=== PATIENT | male | born 1975 ===

== ENCOUNTER 2016-11-21 22:18 | Inpatient (IN) | payer BC, OTHER ==
--- NOTE | 2016-11-21 22:34 | ED PDOC ---
HPI: Skin/Bite Injury Time Seen by Provider: 11/21/16 22:28 Chief Complaint (Nursing): Abnormal Skin Integrity Chief Complaint (Provider): rash Additional Complaint(s): 40yo M DM and HTN for eval of inner groin pain/swelling/foul ordor x 2 weeks. denies fever chills body aches drainage penile or testicular swelling. admits to hx of similar 4x. denies fever, chills, pain in LE, CP SOB Past Medical History Reviewed: Historical Data, Nursing Documentation, Vital Signs Vital Signs: Last Vital Signs Temp 97.7 F 11/23/16 07:31 Pulse 71 11/23/16 09:03 Resp 18 11/23/16 07:31 BP 131/78 11/23/16 09:04 Pulse Ox 98 11/23/16 07:31 - Medical History PMH: Anemia, Diabetes, HTN, Hypercholesterolemia, Hyperlipidemia, Hypothyroidism , Peripheral Edema Denies: Arthritis, HIV, Chronic Kidney Disease - Family History Family History: States: Diabetes - Immunization History Hx Tetanus Toxoid Vaccination: No Hx Influenza Vaccination: No Hx Pneumococcal Vaccination: No - Home Medications Home Medications: Ambulatory Orders Medication Instructions Recorded Atorvastatin [Lipitor] 40 mg PO DAILY 10/04/15 Levothyroxine Sodium [Synthroid] 75 mcg PO DAILY 10/04/15 Losartan [Cozaar] 100 mg PO DAILY #0 tab 01/10/16 Furosemide [Lasix] 40 mg PO QAM #10 tab 03/01/16 Insulin Human Regular [HumuLIN R] 8 unit SC ACTID 03/01/16 Insulin Glargine,Hum.rec.anlog 43 units SUBCON HS 11/22/16 [Basaglar Kwikpen U-100] cloNIDine [Catapres] 0.2 mg PO BID 11/22/16 Clindamycin [Cleocin] 300 mg PO TID #30 cap 11/23/16 - Allergies Allergies/Adverse Reactions: Allergies Allergy/AdvReac Type Severity Reaction Status Date / Time No Known Allergies Allergy Verified 03/01/16 03:02 Review of Systems ROS Statement: Except As Marked, All Systems Reviewed And Found Negative Constitutional: Negative for: Fever, Chills, Malaise Musculoskeletal: Positive for: Leg Pain Physical Exam - Reviewed Nursing Documentation Reviewed: Yes Vital Signs Reviewed: Yes - Physical Exam Appears: Positive for: Well, Non-toxic, No Acute Distress Cardiovascular/Chest: Positive for: Regular Rate, Rhythm Respiratory: Positive for: CNT, Normal Breath Sounds Male Genital Exam: Positive for: other (left pelvic area. abscess noted to apex of scrtom/pannus. foul smell, beefy red pasthces with satellite lesions in inner thigh) Neurologic/Psych: Positive for: Alert, Oriented - Laboratory Results Result Diagrams: 11/23/16 06:00 11/23/16 06:00 - ECG O2 Sat by Pulse Oximetry: 100 - Progress ED Course And Treament: impression: abscess and neha will get US and given IV abx (considering pt is FM) and will get cbc/cmp/bld cx. Disposition - Clinical Impression Clinical Impression: Abscess, Neha infection of genital region, Renal failure - Patient ED Disposition Is Patient to be Admitted: No Counseled Patient/Family Regarding: Studies Performed, Diagnosis, Need For Followup, Rx Given - Disposition Disposition: Routine/Home Disposition Time: 13:16 Condition: STABLE Patient Signed Over To: Mark Laureano
[2016-11-21] MEDS ORDERED: Clindamycin 600 MG in Sodium Chloride 0.9% 100 ML IVPB STA (22:42)
--- NOTE | 2016-11-21 23:47 | US ---
EXAM: US Scrotum CLINICAL HISTORY: 40 years old, male; Pain; Scrotum pain; Additional info: Left testicular swelling ? abscess TECHNIQUE: Real-time ultrasound of the scrotum with color Doppler and image documentation. COMPARISON: No relevant prior studies available. FINDINGS: Right testicle: No mass. No torsion. Left testicle: No mass. No torsion. Epididymides: Unremarkable as visualized. Scrotum: Unremarkable. IMPRESSION: No sonographic evidence of testicular torsion.
--- NOTE | 2016-11-22 00:02 | ED PDOC ---
- Laboratory Results Result Diagrams: 11/22/16 08:20 11/22/16 10:00 - ECG O2 Sat by Pulse Oximetry: 100 - Progress ED Course And Treament: 0000 Signed out to me pending labs. 1424 Mass was aspirated of 3cc of purulent material under sterile conditions. Pt. reports good relief of pain following aspiration. Case d/w Dr. Islas, FP resident, and arrangements made for 23 hr observation. Disposition Discussed With : Ray Islas - Clinical Impression Clinical Impression: Abscess, Neha infection of genital region, Renal failure - POA Present On Arrival: None - Disposition Disposition: Hospitalized as Observation Patient Disposition Time: 02:25 Condition: STABLE
[2016-11-22 00:03] LABS: BASO # 0.1 K/uL (0.0-0.2); BASO % 0.8 % (0.0-2.0); EOS # 0.2 K/uL (0.0-0.7); EOS % 2.3 % (0.0-4.0); HEMATOCRIT 31.3 % (35.0-51.0); LYMPH # 2.3 K/uL (1.0-4.3); LYMPH % 26.8 % (20.0-40.0); MEAN CELL VOLUME 87.9 fl (80.0-94.0); MEAN CORPUSCULAR HEMOGLOBIN 29.1 pg (27.0-31.0); MEAN CORPUSCULAR HGB CONC 33.1 g/dL (33.0-37.0); MEAN PLATELET VOLUME 10.5 fl (7.2-11.7); MONO # 0.7 K/uL (0.0-0.8); MONO % 7.8 % (0.0-10.0); NEUT # 5.3 K/uL (1.8-7.0); NEUT % 62.3 % (50.0-75.0); RED CELL DISTRIBUTION WIDTH 14.2 % (11.5-14.5); WHITE BLOOD COUNT 8.6 K/uL (4.8-10.8)
[2016-11-22 00:19] LABS: ALB/GLOB RATIO 0.9 (1.0-2.1); BILIRUBIN,TOTAL 0.2 mg/dl (0.2-1.3); CALCIUM 8.1 mg/dL (8.4-10.2); POTASSIUM 4.3 MMOL/L (3.6-5.0); TOTAL PROTEIN 6.2 G/DL (6.3-8.2)
--- NOTE | 2016-11-22 02:33 | CP.PCM.HP ---
Addendum entered and electronically signed by Dale Shaver MD 11/22/16 13:57: Patient seen and evaluated this morning. Patient states feels well with minimal pain of left groin abscess. Patient reports following up with Dr. Davis for 4 months, unsure of status of kidney disease. Taking medications as prescribed. Patient states abscess has worsened x 2 weeks. No meds/abx taken. No fever, chills. Exam shows same including drainage of left inguinal abscess. Consulted Nephrology for further evaluation/management of renal disease. Call made out to Dr. Davis's office regarding patient and request for further information due to patient's change in renal function since last labs. Consulted Surgery for possible I&D of abscess. Warm compresses ordered as well. Monitor vitals and c/w Clindamycin as scheduled. Original Note: History of Present Illness - History of Present Illness History of Present Illness: 40yo M w/ h/o morbid obesity, IDDM, HTN, CKD (stage 3 per last documentation) presented initially to ED for evaluation of a small left inguinal region abscess which was drained successfully in the ED. Labwork revealed Cr of 4.7 today with no recent labs to compare. Last BMP from 2015. Upon further chart review from [facility], patient was seen 09/20 by a applications sales consultant in [facility], Dr Davis, urged to get renal labs, renal US and follow up in 1 month' s time. Patient has not gone back for the follow up appt due to ''losing his insurance'' ( per patient). Denies fever chills body aches drainage penile or testicular swelling, no hematuria, back pain States being compliant with current medications. PMD: Dr Jerome [facility] Nephro: Dr Davis ( [facility]) PMH: hypothyroidism, morbid obesity, IDDM, HTN, CKD (stage 3 per last documentation) Meds: per [facility] Clonidine HCl 0.2 MG Tablet Losartan Potassium 100 MG Tablet Basaglar KwikPen 100 UNIT/ML Solution Pen-injector Humulin R 100 UNIT/ML Solution Levothyroxine Sodium 75 MCG Tablet Atorvastatin Calcium 40 MG Tablet Allergies: NKDA ED Course: clinda IV x 1, Nystatin, Drainage of left inguinal abscess: 3 ml of purulent fluid drained in ED, BCx, labs: BUN Cr 75/4.7 GFR 17 VS: initial elevated BP attributed to wrong cuff size, repeat normotensive Present on Admission - Present on Admission Any Indicators Present on Admission: No History of DVT/PE: No History of Uncontrolled Diabetes: No Review of Systems - Review of Systems Review of Systems: see hpi Past Patient History - Infectious Disease Hx of Infectious Diseases: None - Tetanus Immunizations Tetanus Immunization: Unknown - Past Medical History & Family History Past Medical History?: Yes - Past Social History Smoking Status: Never Smoked - CARDIAC Hx Hypercholesterolemia: Yes Hx Hypertension: Yes Hx Peripheral Edema: Yes - PULMONARY Hx Respiratory Disorders: No - NEUROLOGICAL Hx Neurological Disorder: No - HEENT Hx HEENT Problems: Yes Hx Cataracts: Yes (Both eyes) - RENAL Hx Chronic Kidney Disease: No - ENDOCRINE/METABOLIC Hx Hypothyroidism: Yes - HEMATOLOGICAL/ONCOLOGICAL Hx Anemia: Yes Hx Human Immunodeficiency Virus (HIV): No - INTEGUMENTARY Hx Dermatological Problems: Yes Hx Camacho: Yes (2nd degree lower extremity) Hx Cellulitis: Yes Other/Comment: Hx Diabetic foot ulcer -right foot in past - MUSCULOSKELETAL/RHEUMATOLOGICAL Hx Arthritis: No - GASTROINTESTINAL Hx Gastrointestinal Disorders: No - GENITOURINARY/GYNECOLOGICAL Hx Urinary Tract Infection: Yes - PSYCHIATRIC Hx Psychophysiologic Disorder: No Hx Substance Use: No - SURGICAL HISTORY Hx Eye Surgery: Yes - ANESTHESIA Hx Anesthesia: Yes Hx Anesthesia Reactions: No Meds Allergies/Adverse Reactions: Allergies Allergy/AdvReac Type Severity Reaction Status Date / Time No Known Allergies Allergy Verified 03/01/16 03:02 Physical Exam - Constitutional Appears: No Acute Distress Additional comments: morbidly obese - Head Exam Head Exam: ATRAUMATIC - Eye Exam Eye Exam: EOMI, PERRL - ENT Exam ENT Exam: Mucous Membranes Moist - Cardiovascular Exam Cardiovascular Exam: +S1, +S2 - Expanded Exam Expanded Male exam: Positive for: erythema (left inguinal region: foul smell, beefy red pasthces with satellite lesions in inner thigh, s/p drainage of abscess, no more fluctance appreciated) - Extremities Exam Extremities exam: Positive for: pedal edema, pedal pulses present. Negative for : calf tenderness Additional comments: 2+ edema bilaterally + callous feet bilaterally - Neurological Exam Neurological exam: Alert, Oriented x3 - Skin Skin Exam: Dry, Normal Color, Warm Results - Vital Signs Recent Vital Signs: Last Vital Signs Temp 98.0 F 11/21/16 22:24 Pulse 87 11/21/16 23:59 Resp 16 11/21/16 22:24 BP 132/80 11/21/16 23:59 Pulse Ox 100 11/22/16 00:02 - Labs Result Diagrams: 11/21/16 23:59 11/21/16 23:59 Labs: Laboratory Results - last 24 hr 11/21/16 11/21/16 23:59 23:59 WBC 8.6 RBC 3.56 L Hgb 10.4 L Hct 31.3 L MCV 87.9 D MCH 29.1 MCHC 33.1 RDW 14.2 Plt Count 166 MPV 10.5 Neut % (Auto) 62.3 Lymph % (Auto) 26.8 [place] % (Auto) 7.8 Eos % (Auto) 2.3 Baso % (Auto) 0.8 Neut # 5.3 Lymph # 2.3 [place] # 0.7 Eos # 0.2 Baso # 0.1 Sodium 137 Potassium 4.3 Chloride 108 H Carbon Dioxide 20 L Anion Gap 13 BUN 75 H Creatinine 4.7 H Est GFR ( Amer) 17 Est GFR (Non-Af Amer) 14 Random Glucose 112 H Calcium 8.1 L Total Bilirubin 0.2 AST 38 ALT 40 Alkaline Phosphatase 94 Total Protein 6.2 L Albumin 2.9 L Globulin 3.3 Albumin/Globulin Ratio 0.9 L Assessment & Plan - Assessment and Plan (Free Text) Plan: 40yo M w/ h/o morbid obesity, IDDM, HTN, CKD (stage 3 per last documentation) presented initially to ED for evaluation of a small left inguinal region abscess which was drained successfully in the ED. Labwork revealed Cr of 4.7 today with no recent labs to compare. Admitted due to worsening of CKD CKD stage 4 2/2 diabetic nephropathy ED Course: labs: BUN Cr 75/4.7 GFR 17, stage 4 CKD VS: initial elevated BP attributed to wrong cuff size, repeat normotensive recent Renal US 09/20 reviewed: no stones, hydronephrosis, unremarkable c/w home meds laspriyank cozaar consider nephro consult in AM for worsening disease IDDM c/w with home insulin regimen HDSS while in house for additional coverage hypoglycemia protocol accuchecks ACHS HTN c/w Clonidine DVT PPx SCDs ambulates consider lovenox (renally dosed) if pt staying >24 hrs Diet diabetic, Na restricted renal
[2016-11-22] MEDS ORDERED: Dextrose 50% SYRINGE Inj (50 ml) IV PRN (02:53)
[2016-11-22] MEDS ORDERED: Glucagon Recombinant 1 mg Inj IM PRN (02:53)
[2016-11-22] MEDS: Levothyroxine 75 MCG TAB PO SCH (06:51)
[2016-11-22] MEDS: Insulin Lispro (humaLOG) 100 Units/ml Inj SC SCH ×4 (06:58→22:25)
[2016-11-22] MEDS: Insulin Regular 100 units/ml SC SCH ×3 (08:41→17:26)
[2016-11-22 10:18] LABS: HEMATOCRIT 30.6 % (35.0-51.0); MEAN CELL VOLUME 88.5 fl (80.0-94.0); MEAN CORPUSCULAR HEMOGLOBIN 29.4 pg (27.0-31.0); MEAN CORPUSCULAR HGB CONC 33.2 g/dL (33.0-37.0); MEAN PLATELET VOLUME 10.6 fl (7.2-11.7); RED CELL DISTRIBUTION WIDTH 13.8 % (11.5-14.5); WHITE BLOOD COUNT 10.6 K/uL (4.8-10.8)
[2016-11-22 11:58] LABS: ALB/GLOB RATIO 0.9 (1.0-2.1); BILIRUBIN,TOTAL 0.2 mg/dl (0.2-1.3); CALCIUM 8.4 mg/dL (8.4-10.2); POTASSIUM 4.7 MMOL/L (3.6-5.0); TOTAL PROTEIN 6.2 G/DL (6.3-8.2)
--- NOTE | 2016-11-22 13:27 | CP.PCM.CON ---
History of Present Illness - History of Present Illness History of Present Illness: 40 y/o male with Hx/o IDDM,HTN.morbid obesity, HLD is admitted for an inguinal abscess & had I&D yesterday Denies Hx/o eye problems, or kidney stones Renal consult is requested because of abnormal kidney functionPt states that he had seen Dr Davis ( [employer] ) as out patient; Previous labs reviewed, In Pts creat was 2.0 & had heavy peoteinuria. Past Patient History - Infectious Disease Hx of Infectious Diseases: None - Tetanus Immunizations Tetanus Immunization: Unknown - Past Medical History & Family History Past Medical History?: Yes - Past Social History Smoking Status: Never Smoked - CARDIAC Hx Cardiac Disorders: Yes Hx Hypercholesterolemia: Yes Hx Hypertension: Yes Hx Peripheral Edema: Yes - PULMONARY Hx Respiratory Disorders: No - NEUROLOGICAL Hx Neurological Disorder: No - HEENT Hx HEENT Problems: Yes Hx Cataracts: Yes (Both eyes) - RENAL Hx Chronic Kidney Disease: Yes Hx Renal Failure: Yes - ENDOCRINE/METABOLIC Hx Endocrine Disorders: Yes Hx Diabetes Mellitus Type 2: Yes Hx Hypothyroidism: Yes - HEMATOLOGICAL/ONCOLOGICAL Hx Blood Disorders: Yes Hx Anemia: Yes Hx Human Immunodeficiency Virus (HIV): No - INTEGUMENTARY Hx Dermatological Problems: Yes Hx Camacho: Yes (2nd degree lower extremity) Hx Cellulitis: Yes Other/Comment: Hx Diabetic foot ulcer -right foot in past - MUSCULOSKELETAL/RHEUMATOLOGICAL Hx Musculoskeletal Disorders: No Hx Falls: No - GASTROINTESTINAL Hx Gastrointestinal Disorders: No - GENITOURINARY/GYNECOLOGICAL Hx Genitourinary Disorders: Yes Hx Urinary Tract Infection: Yes - PSYCHIATRIC Hx Psychophysiologic Disorder: No Hx Substance Use: No - SURGICAL HISTORY Hx Surgeries: Yes Hx Eye Surgery: Yes - ANESTHESIA Hx Anesthesia: Yes Hx Anesthesia Reactions: No Hx Malignant Hyperthermia: No Has any member of the family had a problem w/ anesthesia?: No Meds Allergies/Adverse Reactions: Allergies Allergy/AdvReac Type Severity Reaction Status Date / Time No Known Allergies Allergy Verified 03/01/16 03:02 - Medications Medications: Current Medications Atorvastatin Calcium (Lipitor) 40 mg PO DAILY [facility] Last Admin: 11/22/16 08:42 Dose: 40 mg Clonidine HCl (Catapres) 0.2 mg PO BID [facility] Last Admin: 11/22/16 08:43 Dose: 0.2 mg Dextrose (Dextrose 50% Inj) 0 ml IV STAT PRN; Protocol PRN Reason: Hyglycemia Protocol Dextrose (Glutose 15) 0 gm PO ONCE PRN; Protocol PRN Reason: Hypoglycemia Protocol Furosemide (Lasix) 40 mg PO QAM [facility] Last Admin: 11/22/16 08:40 Dose: 40 mg Glucagon (Glucagen Diagnostic Kit) 0 mg IM STAT PRN; Protocol PRN Reason: Hypoglycemia Protocol Clindamycin Phosphate 600 mg/ (Sodium Chloride) 104 mls @ 104 mls/hr IVPB Q8 [facility] Insulin Detemir (Levemir) 43 units SC HS [facility] Insulin Human Lispro (Humalog) 0 units SC ACCU-CHECK [facility] PRN Reason: Protocol Last Admin: 11/22/16 06:58 Dose: Not Given Insulin Human Regular (Humulin R) 8 units SC ACTID [facility] Last Admin: 11/22/16 08:41 Dose: Not Given Levothyroxine Sodium (Synthroid) 75 mcg PO DAILY@0630 [facility] Last Admin: 11/22/16 06:51 Dose: 75 mcg Losartan Potassium (Cozaar) 100 mg PO DAILY [facility] Last Admin: 11/22/16 08:41 Dose: 100 mg Physical Exam - Constitutional Appears: No Acute Distress Additional comments: 40 y/o obese male NAD - Head Exam Head Exam: ATRAUMATIC, NORMOCEPHALIC - Eye Exam Additional comments: Conjunctivae pink, sclera anicteric - ENT Exam ENT Exam: Mucous Membranes Moist - Neck Exam Additional comments: JVD flat - Respiratory Exam Additional comments: Lunghs clear - Cardiovascular Exam Cardiovascular Exam: REGULAR RHYTHM - GI/Abdominal Exam GI & Abdominal Exam: Soft Additional comments: Abd nontender - Psychiatric Exam Additional comments: 2+ B/L pedal edema Results - Vital Signs Recent Vital Signs: Last Vital Signs Temp 97.9 F 11/22/16 08:34 Pulse 79 11/22/16 08:43 Resp 20 11/22/16 08:34 BP 158/92 H 11/22/16 08:43 Pulse Ox 98 11/22/16 08:34 - Labs Result Diagrams: 11/22/16 08:20 11/22/16 10:00 Assessment & Plan - Assessment and Plan (Free Text) Assessment: Pt most likely has diabetic nephropathy which has progressed to stage 1V kidney dis as suggested by estimated GFR A renal US was done in 09/2016 which showed Rt kid 8.1 cm Lt kidney 7,1 cm, echogenicity was reorted as normal HTN IDDM Inguinal abscess Plan: UA, urine prot/cret phos, PTH Control BP & continue with Losartan Repeat labs in am
[2016-11-22] MEDS: Clindamycin 600 MG in Sodium Chloride 0.9% 100 ML IVPB SCH (14:52)
--- NOTE | 2016-11-22 18:47 | CP.PCM.CON ---
<Geni Goodman - Last Filed: 11/22/16 18:41> History of Present Illness - History of Present Illness History of Present Illness: Surgery 40 M w PMH of DM, abscess on the R groin, obesity, Chronic kidney disease and PSH of I &D of abscesses came with L groin abscess. Pt reports that he started to notice the lump 2 weeks ago and it has gotten larger, more red and area is more painful. Denies F/C/N/V/D/CP/SOB. Pt had abscesses in the past before and had I &D done on R groin. Pt used warm compress in the past. Testicular US shows no testicular torsion. Pt is compliant with DM meds. Reports that ED aspirated yesterday and put out about 10cc puss. Area was still red and painful. I &D of L groin is performed on the bedside. Pt tolerated it well. Review of Systems - Review of Systems Review of Systems: See HPI Past Patient History - Infectious Disease Hx of Infectious Diseases: None - Tetanus Immunizations Tetanus Immunization: Unknown - Past Medical History & Family History Past Medical History?: Yes - Past Social History Smoking Status: Never Smoked - CARDIAC Hx Cardiac Disorders: Yes Hx Hypercholesterolemia: Yes Hx Hypertension: Yes Hx Peripheral Edema: Yes - PULMONARY Hx Respiratory Disorders: No - NEUROLOGICAL Hx Neurological Disorder: No - HEENT Hx HEENT Problems: Yes Hx Cataracts: Yes (Both eyes) - RENAL Hx Chronic Kidney Disease: Yes Hx Renal Failure: Yes - ENDOCRINE/METABOLIC Hx Endocrine Disorders: Yes Hx Diabetes Mellitus Type 2: Yes Hx Hypothyroidism: Yes - HEMATOLOGICAL/ONCOLOGICAL Hx Blood Disorders: Yes Hx Anemia: Yes Hx Human Immunodeficiency Virus (HIV): No - INTEGUMENTARY Hx Dermatological Problems: Yes Hx Camacho: Yes (2nd degree lower extremity) Hx Cellulitis: Yes Other/Comment: Hx Diabetic foot ulcer -right foot in past - MUSCULOSKELETAL/RHEUMATOLOGICAL Hx Musculoskeletal Disorders: No Hx Falls: No - GASTROINTESTINAL Hx Gastrointestinal Disorders: No - GENITOURINARY/GYNECOLOGICAL Hx Genitourinary Disorders: Yes Hx Urinary Tract Infection: Yes - PSYCHIATRIC Hx Psychophysiologic Disorder: No Hx Substance Use: No - SURGICAL HISTORY Hx Surgeries: Yes Hx Eye Surgery: Yes - ANESTHESIA Hx Anesthesia: Yes Hx Anesthesia Reactions: No Hx Malignant Hyperthermia: No Has any member of the family had a problem w/ anesthesia?: No Meds Allergies/Adverse Reactions: Allergies Allergy/AdvReac Type Severity Reaction Status Date / Time No Known Allergies Allergy Verified 03/01/16 03:02 - Medications Medications: Current Medications Atorvastatin Calcium (Lipitor) 40 mg PO DAILY [facility] Last Admin: 11/22/16 08:42 Dose: 40 mg Clonidine HCl (Catapres) 0.2 mg PO BID [facility] Last Admin: 11/22/16 17:23 Dose: 0.2 mg Dextrose (Dextrose 50% Inj) 0 ml IV STAT PRN; Protocol PRN Reason: Hyglycemia Protocol Dextrose (Glutose 15) 0 gm PO ONCE PRN; Protocol PRN Reason: Hypoglycemia Protocol Furosemide (Lasix) 40 mg PO QAM [facility] Last Admin: 11/22/16 08:40 Dose: 40 mg Glucagon (Glucagen Diagnostic Kit) 0 mg IM STAT PRN; Protocol PRN Reason: Hypoglycemia Protocol Clindamycin Phosphate 600 mg/ (Sodium Chloride) 104 mls @ 104 mls/hr IVPB Q8 [facility] Last Admin: 11/22/16 14:52 Dose: 104 mls/hr Insulin Detemir (Levemir) 43 units SC [facility] Insulin Human Lispro (Humalog) 0 units SC ACCU-CHECK [facility] PRN Reason: Protocol Last Admin: 11/22/16 17:21 Dose: 2 units Insulin Human Regular (Humulin R) 8 units SC ACTID [facility] Last Admin: 11/22/16 17:26 Dose: 8 units Levothyroxine Sodium (Synthroid) 75 mcg PO DAILY@0630 [facility] Last Admin: 11/22/16 06:51 Dose: 75 mcg Losartan Potassium (Cozaar) 100 mg PO DAILY [facility] Last Admin: 11/22/16 08:41 Dose: 100 mg Physical Exam - Constitutional Appears: No Acute Distress - Head Exam Head Exam: ATRAUMATIC, NORMAL INSPECTION, NORMOCEPHALIC - Eye Exam Eye Exam: EOMI, Normal appearance, PERRL Pupil Exam: NORMAL ACCOMODATION, PERRL - ENT Exam ENT Exam: Mucous Membranes Moist, Normal Exam - Neck Exam Neck exam: Positive for: Normal Inspection - Respiratory Exam Respiratory Exam: Clear to Auscultation Bilateral, NORMAL BREATHING PATTERN - Cardiovascular Exam Cardiovascular Exam: REGULAR RHYTHM - GI/Abdominal Exam GI & Abdominal Exam: Normal Bowel Sounds, Soft. absent: Distended, Tenderness - Exam Exam: Scrotal Swelling, Testicular Tenderness. absent: NORMAL INSPECTION, Uretheral Discharge External exam: Erythema, Swelling Additional comments: L scrotal area has 2cm erythema. Fluctuant. - Extremities Exam Extremities exam: Positive for: normal inspection - Back Exam Back exam: NORMAL INSPECTION - Neurological Exam Neurological exam: Alert, CN II-XII Intact, Normal Gait, Oriented x3, Reflexes Normal - Psychiatric Exam Psychiatric exam: Normal Affect, Normal Mood - Skin Skin Exam: Dry, Intact, Normal Color, Warm Results - Vital Signs Recent Vital Signs: Last Vital Signs Temp 98.3 F 11/22/16 16:19 Pulse 83 11/22/16 16:19 Resp 20 11/22/16 16:19 BP 149/87 11/22/16 17:23 Pulse Ox 96 11/22/16 16:19 - Labs Result Diagrams: 11/22/16 08:20 11/22/16 10:00 Labs: Laboratory Results - last 24 hr 11/22/16 11/22/16 16:00 16:14 POC Glucose (mg/dL) 171 H Phosphorus 5.5 H Assessment & Plan - Assessment and Plan (Free Text) Assessment: L groin abscess POD 0 s/p I&D -Packing in place. Change packing tomorrow -DM control -Pain control -Medical management DW Dr. Redding <Antoine Redding - Last Filed: 11/22/16 21:11> Meds - Medications Medications: Current Medications Atorvastatin Calcium (Lipitor) 40 mg PO DAILY [facility] Last Admin: 11/22/16 08:42 Dose: 40 mg Clonidine HCl (Catapres) 0.2 mg PO BID [facility] Last Admin: 11/22/16 17:23 Dose: 0.2 mg Dextrose (Dextrose 50% Inj) 0 ml IV STAT PRN; Protocol PRN Reason: Hyglycemia Protocol Dextrose (Glutose 15) 0 gm PO ONCE PRN; Protocol PRN Reason: Hypoglycemia Protocol Furosemide (Lasix) 40 mg PO QAM [facility] Last Admin: 11/22/16 08:40 Dose: 40 mg Glucagon (Glucagen Diagnostic Kit) 0 mg IM STAT PRN; Protocol PRN Reason: Hypoglycemia Protocol Clindamycin Phosphate 600 mg/ (Sodium Chloride) 104 mls @ 104 mls/hr IVPB Q8 [facility] Last Admin: 11/22/16 14:52 Dose: 104 mls/hr Insulin Detemir (Levemir) 43 units SC HS [facility] Insulin Human Lispro (Humalog) 0 units SC ACCU-CHECK [facility] PRN Reason: Protocol Last Admin: 11/22/16 17:21 Dose: 2 units Insulin Human Regular (Humulin R) 8 units SC ACTID [facility] Last Admin: 11/22/16 17:26 Dose: 8 units Levothyroxine Sodium (Synthroid) 75 mcg PO DAILY@0630 [facility] Last Admin: 11/22/16 06:51 Dose: 75 mcg Losartan Potassium (Cozaar) 100 mg PO DAILY [facility] Last Admin: 11/22/16 08:41 Dose: 100 mg Results - Vital Signs Recent Vital Signs: Last Vital Signs Temp 98.3 F 11/22/16 16:19 Pulse 83 11/22/16 16:19 Resp 20 11/22/16 16:19 BP 149/87 11/22/16 17:23 Pulse Ox 100 11/22/16 20:13 - Labs Result Diagrams: 11/22/16 08:20 11/22/16 10:00 Labs: Laboratory Results - last 24 hr 11/22/16 11/22/16 16:00 16:14 POC Glucose (mg/dL) 171 H Phosphorus 5.5 H Attending/Attestation - Attestation I have personally seen and examined this patient.: Yes I have fully participated in the care of the patient.: Yes I have reviewed all pertinent clinical information: Yes Notes (Text): 11/22/16 21:10 Pt was seen and examined at bedside Agree with above note and assessment Pt with Morbid Obesity and DM with Left groin abscess Labs reviewed. I & D at bedside Consent IV antibiotics Plan d.w pt in detail Risk and benefit explained in detail.
--- NOTE | 2016-11-22 18:55 | PCM.PROC ---
- Incision & Drainage Of Abscess Prep Used: Betadine Procedure: Incised W/Scalpel Blade#: (15), Drained Pus, Probed To Break Up Loculations, Packed W/Gauze
[2016-11-22] MEDS ORDERED: Insulin Detemir 100 Units/ml Inj SC SCH (22:00)
[2016-11-23] MEDS: Clindamycin 600 MG in Sodium Chloride 0.9% 100 ML IVPB SCH ×2 (01:07→09:03)
[2016-11-23] MEDS: Levothyroxine 75 MCG TAB PO SCH (05:58)
[2016-11-23 06:46] LABS: RBC URINE 2 /hpf (0-3); URINE BILIRUBIN NEGATIVE (NEGATIVE); URINE BLOOD SMALL (NEGATIVE); URINE COLOR YELLOW (YELLOW); URINE GLUCOSE (UA) 150 mg/dL (Normal); URINE KETONE NEGATIVE (NEGATIVE); URINE LEUKOCYTE ESTERASE NEG Leu/uL (Negative); URINE PROTEIN >=500 mg/dL (NEGATIVE); URINE UROBILINOGEN 0.2-1.0 mg/dL (0.2-1.0); WBC URINE 3 /hpf (0-5)
[2016-11-23 06:46] LABS: CREATININE, RANDOM URINE 90.6 mg/dL
[2016-11-23 07:31] VITALS: BP 131/78; RESP 18; TEMP 97.7
[2016-11-23 08:13] LABS: HEMATOCRIT 30.6 % (35.0-51.0); MEAN CELL VOLUME 87.6 fl (80.0-94.0); MEAN CORPUSCULAR HEMOGLOBIN 29.6 pg (27.0-31.0); MEAN CORPUSCULAR HGB CONC 33.8 g/dL (33.0-37.0); RED CELL DISTRIBUTION WIDTH 13.9 % (11.5-14.5); WHITE BLOOD COUNT 8.1 K/uL (4.8-10.8)
[2016-11-23] MEDS: Insulin Lispro (humaLOG) 100 Units/ml Inj SC SCH ×2 (08:22→12:42)
[2016-11-23] MEDS: Insulin Regular 100 units/ml SC SCH ×2 (08:23→12:42)
[2016-11-23 08:36] VITALS: PULSE 71
[2016-11-23 08:44] LABS: CALCIUM 8.4 mg/dL (8.4-10.2); POTASSIUM 4.5 MMOL/L (3.6-5.0)
--- NOTE | 2016-11-23 09:45 | CP.PCM.PN ---
<Geni Goodman - Last Filed: 11/23/16 09:42> Subjective - Date & Time of Evaluation Date of Evaluation: 11/23/16 Time of Evaluation: 09:43 - Subjective Subjective: Surgery Pt s&e. Packing changed. Denies F/C/N/V/D/CP/SOB. Pain controlled. Objective - Vital Signs/Intake and Output Vital Signs (last 24 hours): Temp Pulse Resp BP Pulse Ox 97.7 F 71 18 131/78 98 11/23/16 07:31 11/23/16 09:03 11/23/16 07:31 11/23/16 09:04 11/23/16 07:31 - Medications Medications: Current Medications Atorvastatin Calcium (Lipitor) 40 mg PO DAILY [facility] Last Admin: 11/23/16 09:04 Dose: 40 mg Clonidine HCl (Catapres) 0.2 mg PO BID [facility] Last Admin: 11/23/16 09:03 Dose: 0.2 mg Dextrose (Dextrose 50% Inj) 0 ml IV STAT PRN; Protocol PRN Reason: Hyglycemia Protocol Dextrose (Glutose 15) 0 gm PO ONCE PRN; Protocol PRN Reason: Hypoglycemia Protocol Furosemide (Lasix) 40 mg PO QAM [facility] Last Admin: 11/23/16 09:04 Dose: 40 mg Glucagon (Glucagen Diagnostic Kit) 0 mg IM STAT PRN; Protocol PRN Reason: Hypoglycemia Protocol Clindamycin Phosphate 600 mg/ (Sodium Chloride) 104 mls @ 104 mls/hr IVPB Q8 [facility] Last Admin: 11/23/16 09:03 Dose: 104 mls/hr Insulin Detemir (Levemir) 43 units SC HS [facility] Last Admin: 11/22/16 22:06 Dose: 43 unit Insulin Human Lispro (Humalog) 0 units SC ACCU-CHECK [facility] PRN Reason: Protocol Last Admin: 11/23/16 08:22 Dose: Not Given Insulin Human Regular (Humulin R) 8 units SC ACTID [facility] Last Admin: 11/23/16 08:23 Dose: Not Given Levothyroxine Sodium (Synthroid) 75 mcg PO DAILY@0630 [facility] Last Admin: 11/23/16 05:58 Dose: 75 mcg Losartan Potassium (Cozaar) 100 mg PO DAILY [facility] Last Admin: 11/23/16 09:04 Dose: 100 mg - Labs Labs: 11/23/16 06:00 11/23/16 06:00 - Constitutional Appears: No Acute Distress - Head Exam Head Exam: ATRAUMATIC, NORMAL INSPECTION, NORMOCEPHALIC - Eye Exam Eye Exam: EOMI, Normal appearance, PERRL Pupil Exam: NORMAL ACCOMODATION, PERRL - ENT Exam ENT Exam: Mucous Membranes Moist, Normal Exam - Neck Exam Neck Exam: Full ROM, Normal Inspection. absent: Lymphadenopathy - Respiratory Exam Respiratory Exam: Clear to Ausculation Bilateral, NORMAL BREATHING PATTERN - Cardiovascular Exam Cardiovascular Exam: REGULAR RHYTHM, +S1, +S2. absent: Murmur - GI/Abdominal Exam GI & Abdominal Exam: Soft, Normal Bowel Sounds. absent: Distended, Firm, Guarding, Rigid, Tenderness - Rectal Exam Rectal Exam: NORMAL INSPECTION - Exam Exam: Scrotal Swelling (1cm incision SS drainage. Packing changed. ) - Back Exam Back Exam: NORMAL INSPECTION - Neurological Exam Neurological Exam: Alert, Awake, CN II-XII Intact, Normal Gait, Oriented x3 - Psychiatric Exam Psychiatric exam: Normal Affect, Normal Mood - Skin Skin Exam: Dry, Erythema, Warm Assessment and Plan - Assessment and Plan (Free Text) Assessment: L scrotal abscess s/p I &D POD 1 -Medical management -ABX -Blood sugar control Dr. Redding <Antoine Redding - Last Filed: 11/23/16 14:18> Objective - Vital Signs/Intake and Output Vital Signs (last 24 hours): Temp Pulse Resp BP Pulse Ox 97.7 F 71 18 131/78 98 11/23/16 07:31 11/23/16 09:03 11/23/16 07:31 11/23/16 09:04 11/23/16 07:31 - Medications Medications: Current Medications Atorvastatin Calcium (Lipitor) 40 mg PO DAILY [facility] Last Admin: 11/23/16 09:04 Dose: 40 mg Clonidine HCl (Catapres) 0.2 mg PO BID [facility] Last Admin: 11/23/16 09:03 Dose: 0.2 mg Dextrose (Dextrose 50% Inj) 0 ml IV STAT PRN; Protocol PRN Reason: Hyglycemia Protocol Dextrose (Glutose 15) 0 gm PO ONCE PRN; Protocol PRN Reason: Hypoglycemia Protocol Furosemide (Lasix) 40 mg PO QAM [facility] Last Admin: 11/23/16 09:04 Dose: 40 mg Glucagon (Glucagen Diagnostic Kit) 0 mg IM STAT PRN; Protocol PRN Reason: Hypoglycemia Protocol Clindamycin Phosphate 600 mg/ (Sodium Chloride) 104 mls @ 104 mls/hr IVPB Q8 [facility] Last Admin: 11/23/16 09:03 Dose: 104 mls/hr Insulin Detemir (Levemir) 43 units SC HS [facility] Last Admin: 11/22/16 22:06 Dose: 43 unit Insulin Human Lispro (Humalog) 0 units SC ACCU-CHECK [facility] PRN Reason: Protocol Last Admin: 11/23/16 12:42 Dose: Not Given Insulin Human Regular (Humulin R) 8 units SC ACTID [facility] Last Admin: 11/23/16 12:42 Dose: Not Given Levothyroxine Sodium (Synthroid) 75 mcg PO DAILY@0630 [facility] Last Admin: 11/23/16 05:58 Dose: 75 mcg Losartan Potassium (Cozaar) 100 mg PO DAILY [facility] Last Admin: 11/23/16 09:04 Dose: 100 mg - Labs Labs: 11/23/16 06:00 11/23/16 06:00 Attending/Attestation - Attestation I have personally seen and examined this patient.: Yes I have fully participated in the care of the patient.: Yes I have reviewed all pertinent clinical information, including history, physical exam and plan: Yes Notes (Text): 11/23/16 14:18 Pt was seen and examined at bedside Agree with above note and assessment
--- NOTE | 2016-11-23 12:21 | CP.PCM.DIS ---
Provider - Provider Date of Admission: 11/22/16 12:14 Attending physician: Janel William MD Time Spent in preparation of Discharge (in minutes): 30 Diagnosis - Discharge Diagnosis (1) Abscess Status: Acute (2) Renal failure Status: Chronic Hospital Course - Lab Results Lab Results: Most Recent Lab Values WBC 8.1 K/uL (4.8-10.8) 11/23/16 06:00 RBC 3.49 Mil/uL (4.40-5.90) L 11/23/16 06:00 Hgb 10.3 g/dL (12.0-18.0) L 11/23/16 06:00 Hct 30.6 % (35.0-51.0) L 11/23/16 06:00 MCV 87.6 fl (80.0-94.0) 11/23/16 06:00 MCH 29.6 pg (27.0-31.0) 11/23/16 06:00 MCHC 33.8 g/dL (33.0-37.0) 11/23/16 06:00 RDW 13.9 % (11.5-14.5) 11/23/16 06:00 Plt Count 163 K/uL (130-400) 11/23/16 06:00 MPV 10.6 fl (7.2-11.7) 11/22/16 08:20 Neut % (Auto) 62.3 % (50.0-75.0) 11/21/16 23:59 Lymph % (Auto) 26.8 % (20.0-40.0) 11/21/16 23:59 [place] % (Auto) 7.8 % (0.0-10.0) 11/21/16 23:59 Eos % (Auto) 2.3 % (0.0-4.0) 11/21/16 23:59 Baso % (Auto) 0.8 % (0.0-2.0) 11/21/16 23:59 Neut # 5.3 K/uL (1.8-7.0) 11/21/16 23:59 Lymph # 2.3 K/uL (1.0-4.3) 11/21/16 23:59 [place] # 0.7 K/uL (0.0-0.8) 11/21/16 23:59 Eos # 0.2 K/uL (0.0-0.7) 11/21/16 23:59 Baso # 0.1 K/uL (0.0-0.2) 11/21/16 23:59 Sodium 136 mmol/l (132-148) 11/23/16 06:00 Potassium 4.5 MMOL/L (3.6-5.0) 11/23/16 06:00 Chloride 110 mmol/L (98-107) H 11/23/16 06:00 Carbon Dioxide 19 mmol/L (22-30) L 11/23/16 06:00 Anion Gap 12 (10-20) 11/23/16 06:00 BUN 71 mg/dl (9-20) H 11/23/16 06:00 Creatinine 4.6 mg/dL (0.8-1.5) H 11/23/16 06:00 Est GFR ( Amer) 17 11/23/16 06:00 Est GFR (Non-Af Amer) 14 11/23/16 06:00 POC Glucose (mg/dL) 131 mg/dL (65-110) H 11/23/16 10:48 Random Glucose 105 mg/dL (75-110) 11/23/16 06:00 Calcium 8.4 mg/dL (8.4-10.2) 11/23/16 06:00 Phosphorus 5.5 mg/dl (2.5-4.5) H 11/22/16 16:00 Total Bilirubin 0.2 mg/dl (0.2-1.3) 11/22/16 10:00 AST 60 U/L (17-59) H D 11/22/16 10:00 ALT 40 U/L (21-72) 11/22/16 10:00 Alkaline Phosphatase 83 U/L (38-126) 11/22/16 10:00 Total Protein 6.2 G/DL (6.3-8.2) L 11/22/16 10:00 Albumin 2.9 g/dL (3.5-5.0) L 11/22/16 10:00 Globulin 3.3 gm/dL (2.2-3.9) 11/22/16 10:00 Albumin/Globulin Ratio 0.9 (1.0-2.1) L 11/22/16 10:00 Urine Color Yellow (YELLOW) 11/22/16 06:30 Urine Clarity Slighty-cloudy (Clear) 11/22/16 06:30 Urine pH 6.0 (5.0-8.0) 11/22/16 06:30 Ur Specific [place] 1.017 (1.003-1.030) 11/22/16 06:30 Urine Protein >=500 mg/dL (NEGATIVE) 11/22/16 06:30 Urine Glucose (UA) 150 mg/dL (Normal) 11/22/16 06:30 Urine Ketones Negative mg/dL (NEGATIVE) 11/22/16 06:30 Urine Blood Small (NEGATIVE) 11/22/16 06:30 Urine Nitrate Negative (NEGATIVE) 11/22/16 06:30 Urine Bilirubin Negative (NEGATIVE) 11/22/16 06:30 Urine Urobilinogen 0.2-1.0 mg/dL (0.2-1.0) 11/22/16 06:30 Ur Leukocyte Esterase Neg Cruz/uL (Negative) 11/22/16 06:30 Urine RBC (Auto) 2 /hpf (0-3) 11/22/16 06:30 Urine Microscopic WBC 3 /hpf (0-5) 11/22/16 06:30 Ur Squamous Epith Cells 1 /hpf (0-5) 11/22/16 06:30 Ur Random Creatinine 90.6 mg/dL 11/22/16 21:10 Ur Random Sodium 73 meq/L 11/22/16 21:10 Ur Random Potassium 39.8 mmol/L 11/22/16 21:10 - Hospital Course Hospital Course: 40 year old male with h/o morbid obesity, IDDM, HTN, CKD presented to ED with left groin pain, noted to be abscess. Admitted for abscess and renal disease that was worsening from previous findings. Patient was seen by nephrology and surgery. I&D of abscess on day 1 of admission without complication. No fevers, leukocytosis noted. Patient improved significantly with IV abx and procedure. Will discharge patient home with PO clindamycin. Patient to follow up with nephrology and PCP this week for further management of renal disease. Discharge Exam - Head Exam Head Exam: ATRAUMATIC, NORMAL INSPECTION, NORMOCEPHALIC - Eye Exam Eye Exam: Normal appearance - Respiratory Exam Respiratory Exam: Clear to PA & Lateral, NORMAL BREATHING PATTERN, UNREMARKABLE - Cardiovascular Exam Cardiovascular Exam: REGULAR RHYTHM, RRR, +S1, +S2 - GI/Abdominal Exam GI & Abdominal Exam: Normal Bowel Sounds, Soft. absent: Tenderness - Exam Additional comments: 1cm groin incision with minimal drainage. Packing in place. - Extremities Exam Extremities exam: pedal edema - Neurological Exam Neurological exam: Alert, Oriented x3 - Psychiatric Exam Psychiatric exam: Normal Affect, Normal Mood - Skin Skin Exam: Dry, Intact, Normal Color, Warm Discharge Plan - Discharge Medications Prescriptions: Clindamycin [Cleocin] 300 mg PO TID #30 cap - Follow Up Plan Condition: STABLE Disposition: HOME/ ROUTINE Patient education suggested?: Yes Instructions: Abscess (ED), Skin Yeast Infection (ED) Referrals: [facility] [place] [Outside]
--- NOTE | 2016-11-23 12:23 | OP ---
PROCEDURE DATE: 11/22/2016 PREOPERATIVE DIAGNOSES: 1. Uncontrolled diabetes. 2. Left groin abscess, self draining. POSTOPERATIVE DIAGNOSES: 1. Uncontrolled diabetes. 2. Left groin abscess, self draining. PROCEDURE DONE: 1. Incision and drainage of left groin abscess. 2. Debridement of the wound. SURGEON: Antoine Redding MD INSTALLATION SUPERINTENDENT: Geni Goodman, PGY 1. TYPE OF ANESTHESIA: Local anesthesia. ESTIMATED BLOOD LOSS: Around 5 mL. DRAIN: None. PATHOLOGY: The pus was sent to the culture and sensitivity. COMPLICATIONS: None. INTRAOPERATIVE FINDINGS: The patient had approximately 2 x 2 cm abscess of left groin with cellulitis. INTRAOPERATIVE STEPS: This is a 40-year-old male who was diagnosed with left groin abscess and the patient had a cellulitis with uncontrolled diabetes and after consenting, the left groin was prepped and draped and cruciate incision was made and the left groin abscess was drained and cavity was debrided and packed with iodoform packing and dry sterile dressing was applied. There was a proper hemostasis and the pus was sent for culture and sensitivity. The patient tolerated the procedure well. Counts of the instrument was correct. There were no apparent complication. Antoine Redding MD MTDRivas
[2016-11-24 16:34] LABS: FREE KAPPA SERUM 140.7 mg/L (3.3-19.4)
[2016-12-03 13:15] VITALS: O2SAT 100
== END 2016-11-23 14:32 | disposition home or self-care (01) | DRG 603 ==
LOC: H.ER 22:18 → H.ERHOLD 11-22 02:47 → H.MEDSURG1 11-22 03:30 → OBSVTOIN 11-22 12:14
PROVIDERS: ADMIT Family Medicine; ATTEND Family Medicine
PROC: 0Y963ZZ Drainage of Left Inguinal Region, Percutaneous Approach (ICD-10-PCS; principal; 2016-11-22)
PROC: 0Y963ZZ Drainage of Left Inguinal Region, Percutaneous Approach (ICD-10-PCS; 2016-11-22)
DX: L02.214 Cutaneous abscess of groin (principal); B37.89 Other sites of candidiasis; N18.4 Chronic kidney disease, stage 4 (severe); E11.21 Type 2 diabetes mellitus with diabetic nephropathy; Z68.42 Body mass index [BMI] 45.0-49.9, adult; E03.9 Hypothyroidism, unspecified; E11.22 Type 2 diabetes mellitus with diabetic chronic kidney disease; E11.65 Type 2 diabetes mellitus with hyperglycemia; E66.01 Morbid (severe) obesity due to excess calories; E78.00 Pure hypercholesterolemia, unspecified; E78.5 Hyperlipidemia, unspecified; I12.9 Hypertensive chronic kidney disease with stage 1 through stage 4 chronic kidney disease, or unspecified chronic kidney disease; Z79.4 Long term (current) use of insulin

== ENCOUNTER 2017-01-09 03:54 | Emergency (ER) | payer BC ==
[2017-01-09 04:17] VITALS: RESP 18; TEMP 98.2; O2SAT 100
--- NOTE | 2017-01-09 04:28 | ED PDOC ---
Lower Extremity Pain/Injury Time Seen by Provider: 01/09/17 04:01 Chief Complaint (Nursing): Lower Extremity Problem/Injury Chief Complaint (Provider): Lower Extremity Problem/Injury History Per: Patient History/Exam Limitations: no limitations Onset/Duration Of Symptoms: Days (x4) Current Symptoms Are (Timing): Still Present Additional Complaint(s): Cruz Martinez is a 40 year old male with a history of diabetes, hypertension , hypercholesterolemia, and hypothyroidism that presents to the ED with a chief complaint of numbness to his legs that he has been experiencing for the past four days. Patient reports that this occurs occasionally, but that his legs are more swollen than usual, prompting his ED visit. He states that he has had an EMG in the past, but that he does not know the results. Patient denies any weakness, chest pain, or shortness of breath. Past Medical History Reviewed: Historical Data, Nursing Documentation, Vital Signs Vital Signs: Last Vital Signs Temp 98.2 F 01/09/17 04:08 Pulse 95 H 01/09/17 04:08 Resp 18 01/09/17 04:08 BP 187/92 H 01/09/17 04:21 Pulse Ox 100 01/09/17 04:08 - Medical History PMH: Anemia, Diabetes, HTN, Hypercholesterolemia, Hyperlipidemia, Hypothyroidism , Peripheral Edema Denies: Arthritis, HIV, Chronic Kidney Disease - Family History Family History: States: Diabetes - Immunization History Hx Tetanus Toxoid Vaccination: No Hx Influenza Vaccination: No Hx Pneumococcal Vaccination: No - Home Medications Home Medications: Ambulatory Orders Medication Instructions Recorded Atorvastatin [Lipitor] 40 mg PO DAILY 10/04/15 Levothyroxine Sodium [Synthroid] 75 mcg PO DAILY 10/04/15 Losartan [Cozaar] 100 mg PO DAILY #0 tab 01/10/16 Furosemide [Lasix] 40 mg PO QAM #10 tab 03/01/16 Insulin Human Regular [HumuLIN R] 8 unit SC ACTID 03/01/16 Insulin Glargine,Hum.rec.anlog 43 units SUBCON HS 11/22/16 [Basaglar Kwikpen U-100] cloNIDine [Catapres] 0.2 mg PO BID 11/22/16 Clindamycin [Cleocin] 300 mg PO TID #30 cap 11/23/16 - Allergies Allergies/Adverse Reactions: Allergies Allergy/AdvReac Type Severity Reaction Status Date / Time No Known Allergies Allergy Verified 01/09/17 04:07 Review of Systems Constitutional: Negative for: Weakness Cardiovascular: Positive for: Edema (bilateral pedal edema). Negative for: Chest Pain Respiratory: Negative for: Shortness of Breath Physical Exam - Reviewed Nursing Documentation Reviewed: Yes Vital Signs Reviewed: Yes - Physical Exam Appears: Positive for: Non-toxic, No Acute Distress (Patient is obese) Head Exam: Positive for: ATRAUMATIC, NORMOCEPHALIC Skin: Positive for: Normal Color, Warm Eye Exam: Positive for: Normal appearance, EOMI, PERRL Cardiovascular/Chest: Positive for: Regular Rate, Rhythm. Negative for: Murmur Respiratory: Positive for: Normal Breath Sounds. Negative for: Wheezing Gastrointestinal/Abdominal: Positive for: Normal Exam, Soft. Negative for: Tenderness Extremity: Positive for: Normal ROM, Pedal Edema (Bilateral 1+ pitting edema), Other (Motor stength is 5/5) Neurologic/Psych: Positive for: Alert, Oriented, Other (Decreased sensation bilateral equally. ). Negative for: Motor/Sensory Deficits - Laboratory Results Result Diagrams: 01/09/17 04:30 01/09/17 04:30 - ECG O2 Sat by Pulse Oximetry: 100 (RA) Pulse Ox Interpretation: Normal Medical Decision Making Medical Decision Making: Impression: Neuropathy Plan: * BMP * BNP * CBC * Catapres 0.1 mg PO * Reevaluation 530AM Pt's BP resolving. Labs show acute on chronic renal failure and elevated BNP, however no clinical symptoms of CHF/pulmonary edema (no crackles, pt. not c/o of SOB). Spoke w/ FP resident Dr. Ybarra, states that patient can followup in clinic today as an overbook, will endorse to day team FP resident to have patient contacted for an appointment today. Patient understands the importance of followup and will go to the clinic. Explained return precuations to patient. Scribe Attestation: Documented by Shandra Wilson, acting as a scribe for Vinayak Herman MD. Provider Scribe Attestation: All medical record entries made by the Scribe were at my direction and personally dictated by me. I have reviewed the chart and agree that the record accurately reflects my personal performance of the history, physical exam, medical decision making, and the department course for this patient. I have also personally directed, reviewed, and agree with the discharge instructions and disposition. Disposition - Clinical Impression Clinical Impression: Neuropathy - Patient ED Disposition Is Patient to be Admitted: No - Disposition Disposition: Routine/Home Disposition Time: 05:46 Condition: STABLE Instructions: Diabetic Neuropathy (ED) Forms: [facility] [facility] (Danish)
[2017-01-09 04:34] LABS: HEMATOCRIT 28.5 % (35.0-51.0); MEAN CELL VOLUME 88.2 fl (80.0-94.0); MEAN CORPUSCULAR HEMOGLOBIN 30.2 pg (27.0-31.0); MEAN CORPUSCULAR HGB CONC 34.2 g/dL (33.0-37.0); RED CELL DISTRIBUTION WIDTH 14.4 % (11.5-14.5); WHITE BLOOD COUNT 8.3 K/uL (4.8-10.8)
[2017-01-09 04:42] VITALS: PULSE 85
[2017-01-09 04:43] LABS: CALCIUM 8.3 mg/dL (8.4-10.2); POTASSIUM 4.3 MMOL/L (3.6-5.0)
[2017-01-09 05:33] VITALS: BP 133/70
--- NOTE | 2017-01-09 22:58 | CARD ---
APPROVED REPORT EKG Measurement Heart [id number] <Conclusion> Normal sinus rhythm Normal ECG
== END 2017-01-09 06:02 | disposition home or self-care (01) ==
LOC: H.ER 03:54
DX: E11.40 Type 2 diabetes mellitus with diabetic neuropathy, unspecified (principal)

== ENCOUNTER 2017-02-15 01:54 | Inpatient (IN) | payer BC ==
[2017-02-15 02:10] VITALS: BMI 49.4
[2017-02-15] MEDS ORDERED: Nitroglycerin 2% Ointment Foilpak UD TOP STA (03:12)
--- NOTE | 2017-02-15 03:34 | ED PDOC ---
HPI: SOB/CHF/COPD Time Seen by Provider: 02/15/17 02:11 Chief Complaint (Nursing): Shortness Of Breath History Per: Patient Additional Complaint(s): 41 y/o male with PMHx of HTN, DM, HLD, Hypothyroidism, CKD presents with 2 week history of SOB and LE edema. States he recently started taking a new medication, Losartan, and 1 week after he started having swelling in his legs and SOB with reduced exercise tolerance that has been getting progressively worse. At baseline, he normally can walk 4-5 blocks and sleeps with 5 pillows. Currently, he gets SOB when walking <1 block and is sleeping with 7 pillows. Has had a mild non productice cough for 2-3 days now. Denies CP, fever, chills, or calf pain. Past Medical History Vital Signs: Last Vital Signs Temp 98.3 F 02/16/17 08:23 Pulse 90 02/16/17 08:23 Resp 18 02/16/17 08:23 BP 135/71 02/16/17 08:23 Pulse Ox 98 02/16/17 08:36 - Medical History PMH: Anemia, Diabetes, HTN, Hypercholesterolemia, Hyperlipidemia, Hypothyroidism , Peripheral Edema Denies: Arthritis, CHF, HIV, Chronic Kidney Disease - Family History Family History: States: Diabetes - Immunization History Hx Tetanus Toxoid Vaccination: No Hx Influenza Vaccination: No Hx Pneumococcal Vaccination: No - Home Medications Home Medications: Ambulatory Orders Medication Instructions Recorded Atorvastatin [Lipitor] 40 mg PO DAILY 10/04/15 Levothyroxine Sodium [Synthroid] 75 mcg PO DAILY 10/04/15 Losartan [Cozaar] 100 mg PO DAILY #0 tab 01/10/16 Furosemide [Lasix] 40 mg PO QAM #10 tab 03/01/16 Insulin Human Regular [HumuLIN R] 12 unit SC ACTID 03/01/16 Insulin Glargine,Hum.rec.anlog 43 units SUBCON HS 11/22/16 [Basaglar Kwikpen U-100] cloNIDine [clonidine HCl] 0.2 mg PO 02/15/17 - Allergies Allergies/Adverse Reactions: Allergies Allergy/AdvReac Type Severity Reaction Status Date / Time No Known Allergies Allergy Verified 02/15/17 02:10 Wells Criteria for PE - Wells Criteria for Pulmonary Embolism Clinical Signs and Symptoms of DVT: Yes P.E is #1 Diagnosis, or Equally Likely: No Heart Rate >100: Yes Immobilization at least 3 days;Surgery previous 4 weeks: No Previous, objectively diagnosed PE or DVT: No Hemoptysis: No Malignancy w/treatment within 6 months, or palliative: No Total Score: 4.5 Review of Systems ROS Statement: Except As Marked, All Systems Reviewed And Found Negative Constitutional: Negative for: Fever, Chills, Weakness Cardiovascular: Positive for: Orthopnea, Edema. Negative for: Chest Pain, Palpitations, Paroxysmal Noc. Dyspnea, Light Headedness Respiratory: Positive for: Cough, Shortness of Breath, SOB with Exertion. Negative for: Hemoptysis, Pleuritic Pain, Sputum, Wheezing Gastrointestinal: Negative for: Nausea, Vomiting, Abdominal Pain Genitourinary Male: Negative for: Dysuria Skin: Negative for: Rash, Lesions Neurological: Negative for: Weakness Psych: Negative for: Anxiety Physical Exam - Reviewed Nursing Documentation Reviewed: Yes Vital Signs Reviewed: Yes - Physical Exam Appears: Positive for: Well. Negative for: In Acute Distress Skin: Positive for: Normal Color. Negative for: Diaphoresis, Pallor Neck: Positive for: Supple Cardiovascular/Chest: Positive for: Regular Rate, Rhythm. Negative for: Chest Non Tender, Murmur Respiratory: Positive for: Decreased Breath Sounds, Other (Poor air entry bilaterally, positive bibasilar crackles appreciated. Patient is dyspnic but able to speak full sentences. Not in respiratory distress). Negative for: Wheezing Pulses-Dorsalis Pedis (L): 2+ Pulses-Dorsalis Pedis (R): 2+ Gastrointestinal/Abdominal: Positive for: Bowel Sounds, Soft, Other (Obese abdomen). Negative for: Tenderness Back: Negative for: L CVA Tenderness, R CVA Tenderness Extremity: Positive for: Tenderness, Pedal Edema (LE edema BL; Right >Left. +2 pitting edema up to mid calf. No skin breakdown, chronic skin changes. + Calf tenderness BL, Hoffmans negative), Calf Tenderness, Capillary Refill Neurologic/Psych: Positive for: Alert, Oriented - Laboratory Results Result Diagrams: 02/16/17 05:00 02/16/17 05:00 - ECG O2 Sat by Pulse Oximetry: 98 Medical Decision Making Medical Decision Makin41 y/o male with PMHx of HTN, HLD, DM, Hypothyroidism, CKD presenting to ED with exertional dyspnea, orthopnea, and LE edema BL x 2 weeks. ED Course: Lasix 60mg IV x1 Nitroglycerin 2% Topical EKG CBC, CMP, Troponin, pro BNP, PT, PTT Chest CXray 1st Impression: Likely Acute CHF exacerbation vs Fluid overload 2/2 Acute on CKD Plan: F/U Cxray, and labs. Monitor for progression of symptoms. Disposition - Disposition Condition: STABLE
[2017-02-15] MEDS ORDERED: Nitroglycerin 2% Ointment Foilpak UD TOP ONE (03:51)
[2017-02-15 04:32] LABS: BILIRUBIN,TOTAL 0.1 mg/dl (0.2-1.3); POTASSIUM 4.2 MMOL/L (3.6-5.0); TOTAL PROTEIN 6.5 G/DL (6.3-8.2)
[2017-02-15 04:40] LABS: PARTIAL THROMBOPLASTIN TIME 35.1 Seconds (25.6-37.1)
[2017-02-15 04:43] LABS: BASO % 0.4 % (0.0-2.0); EOS # 0.2 K/uL (0.0-0.7); EOS % 2.8 % (0.0-4.0); HEMATOCRIT 25.5 % (35.0-51.0); LYMPH # 2.5 K/uL (1.0-4.3); LYMPH % 29.5 % (20.0-40.0); MEAN CELL VOLUME 87.5 fl (80.0-94.0); MEAN CORPUSCULAR HEMOGLOBIN 29.4 pg (27.0-31.0); MEAN CORPUSCULAR HGB CONC 33.6 g/dL (33.0-37.0); MEAN PLATELET VOLUME 10.3 fl (7.2-11.7); MONO # 0.7 K/uL (0.0-0.8); MONO % 8.3 % (0.0-10.0); NEUT # 5.1 K/uL (1.8-7.0); NRBC % 0.1 % (0.0-0.0); RED CELL DISTRIBUTION WIDTH 13.9 % (11.5-14.5); TROPONIN I 0.05 ng/mL (0.00-0.120); WHITE BLOOD COUNT 8.6 K/uL (4.8-10.8)
--- NOTE | 2017-02-15 04:51 | CP.PCM.HP ---
History of Present Illness - History of Present Illness History of Present Illness: 41 yr old M presented to ED with complaint of worsening SOB since yesterday afternoon and worsening LE edema x 2 weeks. Patient also reports an intermittent non-productive cough and chills, SOB on exertion when walking more than 1 block. He is usually able to walk 5 blocks without SOB and walks alot at work without difficulty. He sleeps with 5 pillows, and now is using more pillows to sit up further. Denies chest pain, weakness, dizziness, visual changes. PMHx includes IDDM Type 2, HLD, HTN, CKD stage 4, Anemia, Hypothyroidism and Morbid Obesity. Patient reports he recently went to see Dr. Davis-Nephrology and had a kidney biopsy and was started on Lasix (he does not know the dose). Patient states he feels his lower extremity edema is due to his Losartan, which he has been taking since 06/2016. Patient reports he is compliant with all his medication. He does not know his renal biopsy results or his lasix dose, he said we can ask his in the morning. PMD: Dr. Jerome at [facility] Insurance Agents Supervisor: Dr. 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 Medications: Levothyroxine 75 mcg PO QD, Losartan 100mg PO QD, Clonidine 0.2 mg PO BID, Basaglar Kwikpen 43 units QHS, Humulin R 14 units TID with meals, Atorvastatin 40mg PO QD Allergies: NKDA ER course: Patient with visible mild SOB, Initial vitals: BP 202/108 mmHg, P 109 , RR 36, SpO2 98 % on room air -repeat BP 161/96 mmHg, P 98 -Labs: CBC: H/H 8.6/25.5, rest wnl; coags wnl; CMP: HCO3 19; BUN/Cr 87/5.4, Est GFR 12, proBNP 6930 -CXR: pending official report, visible pulmonary congestion, minimal change compared to prior -Influenza A/B negative -EKG: Sinus tachycardia Present on Admission - Present on Admission Any Indicators Present on Admission: No History of DVT/PE: No History of Uncontrolled Diabetes: Yes Urinary Catheter: No Decubitus Ulcer Present: No Review of Systems - Constitutional Constitutional: Chills. absent: Fever, Weight Loss - EENT Eyes: absent: Change in Vision Ears: absent: Dizziness Nose/Mouth/Throat: absent: Nasal Congestion, Sore Throat - Cardiovascular Cardiovascular: Leg Edema. absent: Chest Pain, Palpitations - Respiratory Respiratory: Cough, Dyspnea - Gastrointestinal Gastrointestinal: absent: Abdominal Pain, Change in Bowel Habits, Vomiting - Genitourinary Genitourinary: absent: Change in Urinary Stream, Dysuria - Musculoskeletal Musculoskeletal: Joint Swelling, Limited Range of Motion. absent: Abnormal Gait , Numbness - Neurological Neurological: absent: Dizziness, Weakness - Hematologic/Lymphatic Hematologic: absent: Easy Bleeding, Easy Bruising Past Patient History - Infectious Disease Hx of Infectious Diseases: None - Tetanus Immunizations Tetanus Immunization: Unknown - Past Medical History & Family History Past Medical History?: Yes - Past Social History Smoking Status: Never Smoked - CARDIAC Hx Congestive Heart Failure: No Hx Hypercholesterolemia: Yes Hx Hypertension: Yes Hx Peripheral Edema: Yes - PULMONARY Hx Respiratory Disorders: No - NEUROLOGICAL Hx Neurological Disorder: No - HEENT Hx HEENT Problems: Yes Hx Cataracts: Yes (Both eyes) - RENAL Hx Chronic Kidney Disease: No - ENDOCRINE/METABOLIC Hx Hypothyroidism: Yes - HEMATOLOGICAL/ONCOLOGICAL Hx Anemia: Yes Hx Human Immunodeficiency Virus (HIV): No - INTEGUMENTARY Hx Dermatological Problems: Yes Hx Camacho: Yes Hx Cellulitis: Yes Other/Comment: Hx Diabetic foot ulcer -right foot in past - MUSCULOSKELETAL/RHEUMATOLOGICAL Hx Arthritis: No - GASTROINTESTINAL Hx Gastrointestinal Disorders: No - GENITOURINARY/GYNECOLOGICAL Hx Genitourinary Disorders: Yes Hx Urinary Tract Infection: Yes - PSYCHIATRIC Hx Substance Use: No - SURGICAL HISTORY Hx Surgeries: Yes Hx Eye Surgery: Yes Other/Comment: Hx Kidney Biopsy - ANESTHESIA Hx Anesthesia: Yes Hx Anesthesia Reactions: No Hx Malignant Hyperthermia: No Meds Allergies/Adverse Reactions: Allergies Allergy/AdvReac Type Severity Reaction Status Date / Time No Known Allergies Allergy Verified 02/15/17 02:10 Physical Exam - Constitutional Appears: Other (mildly dyspneic, morbidly obese) - Head Exam Head Exam: ATRAUMATIC, NORMOCEPHALIC - Eye Exam Eye Exam: EOMI, PERRL - ENT Exam ENT Exam: Mucous Membranes Moist - Neck Exam Neck exam: Positive for: Full Rom, Lymphadenopathy (palpable left submandibular lymph node) - Respiratory Exam Respiratory Exam: Decreased Breath Sounds (in bilateral lower lobes), Clear to Auscultation Bilateral (in bilateral upper lobes). absent: Rales, Rhonchi - Cardiovascular Exam Cardiovascular Exam: REGULAR RHYTHM, +S1, +S2 - GI/Abdominal Exam GI & Abdominal Exam: Normal Bowel Sounds, Soft (very obese) - Extremities Exam Extremities exam: Positive for: joint swelling (ankle bilaterally), pedal edema (pitting bilateral LE). Negative for: pedal pulses present - Neurological Exam Neurological exam: Alert, CN II-XII Intact, Oriented x3 - Psychiatric Exam Psychiatric exam: Normal Affect, Normal Mood - Skin Skin Exam: Dry (very dry), Erythema (of bilateral distal LE), Warm Results - Vital Signs Recent Vital Signs: Last Vital Signs Temp 98.0 F 02/15/17 02:17 Pulse 98 H 02/15/17 03:52 Resp 36 H 02/15/17 02:17 BP 161/96 H 02/15/17 03:54 Pulse Ox 98 02/15/17 03:57 - Labs Result Diagrams: 02/15/17 03:00 02/15/17 03:00 Assessment & Plan - Assessment and Plan (Free Text) Assessment: 41 yr old M admitted for worsening SOB and LE edema. PMHx includes IDDM Type 2 , HLD, HTN, CKD stage 4, Anemia, Hypothyroidism and Morbid Obesity. Patient reports he recently went to see Dr. Davis-Nephrology and had a kidney biopsy and was started on Lasix (he does not know the dose). 1. SOB and LE edema -likely secondary to CHF exacerbation vs volume overload secondary to worsening acute on chronic kidney disease -proBNP 6930 (was 3560 on 01/09/17); CXR: pending official report, visible pulmonary congestion -Lasix 60mg IV given in ED, continue with Lasix 80 mg PO daily -Echo 08/14/16: wnl -Nephrology consult: Dr. Hightower -consider Cardiology consult 2. Acute on Chronic Kidney Disease Stage 4 -worsening Bun/Cr 87/5.4, Est GFR 12, calculated CrCl: 25 ml/min -Lasix 80mg PO QD -Nephrology consult: Dr. Hightower -Sodium restricted diet 3. Hypertension-uncontrolled -continue home meds: Losartan 100mg PO QD, Clonidine 0.2mg PO BID -consider adjusting medication pending Nephro consult 4. IDDM Type 2-controlled -labs 01/16/17: HbA1c 6.2, lipid panel: triglycerides 195, cholesterol 148, LDL 64, HDL 33 -continue home meds equivalent: Levemir 43 units QHS, Humulin R 14 units TID with meals, Atorvastatin 40mg PO QD -Low carbohydrate diet 5. Anemia of Chronic Disease -CBC: H/H 8.6/25.5, MCV 87.5 -Iron studies done 10/05/15: Iron low 21, TIBC low 245, % Sat low 9 6. Hypothyroidism-controlled -TSH 3.50 on 01/16/17 -continue home meds: Levothyroxine 75 mcg PO QD 7. DVT prophylaxis -renally dose Lovenox 30mg SC QD - Date & Time Date: 02/15/17 Time: 04:55
[2017-02-15] MEDS ORDERED: Dextrose 50% SYRINGE Inj (50 ml) IV PRN (05:02)
[2017-02-15] MEDS ORDERED: Glucagon Recombinant 1 mg Inj IM PRN (05:02)
[2017-02-15] MEDS: Levothyroxine 75 MCG TAB PO SCH (07:30)
[2017-02-15] MEDS: Insulin Regular 100 units/ml SC SCH ×3 (07:45→16:20)
[2017-02-15] MEDS ORDERED: Insulin Regular 100 units/ml ONE (08:34)
[2017-02-15 10:06] LABS: RBC URINE 8 /hpf (0-3); URINE BILIRUBIN NEGATIVE (NEGATIVE); URINE BLOOD SMALL (NEGATIVE); URINE COLOR STRAW (YELLOW); URINE GLUCOSE (UA) 50 mg/dL (Normal); URINE KETONE NEGATIVE (NEGATIVE); URINE LEUKOCYTE ESTERASE NEG Leu/uL (Negative); URINE PROTEIN >=500 mg/dL (NEGATIVE); URINE UROBILINOGEN 0.2-1.0 mg/dL (0.2-1.0); WBC URINE 2 /hpf (0-5)
--- NOTE | 2017-02-15 10:09 | RAD ---
HISTORY: chest pain COMPARISON: Comparison chest 08/08/2016 FINDINGS: LUNGS: Poor inspiration with low lung volumes, crowded bronchovascular markings and mild bibasilar atelectasis PLEURA: No significant pleural effusion identified, no pneumothorax apparent. CARDIOVASCULAR: Normal. OSSEOUS STRUCTURES: No significant abnormalities. VISUALIZED UPPER ABDOMEN: Normal. OTHER FINDINGS: None. IMPRESSION: Poor inspiration with low lung volumes, crowded bronchovascular markings and mild bibasilar atelectasis
[2017-02-15 10:15] LABS: URINE BACTERIA OCC (<OCC)
[2017-02-15] MEDS: Enoxaparin 30 mg Syringe SC SCH (11:05)
--- NOTE | 2017-02-15 14:21 | CP.PCM.PN ---
Subjective - Date & Time of Evaluation Date of Evaluation: 02/15/17 Time of Evaluation: 09:40 - Subjective Subjective: Patient seen and examined today a bedside with attending during morning round, patient seem to be with sob but replies feeling better, said that O2 use is unnecessary for now. Patient is afebrile and denies chest pain, palpitations, nausea, vomiting, dizziness. No urinary symptoms. Objective - Vital Signs/Intake and Output Vital Signs (last 24 hours): Temp Pulse Resp BP Pulse Ox 97.5 F L 101 H 18 198/80 H 100 02/15/17 12:54 02/15/17 12:54 02/15/17 12:54 02/15/17 12:54 02/15/17 12:54 - Medications Medications: Current Medications Atorvastatin Calcium (Lipitor) 40 mg PO HS [facility] Clonidine HCl (Catapres) 0.2 mg PO BID [facility] Last Admin: 02/15/17 10:30 Dose: 0.2 mg Dextrose (Dextrose 50% Inj) 0 ml IV STAT PRN; Protocol PRN Reason: Hypoglycemia Protocol Dextrose (Glutose 15) 0 gm PO ONCE PRN; Protocol PRN Reason: Hypoglycemia Protocol Enoxaparin Sodium (Lovenox) 30 mg SC DAILY [facility] PRN Reason: Protocol Last Admin: 02/15/17 11:05 Dose: 30 mg Furosemide (Lasix) 40 mg IV BID [facility] Glucagon (Glucagen Diagnostic Kit) 0 mg IM STAT PRN; Protocol PRN Reason: Hypoglycemia Protocol Insulin Detemir (Levemir) 43 units SC HS [facility] Insulin Human Regular (Humulin R) 14 units SC AC [facility] Last Admin: 02/15/17 07:45 Dose: 14 unit Levothyroxine Sodium (Synthroid) 75 mcg PO DAILY@0630 [facility] Last Admin: 02/15/17 07:30 Dose: 75 mcg Losartan Potassium (Cozaar) 100 mg PO DAILY [facility] Last Admin: 02/15/17 10:10 Dose: 100 mg - Labs Labs: 02/15/17 03:00 02/15/17 03:00 PT 12.1 Seconds (9.8-13.1) 02/15/17 03:00 INR 1.1 (0.9-1.2) 02/15/17 03:00 APTT 35.1 Seconds (25.6-37.1) 02/15/17 03:00 - Constitutional Appears: Other (Mildly dyspneic, Morbidly obese) - Head Exam Head Exam: NORMAL INSPECTION - Eye Exam Eye Exam: EOMI, PERRL - Respiratory Exam Additional comments: Decreased Breath Sounds (in bilateral lower lobes), Clear to Auscultation Bilateral. absent: Rales, Rhonchi - Cardiovascular Exam Cardiovascular Exam: REGULAR RHYTHM, +S1, +S2 - GI/Abdominal Exam GI & Abdominal Exam: Soft, Normal Bowel Sounds. absent: Tenderness - Extremities Exam Additional comments: Pitting edema bilateral from midleg down to ankles b/l - Neurological Exam Neurological Exam: Alert, Awake, Oriented x3 - Psychiatric Exam Psychiatric exam: Normal Mood - Skin Skin Exam: Dry, Warm Assessment and Plan - Assessment and Plan (Free Text) Assessment: 41 yo M admitted for worsening SOB and LE edema. PMHx includes IDDM Type 2, HLD , HTN, CKD stage 4, Anemia, Hypothyroidism and Morbid Obesity. Patient reports he recently went to see Dr. Davis-Nephrology and had a kidney biopsy and was started on Lasix (he does not know the dose). Plan: 1. SOB and LE edema -likely secondary to CHF exacerbation vs volume overload secondary to worsening acute on chronic kidney disease -proBNP 6930 (was 3560 on 01/09/17); -CXR: crowded bronchovascular markings and mild bibasilar atelectasis. -Lasix 60mg IV given in ED -continue with Lasix 40 mg IV BID -Echo 08/14/16: wnl -Echo ordered for tomorrow -Nephrology consult: Dr. Hightower -consider Cardiology consult -monitor daily weight 2. Acute on Chronic Kidney Disease Stage 4 -worsening Bun/Cr 87/5.4, Est GFR 12, calculated CrCl: 25 ml/min -Nephrology consult: Dr. Hightower -Sodium restricted diet -monitor I & O -monitor daily weight -f/u bmp 3. Hypertension-uncontrolled -continue home meds: Losartan 100mg PO QD, Clonidine 0.2mg PO BID -consider adjusting medication pending Nephro consult -renal us ordered 4. IDDM Type 2-controlled -labs 01/16/17: HbA1c 6.2, lipid panel: triglycerides 195, cholesterol 148, LDL 64, HDL 33 -continue home meds equivalent: Levemir 43 units QHS, Humulin R 14 units TID with meals, Atorvastatin 40mg PO QD -Low carbohydrate diet 5. Anemia of Chronic Disease -CBC: H/H 8.6/25.5, MCV 87.5 -Iron studies done 10/05/15: Iron low 21, TIBC low 245, % Sat low 9 6. Hypothyroidism-controlled -TSH 3.50 on 01/16/17 -continue home meds: Levothyroxine 75 mcg PO QD 7. DVT prophylaxis -renally dose Lovenox 30mg SC QD
--- NOTE | 2017-02-15 17:43 | US ---
PROCEDURE: Ultrasound of the Kidneys HISTORY: bridger ckd COMPARISON: Comparison made with prior study 09/11/2016 TECHNIQUE: Sonogram of the kidneys. FINDINGS: RIGHT KIDNEY: Right kidney measures approximately 14.3 x 6.9 x 7.4 cm. Normal in size, contour and echogenicity. No stone, solid mass lesion or hydronephrosis visualized. LEFT KIDNEY: Left kidney measures approximately 13.7 x 7.1 x 7.8 cm. Normal in size, contour and echogenicity. No stone, solid mass lesion or hydronephrosis visualized. OTHER FINDINGS: Small amount of free fluid -ascites is seen within the upper abdomen adjacent to the splenic capsule. IMPRESSION: No evidence of nephrolithiasis or hydronephrosis. Incidental note made of a small amount of free fluid -ascites in the upper abdomen adjacent to the spleen. Clinical correlation recommended.
--- NOTE | 2017-02-15 21:05 | CP.PCM.CON ---
History of Present Illness - History of Present Illness History of Present Illness: renal consult note HPI; 41 yr old with dm, morbid obesity, htn ckd stage 4, hypothyroidism is admitted with worsening edema and sob on exertion. He sees a senior it assistant in [place] and underwent renal biopsy fw weeks ago, he does not knwo results. he was recently started on lasix oral for edema but no improvement. 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 Allergies: NKDA PE: vitals reviewed heent normal obese op moist s1s2 present no resp distress abd soft, obese edema ++ ao times 3 skin grossly normal A&P: ckd stage 4/dm/htn/edema/morbid obesity/anemia no signs of uremia, unknown baseline will contact his opt senior it assistant to discuss his case lytes reviewed mild acidosis noted: should improve with diuresis anemia: i have ordered iron panel check phos and pth levels continue lasix Past Patient History - Infectious Disease Hx of Infectious Diseases: None - Tetanus Immunizations Tetanus Immunization: Unknown - Past Medical History & Family History Past Medical History?: Yes - Past Social History Smoking Status: Never Smoked - CARDIAC Hx Cardiac Disorders: Yes - PULMONARY Hx Respiratory Disorders: Yes - NEUROLOGICAL Hx Neurological Disorder: No - HEENT Hx HEENT Problems: Yes - RENAL Hx Chronic Kidney Disease: Yes - ENDOCRINE/METABOLIC Hx Endocrine Disorders: Yes - HEMATOLOGICAL/ONCOLOGICAL Hx Blood Disorders: Yes - INTEGUMENTARY Hx Dermatological Problems: Yes - MUSCULOSKELETAL/RHEUMATOLOGICAL Hx Arthritis: No Hx Falls: No - GASTROINTESTINAL Hx Gastrointestinal Disorders: No - GENITOURINARY/GYNECOLOGICAL Hx Genitourinary Disorders: Yes - PSYCHIATRIC Hx Substance Use: No - SURGICAL HISTORY Hx Surgeries: Yes Hx Eye Surgery: Yes Other/Comment: Hx Kidney Biopsy - ANESTHESIA Hx Anesthesia: Yes Hx Anesthesia Reactions: No Hx Malignant Hyperthermia: No Meds Allergies/Adverse Reactions: Allergies Allergy/AdvReac Type Severity Reaction Status Date / Time No Known Allergies Allergy Verified 02/15/17 02:10 - Medications Medications: Current Medications Atorvastatin Calcium (Lipitor) 40 mg PO HS [facility] Clonidine HCl (Catapres) 0.2 mg PO BID [facility] Last Admin: 02/15/17 16:19 Dose: 0.2 mg Dextrose (Dextrose 50% Inj) 0 ml IV STAT PRN; Protocol PRN Reason: Hypoglycemia Protocol Dextrose (Glutose 15) 0 gm PO ONCE PRN; Protocol PRN Reason: Hypoglycemia Protocol Enoxaparin Sodium (Lovenox) 30 mg SC DAILY [facility] PRN Reason: Protocol Last Admin: 02/15/17 11:05 Dose: 30 mg Furosemide (Lasix) 40 mg IV BID [facility] Last Admin: 02/15/17 16:20 Dose: 40 mg Glucagon (Glucagen Diagnostic Kit) 0 mg IM STAT PRN; Protocol PRN Reason: Hypoglycemia Protocol Hydralazine HCl (Apresoline) 50 mg PO Q8 [facility] Insulin Detemir (Levemir) 43 units SC [facility] Insulin Human Regular (Humulin R) 14 units SC AC [facility] Last Admin: 02/15/17 16:20 Dose: Not Given Levothyroxine Sodium (Synthroid) 75 mcg PO DAILY@0630 [facility] Last Admin: 02/15/17 07:30 Dose: 75 mcg Losartan Potassium (Cozaar) 100 mg PO DAILY [facility] Last Admin: 02/15/17 10:10 Dose: 100 mg Results - Vital Signs Recent Vital Signs: Last Vital Signs Temp 98.2 F 02/15/17 20:01 Pulse 87 02/15/17 20:01 Resp 17 02/15/17 20:01 BP 176/84 H 02/15/17 20:01 Pulse Ox 99 02/15/17 20:01 - Labs Result Diagrams: 02/15/17 03:00 02/15/17 03:00 Labs: Laboratory Results - last 24 hr 02/15/17 02/15/17 02/15/17 03:00 03:00 03:00 WBC 8.6 RBC 2.91 L Hgb 8.6 L Hct 25.5 L MCV 87.5 MCH 29.4 MCHC 33.6 RDW 13.9 Plt Count 169 MPV 10.3 Neut % (Auto) 59.0 Lymph % (Auto) 29.5 [place] % (Auto) 8.3 Eos % (Auto) 2.8 Baso % (Auto) 0.4 Neut # 5.1 Lymph # 2.5 [place] # 0.7 Eos # 0.2 Baso # 0.0 PT INR APTT Sodium 143 Potassium 4.2 Chloride 112 H Carbon Dioxide 19 L Anion Gap 16 BUN 87 H Creatinine 5.4 H Est GFR ( Amer) 14 Est GFR (Non-Af Amer) 12 POC Glucose (mg/dL) Random Glucose 85 Calcium 8.0 L Total Bilirubin 0.1 L AST 38 ALT 45 Alkaline Phosphatase 91 Troponin I 0.0500 NT-Pro-B Natriuret Pep 6930 H Total Protein 6.5 Albumin 3.3 L Globulin 3.2 Albumin/Globulin Ratio 1.0 Urine Color Urine Clarity Urine pH Ur Specific [place] Urine Protein Urine Glucose (UA) Urine Ketones Urine Blood Urine Nitrate Urine Bilirubin Urine Urobilinogen Ur Leukocyte Esterase Urine RBC (Auto) Urine Microscopic WBC Ur Squamous Epith Cells Urine Bacteria Influenza Typ A,B (EIA) Negative for flu a/b 02/15/17 02/15/17 02/15/17 03:00 04:01 06:58 WBC RBC Hgb Hct MCV MCH MCHC RDW Plt Count MPV Neut % (Auto) Lymph % (Auto) [place] % (Auto) Eos % (Auto) Baso % (Auto) Neut # Lymph # [place] # Eos # Baso # PT 12.1 INR 1.1 APTT 35.1 Sodium Potassium Chloride Carbon Dioxide Anion Gap BUN Creatinine Est GFR ( Amer) Est GFR (Non-Af Amer) POC Glucose (mg/dL) 92 86 Random Glucose Calcium Total Bilirubin AST ALT Alkaline Phosphatase Troponin I NT-Pro-B Natriuret Pep Total Protein Albumin Globulin Albumin/Globulin Ratio Urine Color Urine Clarity Urine pH Ur Specific [place] Urine Protein Urine Glucose (UA) Urine Ketones Urine Blood Urine Nitrate Urine Bilirubin Urine Urobilinogen Ur Leukocyte Esterase Urine RBC (Auto) Urine Microscopic WBC Ur Squamous Epith Cells Urine Bacteria Influenza Typ A,B (EIA) 02/15/17 02/15/17 02/15/17 08:46 11:23 16:19 WBC RBC Hgb Hct MCV MCH MCHC RDW Plt Count MPV Neut % (Auto) Lymph % (Auto) [place] % (Auto) Eos % (Auto) Baso % (Auto) Neut # Lymph # [place] # Eos # Baso # PT INR APTT Sodium Potassium Chloride Carbon Dioxide Anion Gap BUN Creatinine Est GFR ( Amer) Est GFR (Non-Af Amer) POC Glucose (mg/dL) 86 105 Random Glucose Calcium Total Bilirubin AST ALT Alkaline Phosphatase Troponin I NT-Pro-B Natriuret Pep Total Protein Albumin Globulin Albumin/Globulin Ratio Urine Color Straw Urine Clarity Clear Urine pH 6.0 Ur Specific [place] 1.013 Urine Protein >=500 Urine Glucose (UA) 50 Urine Ketones Negative Urine Blood Small Urine Nitrate Negative Urine Bilirubin Negative Urine Urobilinogen 0.2-1.0 Ur Leukocyte Esterase Neg Urine RBC (Auto) 8 H Urine Microscopic WBC 2 Ur Squamous Epith Cells 2 Urine Bacteria Occ H Influenza Typ A,B (EIA) 02/15/17 16:58 WBC RBC Hgb Hct MCV MCH MCHC RDW Plt Count MPV Neut % (Auto) Lymph % (Auto) [place] % (Auto) Eos % (Auto) Baso % (Auto) Neut # Lymph # [place] # Eos # Baso # PT INR APTT Sodium Potassium Chloride Carbon Dioxide Anion Gap BUN Creatinine Est GFR ( Amer) Est GFR (Non-Af Amer) POC Glucose (mg/dL) Random Glucose Calcium Total Bilirubin AST ALT Alkaline Phosphatase Troponin I 0.0480 NT-Pro-B Natriuret Pep Total Protein Albumin Globulin Albumin/Globulin Ratio Urine Color Urine Clarity Urine pH Ur Specific [place] Urine Protein Urine Glucose (UA) Urine Ketones Urine Blood Urine Nitrate Urine Bilirubin Urine Urobilinogen Ur Leukocyte Esterase Urine RBC (Auto) Urine Microscopic WBC Ur Squamous Epith Cells Urine Bacteria Influenza Typ A,B (EIA)
--- NOTE | 2017-02-15 21:11 | CARD ---
APPROVED REPORT EKG Measurement Heart [id number] <Conclusion> Sinus tachycardia Nonspecific ST and T wave abnormality Abnormal ECG
[2017-02-15] MEDS: Insulin Detemir 100 Units/ml Inj SC SCH (22:10)
[2017-02-16] MEDS: Levothyroxine 75 MCG TAB PO SCH (05:54)
[2017-02-16 05:57] LABS: HEMATOCRIT 25.9 % (35.0-51.0); MEAN CELL VOLUME 87.6 fl (80.0-94.0); MEAN CORPUSCULAR HGB CONC 33.1 g/dL (33.0-37.0); RED CELL DISTRIBUTION WIDTH 13.5 % (11.5-14.5); WHITE BLOOD COUNT 7.6 K/uL (4.8-10.8)
[2017-02-16 06:13] LABS: ALB/GLOB RATIO 0.9 (1.0-2.1); BILIRUBIN,TOTAL 0.2 mg/dl (0.2-1.3); CALCIUM 8.3 mg/dL (8.4-10.2); PHOSPHOROUS 6.3 mg/dl (2.5-4.5); POTASSIUM 3.9 MMOL/L (3.6-5.0); TOTAL PROTEIN 6.3 G/DL (6.3-8.2)
[2017-02-16 06:45] LABS: IRON 47 ug/dL (49-181)
[2017-02-16] MEDS: Insulin Regular 100 units/ml SC SCH ×3 (09:46→17:51)
[2017-02-16] MEDS: Enoxaparin 30 mg Syringe SC SCH (09:50)
--- NOTE | 2017-02-16 10:19 | CP.PCM.PN ---
Subjective - Date & Time of Evaluation Date of Evaluation: 02/16/17 Time of Evaluation: 07:10 - Subjective Subjective: Patient seen and examined this morning at bedside, patient reports feeling better that yesterday, denies sob, at this time does not look dyspneic like yesterday, denies fever, nausea, vomiting, chest pain, palpitations. No urinary symptoms. Objective - Vital Signs/Intake and Output Vital Signs (last 24 hours): Temp Pulse Resp BP Pulse Ox 98.3 F 105 H 18 135/62 98 02/16/17 08:23 02/16/17 09:54 02/16/17 08:23 02/16/17 09:54 02/16/17 08:36 Intake and Output: 02/16/17 02/16/17 06:59 18:59 Intake Total 1200 Output Total 2925 Balance -1725 - Medications Medications: Current Medications Atorvastatin Calcium (Lipitor) 40 mg PO [facility] Last Admin: 02/15/17 22:09 Dose: 40 mg Clonidine HCl (Catapres) 0.2 mg PO BID [facility] Last Admin: 02/16/17 09:54 Dose: 0.2 mg Dextrose (Dextrose 50% Inj) 0 ml IV STAT PRN; Protocol PRN Reason: Hypoglycemia Protocol Dextrose (Glutose 15) 0 gm PO ONCE PRN; Protocol PRN Reason: Hypoglycemia Protocol Enoxaparin Sodium (Lovenox) 30 mg SC DAILY [facility] PRN Reason: Protocol Last Admin: 02/16/17 09:50 Dose: 30 mg Furosemide (Lasix) 40 mg IV BID [facility] Last Admin: 02/16/17 09:49 Dose: 40 mg Glucagon (Glucagen Diagnostic Kit) 0 mg IM STAT PRN; Protocol PRN Reason: Hypoglycemia Protocol Insulin Detemir (Levemir) 43 units SC [facility] Last Admin: 02/15/17 22:10 Dose: 43 u Insulin Human Regular (Humulin R) 14 units SC [facility] Last Admin: 02/16/17 09:46 Dose: Not Given Levothyroxine Sodium (Synthroid) 75 mcg PO DAILY@0630 [facility] Last Admin: 02/16/17 05:54 Dose: 75 mcg - Labs Labs: 02/16/17 05:00 02/16/17 05:00 PT 12.1 Seconds (9.8-13.1) 02/15/17 03:00 INR 1.1 (0.9-1.2) 02/15/17 03:00 APTT 35.1 Seconds (25.6-37.1) 02/15/17 03:00 - Constitutional Appears: No Acute Distress - Head Exam Head Exam: NORMAL INSPECTION - Eye Exam Eye Exam: EOMI, PERRL - Respiratory Exam Respiratory Exam: Clear to Ausculation Bilateral. absent: Rales, Rhonchi, Wheezes Additional comments: Decreased breath sounds b/l lower lobes. - Cardiovascular Exam Cardiovascular Exam: REGULAR RHYTHM, +S1, +S2 - GI/Abdominal Exam GI & Abdominal Exam: Soft, Normal Bowel Sounds. absent: Tenderness - Extremities Exam Extremities Exam: absent: Calf Tenderness Additional comments: Pitting edema 2+ b/l, DP pulses present b/l - Neurological Exam Neurological Exam: Alert, Awake, Oriented x3 - Skin Skin Exam: Dry, Warm Assessment and Plan - Assessment and Plan (Free Text) Assessment: 41 yo M admitted for worsening SOB and LE edema. PMHx includes IDDM Type 2, HLD , HTN, CKD stage 4, Anemia, Hypothyroidism and Morbid Obesity. Patient reports he recently went to see Dr. Davis-Nephrology and had a kidney biopsy that showed diabetic nephropathy. Plan: 1. SOB and LE edema -likely secondary to CHF exacerbation vs volume overload secondary to worsening acute on chronic kidney disease -proBNP 6930 (was 3560 on 01/09/17); -continue with Lasix 40 mg IV BID -Echo 08/14/16: wnl -Echo pending -consider Cardiology consult -monitor daily weight ( today 383lbs 9.6oz) 2. Acute on Chronic Kidney Disease Stage 4 -worsening Bun/Cr 81/5.3, Est GFR 12, calculated CrCl: 45 ml/min -Nephrology consult by Dr Resendez appreciated: PTH ordered Calcium acetate ( phos 6.3) Venous mapping in anticipation of placing AV fistula -Dr Mcgowan contacted -Kidney biopsy: diabetic nephropathy -Sodium restricted diet -monitor I & O -monitor daily weight 3. Hypertension-uncontrolled -Dr Cheko Kahn contacted, recommends: -Start Hydralazine 50 mg PO Q8H -d/c Lozartan 100 mg QID -continue with Clonidine 0.2mg PO BID -renal us: normal 4. IDDM Type 2-controlled -labs 01/16/17: HbA1c 6.2, lipid panel: triglycerides 195, cholesterol 148, LDL 64, HDL 33 -continue with: Levemir 43 units QHS, Humulin R 14 units TID with meals, Atorvastatin 40mg PO QD -Low carbohydrate diet 5. Anemia of Chronic Disease -CBC: H/H 8.6/25.5, MCV 87.5 -Iron studies done 10/05/15: Iron low 21, TIBC low 245, % Sat low 9 -Venofer 100 mg x 5 days 6. Hypothyroidism-controlled -TSH 3.50 on 01/16/17 -continue with: Levothyroxine 75 mcg PO QD 7. DVT prophylaxis -stop levonox 30 mg daily -Start with Heparin 5000 units SC q12h
--- NOTE | 2017-02-16 10:30 | CP.PCM.PN ---
Subjective - Date & Time of Evaluation Date of Evaluation: 02/16/17 Time of Evaluation: 10:28 - Subjective Subjective: Patient sitting up in bed. Less short of breath today. Patient stated is passing good urine. No nausea or vomiting. No fever or chills. 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 Medications: Levothyroxine 75 mcg PO QD, Losartan 100mg PO QD, Clonidine 0.2 mg PO BID, Basaglar Kwikpen 43 units QHS, Humulin R 14 units TID with meals, Atorvastatin 40mg PO QD Objective - Vital Signs/Intake and Output Vital Signs (last 24 hours): Temp Pulse Resp BP Pulse Ox 98.3 F 105 H 18 135/62 98 02/16/17 08:23 02/16/17 09:54 02/16/17 08:23 02/16/17 09:54 02/16/17 08:36 Intake and Output: 02/16/17 02/16/17 06:59 18:59 Intake Total 1200 Output Total 2925 Balance -1725 - Medications Medications: Current Medications Atorvastatin Calcium (Lipitor) 40 mg PO HS [facility] Last Admin: 02/15/17 22:09 Dose: 40 mg Calcium Acetate (Phoslo) 1,334 mg PO WM [facility] Clonidine HCl (Catapres) 0.2 mg PO BID [facility] Last Admin: 02/16/17 09:54 Dose: 0.2 mg Dextrose (Dextrose 50% Inj) 0 ml IV STAT PRN; Protocol PRN Reason: Hypoglycemia Protocol Dextrose (Glutose 15) 0 gm PO ONCE PRN; Protocol PRN Reason: Hypoglycemia Protocol Enoxaparin Sodium (Lovenox) 30 mg SC DAILY [facility] PRN Reason: Protocol Last Admin: 02/16/17 09:50 Dose: 30 mg Furosemide (Lasix) 40 mg IV BID [facility] Last Admin: 02/16/17 09:49 Dose: 40 mg Glucagon (Glucagen Diagnostic Kit) 0 mg IM STAT PRN; Protocol PRN Reason: Hypoglycemia Protocol Insulin Detemir (Levemir) 43 units SC HS [facility] Last Admin: 02/15/17 22:10 Dose: 43 u Insulin Human Regular (Humulin R) 14 units SC AC [facility] Last Admin: 02/16/17 09:46 Dose: Not Given Levothyroxine Sodium (Synthroid) 75 mcg PO DAILY@0630 [facility] Last Admin: 02/16/17 05:54 Dose: 75 mcg - Labs Labs: 02/16/17 05:00 02/16/17 05:00 PT 12.1 Seconds (9.8-13.1) 02/15/17 03:00 INR 1.1 (0.9-1.2) 02/15/17 03:00 APTT 35.1 Seconds (25.6-37.1) 02/15/17 03:00 - Constitutional Appears: No Acute Distress - ENT Exam ENT Exam: Mucous Membranes Moist - Respiratory Exam Respiratory Exam: absent: Chest Wall Tenderness - Cardiovascular Exam Cardiovascular Exam: REGULAR RHYTHM. absent: JVD, Rubs - GI/Abdominal Exam GI & Abdominal Exam: Soft, Normal Bowel Sounds - Extremities Exam Extremities Exam: absent: Calf Tenderness - Back Exam Back Exam: absent: CVA tenderness (L), CVA tenderness (R) - Neurological Exam Neurological Exam: Alert Assessment and Plan - Assessment and Plan (Free Text) Assessment: Patient appeared to have CK D stage V perhaps previously he has CK D stage IV which has been worsening. Most likely related to diabetic nephropathy. Patient stated that kidney biopsy last month and he was told kidney related to diabetic nephropathy. Although we have to called in to get the pathology report. Patient also edematous which has been improving since he was started on Lasix 40 mg twice a day IV. Patient is anemic hemoglobin 8.6 also noted that serum iron is low patient will need Venofer 100 mg daily for 5 days. Hyperphosphatemia. I added calcium acetate. Urine for protein to creatinine ratio been ordered. PTH order. Need venous mapping in anticipation of placing AV fistula.
[2017-02-16] MEDS ORDERED: Calcium Acetate 667 MG Capsule PO SCH (12:00)
--- NOTE | 2017-02-16 15:10 | PQF GENQUE ---
Dr. Joe Alejandro, If CHF is ruled in:Please specify the type if known after the work up is completed: in your progress notes: TYPE: Combined systolic and diastolic Diastolic Systolic Other (please specify) Clinically unable to determine Unknown OR: CHF ruled out? H and P; SOB and LE edema -likely secondary to CHF exacerbation vs volume overload secondary to worsening acute on chronic kidney disease -proBNP 6930 ( was 3560 on 01/09/17); CXR: pending official report, visible pulmonary congestion -Lasix 60mg IV given in ED, continue with Lasix 80 mg PO daily -Echo 08/14/16: wnl -Nephrology consult: -consider Cardio consult echo report pending This form is a permanent part of the medical record Clarification of your documentation is requested to better reflect the severity of illness and intensity of treatment of your patient. Indicators present [] Specify: [] [] Specify: [] [] Specify: [] [] Specify: [] Location in the medical record that reflects the above clinical findings: [] Treatment Provided: [] PHYSICIAN'S RESPONSE Based on your medical judgment of the clinical indicators outlined above please clarify the following: [] Practitioner response [] If unable to determine, please check the box, sign and date. Present On Admission (POA) Indicator: [] Present at the time of admission [] Not present at the time of admission [] Clinically Undetermined In responding to this query, please exercise your independent professional judgment. The fact that a question is asked does not imply that any particular answer is desired or expected. Thank you for your clarification on this documentation. If you have any questions please call. * Thank you, Zenobia Ashby RN ext. #[phone] MTDD
[2017-02-16] MEDS ORDERED: Insulin Regular 100 units/ml SC SCH (16:30)
[2017-02-16 17:33] LABS: CREATININE, RANDOM URINE 31.9 mg/dL
[2017-02-16] MEDS ORDERED: INSULIN GLARGINE HUM REC ANLOG SUBCON SCH (22:00)
[2017-02-16] MEDS: Insulin Detemir 100 Units/ml Inj SC SCH (22:21)
[2017-02-17] MEDS: Levothyroxine 75 MCG TAB PO SCH (05:51)
[2017-02-17 06:09] LABS: CALCIUM 8.1 mg/dL (8.4-10.2); POTASSIUM 3.9 MMOL/L (3.6-5.0)
--- NOTE | 2017-02-17 08:17 | CP.PCM.PN ---
Subjective - Date & Time of Evaluation Date of Evaluation: 02/17/17 Time of Evaluation: 08:12 - Subjective Subjective: Patient seen and examined this morning at bedside, lying comfortable on bed, no acute overnight events, reports feeling good, denies sob, chest pain, dizziness , palpitations, no F/N/V. No urinary symptoms. Normal BM. Objective - Vital Signs/Intake and Output Vital Signs (last 24 hours): Temp Pulse Resp BP Pulse Ox 97.9 F 90 20 148/75 99 02/17/17 05:00 02/17/17 05:00 02/17/17 05:00 02/17/17 05:00 02/17/17 05:00 Intake and Output: 02/17/17 02/17/17 06:59 18:59 Intake Total 500 Output Total 2675 Balance -2175 - Medications Medications: Current Medications Acetaminophen (Tylenol 325mg Tab) 325 mg PO Q6 PRN PRN Reason: Pain, Mild (1-3) Atorvastatin Calcium (Lipitor) 40 mg PO HS [facility] Last Admin: 02/16/17 22:22 Dose: 40 mg Calcium Acetate (Phoslo) 1,334 mg PO WM [facility] Last Admin: 02/16/17 17:52 Dose: 1,334 mg Clonidine HCl (Catapres) 0.2 mg PO BID [facility] Last Admin: 02/16/17 17:51 Dose: 0.2 mg Dextrose (Dextrose 50% Inj) 0 ml IV STAT PRN; Protocol PRN Reason: Hypoglycemia Protocol Dextrose (Glutose 15) 0 gm PO ONCE PRN; Protocol PRN Reason: Hypoglycemia Protocol Furosemide (Lasix) 40 mg IV BID [facility] Last Admin: 02/16/17 17:52 Dose: 40 mg Glucagon (Glucagen Diagnostic Kit) 0 mg IM STAT PRN; Protocol PRN Reason: Hypoglycemia Protocol Heparin Sodium (Porcine) (Heparin) 5,000 units SC Q12 [facility] PRN Reason: Protocol Last Admin: 02/16/17 22:20 Dose: 5,000 units Iron Sucrose 100 mg/ Sodium (Chloride) 105 mls @ 105 mls/hr IVPB DAILY [facility] Last Admin: 02/16/17 13:07 Dose: 105 mls/hr Insulin Detemir (Levemir) 43 units SC HS [facility] Last Admin: 02/16/17 22:21 Dose: 43 u Insulin Human Regular (Humulin R) 14 units SC AC [facility] Last Admin: 02/16/17 17:51 Dose: 14 unit Levothyroxine Sodium (Synthroid) 75 mcg PO DAILY@0630 [facility] Last Admin: 02/17/17 05:51 Dose: 75 mcg Losartan Potassium (Cozaar) 100 mg PO DAILY [facility] - Labs Labs: 02/16/17 05:00 02/17/17 04:25 PT 12.1 Seconds (9.8-13.1) 02/15/17 03:00 INR 1.1 (0.9-1.2) 02/15/17 03:00 APTT 35.1 Seconds (25.6-37.1) 02/15/17 03:00 - Constitutional Appears: No Acute Distress - Head Exam Head Exam: NORMAL INSPECTION - Eye Exam Eye Exam: EOMI, PERRL - Respiratory Exam Respiratory Exam: Clear to Ausculation Bilateral, NORMAL BREATHING PATTERN. absent: Rales, Rhonchi, Wheezes - Cardiovascular Exam Cardiovascular Exam: REGULAR RHYTHM, +S1, +S2 - GI/Abdominal Exam GI & Abdominal Exam: Soft, Normal Bowel Sounds. absent: Tenderness - Extremities Exam Additional comments: B/L lower extremities pitting edema 2+ from mid leg to feet, DP pulses present b /l. - Neurological Exam Neurological Exam: Alert, Awake, CN II-XII Intact, Oriented x3 - Skin Skin Exam: Dry, Warm Assessment and Plan - Assessment and Plan (Free Text) Assessment: 41 yo M admitted for worsening SOB and LE edema. PMHx includes IDDM Type 2, HLD , HTN, CKD stage 4, Anemia, Hypothyroidism and Morbid Obesity. Patient reports he recently went to see Dr. Davis-Nephrology and had a kidney biopsy last month that showed diabetic nephropathy. Plan: SOB and LE edema -likely secondary to CHF exacerbation vs volume overload secondary to worsening acute on chronic kidney disease -proBNP 6930 (was 3560 on 01/09/17); -Echo 08/14/16: wnl -continue with Lasix 40 mg IV BID -monitor daily weight ( today 377 lbs) Acute on Chronic Kidney Disease Stage 5 -worsening Bun/Cr 78/5.7, Est GFR 11, calculated CrCl: 41 ml/min -Nephrology consult by Dr Resendez appreciated: -PTH pending, f/u - continue with Calcium acetate ( phos 6.3) -Venous mapping in anticipation of placing AV fistula, pending -Official patient's ergonomics engineer Dr Mcgowan was contacted -Informs that kidney biopsy done last month showed: diabetic nephropathy -Sodium restricted diet -monitor I & O -monitor daily weight Hypertension-uncontrolled -Stable -Official patient's ergonomics engineer Dr Cheko Kahn contacted, recommends: -continue with Clonidine 0.2mg PO BID -Start hydralazine 50 mg PO q8h if BP continues elevated, will monitor -Resumed Losartan 100 mg daily -renal us: normal IDDM Type 2-controlled -labs 01/16/17: HbA1c 6.2, -continue with Levemir 43 units QHS, Humulin R 14 units TID with meals -Low carbohydrate diet Anemia of Chronic Disease -CBC: H/H 8.6/25.5, MCV 87.5 -Iron studies done 10/05/15: Iron low 21, TIBC low 245, % Sat low 9 -Venofer 100 mg x 5 days Hypothyroidism-controlled -TSH 3.50 on 01/16/17 -continue with: Levothyroxine 75 mcg PO QD H/O hyperlipidemia -lipid panel: triglycerides 195, cholesterol 148, LDL 64, HDL 33 -Atorvastatin 40mg PO QD DVT prophylaxis -stop levonox 30 mg daily -Start with Heparin 5000 units SC q12h
[2017-02-17] MEDS: Insulin Regular 100 units/ml SC SCH ×3 (08:34→17:09)
[2017-02-17] MEDS ORDERED: Levothyroxine 75 MCG TAB PO SCH (09:00)
--- NOTE | 2017-02-17 17:08 | CP.PCM.CON ---
History of Present Illness - History of Present Illness History of Present Illness: Vascular Surgery: Dr Person Pt is a 41M who was brought to the ED for worsening SOB and LE edema for the past several weeks. He has a PMH of IDDM, HLD, HTN, CKD stage 4 2/2 diabetic nephropathy, anemia, hypothyroidism and morbid obesity. Pt states he recently had kidney biopsy demonstrating diabetic nephropathy. Vasc surgery consulted for dialysis access as pt will most require dialysis in the future. Discussed at length with pts the various options for dialysis, focusing on AVF being his best option. Pt is hesitant and does not demonstrate profound understanding of his medical conditions. I discussed with him the risks of not having dialysis access, and advised him to have the AVF placed prior to discharge. Pt states he would like to discuss with Dr Daivs, his nephologist. PMHx: IDDM Type 2, HLD, HTN, CKD stage 4, Anemia, Hypothyroidism, Morbid Obesity SurgHx: left groin abscess I&D FMHx: Father DM, Mother HTN SocHx: denies smoking, drug use Allergies: NKDA Review of Systems - Review of Systems All systems: reviewed and no additional remarkable complaints except - Constitutional Constitutional: absent: Anorexia, Chills, Snoring - Cardiovascular Cardiovascular: absent: Chest Pain - Respiratory Respiratory: Cough, Dyspnea on Exertion. absent: Hemoptysis, Excessive Mucous Production, Pain with Coughing - Gastrointestinal Gastrointestinal: absent: Abdominal Pain, Nausea, Vomiting Past Patient History - Infectious Disease Hx of Infectious Diseases: None - Tetanus Immunizations Tetanus Immunization: Unknown - Past Medical History & Family History Past Medical History?: Yes - Past Social History Smoking Status: Never Smoked - CARDIAC Hx Congestive Heart Failure: No Hx Hypercholesterolemia: Yes Hx Hypertension: Yes Hx Peripheral Edema: Yes - PULMONARY Hx Respiratory Disorders: Yes - NEUROLOGICAL Hx Neurological Disorder: No - HEENT Hx HEENT Problems: Yes - RENAL Hx Chronic Kidney Disease: No - ENDOCRINE/METABOLIC Hx Hypothyroidism: Yes - HEMATOLOGICAL/ONCOLOGICAL Hx Anemia: Yes Hx Human Immunodeficiency Virus (HIV): No - INTEGUMENTARY Hx Dermatological Problems: Yes - MUSCULOSKELETAL/RHEUMATOLOGICAL Hx Arthritis: No - GASTROINTESTINAL Hx Gastrointestinal Disorders: No - GENITOURINARY/GYNECOLOGICAL Hx Genitourinary Disorders: Yes - PSYCHIATRIC Hx Substance Use: No - SURGICAL HISTORY Hx Surgeries: Yes Hx Eye Surgery: Yes Other/Comment: Hx Kidney Biopsy - ANESTHESIA Hx Anesthesia: Yes Hx Anesthesia Reactions: No Hx Malignant Hyperthermia: No Meds Allergies/Adverse Reactions: Allergies Allergy/AdvReac Type Severity Reaction Status Date / Time No Known Allergies Allergy Verified 02/15/17 02:10 - Medications Medications: Current Medications Acetaminophen (Tylenol 325mg Tab) 325 mg PO Q6 PRN PRN Reason: Pain, Mild (1-3) Atorvastatin Calcium (Lipitor) 40 mg PO HS [facility] Last Admin: 02/16/17 22:22 Dose: 40 mg Calcium Acetate (Phoslo) 1,334 mg PO WM [facility] Last Admin: 02/17/17 12:26 Dose: 1,334 mg Clonidine HCl (Catapres) 0.2 mg PO BID [facility] Last Admin: 02/17/17 08:37 Dose: 0.2 mg Dextrose (Dextrose 50% Inj) 0 ml IV STAT PRN; Protocol PRN Reason: Hypoglycemia Protocol Dextrose (Glutose 15) 0 gm PO ONCE PRN; Protocol PRN Reason: Hypoglycemia Protocol Furosemide (Lasix) 40 mg IV BID [facility] Last Admin: 02/17/17 08:33 Dose: 40 mg Glucagon (Glucagen Diagnostic Kit) 0 mg IM STAT PRN; Protocol PRN Reason: Hypoglycemia Protocol Heparin Sodium (Porcine) (Heparin) 5,000 units SC Q12 [facility] PRN Reason: Protocol Last Admin: 02/17/17 08:34 Dose: 5,000 units Iron Sucrose 100 mg/ Sodium (Chloride) 105 mls @ 105 mls/hr IVPB DAILY [facility] Last Admin: 02/17/17 09:42 Dose: 105 mls/hr Insulin Detemir (Levemir) 43 units SC HS [facility] Last Admin: 02/16/17 22:21 Dose: 43 u Insulin Human Regular (Humulin R) 14 units SC AC [facility] Last Admin: 02/17/17 12:25 Dose: 14 unit Levothyroxine Sodium (Synthroid) 75 mcg PO DAILY@0630 [facility] Last Admin: 02/17/17 05:51 Dose: 75 mcg Losartan Potassium (Cozaar) 100 mg PO DAILY [facility] Last Admin: 02/17/17 08:38 Dose: 100 mg Physical Exam - Constitutional Appears: No Acute Distress - Eye Exam Eye Exam: Normal appearance - ENT Exam ENT Exam: Mucous Membranes Moist - Respiratory Exam Respiratory Exam: absent: Accessory Muscle Use, Respiratory Distress - Cardiovascular Exam Cardiovascular Exam: REGULAR RHYTHM - GI/Abdominal Exam GI & Abdominal Exam: Soft. absent: Distended, Firm, Guarding, Hernia, Tenderness Additional comments: morbidly obese - Neurological Exam Neurological exam: Alert, Oriented x3 Results - Vital Signs Recent Vital Signs: Last Vital Signs Temp 97.9 F 02/17/17 16:11 Pulse 88 02/17/17 16:11 Resp 19 02/17/17 16:11 BP 166/92 H 02/17/17 16:11 Pulse Ox 98 02/17/17 16:11 - Labs Result Diagrams: 02/16/17 05:00 02/17/17 04:25 Labs: Laboratory Results - last 24 hr 02/16/17 02/16/17 02/16/17 05:50 16:08 17:21 Sodium Potassium Chloride Carbon Dioxide Anion Gap BUN Creatinine Est GFR ( Amer) Est GFR (Non-Af Amer) POC Glucose (mg/dL) 97 Random Glucose Calcium PTH Intact Whole Molec 490 H Ur Random Creatinine 31.9 U Random Total Protein 417.0 H 02/16/17 02/17/17 02/17/17 21:24 04:25 05:16 Sodium 139 Potassium 3.9 Chloride 110 H Carbon Dioxide 21 L Anion Gap 12 BUN 78 H Creatinine 5.7 H Est GFR ( Amer) 13 Est GFR (Non-Af Amer) 11 POC Glucose (mg/dL) 107 75 Random Glucose 81 Calcium 8.1 L PTH Intact Whole Molec Ur Random Creatinine U Random Total Protein 02/17/17 02/17/17 11:19 16:02 Sodium Potassium Chloride Carbon Dioxide Anion Gap BUN Creatinine Est GFR ( Amer) Est GFR (Non-Af Amer) POC Glucose (mg/dL) 85 72 Random Glucose Calcium PTH Intact Whole Molec Ur Random Creatinine U Random Total Protein Assessment & Plan - Assessment and Plan (Free Text) Assessment: 41M with diabetic nephropathy requiring dialysis access Plan: vein mapping completed 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
[2017-02-17] MEDS: Insulin Detemir 100 Units/ml Inj SC SCH (21:27)
[2017-02-18 00:59] VITALS: RESP 20
[2017-02-18] MEDS: Levothyroxine 75 MCG TAB PO SCH (06:36)
[2017-02-18] MEDS: Insulin Regular 100 units/ml SC SCH ×2 (08:18→12:27)
[2017-02-18 08:37] LABS: CALCIUM 8.6 mg/dL (8.4-10.2); POTASSIUM 4.2 MMOL/L (3.6-5.0)
--- NOTE | 2017-02-18 11:51 | CP.PCM.DIS ---
Provider - Provider Date of Admission: 02/15/17 03:32 Attending physician: Paradise Lockett MD Time Spent in preparation of Discharge (in minutes): 30 Diagnosis - Discharge Diagnosis (1) Chronic kidney disease, stage 4 (severe) Status: Chronic (2) Hypertension Status: Chronic (3) Anemia, chronic disease Status: Acute (4) Morbid obesity Status: Chronic Hospital Course - Lab Results Lab Results: Most Recent Lab Values WBC 7.6 K/uL (4.8-10.8) 02/16/17 05:00 RBC 2.96 Mil/uL (4.40-5.90) L 02/16/17 05:00 Hgb 8.6 g/dL (12.0-18.0) L 02/16/17 05:00 Hct 25.9 % (35.0-51.0) L 02/16/17 05:00 MCV 87.6 fl (80.0-94.0) 02/16/17 05:00 MCH 29.0 pg (27.0-31.0) 02/16/17 05:00 MCHC 33.1 g/dL (33.0-37.0) 02/16/17 05:00 RDW 13.5 % (11.5-14.5) 02/16/17 05:00 Plt Count 161 K/uL (130-400) 02/16/17 05:00 MPV 10.3 fl (7.2-11.7) 02/15/17 03:00 Neut % (Auto) 59.0 % (50.0-75.0) 02/15/17 03:00 Lymph % (Auto) 29.5 % (20.0-40.0) 02/15/17 03:00 [place] % (Auto) 8.3 % (0.0-10.0) 02/15/17 03:00 Eos % (Auto) 2.8 % (0.0-4.0) 02/15/17 03:00 Baso % (Auto) 0.4 % (0.0-2.0) 02/15/17 03:00 Neut # 5.1 K/uL (1.8-7.0) 02/15/17 03:00 Lymph # 2.5 K/uL (1.0-4.3) 02/15/17 03:00 [place] # 0.7 K/uL (0.0-0.8) 02/15/17 03:00 Eos # 0.2 K/uL (0.0-0.7) 02/15/17 03:00 Baso # 0.0 K/uL (0.0-0.2) 02/15/17 03:00 PT 12.1 Seconds (9.8-13.1) 02/15/17 03:00 INR 1.1 (0.9-1.2) 02/15/17 03:00 APTT 35.1 Seconds (25.6-37.1) 02/15/17 03:00 Sodium 136 mmol/l (132-148) 02/18/17 07:25 Potassium 4.2 MMOL/L (3.6-5.0) 02/18/17 07:25 Chloride 108 mmol/L (98-107) H 02/18/17 07:25 Carbon Dioxide 20 mmol/L (22-30) L 02/18/17 07:25 Anion Gap 12 (10-20) 02/18/17 07:25 BUN 73 mg/dl (9-20) H 02/18/17 07:25 Creatinine 5.7 mg/dl (0.8-1.5) H 02/18/17 07:25 Est GFR ( Amer) 13 02/18/17 07:25 Est GFR (Non-Af Amer) 11 02/18/17 07:25 POC Glucose (mg/dL) 112 mg/dL (65-110) H 02/18/17 05:48 Random Glucose 83 mg/dL (75-110) 02/18/17 07:25 Calcium 8.6 mg/dL (8.4-10.2) 02/18/17 07:25 Phosphorus 6.3 mg/dl (2.5-4.5) H 02/16/17 05:00 Iron 47 ug/dL (49-181) L 02/15/17 05:00 TIBC 262 ug/dL (250-450) 02/15/17 05:00 % Saturation 18 % (20-55) L 02/15/17 05:00 Ferritin 160.0 ng/Ml (17.9-464) 02/16/17 05:00 Total Bilirubin 0.2 mg/dl (0.2-1.3) 02/16/17 05:00 AST 26 U/L (17-59) 02/16/17 05:00 ALT 41 U/L (21-72) 02/16/17 05:00 Alkaline Phosphatase 91 U/L (38-126) 02/16/17 05:00 Troponin I 0.0520 ng/mL (0.00-0.120) 02/15/17 23:30 NT-Pro-B Natriuret Pep 6930 pg/ml (0-450) H 02/15/17 03:00 Total Protein 6.3 G/DL (6.3-8.2) 02/16/17 05:00 Albumin 3.0 g/dL (3.5-5.0) L 02/16/17 05:00 Globulin 3.3 gm/dL (2.2-3.9) 02/16/17 05:00 Albumin/Globulin Ratio 0.9 (1.0-2.1) L 02/16/17 05:00 PTH Intact Whole [place] 490 pg/mL (14-64) H 02/16/17 05:50 Urine Color Straw (YELLOW) 02/15/17 08:46 Urine Clarity Clear (Clear) 02/15/17 08:46 Urine pH 6.0 (5.0-8.0) 02/15/17 08:46 Ur Specific [place] 1.013 (1.003-1.030) 02/15/17 08:46 Urine Protein >=500 mg/dL (NEGATIVE) 02/15/17 08:46 Urine Glucose (UA) 50 mg/dL (Normal) 02/15/17 08:46 Urine Ketones Negative mg/dL (NEGATIVE) 02/15/17 08:46 Urine Blood Small (NEGATIVE) 02/15/17 08:46 Urine Nitrate Negative (NEGATIVE) 02/15/17 08:46 Urine Bilirubin Negative (NEGATIVE) 02/15/17 08:46 Urine Urobilinogen 0.2-1.0 mg/dL (0.2-1.0) 11 08:46 Ur Leukocyte Esterase Neg [place]/uL (Negative) 02/15/17 08:46 Urine RBC (Auto) 8 /hpf (0-3) H 02/15/17 08:46 Urine Microscopic WBC 2 /hpf (0-5) 02/15/17 08:46 Ur Squamous Epith Cells 2 /hpf (0-5) 02/15/17 08:46 Urine Bacteria Occ (<OCC) H 02/15/17 08:46 Ur Random Creatinine 31.9 mg/dL 02/16/17 17:21 U Random Total Protein 417.0 mg/dL (0.0-12.0) H 02/16/17 17:21 Hep Bs Antigen Negative (NEGATIVE) 02/17/17 11:04 Influenza Typ A,B (EIA) Negative for flu a/b (NEGATIVE) 02/15/17 03:00 - Hospital Course Hospital Course: 41 yo M patient with PMH IDDM, HTN, HLD, CKD stage 4, Hypothyroidism, chronic anemia and Morbid Obesity was admitted with sob and b/l lower extremity edema. Complicated by acute kidney injury likely secondary to longstanding DM and uncontrolled HTN. Patient was followed by Nephrology in house who recommends starts on hemodialysis due to progress from CKD stage 4 to stage 5. Patient received venous mapping but he decline AV fistula and hemodialysis for now. Patient has official Apparel Rental Clerk Dr Davis on [place] and desire continue follow up with him. Patient is stable at discharge time. Follow up instructions/visits with PCP Dr Jerome at [facility]. He arrange an appointment with Dr Davis for tomorrow 02/19/2017. Home medications: Atorvastatin 40 mg PO daily Ca acetate 667 mg 2 tab PO WM Clonidine 0.2 mg PO bid Feosol 325 mg PO BID Furosemide 40 mg PO BID Insulin glargine 43 units SC bedtime Insulin regular 12 units Losartan 100 mg PO daily Levothyroxine 75 mg daily Discharge Exam - Head Exam Head Exam: NORMAL INSPECTION - Eye Exam Eye Exam: EOMI, PERRL - ENT Exam ENT Exam: Mucous Membranes Moist - Respiratory Exam Respiratory Exam: Clear to PA & Lateral, NORMAL BREATHING PATTERN - Cardiovascular Exam Cardiovascular Exam: REGULAR RHYTHM, +S1, +S2 - GI/Abdominal Exam GI & Abdominal Exam: Normal Bowel Sounds, Soft. absent: Tenderness - Extremities Exam Additional comments: Pitting edema 2+ b/l lower legs - Neurological Exam Neurological exam: Alert, Oriented x3 - Psychiatric Exam Psychiatric exam: Normal Affect - Skin Skin Exam: Dry, Warm Discharge Plan - Discharge Medications Prescriptions: Calcium Acetate [Phoslo] 1,334 mg PO WM #90 tab Ferrous Sulfate [Feosol] 325 mg PO BID #60 tab Furosemide [Lasix] 40 mg PO BID #10 tab - Follow Up Plan Condition: STABLE Disposition: HOME/ ROUTINE Patient education suggested?: Yes Instructions: Chronic Kidney Disease (DC), Renal Failure Diet (DC) Additional Instructions: F/U with PCP at [facility] in 2-3 days. F/U with your official Nephrology Dr Davis 02/19/2017 as per patient Return to work by 02/23/2017 Referrals: [facility] [place] [Outside]
[2017-02-18 12:31] VITALS: BP 150/76; PULSE 87; TEMP 98.1; O2SAT 97
--- NOTE | 2017-02-18 13:12 | US ---
PROCEDURE: Upper Extremity Venous Duplex Exam Duplex hemodialysis access HISTORY: vein mapping PRIORS: None. TECHNIQUE: Bilateral upper extremity, internal jugular, subclavian, axillary, brachial, ulnar, radial, basilic and upper cephalic veins were evaluated. Flow was assessed with color Doppler, compressibility, assessment of phasic flow and augmentation response. Report prepared by cardiovascular technician. Standard protocol for this study/examination. FINDINGS: RIGHT: 1. Brachial Vein: Compressibility - Fully compressible: Thrombus - None 2. Ulnar Vein:Compressibility - Fully compressible: Thrombus - None 3. Radial Vein:Compressibility - Fully compressible: Thrombus - None 4. Cephalic Vein: Compressibility - Fully compressible: thrombus - None 4.1. Proximal Diameter: 0.20cm. Mid Diameter: 0.31cm. Distal Diameter: 0.31cm. 5. Basilic Vein:Compressibility - Fully compressible: thrombus - None 5.1. Proximal Diameter: 0.94cm. Mid Diameter: 0.74cm. Distal Diameter: 0.35cm. LEFT: 1. Brachial Vein: Compressibility - Fully compressible: Thrombus - None 2. Ulnar Vein:Compressibility - Fully compressible: Thrombus - None 3. Radial Vein:Compressibility - Fully compressible: Thrombus - None 4. Cephalic Vein: Compressibility - Fully compressible: thrombus - None 4.1. Proximal Diameter: 0.30cm. Mid Diameter: 0.41cm. Distal Diameter: 0.32cm. 5. Basilic Vein:Compressibility - Fully compressible: thrombus - None 5.1. Proximal Diameter: 0.64cm. Mid Diameter: 0.40cm. Distal Diameter: 0.32cm. OTHER FINDINGS: Right: None. Left: None. IMPRESSION: Right: Diameter measurements of the right cephalic vein is measured between 0.20 cm and 0.31 cm and basilic vein is measured between 0.35 cm and 0.94 cm. Left: Diameter measurements of the left cephalic vein is measured between 0.30 cm and 0.41 cm and basilic vein is measured between 0.32cm and 0.64cm.
--- NOTE | 2017-02-18 15:16 | CP.PCM.PN ---
Subjective - Date & Time of Evaluation Date of Evaluation: 02/18/17 Time of Evaluation: 15:10 - Subjective Subjective: feeling better. lost 18 pounds at bed side no nausea. P/E chest clear Ht no rubs. Abd. soft Ext. edema better A/P disussed with and PT. refused AV fistula refused concept of dialysis. anemia and ckd5 will be f/up by PMD including EPO and binders. time spent again 45 minute explaining dialysis yesterday and today. Objective - Vital Signs/Intake and Output Vital Signs (last 24 hours): Temp Pulse Resp BP Pulse Ox 98.1 F 87 20 150/76 97 02/18/17 12:31 02/18/17 12:31 02/18/17 12:31 02/18/17 12:31 02/18/17 12:31 Intake and Output: 02/18/17 02/18/17 06:59 18:59 Intake Total 650 1100 Output Total 4050 1000 Balance -3400 100 - Labs Labs: 02/16/17 05:00 02/18/17 07:25 PT 12.1 Seconds (9.8-13.1) 02/15/17 03:00 INR 1.1 (0.9-1.2) 02/15/17 03:00 APTT 35.1 Seconds (25.6-37.1) 02/15/17 03:00
== END 2017-02-18 14:45 | disposition home or self-care (01) | DRG 683 ==
LOC: H.ER 01:54 → H.ERHOLD 03:32 → H.TEL 08:50
PROVIDERS: ADMIT Family Medicine Geriatric Medicine; ATTEND Family Medicine Geriatric Medicine
DX: N17.9 Acute kidney failure, unspecified (principal); E87.2 Acidosis; I12.0 Hypertensive chronic kidney disease with stage 5 chronic kidney disease or end stage renal disease; Z68.42 Body mass index [BMI] 45.0-49.9, adult; E87.70 Fluid overload, unspecified; E11.21 Type 2 diabetes mellitus with diabetic nephropathy; N18.5 Chronic kidney disease, stage 5; E66.01 Morbid (severe) obesity due to excess calories; E11.22 Type 2 diabetes mellitus with diabetic chronic kidney disease; Z79.4 Long term (current) use of insulin; E03.9 Hypothyroidism, unspecified; E78.5 Hyperlipidemia, unspecified; E78.00 Pure hypercholesterolemia, unspecified; D63.8 Anemia in other chronic diseases classified elsewhere; E83.39 Other disorders of phosphorus metabolism; R74.8 Abnormal levels of other serum enzymes

== ENCOUNTER 2017-05-03 22:46 | Observation (INO) | payer BC, MEDICAID ==
[2017-05-03 22:47] VITALS: BMI 49.4
--- NOTE | 2017-05-03 23:23 | ED PDOC ---
HPI: General Adult Time Seen by Provider: 05/03/17 23:14 Chief Complaint (Nursing): Flu-like Symptoms History Per: Patient Additional Complaint(s): Pt. states last night he developed coughing associated with chills and b/l lower leg swelling R > L. Also states he has SOB when lying down at night. Reports he normally does have leg swelling but last night symptoms became worse. Denies hemotysis, vomiting, diarrhea, abdominal pain, sick contacts, recent travel, fever, palpitations. Past Medical History Reviewed: Historical Data, Nursing Documentation, Vital Signs Vital Signs: Last Vital Signs Temp 99.2 F 05/03/17 23:08 Pulse 97 H 05/03/17 23:08 Resp 18 05/03/17 23:08 BP 177/88 H 05/03/17 23:08 Pulse Ox 100 05/03/17 23:24 - Medical History PMH: Anemia, CHF, Diabetes, HTN, Hypercholesterolemia, Hyperlipidemia, Hypothyroidism, Peripheral Edema, Chronic Kidney Disease Denies: Arthritis, HIV - Family History Family History: States: Diabetes - Immunization History Hx Tetanus Toxoid Vaccination: No Hx Influenza Vaccination: No Hx Pneumococcal Vaccination: No - Home Medications Home Medications: Ambulatory Orders Medication Instructions Recorded Atorvastatin [Lipitor] 40 mg PO DAILY 10/04/15 Levothyroxine Sodium [Synthroid] 75 mcg PO DAILY 10/04/15 Losartan [Cozaar] 100 mg PO DAILY #0 tab 01/10/16 Insulin Human Regular [HumuLIN R] 12 unit SC ACTID 03/01/16 Insulin Glargine,Hum.rec.anlog 43 units SUBCON HS 11/22/16 [Basaglar Kwikpen U-100] Atorvastatin [Lipitor] 40 mg PO HS tab 02/18/17 Calcium Acetate [Phoslo] 1,334 mg PO WM #90 tab 02/18/17 Ferrous Sulfate [Feosol] 325 mg PO BID #60 tab 02/18/17 Furosemide [Lasix] 40 mg PO BID #10 tab 02/18/17 cloNIDine [Catapres] 0.2 mg PO BID #0 02/18/17 - Allergies Allergies/Adverse Reactions: Allergies Allergy/AdvReac Type Severity Reaction Status Date / Time No Known Allergies Allergy Verified 02/15/17 02:10 Review of Systems ROS Statement: Except As Marked, All Systems Reviewed And Found Negative Cardiovascular: Positive for: Orthopnea, Paroxysmal Noc. Dyspnea Respiratory: Positive for: Cough Physical Exam - Reviewed Nursing Documentation Reviewed: Yes Vital Signs Reviewed: Yes - Physical Exam Appears: Positive for: Well, Non-toxic, No Acute Distress Head Exam: Positive for: ATRAUMATIC, NORMAL INSPECTION, NORMOCEPHALIC Skin: Positive for: Normal Color, Warm. Negative for: Rash Eye Exam: Positive for: EOMI, Normal appearance, PERRL ENT: Positive for: Normal ENT Inspection Neck: Positive for: Normal, Painless ROM Cardiovascular/Chest: Positive for: Regular Rate, Rhythm Respiratory: Positive for: CNT, Normal Breath Sounds Pulses-Dorsalis Pedis (L): 2+ Pulses-Dorsalis Pedis (R): 2+ Gastrointestinal/Abdominal: Positive for: Normal Exam, Bowel Sounds, Soft. Negative for: Tenderness Back: Positive for: Normal Inspection Extremity: Positive for: Normal ROM, Pedal Edema, Swelling (b/l lower legs with 2+ edema without erythema, warmth, or tenderness; negative Cody's Sign B/l) Neurologic/Psych: Positive for: Alert, Oriented. Negative for: Aphasia, Facial Droop - ECG ECG: Positive for: Interpreted By Me ECG Rhythm: Positive for: Sinus Rhythm. Negative for: ST/T Changes Rate: 87 O2 Sat by Pulse Oximetry: 100 - Radiology X-Ray: Interpreted by Me (CXR) X-Ray Interpretation: Other (CHF) - Progress ED Course And Treament: Labs ordered. EKG ordered. Disposition - Clinical Impression Clinical Impression: CHF (congestive heart failure) - Patient ED Disposition Is Patient to be Admitted: Transfer of Care (Signed out to Danis ZAMORA pending lab results and final disposition) - Disposition Referrals: Seng Jerome DO [Primary Care Provider] - Disposition Time: 00:00 Condition: STABLE Forms: Janalakshmi (Chinese)
--- NOTE | 2017-05-04 00:05 | ED PDOC ---
- Laboratory Results Result Diagrams: 05/04/17 00:23 05/04/17 00:23 - ECG O2 Sat by Pulse Oximetry: 100 Pulse Ox Interpretation: Normal - Other Rad CXR X-Ray: Interpreted by Me, Viewed By Me X-Ray Interpretation: no interval change, no acute finding Medical Decision Making Medical Decision Making: Case was signed out to television writer from [employer] [facility] pending diagnostic testing results and final disposition. [place] [address] K is elevated at 5.4 Cr is 7.4 PMD is [facility], case was d/w resident. Patient will be admitted. Tamiflu ordered along with kayexalate and lasix. Disposition - Clinical Impression Clinical Impression: CHF (congestive heart failure), Influenza, ARF (acute renal failure), Hyperkalemia - POA Present On Arrival: None - Disposition Disposition: Admitted as In-Patient Disposition Time: 01:09 Condition: GUARDED Forms: Ombu (Cymro) Results - Lab Results Lab Results: 05/04/17 05/04/17 05/04/17 00:23 00:23 00:23 WBC RBC Hgb Hct MCV MCH MCHC RDW Plt Count MPV Neut % (Auto) Lymph % (Auto) [place] % (Auto) Eos % (Auto) Baso % (Auto) Neut # Lymph # [place] # Eos # Baso # Sodium 140 Potassium 5.4 H Chloride 109 H Carbon Dioxide 19 L Anion Gap 17 BUN 101 H* D Creatinine 7.4 H* D Est GFR ( Amer) 10 Est GFR (Non-Af Amer) 8 Random Glucose 86 Calcium 7.8 L Total Bilirubin 0.3 AST 35 ALT 35 Alkaline Phosphatase 75 NT-Pro-B Natriuret Pep 73471 H Total Protein 6.3 Albumin 2.9 L Globulin 3.3 Albumin/Globulin Ratio 0.9 L Urine Color Straw Urine Clarity Slighty-cloudy Urine pH 6.0 Ur Specific [place] 1.014 Urine Protein >=500 Urine Glucose (UA) 50 Urine Ketones Negative Urine Blood Small Urine Nitrate Negative Urine Bilirubin Negative Urine Urobilinogen 0.2-1.0 Ur Leukocyte Esterase Neg Urine RBC (Auto) 17 H Urine Microscopic WBC 1 Ur Squamous Epith Cells < 1 Urine Bacteria Rare Influenza Typ A,B (EIA) Pos for influenza a H 05/04/17 00:23 WBC 6.1 RBC 2.64 L Hgb 7.9 L Hct 23.4 L MCV 88.7 MCH 29.8 MCHC 33.6 RDW 13.6 Plt Count 120 L D MPV 10.3 Neut % (Auto) 60.9 Lymph % (Auto) 21.3 [place] % (Auto) 14.3 H Eos % (Auto) 2.5 Baso % (Auto) 1.0 Neut # 3.7 Lymph # 1.3 [place] # 0.9 H Eos # 0.1 Baso # 0.1 Sodium Potassium Chloride Carbon Dioxide Anion Gap BUN Creatinine Est GFR ( Amer) Est GFR (Non-Af Amer) Random Glucose Calcium Total Bilirubin AST ALT Alkaline Phosphatase NT-Pro-B Natriuret Pep Total Protein Albumin Globulin Albumin/Globulin Ratio Urine Color Urine Clarity Urine pH Ur Specific [place] Urine Protein Urine Glucose (UA) Urine Ketones Urine Blood Urine Nitrate Urine Bilirubin Urine Urobilinogen Ur Leukocyte Esterase Urine RBC (Auto) Urine Microscopic WBC Ur Squamous Epith Cells Urine Bacteria Influenza Typ A,B (EIA)
[2017-05-04 00:30] LABS: BASO # 0.1 K/uL (0.0-0.2); EOS # 0.1 K/uL (0.0-0.7); EOS % 2.5 % (0.0-4.0); HEMOGLOBIN 7.9 g/dL (12.0-18.0); LYMPH # 1.3 K/uL (1.0-4.3); LYMPH % 21.3 % (20.0-40.0); MEAN CELL VOLUME 88.7 fl (80.0-94.0); MEAN CORPUSCULAR HEMOGLOBIN 29.8 pg (27.0-31.0); MEAN CORPUSCULAR HGB CONC 33.6 g/dL (33.0-37.0); MEAN PLATELET VOLUME 10.3 fl (7.2-11.7); MONO # 0.9 K/uL (0.0-0.8); MONO % 14.3 % (0.0-10.0); NEUT # 3.7 K/uL (1.8-7.0); NEUT % 60.9 % (50.0-75.0); NRBC % 0.1 % (0.0-0.0); RBC 2.64 Mil/uL (4.40-5.90); RED CELL DISTRIBUTION WIDTH 13.6 % (11.5-14.5); WHITE BLOOD COUNT 6.1 K/uL (4.8-10.8)
[2017-05-04 00:49] LABS: ALB/GLOB RATIO 0.9 (1.0-2.1); ALBUMIN 2.9 g/dL (3.5-5.0); CALCIUM 7.8 mg/dL (8.4-10.2)
[2017-05-04 00:53] LABS: SQUAMOUS EPITHIAL < 1 /hpf (0-5); URINE BACTERIA RARE (<OCC); URINE BILIRUBIN NEGATIVE (NEGATIVE); URINE BLOOD SMALL (NEGATIVE); URINE CLARITY SLIGHTY-CLOUDY (Clear); URINE COLOR STRAW (YELLOW); URINE GLUCOSE (UA) 50 mg/dL (Normal); URINE LEUKOCYTE ESTERASE NEG Leu/uL (Negative); URINE NITRATE NEGATIVE (NEGATIVE); URINE PROTEIN >=500 mg/dL (NEGATIVE); URINE UROBILINOGEN 0.2-1.0 mg/dL (0.2-1.0)
[2017-05-04] MEDS ORDERED: Sod Polystyrene Sulf 15 gm/60 ml Susp PO ONE (01:04)
[2017-05-04] MEDS ORDERED: Sod Polystyrene Sulf 15 gm/60 ml Susp ONE (01:33)
--- NOTE | 2017-05-04 02:27 | CP.PCM.HP ---
History of Present Illness - History of Present Illness History of Present Illness: 41 year old morbid obese male with PMHx of IDDM Type 2, HLD, HTN, CKD stage 4, Anemia, Hypothyroidism presents to ED on Thursday night c/o flu-like symptoms. Patient states that since thursday he has had stuffy nose, runny nose associated with clear nasal discharge, non productive dry cough, chills, headaches, sore throat, worsening SOB. Denies fevers, nausea, vomiting, abdominal pain, diarrheas. Patient reports that he was taking over the counter tylenol cold medications without getting relief of his symptoms. Then he decided to come to ED for further evaluation and treatment. Also patient reports worsening LE fluid retention since thursday. He was see by his Management Lecturer, Dr. Davis at the beginning of April, who referred him to a vascular doctor for possible placement of HD AV access in his left upper extremity. Patient had a dupplex HD mapping on 02/16/17 at [facility]. States a very good adherence to his medical regimen. Full CODE PMD: [facility] Management Lecturer: Dr. Davis PMHx: IDDM Type 2, HLD, HTN, CKD stage 4, Anemia, Hypothyroidism, elevated liver enzymes, Morbid Obesity SurgHx: left groin abscess I&D 11/22/16 FMHx: Father DM, Mother HTN SocHx: denies smoking, drinks Etoh socially, denies drug use, lives with . Medications: Levothyroxine 75 mcg PO QD, Losartan 100mg PO QD, Clonidine 0.2 mg PO TID, Basaglar Kwikpen 43 units QHS, Humulin R 13 units TID with meals, Atorvastatin 40 mg PO QD, Calcium acetate 667 mg TID, Iron sulfate 325 mg BID, Lasix 20 mg PO BID Allergies: NKDA ED course: VS:pulse:97, BP: 177/88, rr:18, afebrile influenza A positive labs: CBC, CMP, Pro-BNP UA CXR treatment: oseltamivir 75 mg once, Kayexalate 30 gm, lasix 40 mg IV once Present on Admission - Present on Admission Any Indicators Present on Admission: No History of DVT/PE: No History of Uncontrolled Diabetes: No Urinary Catheter: No Decubitus Ulcer Present: No Review of Systems - Review of Systems All systems: reviewed and no additional remarkable complaints except (as per HPI ) Past Patient History - Infectious Disease Hx of Infectious Diseases: None - Tetanus Immunizations Tetanus Immunization: Unknown - Past Medical History & Family History Past Medical History?: Yes - Past Social History Smoking Status: Never Smoked - CARDIAC Hx Congestive Heart Failure: Yes Hx Hypercholesterolemia: Yes Hx Hypertension: Yes Hx Peripheral Edema: Yes - PULMONARY Hx Respiratory Disorders: Yes - NEUROLOGICAL Hx Neurological Disorder: No - HEENT Hx HEENT Problems: Yes - RENAL Hx Chronic Kidney Disease: Yes - ENDOCRINE/METABOLIC Hx Hypothyroidism: Yes - HEMATOLOGICAL/ONCOLOGICAL Hx Anemia: Yes Hx Human Immunodeficiency Virus (HIV): No - INTEGUMENTARY Hx Dermatological Problems: Yes - MUSCULOSKELETAL/RHEUMATOLOGICAL Hx Arthritis: No - GASTROINTESTINAL Hx Gastrointestinal Disorders: No - GENITOURINARY/GYNECOLOGICAL Hx Genitourinary Disorders: Yes - PSYCHIATRIC Hx Psychophysiologic Disorder: No Hx Substance Use: No - SURGICAL HISTORY Hx Surgeries: Yes Hx Eye Surgery: Yes Other/Comment: Hx Kidney Biopsy - ANESTHESIA Hx Anesthesia: Yes Hx Anesthesia Reactions: No Hx Malignant Hyperthermia: No Meds Allergies/Adverse Reactions: Allergies Allergy/AdvReac Type Severity Reaction Status Date / Time No Known Allergies Allergy Verified 02/15/17 02:10 Physical Exam - Constitutional Appears: No Acute Distress, Other (looks Ill) - ENT Exam ENT Exam: Mucous Membranes Dry - Respiratory Exam Respiratory Exam: Clear to Auscultation Bilateral, NORMAL BREATHING PATTERN. absent: Rales, Rhonchi, Wheezes, Respiratory Distress - Cardiovascular Exam Cardiovascular Exam: REGULAR RHYTHM, +S1, +S2 - GI/Abdominal Exam GI & Abdominal Exam: Normal Bowel Sounds, Soft. absent: Guarding, Rebound, Rigid, Tenderness Additional comments: Obese - Extremities Exam Extremities exam: Negative for: calf tenderness Additional comments: Edema in lower extremities below both knees - Neurological Exam Neurological exam: Alert, Oriented x3 - Skin Skin Exam: Dry, Intact, Pallor Results - Vital Signs Recent Vital Signs: Last Vital Signs Temp 98.8 F 05/04/17 02:00 Pulse 94 H 05/04/17 02:00 Resp 18 05/04/17 02:00 BP 154/85 H 05/04/17 02:00 Pulse Ox 99 05/04/17 02:00 - Labs Result Diagrams: 05/04/17 00:23 05/04/17 00:23 Labs: Laboratory Results - last 24 hr 05/04/17 05/04/17 05/04/17 00:23 00:23 00:23 WBC 6.1 RBC 2.64 L Hgb 7.9 L Hct 23.4 L MCV 88.7 MCH 29.8 MCHC 33.6 RDW 13.6 Plt Count 120 L D MPV 10.3 Neut % (Auto) 60.9 Lymph % (Auto) 21.3 [place] % (Auto) 14.3 H Eos % (Auto) 2.5 Baso % (Auto) 1.0 Neut # 3.7 Lymph # 1.3 [place] # 0.9 H Eos # 0.1 Baso # 0.1 Sodium 140 Potassium 5.4 H Chloride 109 H Carbon Dioxide 19 L Anion Gap 17 BUN 101 H* D Creatinine 7.4 H* D Est GFR ( Amer) 10 Est GFR (Non-Af Amer) 8 POC Glucose (mg/dL) Random Glucose 86 Calcium 7.8 L Total Bilirubin 0.3 AST 35 ALT 35 Alkaline Phosphatase 75 NT-Pro-B Natriuret Pep 73714 H Total Protein 6.3 Albumin 2.9 L Globulin 3.3 Albumin/Globulin Ratio 0.9 L Urine Color Urine Clarity Urine pH Ur Specific [place] Urine Protein Urine Glucose (UA) Urine Ketones Urine Blood Urine Nitrate Urine Bilirubin Urine Urobilinogen Ur Leukocyte Esterase Urine RBC (Auto) Urine Microscopic WBC Ur Squamous Epith Cells Urine Bacteria Influenza Typ A,B (EIA) Pos for influenza a H 05/04/17 05/04/17 00:23 02:11 WBC RBC Hgb Hct MCV MCH MCHC RDW Plt Count MPV Neut % (Auto) Lymph % (Auto) [place] % (Auto) Eos % (Auto) Baso % (Auto) Neut # Lymph # [place] # Eos # Baso # Sodium Potassium Chloride Carbon Dioxide Anion Gap BUN Creatinine Est GFR ( Amer) Est GFR (Non-Af Amer) POC Glucose (mg/dL) 83 Random Glucose Calcium Total Bilirubin AST ALT Alkaline Phosphatase NT-Pro-B Natriuret Pep Total Protein Albumin Globulin Albumin/Globulin Ratio Urine Color Straw Urine Clarity Slighty-cloudy Urine pH 6.0 Ur Specific [place] 1.014 Urine Protein >=500 Urine Glucose (UA) 50 Urine Ketones Negative Urine Blood Small Urine Nitrate Negative Urine Bilirubin Negative Urine Urobilinogen 0.2-1.0 Ur Leukocyte Esterase Neg Urine RBC (Auto) 17 H Urine Microscopic WBC 1 Ur Squamous Epith Cells < 1 Urine Bacteria Rare Influenza Typ A,B (EIA) Assessment & Plan - Assessment and Plan (Free Text) Assessment: 41 year old morbid obese male with extensive PMHx admitted with acute in chronic renal failure, Hyperkalemia, and Influenza infection. Plan: Acute on Chronic Renal failure -Telemetry unit -h/o CKD stage 5 -Worsening BUN/Cr in this admission -BUN/Cr: 101/7.4 -hyperkalemia: 5.4 -elevated pro BNP likely 2/2 renal failure -f/u ABG, BMP -Nephrology consult recommended and appreciated Flu-like symptoms with positive Influenza test -s/p Oseltamivir 75 mg PO in ED -c/w Oseltamivir PO based on CrCl ( renal dose) -CrCl:30 -Oseltamivir 30 mg PO daily -Mucinex DM ( no dosage adjustment recommended in literature) -CXR: no gross evidence of acute infiltrate or pleural effusion compared with prior test. Pending official report Lower extremities edema -Most likely fluid overload 2/2 impaired renal function -c/w furosemide -ECHO on 08/14/16 showed normal LV function, normal EF:75 %, normal valves -Nephrology consult recommended and appreciated Hyperkalemia -most likely 2/2 acure in chronic renal failure -K+ 5.4 on admission -potassium level normal in prior admission -s/p Kayexalate 30 gm PO once in ED -f/u repeat BMP in AM IDDM type 2 -accucheck ACHS -resume home insulin -Insulin Detemir 43 units HS -Regular insulin 13 units with meals (patient reports he has been taking 13 units with meals TID at home) -Regular insulin by scale -Hypoglycemic protocol -HgbA1C on 01/16/17 was 6.2 Normocytic Anemia -likely Anemia of chronic disease -H/H: 7.9/23.4, normal MCV and RDW. Type and screen -but could be multifactorial -Noted on records low iron sat, low Iron, and low TIBC -Patient is on Iron BID -will continue Iron for now -pt could benefit from EPO as recommended for Nephro in prior admission HTN -resume home meds -clonidine 0.2 mg TID -losartan 100 mg -statin Hypothyroidism -resume Levothyroxine 75 mcg DVT prophylaxis -SCDs -H/H: 7.9/23.4 -platelet 120 f/u repeat CBC will consider Heparin 5000 units Q12 - Date & Time Date: 05/04/17 Time: 01:45
[2017-05-04] MEDS ORDERED: Glucagon Recombinant 1 mg Inj IM PRN (02:53)
[2017-05-04] MEDS ORDERED: Dextrose 50% SYRINGE Inj (50 ml) IV PRN (02:53)
[2017-05-04] MEDS: guaiFENesin-DM 600-30 mg ER Tab PO SCH ×2 (04:12→11:15)
[2017-05-04 07:04] LABS: BASO % 0.6 % (0.0-2.0); EOS # 0.2 K/uL (0.0-0.7); EOS % 2.3 % (0.0-4.0); HEMOGLOBIN 8.4 g/dL (12.0-18.0); LYMPH # 1.5 K/uL (1.0-4.3); LYMPH % 22.9 % (20.0-40.0); MEAN CELL VOLUME 89.2 fl (80.0-94.0); MEAN CORPUSCULAR HEMOGLOBIN 29.6 pg (27.0-31.0); MEAN CORPUSCULAR HGB CONC 33.2 g/dL (33.0-37.0); MEAN PLATELET VOLUME 10.4 fl (7.2-11.7); MONO # 0.9 K/uL (0.0-0.8); MONO % 13.3 % (0.0-10.0); PLATELET COUNT 135 K/uL (130-400); RBC 2.82 Mil/uL (4.40-5.90); RED CELL DISTRIBUTION WIDTH 13.7 % (11.5-14.5); WHITE BLOOD COUNT 6.6 K/uL (4.8-10.8)
[2017-05-04] MEDS ORDERED: Insulin Regular 100 units/ml SC SCH (07:30)
--- NOTE | 2017-05-04 07:50 | CARD ---
APPROVED REPORT EKG Measurement Heart [id number] <Conclusion> Normal sinus rhythm Possible Left atrial enlargement Nonspecific T wave abnormality Abnormal ECG
[2017-05-04 08:36] LABS: % IRON SATURATION 10.6 % (20-55)
[2017-05-04] MEDS ORDERED: Oseltamivir 6 MG/ML PO SCH (09:00)
[2017-05-04] MEDS ORDERED: Levothyroxine 75 MCG TAB PO SCH (09:00)
--- NOTE | 2017-05-04 09:38 | CP.PCM.CON ---
History of Present Illness - History of Present Illness History of Present Illness: Patient is a 41 years of age male known to me with chronic kidney disease stage IV a portion stage V he was seen in February and he was approached for AV fistula and he had a few was at the time I have is spending a lot of time with him and his explaining the concept of dialysis. The patient was given phosphorus binders at the time on medication for secondary hyperparathyroidism and it was given an injection for the anemia as well and has been follow-up by his degreasing solution mixer as outpatient. He was admitted now was golfing and influenza a symptom like which was positive. Patient stated that he has scheduled to arrive AV fistula sometime next week at [facility]. PMHx: IDDM Type 2, HLD, HTN, CKD stage 4, Anemia, Hypothyroidism, elevated liver enzymes, Morbid Obesity SurgHx: left groin abscess I&D 11/22/16 FMHx: Father DM, Mother HTN SocHx: denies smoking, drinks Etoh socially, denies drug use, lives with . Medications: Levothyroxine 75 mcg PO QD, Losartan 100mg PO QD, Clonidine 0.2 mg PO TID, Basaglar Kwikpen 43 units QHS, Humulin R 13 units TID with meals, Atorvastatin 40 mg PO QD, Calcium acetate 667 mg TID, Iron sulfate 325 mg BID, Lasix 20 mg PO BID Allergies: NKDA ED course: VS:pulse:97, BP: 177/88, rr:18, afebrile influenza A positive labs: CBC, CMP, Pro-BNP UA CXR treatment: oseltamivir 75 mg once, Kayexalate 30 gm, lasix 40 mg IV once Review of Systems - Constitutional Constitutional: As Per HPI, Headache, Weakness. absent: Chills - EENT Nose/Mouth/Throat: As Per HPI - Cardiovascular Cardiovascular: Dyspnea on Exertion, Edema, Leg Edema. absent: Chest Pain, Dyspnea - Respiratory Respiratory: Cough, Chest Congestion. absent: Hemoptysis - Gastrointestinal Gastrointestinal: absent: Abdominal Pain, Bloating, Coffee Ground Emesis, Nausea - Musculoskeletal Musculoskeletal: Muscle Weakness - Neurological Neurological: As Per HPI. absent: Abnormal Movements, Focal Weakness - Psychiatric Psychiatric: As Per HPI - Endocrine Endocrine: Fatigue - Hematologic/Lymphatic Hematologic: absent: Easy Bleeding Past Patient History - Infectious Disease Hx of Infectious Diseases: None - Tetanus Immunizations Tetanus Immunization: Unknown - Past Medical History & Family History Past Medical History?: Yes - Past Social History Smoking Status: Never Smoked - CARDIAC Hx Cardiac Disorders: Yes - PULMONARY Hx Respiratory Disorders: Yes - NEUROLOGICAL Hx Neurological Disorder: No - HEENT Hx HEENT Problems: Yes - RENAL Hx Chronic Kidney Disease: Yes - ENDOCRINE/METABOLIC Hx Endocrine Disorders: Yes - HEMATOLOGICAL/ONCOLOGICAL Hx Blood Disorders: Yes - INTEGUMENTARY Hx Dermatological Problems: Yes - MUSCULOSKELETAL/RHEUMATOLOGICAL Hx Musculoskeletal Disorders: Yes - GASTROINTESTINAL Hx Gastrointestinal Disorders: No - GENITOURINARY/GYNECOLOGICAL Hx Genitourinary Disorders: Yes - PSYCHIATRIC Hx Psychophysiologic Disorder: No - SURGICAL HISTORY Hx Surgeries: Yes Hx Eye Surgery: Yes Other/Comment: Hx Kidney Biopsy - ANESTHESIA Hx Anesthesia: Yes Hx Anesthesia Reactions: No Hx Malignant Hyperthermia: No Meds Allergies/Adverse Reactions: Allergies Allergy/AdvReac Type Severity Reaction Status Date / Time No Known Allergies Allergy Verified 02/15/17 02:10 - Medications Medications: Current Medications Acetaminophen (Tylenol 325mg Tab) 650 mg PO Q6 PRN PRN Reason: Pain, Mild (1-3) Atorvastatin Calcium (Lipitor) 40 mg PO HS AALIYAH Calcium Acetate (Phoslo) 1,334 mg PO WM [facility] Last Admin: 05/04/17 08:27 Dose: 1,334 mg Clonidine HCl (Catapres) 0.2 mg PO TID AALIYAH Dextrose (Dextrose 50% Inj) 0 ml IV STAT PRN; Protocol PRN Reason: Hypoglycemia Protocol Dextrose (Glutose 15) 0 gm PO ONCE PRN; Protocol PRN Reason: Hypoglycemia Protocol Ferrous Sulfate (Feosol) 325 mg PO BID AALIYAH Furosemide (Lasix) 20 mg PO BID AALIYAH Glucagon (Glucagen Diagnostic Kit) 0 mg IM STAT PRN; Protocol PRN Reason: Hypoglycemia Protocol Guaifenesin/Dextromethorphan (Mucinex-Dm 600-30 Mg) 1 tab PO BID [facility] Last Admin: 05/04/17 04:12 Dose: 1 tab Insulin Detemir (Levemir) 43 units SC HS AALIYAH Insulin Human Regular (Humulin R) 13 units SC ACTID [facility] Levothyroxine Sodium (Synthroid) 75 mcg PO DAILY [facility] Losartan Potassium (Cozaar) 100 mg PO DAILY AALIYAH Oseltamivir Phosphate (Tamiflu Susp) 30 mg PO DAILY AALIYAH PRN Reason: Protocol Physical Exam - Constitutional Appears: No Acute Distress - Eye Exam Eye Exam: Conjunctival injection - ENT Exam ENT Exam: Mucous Membranes Moist - Neck Exam Neck exam: Negative for: Lymphadenopathy - Respiratory Exam Respiratory Exam: NORMAL BREATHING PATTERN. absent: Chest Wall Tenderness, Rales - Cardiovascular Exam Cardiovascular Exam: REGULAR RHYTHM. absent: Rubs - GI/Abdominal Exam GI & Abdominal Exam: Normal Bowel Sounds. absent: Guarding - Extremities Exam Extremities exam: Negative for: calf tenderness - Back Exam Back exam: absent: CVA tenderness (L), CVA tenderness (R) - Neurological Exam Neurological exam: Alert - Psychiatric Exam Psychiatric exam: Normal Affect - Skin Skin Exam: Cyanosis Results - Vital Signs Recent Vital Signs: Last Vital Signs Temp 98.5 F 05/04/17 05:43 Pulse 91 H 05/04/17 07:57 Resp 20 05/04/17 07:57 BP 144/82 05/04/17 07:57 Pulse Ox 98 05/04/17 07:57 - Labs Result Diagrams: 05/04/17 05:45 05/04/17 05:45 Labs: Laboratory Results - last 24 hr 05/04/17 05/04/17 05/04/17 00:23 00:23 00:23 WBC 6.1 RBC 2.64 L Hgb 7.9 L Hct 23.4 L MCV 88.7 MCH 29.8 MCHC 33.6 RDW 13.6 Plt Count 120 L D MPV 10.3 Neut % (Auto) 60.9 Lymph % (Auto) 21.3 [place] % (Auto) 14.3 H Eos % (Auto) 2.5 Baso % (Auto) 1.0 Neut # 3.7 Lymph # 1.3 [place] # 0.9 H Eos # 0.1 Baso # 0.1 Sodium 140 Potassium 5.4 H Chloride 109 H Carbon Dioxide 19 L Anion Gap 17 BUN 101 H* D Creatinine 7.4 H* D Est GFR ( Amer) 10 Est GFR (Non-Af Amer) 8 POC Glucose (mg/dL) Random Glucose 86 Calcium 7.8 L Iron TIBC % Saturation Ferritin Total Bilirubin 0.3 AST 35 ALT 35 Alkaline Phosphatase 75 NT-Pro-B Natriuret Pep 15321 H Total Protein 6.3 Albumin 2.9 L Globulin 3.3 Albumin/Globulin Ratio 0.9 L Urine Color Urine Clarity Urine pH Ur Specific [place] Urine Protein Urine Glucose (UA) Urine Ketones Urine Blood Urine Nitrate Urine Bilirubin Urine Urobilinogen Ur Leukocyte Esterase Urine RBC (Auto) Urine Microscopic WBC Ur Squamous Epith Cells Urine Bacteria Influenza Typ A,B (EIA) Pos for influenza a H Blood Type Antibody Screen BBK History Checked 05/04/17 05/04/17 05/04/17 00:23 02:11 05:37 WBC RBC Hgb Hct MCV MCH MCHC RDW Plt Count MPV Neut % (Auto) Lymph % (Auto) [place] % (Auto) Eos % (Auto) Baso % (Auto) Neut # Lymph # [place] # Eos # Baso # Sodium Potassium Chloride Carbon Dioxide Anion Gap BUN Creatinine Est GFR ( Amer) Est GFR (Non-Af Amer) POC Glucose (mg/dL) 83 80 Random Glucose Calcium Iron TIBC % Saturation Ferritin Total Bilirubin AST ALT Alkaline Phosphatase NT-Pro-B Natriuret Pep Total Protein Albumin Globulin Albumin/Globulin Ratio Urine Color Straw Urine Clarity Slighty-cloudy Urine pH 6.0 Ur Specific [place] 1.014 Urine Protein >=500 Urine Glucose (UA) 50 Urine Ketones Negative Urine Blood Small Urine Nitrate Negative Urine Bilirubin Negative Urine Urobilinogen 0.2-1.0 Ur Leukocyte Esterase Neg Urine RBC (Auto) 17 H Urine Microscopic WBC 1 Ur Squamous Epith Cells < 1 Urine Bacteria Rare Influenza Typ A,B (EIA) Blood Type Antibody Screen BBK History Checked 05/04/17 05/04/17 05/04/17 05:45 05:45 05:45 WBC 6.6 RBC 2.82 L Hgb 8.4 L Hct 25.2 L MCV 89.2 MCH 29.6 MCHC 33.2 RDW 13.7 Plt Count 135 MPV 10.4 Neut % (Auto) Lymph % (Auto) 22.9 [place] % (Auto) 13.3 H Eos % (Auto) 2.3 Baso % (Auto) 0.6 Neut # Lymph # 1.5 [place] # 0.9 H Eos # 0.2 Baso # 0.0 Sodium 140 Potassium 5.1 H Chloride 109 H Carbon Dioxide 18 L Anion Gap 18 BUN 98 H Creatinine 7.6 H* Est GFR ( Amer) 10 Est GFR (Non-Af Amer) 8 POC Glucose (mg/dL) Random Glucose 87 Calcium 8.0 L Iron TIBC % Saturation Ferritin Total Bilirubin AST ALT Alkaline Phosphatase NT-Pro-B Natriuret Pep Total Protein Albumin Globulin Albumin/Globulin Ratio Urine Color Urine Clarity Urine pH Ur Specific [place] Urine Protein Urine Glucose (UA) Urine Ketones Urine Blood Urine Nitrate Urine Bilirubin Urine Urobilinogen Ur Leukocyte Esterase Urine RBC (Auto) Urine Microscopic WBC Ur Squamous Epith Cells Urine Bacteria Influenza Typ A,B (EIA) Blood Type O POSITIVE Antibody Screen Negative BBK History Checked Patient has bt 05/04/17 05/04/17 05/04/17 07:00 07:40 07:40 WBC RBC Hgb Hct MCV MCH MCHC RDW Plt Count MPV Neut % (Auto) Lymph % (Auto) [place] % (Auto) Eos % (Auto) Baso % (Auto) Neut # Lymph # [place] # Eos # Baso # Sodium Potassium Chloride Carbon Dioxide Anion Gap BUN Creatinine Est GFR ( Amer) Est GFR (Non-Af Amer) POC Glucose (mg/dL) Random Glucose Calcium Iron 29 L Cancelled TIBC 267 Cancelled % Saturation 10.6 L Cancelled Ferritin 222.0 Total Bilirubin AST ALT Alkaline Phosphatase NT-Pro-B Natriuret Pep Total Protein Albumin Globulin Albumin/Globulin Ratio Urine Color Urine Clarity Urine pH Ur Specific [place] Urine Protein Urine Glucose (UA) Urine Ketones Urine Blood Urine Nitrate Urine Bilirubin Urine Urobilinogen Ur Leukocyte Esterase Urine RBC (Auto) Urine Microscopic WBC Ur Squamous Epith Cells Urine Bacteria Influenza Typ A,B (EIA) Blood Type Antibody Screen BBK History Checked Assessment & Plan (1) Chronic kidney disease, stage 5 Assessment and Plan: Patient with chronic kidney disease is stage V at the present with GFR 8.0 Admit date is influenza a positive was a flu symptoms. Patient absolutely refused dialysis at the present. Patient stated that he has been seeing his degreasing solution mixer as outpatient. Anemia We will do serum iron and ferritin level Hyperphosphatemia continue calcium acetate Secondary hyperparathyroidism we will check PTH diabetic kidney disease Hypertension Continue monitoring Hyperkalemia patient was given 1 dose of Kayexalate , renal diet 2 g sodium 2 g potassium 50 down protein Obesity DM as per primary team. Status: Acute (2) Hyperkalemia Status: Acute (3) Influenza Status: Acute
--- NOTE | 2017-05-04 10:41 | CP.PCM.DIS ---
Provider - Provider Date of Admission: 05/04/17 00:56 Attending physician: Paradise Lockett MD Primary care physician: Seng Jerome DO Consults: Nephrology: Lavelle Resendez MD. Time Spent in preparation of Discharge (in minutes): 45 Hospital Course - Lab Results Lab Results: Most Recent Lab Values WBC 6.6 K/uL (4.8-10.8) 05/04/17 05:45 RBC 2.82 Mil/uL (4.40-5.90) L 05/04/17 05:45 Hgb 8.4 g/dL (12.0-18.0) L 05/04/17 05:45 Hct 25.2 % (35.0-51.0) L 05/04/17 05:45 MCV 89.2 fl (80.0-94.0) 05/04/17 05:45 MCH 29.6 pg (27.0-31.0) 05/04/17 05:45 MCHC 33.2 g/dL (33.0-37.0) 05/04/17 05:45 RDW 13.7 % (11.5-14.5) 05/04/17 05:45 Plt Count 135 K/uL (130-400) 05/04/17 05:45 MPV 10.4 fl (7.2-11.7) 05/04/17 05:45 Neut % (Auto) 60.9 % (50.0-75.0) 05/04/17 00:23 Lymph % (Auto) 22.9 % (20.0-40.0) 05/04/17 05:45 [place] % (Auto) 13.3 % (0.0-10.0) H 05/04/17 05:45 Eos % (Auto) 2.3 % (0.0-4.0) 05/04/17 05:45 Baso % (Auto) 0.6 % (0.0-2.0) 05/04/17 05:45 Neut # 3.7 K/uL (1.8-7.0) 05/04/17 00:23 Lymph # 1.5 K/uL (1.0-4.3) 05/04/17 05:45 [place] # 0.9 K/uL (0.0-0.8) H 05/04/17 05:45 Eos # 0.2 K/uL (0.0-0.7) 05/04/17 05:45 Baso # 0.0 K/uL (0.0-0.2) 05/04/17 05:45 Sodium 140 mmol/l (132-148) 05/04/17 05:45 Potassium 5.1 MMOL/L (3.6-5.0) H 05/04/17 05:45 Chloride 109 mmol/L (98-107) H 05/04/17 05:45 Carbon Dioxide 18 mmol/L (22-30) L 05/04/17 05:45 Anion Gap 18 (10-20) 05/04/17 05:45 BUN 98 mg/dl (9-20) H 05/04/17 05:45 Creatinine 7.6 mg/dl (0.8-1.5) H* 05/04/17 05:45 Est GFR ( Amer) 10 05/04/17 05:45 Est GFR (Non-Af Amer) 8 05/04/17 05:45 POC Glucose (mg/dL) 80 mg/dL (65-110) 05/04/17 05:37 Random Glucose 87 mg/dL (75-110) 05/04/17 05:45 Calcium 8.0 mg/dL (8.4-10.2) L 05/04/17 05:45 Iron 29 ug/dL (49-181) L 05/04/17 07:00 TIBC 267 ug/dL (250-450) 05/04/17 07:00 % Saturation 10.6 % (20-55) L 05/04/17 07:00 Ferritin 222.0 ng/Ml (17.9-464) 05/04/17 07:40 Total Bilirubin 0.3 mg/dl (0.2-1.3) 05/04/17 00:23 AST 35 U/L (17-59) 05/04/17 00:23 ALT 35 U/L (21-72) 05/04/17 00:23 Alkaline Phosphatase 75 U/L (38-126) 05/04/17 00:23 NT-Pro-B Natriuret Pep 31088 pg/ml (0-450) H 05/04/17 00:23 Total Protein 6.3 G/DL (6.3-8.2) 05/04/17 00:23 Albumin 2.9 g/dL (3.5-5.0) L 05/04/17 00:23 Globulin 3.3 gm/dL (2.2-3.9) 05/04/17 00:23 Albumin/Globulin Ratio 0.9 (1.0-2.1) L 05/04/17 00:23 Urine Color Straw (YELLOW) 05/04/17 00: Urine Clarity Slighty-cloudy (Clear) 05/04/17 00: Urine pH 6.0 (5.0-8.0) 05/04/17 00:23 Ur Specific [place] 1.014 (1.003-1.030) 05/04/17 00:23 Urine Protein >=500 mg/dL (NEGATIVE) 05/04/17 00:23 Urine Glucose (UA) 50 mg/dL (Normal) 05/04/17 00: Urine Ketones Negative mg/dL (NEGATIVE) 05/04/17 00: Urine Blood Small (NEGATIVE) 05/04/17 00: Urine Nitrate Negative (NEGATIVE) 05/04/17 00:23 Urine Bilirubin Negative (NEGATIVE) 05/04/17 00: Urine Urobilinogen 0.2-1.0 mg/dL (0.2-1.0) 05/04/17 00:23 Ur Leukocyte Esterase Neg [place]/uL (Negative) 05/04/17 00:23 Urine RBC (Auto) 17 /hpf (0-3) H 05/04/17 00:23 Urine Microscopic WBC 1 /hpf (0-5) 05/04/17 00:23 Ur Squamous Epith Cells < 1 /hpf (0-5) 05/04/17 00:23 Urine Bacteria Rare (<OCC) 05/04/17 00:23 Influenza Typ A,B (EIA) Pos for influenza a (NEGATIVE) H 05/04/17 00:23 Blood Type O POSITIVE 05/04/17 05:45 Antibody Screen Negative 05/04/17 05:45 BBK History Checked Patient has bt 05/04/17 05:45 - Hospital Course Hospital Course: 41 y/o M with a PMHx of hypothyroidism, morbid obesity, IDDM2, HLD, HTN and CKD satge 4 was admitted due to influenza A infection, severe kidney injury and hyperkalemia. Pt received Tamiflu-renal dose and Kayexalate during hospitalization. Pt had a BUN/Creatinine of 101/7.4; nephrologis Dr Resendez Pt declined hemodialysis during this admission. Pt is currently being evaluated by [facility] [facility] (Dr Davis). Pt under vascular specialist (Dr Ricks at [facility]) management. --Pt was extensively educated and counseled about renal failure's detrimental complications. Pt made aware that his lab metabolic derangements were caused by his CKD. Pt confidently declined hemodialysis as his vascular surgeon will place venous access for hemodialysis next week. Pt was reported by his manager decision support that HD will be initiated in 2 months. Pt strictly instructed to follow up with In[employer] within 1 week. Pt discharged, stable, afebrile and tolerating PO. Oseltamivir 30mg daily for 3 days and Kayexalate 7.5mg every other day was prescribed. Pt will continue with home medications. ER precautions discussed with pt. - Date & Time of H&P Date of H&P: 05/04/17 Time of H&P: 01:30 Discharge Exam - Head Exam Head Exam: ATRAUMATIC, NORMAL INSPECTION, NORMOCEPHALIC - Eye Exam Eye Exam: EOMI, Normal appearance - Neck Exam Neck exam: Full Rom - Respiratory Exam Respiratory Exam: Clear to PA & Lateral, NORMAL BREATHING PATTERN - Cardiovascular Exam Cardiovascular Exam: REGULAR RHYTHM, +S1, +S2 - GI/Abdominal Exam GI & Abdominal Exam: Normal Bowel Sounds, Soft. absent: Distended, Guarding, Tenderness - Neurological Exam Neurological exam: Alert, Oriented x3 - Psychiatric Exam Psychiatric exam: Normal Mood Discharge Plan - Discharge Medications Prescriptions: Oseltamivir [Tamiflu SUSP] 30 mg PO DAILY 3 Days #15 ml Sodium Polystyrene Sulfonate [kayeXALATE Susp] 7.5 gm NA QOTHERDAY 14 Days #3 bottle - Follow Up Plan Condition: GUARDED Disposition: HOME/ ROUTINE Instructions: Chronic Kidney Disease (DC), Renal Failure Diet (DC), Acute Kidney Injury (DC) Additional Instructions: -Please F/U with Dr Jerome at the [facility] on Thursday05/08/17 at 11am. -Please F/U with Inclusion Teacher and Vascular Surgeon within 1 week. -Follow a healthy low-protein diet, conservative management for influenza viral infection such as increase warm fluid intake and rest. -Take medications as instructed and get bloodwork weekly. Referrals: Seng Jerome DO [Primary Care Provider] -
--- NOTE | 2017-05-04 10:43 | RAD ---
HISTORY: cough COMPARISON: 02/15/2017 TECHNIQUE: Chest PA and lateral FINDINGS: LUNGS: No active pulmonary disease. PLEURA: No significant pleural effusion identified. No pneumothorax apparent. CARDIOVASCULAR: No radiographic findings to suggest acute or significant cardiovascular disease. OSSEOUS STRUCTURES: No significant abnormalities. VISUALIZED UPPER ABDOMEN: Normal. OTHER FINDINGS: None. IMPRESSION: No active disease. No significant interval change compared to the prior examination(s).
[2017-05-04 12:50] VITALS: TEMP 98.3
[2017-05-04 15:50] VITALS: BP 168/95; PULSE 89; RESP 20; O2SAT 100
[2017-05-04] MEDS ORDERED: Insulin Detemir 100 Units/ml Inj SC SCH (22:00)
[2017-05-05] MEDS ORDERED: Levothyroxine 75 MCG TAB PO SCH (07:30)
== END 2017-05-04 16:30 | disposition home or self-care (01) ==
LOC: H.ER 22:46 → INTOOBSV 05-04 00:56 → H.ERHOLD 05-04 00:56 → H.TEL 05-04 08:51
PROVIDERS: ADMIT Family Medicine Geriatric Medicine; ATTEND Family Medicine Geriatric Medicine
DX: E87.5 Hyperkalemia (principal); I12.9 Hypertensive chronic kidney disease with stage 1 through stage 4 chronic kidney disease, or unspecified chronic kidney disease; N18.5 Chronic kidney disease, stage 5; I50.9 Heart failure, unspecified; D63.1 Anemia in chronic kidney disease; E66.01 Morbid (severe) obesity due to excess calories; Z68.42 Body mass index [BMI] 45.0-49.9, adult; E11.22 Type 2 diabetes mellitus with diabetic chronic kidney disease; E03.9 Hypothyroidism, unspecified; E78.5 Hyperlipidemia, unspecified; J10.1 Influenza due to other identified influenza virus with other respiratory manifestations; N25.81 Secondary hyperparathyroidism of renal origin; Z79.4 Long term (current) use of insulin; Z91.15 Patient's noncompliance with renal dialysis
CPT/HCPCS: 71046; 80053; 81003; 82728; 82948; 83540; 83550; 83880; 85025; 86850; 86900; 87040; 87804; 93005; 99285; G0378; J1940

== ENCOUNTER 2017-06-07 13:46 | Inpatient (IN) | payer BC, MEDICAID ==
[2017-06-07 13:46] VITALS: BMI 49.4
[2017-06-07] MEDS ORDERED: Nitroglycerin 2% Ointment Foilpak UD TOP STA (14:37)
[2017-06-07] MEDS ORDERED: Nitroglycerin 2% Ointment Foilpak UD TOP ONE (14:49)
[2017-06-07 15:02] LABS: BASO % 0.6 % (0.0-2.0); EOS # 0.2 K/uL (0.0-0.7); EOS % 2.1 % (0.0-4.0); HEMOGLOBIN 7.8 g/dL (12.0-18.0); LYMPH # 1.3 K/uL (1.0-4.3); LYMPH % 16.3 % (20.0-40.0); MEAN CELL VOLUME 88.1 fl (80.0-94.0); MEAN CORPUSCULAR HEMOGLOBIN 30.2 pg (27.0-31.0); MEAN CORPUSCULAR HGB CONC 34.3 g/dL (33.0-37.0); MEAN PLATELET VOLUME 10.9 fl (7.2-11.7); MONO # 0.7 K/uL (0.0-0.8); MONO % 8.6 % (0.0-10.0); NEUT # 5.6 K/uL (1.8-7.0); NEUT % 72.4 % (50.0-75.0); NRBC % 0.1 % (0.0-0.0); RBC 2.58 Mil/uL (4.40-5.90); RED CELL DISTRIBUTION WIDTH 14.1 % (11.5-14.5); WHITE BLOOD COUNT 7.7 K/uL (4.8-10.8)
[2017-06-07 15:32] LABS: TROPONIN I 0.061 ng/mL (0.00-0.120)
--- NOTE | 2017-06-07 15:35 | ED PDOC ---
HPI: SOB/CHF/COPD Time Seen by Provider: 06/07/17 14:00 Chief Complaint (Nursing): Shortness Of Breath Chief Complaint (Provider): Shortness of Breath History Per: Patient History/Exam Limitations: no limitations Onset/Duration Of Symptoms: Hrs (8 hours ago) Current Symptoms Are (Timing): Constant Additional Complaint(s): 41 yo male with a history of CHF, presents to the ED complaining of shortness of breath, onset of 8 hours ago. Patient reports feeling shortness of breath when lying in bed this morning, and also reports of ongoing bilateral leg swelling over the past few months. He denies any chest pain, syncope, cough, or fevers. Of note, the patient also reports that he is going to start dialysis soon; he is just waiting for his AV shunt, implanted sometime in May, to get ready for dialysis. He also states that she has been compliant with medications prescribed for hypertension, diabetes, and Chronic Renal Disease. Past Medical History Reviewed: Historical Data, Nursing Documentation, Vital Signs Vital Signs: Last Vital Signs Temp 98.3 F 06/07/17 16:48 Pulse 98 H 06/07/17 16:48 Resp 22 06/07/17 16:48 BP 159/84 H 06/07/17 16:48 Pulse Ox 98 06/07/17 16:48 - Medical History PMH: Anemia, CHF, Diabetes, HTN, Hypercholesterolemia, Hyperlipidemia, Hypothyroidism, Peripheral Edema, Chronic Kidney Disease Denies: Arthritis, HIV, Kidney Stones - Surgical History Other surgeries: AV shunt in left arm - Family History Family History: States: Diabetes - Social History Current smoker - smoking cessation education provided: No Ex-Smoker (has not smoked in the last 12 months): No Alcohol: None Drugs: Denies - Immunization History Hx Tetanus Toxoid Vaccination: No Hx Influenza Vaccination: No Hx Pneumococcal Vaccination: No - Home Medications Home Medications: Ambulatory Orders Medication Instructions Recorded Atorvastatin [Lipitor] 40 mg PO DAILY 10/04/15 Levothyroxine Sodium [Synthroid] 75 mcg PO DAILY 10/04/15 Losartan [Cozaar] 100 mg PO DAILY #0 tab 01/10/16 Insulin Human Regular [HumuLIN R] 12 unit SC ACTID 03/01/16 Insulin Glargine,Hum.rec.anlog 43 units SUBCON HS 11/22/16 [Basaglar Kwikpen U-100] Calcium Acetate [Phoslo] 1,334 mg PO WM #90 tab 02/18/17 Ferrous Sulfate [Feosol] 325 mg PO BID #60 tab 02/18/17 cloNIDine [Catapres] 0.2 mg PO BID #0 02/18/17 Furosemide [Lasix] 20 mg PO BID 05/04/17 Oseltamivir [Tamiflu SUSP] 30 mg PO DAILY 3 Days #15 ml 05/04/17 Sodium Polystyrene Sulfonate 7.5 gm NA QOTHERDAY 14 Days #3 05/04/17 [kayeXALATE Susp] bottle - Allergies Allergies/Adverse Reactions: Allergies Allergy/AdvReac Type Severity Reaction Status Date / Time No Known Allergies Allergy Verified 02/15/17 02:10 Review of Systems ROS Statement: Except As Marked, All Systems Reviewed And Found Negative Constitutional: Negative for: Fever Cardiovascular: Negative for: Chest Pain Respiratory: Positive for: Shortness of Breath. Negative for: Cough Neurological: Negative for: Other (syncope) Physical Exam - Reviewed Nursing Documentation Reviewed: Yes Vital Signs Reviewed: Yes - Physical Exam Appears: Positive for: Well, Non-toxic, No Acute Distress Head Exam: Positive for: ATRAUMATIC, NORMAL INSPECTION, NORMOCEPHALIC Skin: Positive for: Normal Color, Warm, DRY Eye Exam: Positive for: EOMI, Normal appearance, PERRL ENT: Positive for: Normal ENT Inspection Neck: Positive for: Normal, Painless ROM Cardiovascular/Chest: Positive for: Regular Rate, Rhythm. Negative for: Murmur Respiratory: Positive for: Respiratory Distress (mild), Other (tachypneic). Negative for: Wheezing Gastrointestinal/Abdominal: Positive for: Normal Exam, Soft. Negative for: Tenderness Back: Positive for: Normal Inspection Extremity: Positive for: Normal ROM, Swelling (lower legs bilateral) Neurologic/Psych: Positive for: Alert, Oriented. Negative for: Motor/Sensory Deficits - Laboratory Results Result Diagrams: 06/07/17 14:47 06/07/17 14:47 - ECG ECG: Positive for: Interpreted By Me, Viewed By Me ECG Rhythm: Positive for: Normal QRS, Sinus Tachycardia, ST/T Changes ( nonspecific) Rate: 112 O2 Sat by Pulse Oximetry: 94 (RA) Pulse Ox Interpretation: Normal - Radiology X-Ray: Interpreted by Me, Viewed By Me, Read By Radiologist X-Ray Interpretation: Other (CHF) Medical Decision Making Medical Decision Making: Time: --14:36 Impression: --Dyspnea and associated bilateral leg swelling Plan: --ECG --Labs --B-type natriuretic --Troponin I --Chest X-ray One View --Lasix 40mg IVP --Nitroglycerin .4mg SL --Nitroglycerin 2% 1ea TOP Reassess -- Scribe Attestation: Documented by Homer Valenzuela acting as a scribe for Ovidio Kwok MD. Provider Attestation: All medical record entries made by the Scribe were at my direction and personally dictated by me. I have reviewed the chart and agree that the record accurately reflects my personal performance of the history, physical exam, medical decision making, and the department course for this patient. I have also personally directed, reviewed, and agree with the discharge instructions and disposition. Disposition - Clinical Impression Clinical Impression: Acute on chronic kidney failure, CHF exacerbation - Patient ED Disposition Is Patient to be Admitted: Yes Discussed With : Queenie Foley Doctor Will See Patient In The: ED Counseled Patient/Family Regarding: Studies Performed, Diagnosis - Disposition Disposition Time: 16:50 Condition: FAIR - Pt Status Changed To: Hospital Disposition Of: Inpatient - Admit Certification Admit to Inpatient:: After my assessment, the patient will require hospitalization for at least two midnights. This is because of the severity of symptoms shown, intensity of services needed, and/or the medical risk in this patient being treated as an outpatient. - POA Present On Arrival: Poor Glycemic Control
[2017-06-07 16:03] LABS: CALCIUM 8.1 mg/dL (8.4-10.2)
--- NOTE | 2017-06-07 17:23 | CP.PCM.HP ---
History of Present Illness - History of Present Illness History of Present Illness: 41 year old morbid obese male with PMHx of IDDM Type 2, HLD, HTN, CKD stage 4, Anemia, Hypothyroidism presents to ED complaining of sudden onset of SOB today morning. Patient states that the SOB woke him up from sleep, and had chest tightness sensation when he presented to ED. Denies chest pain, diaphoresis, nausea, vomiting, abdominal pain, fevers, chills, sputum production. Patient complains of worsening lower extremities edema for the last two days, an intermittent dry cough for approximately 1 month. Has been eating and drinking well as usual. Urinating without any complains. Patient was seen by a vascular surgeon recently, and on May AV fistula was done on left forearm by Dr. Ricks( vascular surgeon) at [place], and can not be used for HD after 2 month. As per patient's patient has f/u closely with vascular surgeon after fistula creation, and 1 week ago he had an upper extremity US which was negative for clots, he has an oncoming appointment with vascular surgeon on june 15 for fistula evaluation. Full CODE PMD: [facility] Lockstitch Machine Operator: Dr. Davis Vascular surgeon : Dr. Ricks PMHx: IDDM Type 2, HLD, HTN, CKD stage 4, Anemia, Hypothyroidism, elevated liver enzymes, Morbid Obesity SurgHx: left groin abscess I&D 11/22/16 FMHx: Father DM, Mother HTN SocHx: denies smoking, drinks Etoh socially, denies drug use, lives with ( Alejandrina [phone]) Medications: Levothyroxine 75 mcg PO QD, Losartan 100mg PO QD, Clonidine 0.2 mg PO TID, Basaglar Kwikpen 43 units QHS, Humulin R 13 units TID with meals, Atorvastatin 40 mg PO QD, Calcium acetate 667 mg TID, Iron sulfate 325 mg BID, Lasix 20 mg PO BID Allergies: NKDA ED course: VS: BP:147/85, Pulse rate: 113, RR: 20, Oxygen sat: 94 in room air labs: CBC, BMP, troponin I x 1, Pro-BNP CXR Treatment: Nitro SL 0.4 once, nitro patch once, lasix 40 mg IV once Present on Admission - Present on Admission Any Indicators Present on Admission: No History of DVT/PE: No History of Uncontrolled Diabetes: No Urinary Catheter: No Decubitus Ulcer Present: No Review of Systems - Review of Systems All systems: reviewed and no additional remarkable complaints except (as per HPI ) Past Patient History - Infectious Disease Hx of Infectious Diseases: None - Tetanus Immunizations Tetanus Immunization: Unknown - Past Medical History & Family History Past Medical History?: Yes - Past Social History Alcohol: None Drugs: Denies - CARDIAC Hx Congestive Heart Failure: Yes Hx Hypercholesterolemia: Yes Hx Hypertension: Yes Hx Peripheral Edema: Yes - PULMONARY Hx Respiratory Disorders: No - NEUROLOGICAL Hx Neurological Disorder: No - HEENT Hx HEENT Problems: Yes Other/Comment: h/o laser surgery of right eye-cannot remember the reason - RENAL Hx Chronic Kidney Disease: Yes Hx Kidney Stones: No - ENDOCRINE/METABOLIC Hx Hypothyroidism: Yes - HEMATOLOGICAL/ONCOLOGICAL Hx Anemia: Yes Hx Human Immunodeficiency Virus (HIV): No - INTEGUMENTARY Hx Dermatological Problems: No - MUSCULOSKELETAL/RHEUMATOLOGICAL Hx Arthritis: No - GASTROINTESTINAL Hx Gastrointestinal Disorders: No - GENITOURINARY/GYNECOLOGICAL Hx Genitourinary Disorders: No - PSYCHIATRIC Hx Psychophysiologic Disorder: No Hx Substance Use: No - SURGICAL HISTORY Hx Surgeries: Yes Hx Eye Surgery: Yes Other/Comment: Hx Kidney Biopsy - ANESTHESIA Hx Anesthesia: Yes Hx Anesthesia Reactions: No Hx Malignant Hyperthermia: No Meds Allergies/Adverse Reactions: Allergies Allergy/AdvReac Type Severity Reaction Status Date / Time No Known Allergies Allergy Verified 02/15/17 02:10 Physical Exam - Constitutional Appears: No Acute Distress - ENT Exam ENT Exam: Mucous Membranes Moist - Respiratory Exam Respiratory Exam: Clear to Auscultation Bilateral, NORMAL BREATHING PATTERN. absent: Accessory Muscle Use, Chest Wall Tenderness, Decreased Breath Sounds, Rales, Rhonchi, Wheezes, Respiratory Distress - Cardiovascular Exam Cardiovascular Exam: Tachycardia, REGULAR RHYTHM, +S1, +S2 - GI/Abdominal Exam GI & Abdominal Exam: Normal Bowel Sounds, Soft. absent: Distended, Guarding, Rigid, Tenderness Additional comments: Obese - Extremities Exam Extremities exam: Negative for: calf tenderness Additional comments: Lower extremities pitting 2+ edema bilateral Left forearm AV fistula, continuous flow at auscultation, thrill to palpation - Neurological Exam Neurological exam: Alert, Oriented x3 - Skin Skin Exam: Dry, Intact, Pallor Results - Vital Signs Recent Vital Signs: Last Vital Signs Temp 98.3 F 06/07/17 16:48 Pulse 98 H 06/07/17 16:48 Resp 22 06/07/17 16:48 BP 159/84 H 06/07/17 16:48 Pulse Ox 98 06/07/17 16:48 - Labs Result Diagrams: 06/07/17 14:47 06/07/17 14:47 Labs: Laboratory Results - last 24 hr 06/07/17 06/07/17 06/07/17 14:17 14:47 14:47 WBC 7.7 RBC 2.58 L Hgb 7.8 L Hct 22.7 L MCV 88.1 MCH 30.2 MCHC 34.3 RDW 14.1 Plt Count 132 MPV 10.9 Neut % (Auto) 72.4 Lymph % (Auto) 16.3 L [place] % (Auto) 8.6 Eos % (Auto) 2.1 Baso % (Auto) 0.6 Neut # (Auto) 5.6 Lymph # (Auto) 1.3 [place] # (Auto) 0.7 Eos # (Auto) 0.2 Baso # (Auto) 0.0 Sodium 143 Potassium 4.8 Chloride 111 H Carbon Dioxide 15 L Anion Gap 22 H BUN 119 H* D Creatinine 9.2 H* D Est GFR ( Amer) 8 Est GFR (Non-Af Amer) 6 POC Glucose (mg/dL) 96 Random Glucose 92 Calcium 8.1 L Troponin I 0.0610 NT-Pro-B Natriuret Pep 53801 H Assessment & Plan - Assessment and Plan (Free Text) Assessment: 41 year old morbid obese male with extensive PMHx including IDDM Type 2, HLD, HTN, CKD stage 4 presents with SOB, and worsening renal function. Plan: Short of Breath -Telemetry unit -likely Fluid Overload 2/2 worsening Renal function -Cardio-respiratory monitoring -Oxygen supplementation via NC @ 2 LPM -repeat echo in AM -weight measure daily -measure I & O -low sodium diet -Nephrology on consult, Dr. dawson -c/w furosemide -Pro-BNP , could be 2/2 impaired renal function( [place] [address]) -s/p Lasix 40 mg once in ER -No h/o CHF, Echo done on 08/14/16 reported and normal right/left ventricles normal in size, LVEF 75 %, normal valves -CXR on admission reported mild pulmonary vascular congestion. Heart remains enlarged. Acute on Chronic Kidney Failure -BUN/Cr worsening in this admission -BUN/Cr: 119/9.2 on admission -POtassium WNL on admission 4.8 -repeat BMP, and f/u K+, BUN/Cr -last test on 05/04/17 was 98/7.6 -patient has a left forearm AV fistula created on 05/26/17 -No in HD at this time as per his Lockstitch Machine Operator recommendations -case d/w Nephrology on consult, Dr. Dawson -pt may need permanent dialysis cath for HD -IR cosult for HD cath as per Nephro recs HTN -elevated on admission likely 2/2 impaired renal function. -resume home meds -clonidine 0.2 mg TID -losartan 100 mg -s/p Nitro patch once in ER -f/u BP AV fistula -left forearm, thrill present -created on 05/26/17 by vascular surgeon -as per patient no physiologically mature to be used -next fistula eval tash for June 15 as per patient and his -s/p left UE ultrasound 1 week ago, with negative results as per pt's report IDDM type 2 -accucheck ACHS -resume home insulin -Hypoglycemic protocol -c/w home statin -diabetic with heart healthy diet -HgbA1C on 01/16/17 was 6.2 Normocytic Anemia -H/H: 7.8 normal MCV and RDW. -likely Anemia of chronic disease, and CKD -Could be multifactorial -Noted on records low iron sat, low Iron, and low TIBC -Patient is on Iron BID -will continue Iron for now -pt could benefit from EPO Hypothyroidism -resume Levothyroxine 75 mcg DVT prophylaxis -SCDs -H/H: 7. -platelet 132 f/u repeat CBC will consider Heparin 5000 units Q12 because impaired renal function - Date & Time Date: 06/07/17 Time: 17:30
[2017-06-07] MEDS ORDERED: Glucagon Recombinant 1 mg Inj IM PRN (18:24)
[2017-06-07] MEDS ORDERED: Dextrose 50% SYRINGE Inj (50 ml) IV PRN (18:24)
--- NOTE | 2017-06-07 22:10 | RAD ---
PROCEDURE: CHEST RADIOGRAPH, 1 VIEW HISTORY: COMPARISON: Comparison chest 04/25/2017 FINDINGS: LUNGS: Mild pulmonary vascular congestive changes are felt to be present. There may also be some minor bibasilar atelectasis. PLEURA: No pneumothorax or pleural fluid seen. CARDIOVASCULAR: Heart remains enlarged. OSSEOUS STRUCTURES: No significant abnormalities. VISUALIZED UPPER ABDOMEN: Normal. OTHER FINDINGS: None. IMPRESSION: Mild pulmonary vascular congestive changes are felt to be present. There may also be some minor bibasilar atelectasis. .
[2017-06-07] MEDS: Insulin Detemir 100 Units/ml Inj SC SCH (22:26)
[2017-06-08] MEDS: Levothyroxine 75 MCG TAB PO SCH (05:30)
[2017-06-08 05:36] LABS: BASO % 0.7 % (0.0-2.0); EOS # 0.2 K/uL (0.0-0.7); EOS % 2.3 % (0.0-4.0); LYMPH # 1.5 K/uL (1.0-4.3); LYMPH % 21.9 % (20.0-40.0); MEAN CELL VOLUME 87.8 fl (80.0-94.0); MEAN CORPUSCULAR HEMOGLOBIN 30.1 pg (27.0-31.0); MEAN CORPUSCULAR HGB CONC 34.2 g/dL (33.0-37.0); MEAN PLATELET VOLUME 11.1 fl (7.2-11.7); MONO # 0.6 K/uL (0.0-0.8); MONO % 8.7 % (0.0-10.0); NEUT # 4.6 K/uL (1.8-7.0); NEUT % 66.4 % (50.0-75.0); NRBC % 0.2 % (0.0-0.0); RBC 2.38 Mil/uL (4.40-5.90); RED CELL DISTRIBUTION WIDTH 14.4 % (11.5-14.5)
[2017-06-08 05:48] LABS: CALCIUM 8.2 mg/dL (8.4-10.2)
[2017-06-08 05:49] LABS: HEMOGLOBIN 7.1 g/dL (12.0-18.0)
[2017-06-08 05:59] LABS: INR 1.2 (0.9-1.2); PARTIAL THROMBOPLASTIN TIME 32.6 Seconds (25.6-37.1); PROTHROMBIN TIME 13.5 Seconds (9.8-13.1)
[2017-06-08] MEDS ORDERED: Insulin Regular 100 units/ml SC SCH (07:30)
[2017-06-08] MEDS: Insulin Regular 100 units/ml SC SCH ×3 (09:20→16:49)
--- NOTE | 2017-06-08 09:29 | CP.PCM.CON ---
History of Present Illness - History of Present Illness History of Present Illness: Patient is a 41 years of age nontender male with stage IV chronic kidney disease reported to the hospital [facility] the past the last one in April and previous to when in February and he had been refusing to have AV fistula at that time however he has AV fistula in mid May this time and another hospital and he has been followed by his installation manager. He presented to the emergency room complaining of shortness of breath difficulty breathing and increasing leg swelling. Patient has been refusing dialysis all along. Patient has some nausea not good appetite but no chest pain PMHx: IDDM Type 2, HLD, HTN, CKD stage 4, Anemia, Hypothyroidism, elevated liver enzymes, Morbid Obesity SurgHx: left groin abscess I&D 11/22/16 FMHx: Father DM, Mother HTN SocHx: denies smoking, drinks Etoh socially, denies drug use, lives with ( Alejandrina [phone]) Medications: Levothyroxine 75 mcg PO QD, Losartan 100mg PO QD, Clonidine 0.2 mg PO TID, Basaglar Kwikpen 43 units QHS, Humulin R 13 units TID with meals, Atorvastatin 40 mg PO QD, Calcium acetate 667 mg TID, Iron sulfate 325 mg BID, Lasix 20 mg PO BID Allergies: NKDA his at the bedside Review of Systems - Review of Systems Systems not reviewed;Unavailable: Respiratory Distress - Constitutional Constitutional: Anorexia, Weakness. absent: Chills - EENT Nose/Mouth/Throat: absent: Epistaxis - Cardiovascular Cardiovascular: Dyspnea on Exertion, Edema, Leg Edema. absent: Chest Pain, Syncope - Respiratory Respiratory: absent: Hemoptysis - Gastrointestinal Gastrointestinal: Nausea. absent: Coffee Ground Emesis - Genitourinary Genitourinary: Nocturia - Musculoskeletal Musculoskeletal: Muscle Weakness - Neurological Neurological: Abnormal Gait - Hematologic/Lymphatic Hematologic: absent: Easy Bleeding Past Patient History - Infectious Disease Hx of Infectious Diseases: None - Tetanus Immunizations Tetanus Immunization: Unknown - Past Medical History & Family History Past Medical History?: Yes - Past Social History Alcohol: None Drugs: Denies - CARDIAC Hx Congestive Heart Failure: Yes Hx Hypercholesterolemia: Yes Hx Hypertension: Yes Hx Peripheral Edema: Yes - PULMONARY Hx Respiratory Disorders: No - NEUROLOGICAL Hx Neurological Disorder: No - HEENT Hx HEENT Problems: Yes Other/Comment: h/o laser surgery of right eye-cannot remember the reason - RENAL Hx Chronic Kidney Disease: Yes Hx Kidney Stones: No - ENDOCRINE/METABOLIC Hx Hypothyroidism: Yes - HEMATOLOGICAL/ONCOLOGICAL Hx Anemia: Yes Hx Human Immunodeficiency Virus (HIV): No - INTEGUMENTARY Hx Dermatological Problems: No - MUSCULOSKELETAL/RHEUMATOLOGICAL Hx Arthritis: No - GASTROINTESTINAL Hx Gastrointestinal Disorders: No - GENITOURINARY/GYNECOLOGICAL Hx Genitourinary Disorders: No - PSYCHIATRIC Hx Psychophysiologic Disorder: No Hx Substance Use: No - SURGICAL HISTORY Hx Surgeries: Yes Hx Eye Surgery: Yes Other/Comment: Hx Kidney Biopsy - ANESTHESIA Hx Anesthesia: Yes Hx Anesthesia Reactions: No Hx Malignant Hyperthermia: No Meds Allergies/Adverse Reactions: Allergies Allergy/AdvReac Type Severity Reaction Status Date / Time No Known Allergies Allergy Verified 02/15/17 02:10 - Medications Medications: Current Medications Acetaminophen (Tylenol 325mg Tab) 650 mg PO Q6 [facility] Last Admin: 06/08/17 09:25 Dose: 650 mg Atorvastatin Calcium (Lipitor) [address] [facility] Calcium Acetate (Phoslo) 1,334 mg PO WM [facility] Last Admin: 06/08/17 09:22 Dose: Not Given Clonidine HCl (Catapres) 0.2 mg PO TID [facility] Last Admin: 06/08/17 09:21 Dose: 0.2 mg Dextrose (Dextrose 50% Inj) 0 ml IV STAT PRN; Protocol PRN Reason: Hypoglycemia Protocol Dextrose (Glutose 15) 0 gm PO ONCE PRN; Protocol PRN Reason: Hypoglycemia Protocol Ferrous Sulfate (Feosol) 325 mg PO BID [facility] Last Admin: 06/08/17 09:22 Dose: 325 mg Glucagon (Glucagen Diagnostic Kit) 0 mg IM STAT PRN; Protocol PRN Reason: Hypoglycemia Protocol Insulin Detemir (Levemir) 43 units SC HS [facility] Last Admin: 06/07/17 22:26 Dose: Not Given Insulin Human Regular (Humulin R) 13 units SC ACTID [facility] Last Admin: 06/08/17 09:20 Dose: Not Given Levothyroxine Sodium (Synthroid) 75 mcg PO DAILY@0630 [facility] Last Admin: 06/08/17 05:30 Dose: 75 mcg Losartan Potassium (Cozaar) 100 mg PO DAILY [facility] Last Admin: 06/08/17 09:21 Dose: 100 mg Physical Exam - Constitutional Appears: No Acute Distress - Eye Exam Eye Exam: Conjunctival injection - ENT Exam ENT Exam: Mucous Membranes Moist - Neck Exam Neck exam: Negative for: Lymphadenopathy - Respiratory Exam Respiratory Exam: Rhonchi, NORMAL BREATHING PATTERN. absent: Chest Wall Tenderness - Cardiovascular Exam Cardiovascular Exam: REGULAR RHYTHM. absent: Gallop, JVD, Rubs - Extremities Exam Extremities exam: Positive for: pedal edema. Negative for: calf tenderness - Back Exam Back exam: absent: CVA tenderness (L), CVA tenderness (R) - Neurological Exam Neurological exam: Alert - Psychiatric Exam Psychiatric exam: Normal Affect Results - Vital Signs Recent Vital Signs: Last Vital Signs Temp 97.9 F 06/08/17 07:55 Pulse 90 06/08/17 09:21 Resp 18 06/08/17 07:55 BP 154/71 H 06/08/17 09:21 Pulse Ox 99 06/08/17 07:55 - Labs Result Diagrams: 06/08/17 04:25 06/08/17 04:25 Labs: Laboratory Results - last 24 hr 06/07/17 06/07/17 06/07/17 14:17 14:47 14:47 WBC 7.7 RBC 2.58 L Hgb 7.8 L Hct 22.7 L MCV 88.1 MCH 30.2 MCHC 34.3 RDW 14.1 Plt Count 132 MPV 10.9 Neut % (Auto) 72.4 Lymph % (Auto) 16.3 L [place] % (Auto) 8.6 Eos % (Auto) 2.1 Baso % (Auto) 0.6 Neut # (Auto) 5.6 Lymph # (Auto) 1.3 [place] # (Auto) 0.7 Eos # (Auto) 0.2 Baso # (Auto) 0.0 PT INR APTT Sodium 143 Potassium 4.8 Chloride 111 H Carbon Dioxide 15 L Anion Gap 22 H BUN 119 H* D Creatinine 9.2 H* D Est GFR ( Amer) 8 Est GFR (Non-Af Amer) 6 POC Glucose (mg/dL) 96 Random Glucose 92 Calcium 8.1 L Troponin I 0.0610 NT-Pro-B Natriuret Pep 10010 H 06/07/17 06/08/17 06/08/17 17:48 04:25 04:25 WBC 7.0 RBC 2.38 L Hgb 7.1 L Hct 20.9 L MCV 87.8 MCH 30.1 MCHC 34.2 RDW 14.4 Plt Count 116 L MPV 11.1 Neut % (Auto) 66.4 Lymph % (Auto) 21.9 [place] % (Auto) 8.7 Eos % (Auto) 2.3 Baso % (Auto) 0.7 Neut # (Auto) 4.6 Lymph # (Auto) 1.5 [place] # (Auto) 0.6 Eos # (Auto) 0.2 Baso # (Auto) 0.0 PT INR APTT Sodium 142 Potassium 4.7 Chloride 112 H Carbon Dioxide 15 L Anion Gap 20 BUN 114 H* Creatinine 9.3 H* Est GFR ( Amer) 8 Est GFR (Non-Af Amer) 6 POC Glucose (mg/dL) 68 Random Glucose 93 Calcium 8.2 L Troponin I NT-Pro-B Natriuret Pep 06/08/17 06/08/17 04:25 05:24 WBC RBC Hgb Hct MCV MCH MCHC RDW Plt Count MPV Neut % (Auto) Lymph % (Auto) [place] % (Auto) Eos % (Auto) Baso % (Auto) Neut # (Auto) Lymph # (Auto) [place] # (Auto) Eos # (Auto) Baso # (Auto) PT 13.5 H INR 1.2 APTT 32.6 Sodium Potassium Chloride Carbon Dioxide Anion Gap BUN Creatinine Est GFR ( Amer) Est GFR (Non-Af Amer) POC Glucose (mg/dL) 95 Random Glucose Calcium Troponin I NT-Pro-B Natriuret Pep Assessment & Plan (1) CKD (chronic kidney disease) stage V requiring chronic dialysis Assessment and Plan: The patient had chronic kidney disease stage V requiring dialysis as soon as we get access on him. The patient has been refusing dialysis previously and I called his installation manager as out patient and he spoke to the patient and the in my presence and the room, and he finally agreeable for dialysis. Call intervention radiologist for permacath .I spoke to the resident. Consent was taken Patient has the rest of the medical problem including diabetes mellitus with diabetic nephropathy hypertension and hypothyroidism and morbid obesity in addition patient having high blood pressure and worsening of congestive heart failure and leg edema. Plan for dialysis as soon as we get an access. To order serum phosphorus and PTH and urinalysis Status: Acute (2) CHF exacerbation Status: Acute (3) Diabetes mellitus, insulin dependent (IDDM), uncontrolled Status: Chronic Priority: Medium (4) Hypertension Status: Chronic Priority: Medium (5) Hypothyroidism Status: Chronic Priority: Low (6) Morbid obesity Status: Chronic
[2017-06-08 10:01] LABS: IRON 60 ug/dL (49-181)
[2017-06-08 10:09] LABS: % IRON SATURATION 24 % (20-55); TOTAL IRON BINDING CAPACITY 256 ug/dL (250-450)
--- NOTE | 2017-06-08 11:47 | US ---
PROCEDURE: Duplex ultrasound of the bilateral lower extremity arteries. HISTORY: LE Edema COMPARISON: None available. TECHNIQUE: Grayscale and duplex Doppler evaluation of the bilateral common femoral, superficial femoral, popliteal, posterior tibial and dorsalis pedis arteries was performed.. FINDINGS: RIGHT LOWER EXTREMITY: Diffuse and Heterogeneous calcified plaque formation. RIGHT COMMON FEMORAL ARTERY: Widely patent. Maximal flow velocity of 85.9 cm/s. RIGHT SUPERFICIAL FEMORAL ARTERY: Widely patent. Maximal flow velocity of 115.0 cm/s. RIGHT POPLITEAL ARTERY:Widely patent. Maximal flow velocity of 100.5 cm/s. RIGHT POSTERIOR TIBIAL ARTERY: Widely patent. Maximal flow velocity of 114.5 cm/s. RIGHT DORSALIS PEDIS ARTERY: Widely patent. Maximal flow velocity of 106.4 cm/s. LEFT LOWER EXTREMITY: Diffuse and Heterogeneous calcified plaque formation. LEFT COMMON FEMORAL ARTERY: Widely patent. Maximal flow velocity of 123.1 cm/s. LEFT SUPERFICIAL FEMORAL ARTERY: Widely patent. Maximal flow velocity of 124 cm/s. LEFT POPLITEAL ARTERY:Widely patent. Maximal flow velocity of 68.9 cm/s. LEFT POSTERIOR TIBIAL ARTERY: Widely patent. Maximal flow velocity of 98.2 cm/s. LEFT DORSALIS PEDIS ARTERY: Widely patent. Maximal flow velocity of 104.1 cm/s. OTHER FINDINGS: Bilateral lower extremity, primarily ankle edema IMPRESSION: Normal Duplex Doppler of the bilateral lower extremity arteries.
--- NOTE | 2017-06-08 11:50 | CP.PCM.PN ---
Subjective - Date & Time of Evaluation Date of Evaluation: 06/08/17 Time of Evaluation: 08:00 - Subjective Subjective: No acute overnight events. Pt seen and examined this morning. He reports improvement of his shortness of breath since last night. LE edema has become more prominent in his right leg. Denies cough, cp, wheezing, calf pain, fever, chills. Objective - Vital Signs/Intake and Output Vital Signs (last 24 hours): Temp Pulse Resp BP Pulse Ox 97.9 F 90 18 154/71 H 99 06/08/17 07:55 06/08/17 09:21 06/08/17 07:55 06/08/17 09:21 06/08/17 07:55 Intake and Output: 06/08/17 06/08/17 06:59 18:59 Intake Total 400 Output Total 1200 Balance -800 - Medications Medications: Current Medications Acetaminophen (Tylenol 325mg Tab) 650 mg PO Q6 [facility] Last Admin: 06/08/17 09:25 Dose: 650 mg Atorvastatin Calcium (Lipitor) 40 mg PO [facility] Calcium Acetate (Phoslo) 1,334 mg PO WM [facility] Last Admin: 06/08/17 09:22 Dose: Not Given Clonidine HCl (Catapres) 0.2 mg PO TID [facility] Last Admin: 06/08/17 09:21 Dose: 0.2 mg Dextrose (Dextrose 50% Inj) 0 ml IV STAT PRN; Protocol PRN Reason: Hypoglycemia Protocol Dextrose (Glutose 15) 0 gm PO ONCE PRN; Protocol PRN Reason: Hypoglycemia Protocol Ferrous Sulfate (Feosol) 325 mg PO BID [facility] Last Admin: 06/08/17 09:22 Dose: 325 mg Glucagon (Glucagen Diagnostic Kit) 0 mg IM STAT PRN; Protocol PRN Reason: Hypoglycemia Protocol Insulin Detemir (Levemir) 43 units SC HS [facility] Last Admin: 06/07/17 22:26 Dose: Not Given Insulin Human Regular (Humulin R) 13 units SC ACTID [facility] Last Admin: 06/08/17 09:20 Dose: Not Given Levothyroxine Sodium (Synthroid) 75 mcg PO DAILY@0630 [facility] Last Admin: 06/08/17 05:30 Dose: 75 mcg Losartan Potassium (Cozaar) 100 mg PO DAILY [facility] Last Admin: 06/08/17 09:21 Dose: 100 mg - Labs Labs: 06/08/17 04:25 06/08/17 04:25 PT 13.5 Seconds (9.8-13.1) H 06/08/17 04:25 INR 1.2 (0.9-1.2) 06/08/17 04:25 APTT 32.6 Seconds (25.6-37.1) 06/08/17 04:25 - Constitutional Appears: Well (Morbidly Obese), Non-toxic, No Acute Distress - Head Exam Head Exam: ATRAUMATIC - ENT Exam ENT Exam: Mucous Membranes Moist - Respiratory Exam Respiratory Exam: Clear to Ausculation Bilateral. absent: Rales, Rhonchi, Wheezes Additional comments: Reduced breath sounds bilaterally. No use of accessory muscles - Cardiovascular Exam Cardiovascular Exam: REGULAR RHYTHM, +S1, +S2. absent: Murmur - GI/Abdominal Exam GI & Abdominal Exam: Soft, Normal Bowel Sounds. absent: Tenderness - Extremities Exam Extremities Exam: Calf Tenderness, Pedal Edema (R>L. Pitting edema +2 up to mid [place], no eryethema, sores, discoloration. Left dorsal foot- chronic dry ulcer, no skin breakdown, non tender, no discharge or foul odor) - Neurological Exam Neurological Exam: Alert, Awake, Oriented x3 - Psychiatric Exam Psychiatric exam: Normal Affect - Skin Skin Exam: Normal Color Assessment and Plan - Assessment and Plan (Free Text) Assessment: 41 year old morbid obese male with extensive PMHx including IDDM Type 2, HLD, HTN, CKD stage 4 presents with SOB, and worsening renal function. For Hemodialysis in the am as tolerated. Plan: Short of Breath, improved -likely Fluid Overload 2/2 acute on Chronic Kidney Disease -Not likely CHF exacerbation. No h/o CHF, Echo done on 08/14/16 reported and normal right/left ventricles normal in size, LVEF 75 %, normal valves -CXR on admission reported mild pulmonary vascular congestion. Heart remains enlarged. -Pro-BNP 47037, could be 2/2 impaired renal function (but [place] [address]) -Recieved 40mg IV Lasix in the ED -For HD in the am Acute on Chronic Kidney Failure -BUN/Cr: 119/9.2 on admission -last test on 05/04/17 was 98/7.6 -patient has a left forearm AV fistula created on 05/26/17. As per patient no physiologically mature to be used. S/p left UE ultrasound 1 week ago for reported swelling, resulted normal -Case d/w Welding Machine Operator [employer] Dr. Resendez and pt's furnace repairer helper, Dr. Davis. Pt will go for perm cath dialysis access placement for HD in the am. -IR consult in place. Pt consented. NPO after midnight. -Social work consult placed to establish dialysis at [facility]. Hep B antigen sent. -Avoid nephrotoxic meds -Renal Diet -Repeat am BMP, and f/u K+, BUN/Cr #BL LE Edema -Likely related to fluid overload 2/2 to CKD -F/U LE doppler BL -No signs of cellulites or dvt #Elevated Troponin -EKG No Ischemic changes -Likely 2/2 to CKD -f/U 3rd serial troponin -Plan for CT Angio to r/u PE HTN -Normotensive today -resume home meds -clonidine 0.2 mg TID -losartan 100 mg -s/p Nitro patch once in ER -f/u BP IDDM type 2 -accucheck ACHS -resume home insulin -Hypoglycemic protocol -c/w home statin -diabetic with heart healthy diet -HgbA1C on 01/16/17 was 6.2 Normocytic Anemia -H/H: 7.8// normal MCV and RDW. -likely Anemia of chronic disease, and CKD -Could be multifactorial -Noted on records low iron sat, low Iron, and low TIBC -Patient is on Iron BID -will continue Iron for now -pt could benefit from EPO or transfusion Hypothyroidism -resume Levothyroxine 75 mcg DVT prophylaxis -SCDs -will consider Heparin 5000 units Q12 because impaired renal function
--- NOTE | 2017-06-08 12:11 | CARD ---
APPROVED REPORT EKG Measurement Heart [id number] MD [id number] <Conclusion> Sinus tachycardia Possible Left atrial enlargement Nonspecific ST and T wave abnormality Abnormal ECG
[2017-06-08] MEDS ORDERED: Iodixanol 320 MG/ML 100 ML BOTTLE IV ONE (16:54)
[2017-06-08] MEDS ORDERED: Sodium Chloride 0.9% 100 ML ONE (16:54)
[2017-06-08] MEDS ORDERED: Sodium Chloride 0.9% 1,000 ML IV SCH (17:45)
--- NOTE | 2017-06-08 18:35 | CT ---
EXAM: CT Angiography Chest With Intravenous Contrast EXAM DATE/TIME: 06/08/2017 11:43 AM CLINICAL HISTORY: 41 years old, male; Signs and symptoms; Shortness of breath; Additional info: Le edema, acute SOB. Sent phy. Doc. TECHNIQUE: Axial computed tomographic angiography images of the chest with intravenous contrast using pulmonary embolism protocol. All CT scans at this facility use one or more dose reduction techniques, viz.: automated exposure control; ma/kV adjustment per patient size (including targeted exams where dose is matched to indication; i.e. head); or iterative reconstruction technique. MIP reconstructed images were created and reviewed. Coronal and sagittal reformatted images were created and reviewed. CONTRAST: 95 mL of [id number] administered intravenously. COMPARISON: CR - CHEST ONE VIEW 2017-06-07 14:45 FINDINGS: Artifacts: Motion artifact degrades image quality. Streak artifact degrades image quality. Heart, aorta and Pulmonary arteries: The heart is enlarged. There are coronary artery calcifications.There is trace fluid in pericardial recesses. Aorta is normal in caliber. There are no central pulmonary emboli. Streak and motion limits evaluation of peripheral arteries. Lungs and pleural spaces: Trachea and main bronchi are patent. There is minimal scarring at the lung apices. There are asymmetric groundglass opacities. There is more focal airspace disease at the lung bases left greater than right. There are small effusions. Mediastinum: The esophagus is partially distended with air. Streak and motion limits evaluation of the esophagus. There is shotty mediastinal and hilar nodes. Thyroid: Thyroid is only partially imaged. Bones/joints: There are degenerative changes in the osseus structures. Soft tissues: unremarkable Lymph nodes: See above. Upper abdomen: There are no acute abnormalities in the visualized portion of the abdomen. IMPRESSION: Limited by patient motion and body habitus, cardiomegaly and atherosclerotic disease, no central pulmonary embolus or aortic aneurysm; extremely limited evaluation of peripheral vessels; patchy airspace disease/atelectasis at the lung bases with small effusions; asymmetric bilateral groundglass opacities may represent pulmonary edema Additional nonemergent findings as described above.
--- NOTE | 2017-06-08 20:03 | CP.PCM.PN ---
Subjective - Date & Time of Evaluation Date of Evaluation: 06/08/17 Time of Evaluation: 20:01 Objective - Vital Signs/Intake and Output Vital Signs (last 24 hours): Temp Pulse Resp BP Pulse Ox 98.3 F 78 20 158/92 H 98 06/08/17 19:30 06/08/17 19:30 06/08/17 19:30 06/08/17 19:30 06/08/17 19:30 - Medications Medications: Current Medications Acetaminophen (Tylenol 325mg Tab) 650 mg PO Q6 REPLACED BY [facility] Last Admin: 06/08/17 17:48 Dose: Not Given Acetylcysteine (Acetylcysteine 20%) 3 ml PO BID REPLACED BY [facility] Stop: 06/10/17 09:01 Atorvastatin Calcium (Lipitor) 40 mg PO HS REPLACED BY [facility] Calcium Acetate (Phoslo) 1,334 mg PO WM REPLACED BY [facility] Last Admin: 06/08/17 18:33 Dose: 1,334 mg Clonidine HCl (Catapres) 0.2 mg PO TID REPLACED BY [facility] Last Admin: 06/08/17 18:33 Dose: 0.2 mg Dextrose (Dextrose 50% Inj) 0 ml IV STAT PRN; Protocol PRN Reason: Hypoglycemia Protocol Dextrose (Glutose 15) 0 gm PO ONCE PRN; Protocol PRN Reason: Hypoglycemia Protocol Ferrous Sulfate (Feosol) 325 mg PO BID REPLACED BY [facility] Last Admin: 06/08/17 16:49 Dose: 325 mg Glucagon (Glucagen Diagnostic Kit) 0 mg IM STAT PRN; Protocol PRN Reason: Hypoglycemia Protocol Insulin Detemir (Levemir) 43 units SC HS REPLACED BY [facility] Last Admin: 06/07/17 22:26 Dose: Not Given Insulin Human Regular (Humulin R) 13 units SC ACTID REPLACED BY [facility] Last Admin: 06/08/17 16:49 Dose: 13 u Levothyroxine Sodium (Synthroid) 75 mcg PO DAILY@0630 REPLACED BY [facility] Last Admin: 06/08/17 05:30 Dose: 75 mcg Losartan Potassium (Cozaar) 100 mg PO DAILY REPLACED BY [facility] Last Admin: 06/08/17 09:21 Dose: 100 mg - Labs Labs: 06/08/17 04:25 06/08/17 04:25 PT 13.5 Seconds (9.8-13.1) H 06/08/17 04:25 INR 1.2 (0.9-1.2) 06/08/17 04:25 APTT 32.6 Seconds (25.6-37.1) 06/08/17 04:25 Assessment and Plan (1) Breath shortness Status: Acute (2) Acute on chronic kidney failure Status: Acute (3) Edema Status: Acute (4) Uncontrolled diabetes mellitus Status: Acute (5) Hypertension Status: Chronic - Assessment and Plan (Free Text) Plan: trop are stable and may be related to renal failure or other etiology. I agree with plan to eval for dvt and pe. would check echo.
--- NOTE | 2017-06-08 20:07 | CP.PCM.CON ---
History of Present Illness - History of Present Illness History of Present Illness: 41 y/o with sudden onset of sob, woke him from sleep last night. He states the sob resolved within 3 min after sitting up. he has had mild del real over the last several months. this is first episode. denies increase in KATRIN, denies cp, had diaphoresis and mild palp. No recurrence of episodes since initial. pt has acute on chronic RF with evidence of volume overload. Review of Systems - Constitutional Constitutional: As Per HPI. absent: Anorexia, Chills, Daytime Sleepiness, Excessive Sweating, Fatigue, Fever, Frequent Falls, Headache, Increased Appetite , Lethargy, Malaise, Night Sweats, Snoring, Sleep Apnea, Weight Gain, Weight Loss, Weakness, Other - EENT Eyes: As Per HPI. absent: Blind Spots, Blurred Vision, Change in Vision, Decreased Night Vision, Diplopia, Discharge, Dry Eye, Exophthalmos, Floaters, Irritation, Itchy Eyes, Loss of Peripheral Vision, Pain, Photophobia, Requires Corrective Lenses, Sees Flashes, Spots in Vision, Tunnel Vision, Other Visual Disturbances, Loss of Vision, Other Ears: As Per HPI. absent: Decreased Hearing, Ear Discharge, Ear Pain, Tinnitus , Abnormal Hearing, Disequilibrium, Dizziness, Other Nose/Mouth/Throat: As Per HPI. absent: Epistaxis, Nasal Congestion, Nasal Discharge, Nasal Obstruction, Nasal Trauma, Nose Pain, Post Nasal Drip, Sinus Pain, Sinus Pressure, Bleeding Gums, Change in Voice, Dental Pain, Dry Mouth, Dysphagia, Halitosis, Hoarsness, Lip Swelling, Mouth Lesions, Mouth Pain, Odynophagia, Sore Throat, Throat Swelling, Tongue Swelling, Facial Pain, Neck Pain, Neck Mass, Other - Cardiovascular Cardiovascular: As Per HPI, Dyspnea, Dyspnea on Exertion, Orthopnea, Paroxysmal Nocturnal Dyspnea, Pedal Edema. absent: Acrocyanosis, Chest Pain, Chest Pain at Rest, Chest Pain with Activity, Claudication, Diaphoresis, Edema, Irregular Heart Rhythm, Pain Radiating to Arm/Neck/Jaw, Leg Edema, Leg Ulcers, Lightheadedness, Palpitations, Radiating Pain, Rapid Heart Rate, Slow Heart Rate , Syncope, Other - Respiratory Respiratory: As Per HPI. absent: Cough, Dyspnea, Hemoptysis, Dyspnea on Exertion, Wheezing, Snoring, Stridor, Pain on Inspiration, Chest Congestion, Excessive Mucous Production, Change in Mucous Color, Pain with Coughing, Other - Gastrointestinal Gastrointestinal: As Per HPI. absent: Abdominal Pain, Belching, Bloating, Change in Bowel Habits, Change in Stool Character, Coffee Ground Emesis, Constipation, Cramping, Diarrhea, Dyspepsia, Dysphagia, Early Satiety, Excessive Flatus, Fecal Incontinence, Heartburn, Hematemesis, Hematochezia, Loose Stools, Melena, Nausea, Odynophagia, Temesmus, Vomiting, Other - Genitourinary Genitourinary: As Per HPI. absent: Change in Urinary Stream, Difficulty Urinating, Dysuria, Flank Pain, Hematuria, Pyuria, Nocturia, Urinary Incontinence, Urinary Frequency, Urinary Hesitance, Urinary Urgency, Voiding Freq/Small Amts, Freq UTI, Hx Renal/Bladder Calculi, Hx /Renal Surgery, Bladder Distension, Other - Musculoskeletal Musculoskeletal: As Per HPI. absent: Abnormal Gait, Arthralgias, Atrophy, Back Pain, Deformity, Joint Swelling, Limited Range of Motion, Loss of Height, Muscle Cramps, Muscle Weakness, Myalgias, Neck Pain, Numbness, Radiating Pain into Limb, Stiffness, Tingling, Other - Integumentary Integumentary: As Per HPI. absent: Acne, Alopecia, Bleeding Lesions, Change in Hair, Change in Nails, Change in Pigmentation, Changing Lesions, Dry Skin, Erythema, Furuncle, Hirsutism, Lesions, New Lesions, Non-Healing Lesions, Photosensitivity, Pruritus, Rash, Skin Pain, Skin Ulcer, Sores, Striae, Swelling , Unusual Bruising, Wounds, Jaundice, Other - Neurological Neurological: As Per HPI. absent: Abnormal Gait, Abnormal Hearing, Abnormal Movements, Abnormal Speech, Behavioral Changes, Burning Sensations, Confusion, Convulsions, Disequilibrium, Dizziness, Numbness, Focal Weakness, Frequent Falls , Headaches, Lack of Coordination, Loss of Vision, Memory Loss, Paresthesias, Radicular Pain, Restless Legs, Sensory Deficit, Syncope, Tingling, Tremor, Vertigo, Weakness, Other Visual Disturbances, Other - Psychiatric Psychiatric: As Per HPI. absent: Abnormal Sleep Pattern, Anhedonia, Anxiety, Auditory Hallucinations, Behavioral Changes, Change in Appetite, Change in Libido, Confusion, Depression, Difficulty Concentrating, Hallucinations, Homicidal Ideation, Hopelessness, Irritability, Memory Loss, Mood Swings, Panic Attacks, Paranoia, Suicidal Ideation, Visual Hallucinations, Tactile Hallucinations, Other - Endocrine Endocrine: As Per HPI. absent: Change in Body Appearance, Change in Libido, Cold Intolorance, Deepening of Voice, Excessive Sweating, Fatigue, Flushing, Heat Intolorance, Increase in Ring/Shoe/Hat Size, Palpitations, Polydipsia, Polyphagia, Polyuria, Other - Hematologic/Lymphatic Hematologic: As Per HPI. absent: Easy Bleeding, Easy Bruising, Lymphadenopathy , Other Past Patient History - Infectious Disease Hx of Infectious Diseases: None - Tetanus Immunizations Tetanus Immunization: Unknown - Past Medical History & Family History Past Medical History?: Yes - Past Social History Alcohol: None Drugs: Denies - CARDIAC Hx Congestive Heart Failure: Yes Hx Hypercholesterolemia: Yes Hx Hypertension: Yes Hx Peripheral Edema: Yes - PULMONARY Hx Respiratory Disorders: No - NEUROLOGICAL Hx Neurological Disorder: No - HEENT Hx HEENT Problems: Yes Other/Comment: h/o laser surgery of right eye-cannot remember the reason - RENAL Hx Chronic Kidney Disease: Yes Hx Kidney Stones: No - ENDOCRINE/METABOLIC Hx Hypothyroidism: Yes - HEMATOLOGICAL/ONCOLOGICAL Hx Anemia: Yes Hx Human Immunodeficiency Virus (HIV): No - INTEGUMENTARY Hx Dermatological Problems: No - MUSCULOSKELETAL/RHEUMATOLOGICAL Hx Arthritis: No - GASTROINTESTINAL Hx Gastrointestinal Disorders: No - GENITOURINARY/GYNECOLOGICAL Hx Genitourinary Disorders: No - PSYCHIATRIC Hx Psychophysiologic Disorder: No Hx Substance Use: No - SURGICAL HISTORY Hx Surgeries: Yes Hx Eye Surgery: Yes Other/Comment: Hx Kidney Biopsy - ANESTHESIA Hx Anesthesia: Yes Hx Anesthesia Reactions: No Hx Malignant Hyperthermia: No Meds Allergies/Adverse Reactions: Allergies Allergy/AdvReac Type Severity Reaction Status Date / Time No Known Allergies Allergy Verified 02/15/17 02:10 - Medications Medications: Current Medications Acetaminophen (Tylenol 325mg Tab) 650 mg PO Q6 [facility] Last Admin: 06/08/17 17:48 Dose: Not Given Acetylcysteine (Acetylcysteine 20%) 3 ml PO BID [facility] Stop: 06/10/17 09:01 Amlodipine Besylate (Norvasc) 5 mg PO DAILY [facility] Atorvastatin Calcium (Lipitor) 40 mg PO HS [facility] Calcium Acetate (Phoslo) 1,334 mg PO WM [facility] Last Admin: 06/08/17 18:33 Dose: 1,334 mg Clonidine HCl (Catapres) 0.2 mg PO TID [facility] Last Admin: 06/08/17 18:33 Dose: 0.2 mg Dextrose (Dextrose 50% Inj) 0 ml IV STAT PRN; Protocol PRN Reason: Hypoglycemia Protocol Dextrose (Glutose 15) 0 gm PO ONCE PRN; Protocol PRN Reason: Hypoglycemia Protocol Ferrous Sulfate (Feosol) 325 mg PO BID [facility] Last Admin: 06/08/17 16:49 Dose: 325 mg Glucagon (Glucagen Diagnostic Kit) 0 mg IM STAT PRN; Protocol PRN Reason: Hypoglycemia Protocol Insulin Detemir (Levemir) 43 units SC HS [facility] Last Admin: 06/07/17 22:26 Dose: Not Given Insulin Human Regular (Humulin R) 13 units SC ACTID [facility] Last Admin: 06/08/17 16:49 Dose: 13 u Levothyroxine Sodium (Synthroid) 75 mcg PO DAILY@0630 [facility] Last Admin: 06/08/17 05:30 Dose: 75 mcg Losartan Potassium (Cozaar) 100 mg PO DAILY [facility] Last Admin: 06/08/17 09:21 Dose: 100 mg Physical Exam - Constitutional Appears: Non-toxic - Head Exam Head Exam: ATRAUMATIC, NORMAL INSPECTION, NORMOCEPHALIC - Eye Exam Eye Exam: EOMI, Normal appearance, PERRL. absent: Conjunctival injection, Nystagmus, Periorbital swelling, Periorbital tenderness, Scleral icterus Pupil Exam: NORMAL ACCOMODATION, PERRL. absent: Fixed, Irregular, Miosis, Mydriatic, Unequal - ENT Exam ENT Exam: Mucous Membranes Moist, Normal Exam. absent: Mucous Membranes Dry, Normal External Ear Exam, Normal Oropharynx, TM's Normal Bilaterally - Neck Exam Neck exam: Positive for: Normal Inspection. Negative for: Full Rom, Lymphadenopathy, Meningismus, Tenderness, Thyromegaly - Respiratory Exam Respiratory Exam: Clear to Auscultation Bilateral, NORMAL BREATHING PATTERN. absent: Accessory Muscle Use, Chest Wall Tenderness, Decreased Breath Sounds, Prolonged Expiratory Phase, Rales, Rhonchi, Wheezes, Respiratory Distress, Stridor - Cardiovascular Exam Cardiovascular Exam: REGULAR RHYTHM, +S1, +S2, Systolic Murmur. absent: Bradycardia, Tachycardia, Clicks, Diastolic murmur, Gallop, Irregular Rhythm, JVD, RRR, Rubs, +S4 - GI/Abdominal Exam GI & Abdominal Exam: Normal Bowel Sounds, Soft. absent: Bruit, Diminished Bowel Sounds, Distended, Firm, Guarding, Hernia, Hyperactive Bowel Sounds, Hypoactive Bowel Sounds, Mass, Organomegaly, Pulsatile Mass, Rebound, Rigid, Tenderness - Rectal Exam Rectal Exam: Deferred. absent: Black Stool, Bloody Stool, Hemorrhoids, Fecal Impaction, NORMAL INSPECTION - Extremities Exam Extremities exam: Positive for: pedal edema, pedal pulses present. Negative for : calf tenderness, full ROM, joint swelling, normal capillary refill, normal inspection, tenderness - Back Exam Back exam: NORMAL INSPECTION. absent: CVA tenderness (L), CVA tenderness (R), FULL ROM, muscle spasm, paraspinal tenderness, rash noted, tenderness, vertebral tenderness - Neurological Exam Neurological exam: Alert, CN II-XII Intact, Normal Gait, Oriented x3, Reflexes Normal - Psychiatric Exam Psychiatric exam: Normal Affect, Normal Mood - Skin Skin Exam: Dry, Intact, Normal Color, Warm Results - Vital Signs Recent Vital Signs: Last Vital Signs Temp 98.3 F 06/08/17 19:30 Pulse 78 06/08/17 19:30 Resp 20 06/08/17 19:30 BP 158/92 H 06/08/17 19:30 Pulse Ox 98 06/08/17 19:30 - Labs Result Diagrams: 06/09/17 04:15 06/09/17 04:15 Labs: Laboratory Results - last 24 hr 06/07/17 06/08/17 06/08/17 22:22 04:25 04:25 WBC 7.0 RBC 2.38 L Hgb 7.1 L Hct 20.9 L MCV 87.8 MCH 30.1 MCHC 34.2 RDW 14.4 Plt Count 116 L MPV 11.1 Neut % (Auto) 66.4 Lymph % (Auto) 21.9 Towns % (Auto) 8.7 Eos % (Auto) 2.3 Baso % (Auto) 0.7 Neut # (Auto) 4.6 Lymph # (Auto) 1.5 Towns # (Auto) 0.6 Eos # (Auto) 0.2 Baso # (Auto) 0.0 PT INR APTT Sodium 142 Potassium 4.7 Chloride 112 H Carbon Dioxide 15 L Anion Gap 20 BUN 114 H* Creatinine 9.3 H* Est GFR ( Amer) 8 Est GFR (Non-Af Amer) 6 POC Glucose (mg/dL) 104 Random Glucose 93 Calcium 8.2 L Phosphorus Iron TIBC % Saturation Ferritin Troponin I 06/08/17 06/08/17 06/08/17 04:25 05:24 08:50 WBC RBC Hgb Hct MCV MCH MCHC RDW Plt Count MPV Neut % (Auto) Lymph % (Auto) Towns % (Auto) Eos % (Auto) Baso % (Auto) Neut # (Auto) Lymph # (Auto) Towns # (Auto) Eos # (Auto) Baso # (Auto) PT 13.5 H INR 1.2 APTT 32.6 Sodium Potassium Chloride Carbon Dioxide Anion Gap BUN Creatinine Est GFR ( Amer) Est GFR (Non-Af Amer) POC Glucose (mg/dL) 95 Random Glucose Calcium Phosphorus Iron TIBC % Saturation Ferritin Troponin I 0.4000 H* 06/08/17 06/08/17 06/08/17 09:51 09:51 11:33 WBC RBC Hgb Hct MCV MCH MCHC RDW Plt Count MPV Neut % (Auto) Lymph % (Auto) Towns % (Auto) Eos % (Auto) Baso % (Auto) Neut # (Auto) Lymph # (Auto) Towns # (Auto) Eos # (Auto) Baso # (Auto) PT INR APTT Sodium Potassium Chloride Carbon Dioxide Anion Gap BUN Creatinine Est GFR ( Amer) Est GFR (Non-Af Amer) POC Glucose (mg/dL) 90 Random Glucose Calcium Phosphorus 7.5 H Iron 60 TIBC 256 % Saturation 24 Ferritin 223.0 Troponin I 06/08/17 06/08/17 15:21 15:49 WBC RBC Hgb Hct MCV MCH MCHC RDW Plt Count MPV Neut % (Auto) Lymph % (Auto) Towns % (Auto) Eos % (Auto) Baso % (Auto) Neut # (Auto) Lymph # (Auto) Towns # (Auto) Eos # (Auto) Baso # (Auto) PT INR APTT Sodium Potassium Chloride Carbon Dioxide Anion Gap BUN Creatinine Est GFR ( Amer) Est GFR (Non-Af Amer) POC Glucose (mg/dL) 156 H Random Glucose Calcium Phosphorus Iron TIBC % Saturation Ferritin Troponin I 0.3660 H* - EKG Data EKG Interpreted by: Myself EKG shows normal: Sinus rhythm Assessment & Plan (1) Breath shortness Status: Acute (2) Acute on chronic kidney failure Status: Acute (3) Edema Status: Acute (4) Uncontrolled diabetes mellitus Status: Acute (5) Hypertension Status: Chronic Priority: Medium (6) Troponin level elevated Status: Acute (7) Morbid obesity Status: Chronic - Assessment and Plan (Free Text) Plan: trop are stable and may be related to renal failure or other etiology. I agree with plan to eval for dvt and pe. would check echo to eval PAP, RV and lvef. will add norvasc 5 mg as bp remains elevated. May keep mildly elevated bp so that he will tolerate volume removal on hd.
[2017-06-08] MEDS: Acetylcysteine 20% Inhal Soln (4ml) PO SCH (20:34)
[2017-06-08] MEDS: Insulin Detemir 100 Units/ml Inj SC SCH (21:45)
[2017-06-08 22:14] LABS: URINE AMORPHOUS SEDIMENT RARE /ul (<OCC); URINE BACTERIA RARE (<OCC); URINE BILIRUBIN NEGATIVE (NEGATIVE); URINE BLOOD SMALL (NEGATIVE); URINE CLARITY SLIGHTY-CLOUDY (Clear); URINE COLOR STRAW (YELLOW); URINE GLUCOSE (UA) 50 mg/dL (Normal); URINE LEUKOCYTE ESTERASE NEG Leu/uL (Negative); URINE NITRATE NEGATIVE (NEGATIVE); URINE PROTEIN >=500 mg/dL (NEGATIVE); URINE UROBILINOGEN 0.2-1.0 mg/dL (0.2-1.0)
[2017-06-09 05:25] LABS: HEMOGLOBIN 7.5 g/dL (12.0-18.0); MEAN CELL VOLUME 88.7 fl (80.0-94.0); MEAN CORPUSCULAR HEMOGLOBIN 29.9 pg (27.0-31.0); MEAN CORPUSCULAR HGB CONC 33.8 g/dL (33.0-37.0); RBC 2.49 Mil/uL (4.40-5.90); WHITE BLOOD COUNT 7.1 K/uL (4.8-10.8)
[2017-06-09] MEDS: Levothyroxine 75 MCG TAB PO SCH (05:37)
[2017-06-09 06:16] LABS: BLOOD UREA NITROGEN 113 mg/dl (9-20); CALCIUM 8.6 mg/dL (8.4-10.2); GFR AFRICAN-AMERICAN 7; GFR NON-AFRICAN AMERICAN 6
[2017-06-09] MEDS: Insulin Regular 100 units/ml SC SCH ×3 (07:21→18:06)
[2017-06-09] MEDS: Acetylcysteine 20% Inhal Soln (4ml) PO SCH ×2 (07:45→11:59)
--- NOTE | 2017-06-09 08:02 | CP.PCM.PN ---
Subjective - Date & Time of Evaluation Date of Evaluation: 06/09/17 Time of Evaluation: 08:00 - Subjective Subjective: No acute overnight events. Pt seen at bedside. No complaints. Questions about permacath placement asked and answered. Pt reports that he is urinating a lot. Ambulating. Denies sob, cp, abdominal pain, n/v, cough. Objective - Vital Signs/Intake and Output Vital Signs (last 24 hours): Temp Pulse Resp BP Pulse Ox 98.1 F 81 18 152/82 H 97 06/09/17 04:55 06/09/17 07:46 06/09/17 04:55 06/09/17 07:46 06/09/17 04:55 - Medications Medications: Current Medications Acetaminophen (Tylenol 325mg Tab) 650 mg PO Q6 [facility] Last Admin: 06/09/17 04:00 Dose: Not Given Acetylcysteine (Acetylcysteine 20%) 3 ml PO BID [facility] Stop: 06/09/17 09:01 Last Admin: 06/09/17 07:45 Dose: 3 ml Amlodipine Besylate (Norvasc) 5 mg PO DAILY [facility] Last Admin: 06/09/17 07:46 Dose: 5 mg Atorvastatin Calcium (Lipitor) 40 mg PO HS [facility] Last Admin: 06/08/17 22:00 Dose: 40 mg Calcium Acetate (Phoslo) 1,334 mg PO WM [facility] Last Admin: 06/09/17 07:26 Dose: Not Given Clonidine HCl (Catapres) 0.2 mg PO TID [facility] Last Admin: 06/09/17 07:45 Dose: 0.2 mg Dextrose (Dextrose 50% Inj) 0 ml IV STAT PRN; Protocol PRN Reason: Hypoglycemia Protocol Dextrose (Glutose 15) 0 gm PO ONCE PRN; Protocol PRN Reason: Hypoglycemia Protocol Glucagon (Glucagen Diagnostic Kit) 0 mg IM STAT PRN; Protocol PRN Reason: Hypoglycemia Protocol Insulin Detemir (Levemir) 43 units SC HS [facility] Last Admin: 06/08/17 21:45 Dose: 43 u Insulin Human Regular (Humulin R) 13 units SC ACTID [facility] Last Admin: 06/09/17 07:21 Dose: Not Given Levothyroxine Sodium (Synthroid) 75 mcg PO DAILY@0630 [facility] Last Admin: 06/09/17 05:37 Dose: 75 mcg Losartan Potassium (Cozaar) 100 mg PO DAILY [facility] Last Admin: 06/09/17 07:46 Dose: 100 mg - Labs Labs: 06/09/17 04:15 06/09/17 04:15 PT 13.5 Seconds (9.8-13.1) H 06/08/17 04:25 INR 1.2 (0.9-1.2) 06/08/17 04:25 APTT 32.6 Seconds (25.6-37.1) 06/08/17 04:25 - Constitutional Appears: Well, Non-toxic, Other (Morbidly obese) - ENT Exam ENT Exam: Mucous Membranes Moist - Respiratory Exam Respiratory Exam: Clear to Ausculation Bilateral. absent: Accessory Muscle Use , Rales, Rhonchi, Wheezes - Cardiovascular Exam Cardiovascular Exam: REGULAR RHYTHM, +S1, +S2. absent: Murmur - GI/Abdominal Exam GI & Abdominal Exam: Soft. absent: Tenderness Additional comments: Obese abdomen - Extremities Exam Extremities Exam: Pedal Edema (R>L. +1 pitting up to ankles) - Neurological Exam Neurological Exam: Alert, Awake, Normal Gait - Psychiatric Exam Psychiatric exam: Normal Affect - Skin Skin Exam: Normal Color Assessment and Plan - Assessment and Plan (Free Text) Assessment: Assessment: 41 year old morbid obese male with extensive PMHx including IDDM Type 2, HLD, HTN, CKD stage 4 presents with SOB, and worsening renal function. Plan for Permcath placement at 8am and Hemodialysis as tolerated after access establishes. Will be transfused 1 unit PRBC w/ HD, pt consented. Plan: SOB -likely Fluid Overload 2/2 acute on Chronic Kidney Disease. -Not likely CHF exacerbation. No h/o CHF, Echo done on 08/14/16 reported and normal right/left ventricles normal in size, LVEF 75 %, normal valves -CT Angio negative for PE -CXR on admission reported mild pulmonary vascular congestion. Heart remains enlarged. -Pro-BNP 59035, could be 2/2 impaired renal function ([place] test [place] [id number]) -Received 80mg IV Lasix last night. C/W with home dose of lasix 40mg PO daily Acute on Chronic Kidney Disease, worsening -BUN/Cr: 113/94, Metabolic Acidosis Anion Gap 23 -patient has a left forearm AV fistula created on 05/26/17. As per patient no physiologically mature to be used. -Case d/w [employer] Dr. Resendez and pt's pulmonary physical therapist, Dr. Davis. Pt will go for perm cath dialysis access placement today and HD after. -IR consult in place. Pt consented. NPO after midnight. -Social work consult placed to establish dialysis at [facility]. Hep B antigen sent. -Avoid nephrotoxic meds -Renal Diet -F/U am BMP #BL LE Edema, improving -Likely related to fluid overload 2/2 to CKD -LE Doppler negative -No signs of cellulites or dvt #Elevated Troponin -Trending down 0.06/0.4/0.36 -EKG No Ischemic changes -Likely 2/2 to CKD -Plan for CT Angio to r/u PE HTN -BP in high 150's. -Norvasc aded as per nephro -resume home meds -Clonidine 0.2 mg TID -Losartan 100 mg -s/p Nitro patch once in ER -f/u BP IDDM type 2 -POCG wnl -accucheck ACHS -resume home insulin -Hypoglycemic protocol -c/w home statin -diabetic with heart healthy diet -HgbA1C on 01/16/17 was 6.2 Normocytic Anemia -H/H: 7.5/22.1 normal MCV and RDW. -likely Anemia of chronic disease 2/2 CKD -Could be multifactorial -Noted on records low iron sat, low Iron, and low TIBC -pt could benefit from EPO or transfusion Hypothyroidism -resume Levothyroxine 75 mcg DVT prophylaxis -SCDs -will consider Heparin 5000 units Q12 because impaired renal function
[2017-06-09] MEDS ORDERED: Lidocaine 1% Inj (20ml) ONE (08:59)
--- NOTE | 2017-06-09 09:36 | CP.PCM.PN ---
Subjective - Date & Time of Evaluation Date of Evaluation: 06/09/17 Time of Evaluation: 09:34 - Subjective Subjective: Patient sitting down on the bed. Patient complained of less shortness of breath because he was given Lasix and he made approximately 1200 mL of urine last 24 hours. Patient was seen early in the morning and he was about to go for [facility] for dialysis which is about to start. No chest pain reported But continued to complain of poor appetite Objective - Vital Signs/Intake and Output Vital Signs (last 24 hours): Temp Pulse Resp BP Pulse Ox 97.9 F 80 18 152/82 H 98 06/09/17 08:00 06/09/17 08:00 06/09/17 08:00 06/09/17 08:00 06/09/17 08:00 - Medications Medications: Current Medications Acetaminophen (Tylenol 325mg Tab) 650 mg PO Q6 [facility] Last Admin: 06/09/17 04:00 Dose: Not Given Amlodipine Besylate (Norvasc) 5 mg PO DAILY [facility] Last Admin: 06/09/17 07:46 Dose: 5 mg Atorvastatin Calcium (Lipitor) 40 mg PO HS [facility] Last Admin: 06/08/17 22:00 Dose: 40 mg Calcium Acetate (Phoslo) 1,334 mg PO WM [facility] Last Admin: 06/09/17 07:26 Dose: Not Given Clonidine HCl (Catapres) 0.2 mg PO TID [facility] Last Admin: 06/09/17 07:45 Dose: 0.2 mg Dextrose (Dextrose 50% Inj) 0 ml IV STAT PRN; Protocol PRN Reason: Hypoglycemia Protocol Dextrose (Glutose 15) 0 gm PO ONCE PRN; Protocol PRN Reason: Hypoglycemia Protocol Epoetin Simeon (Procrit) 6,000 unit IV TTS [facility] Furosemide (Lasix) 40 mg PO DAILY [facility] Glucagon (Glucagen Diagnostic Kit) 0 mg IM STAT PRN; Protocol PRN Reason: Hypoglycemia Protocol Insulin Detemir (Levemir) 43 units SC HS [facility] Last Admin: 06/08/17 21:45 Dose: 43 u Insulin Human Regular (Humulin R) 13 units SC ACTID [facility] Last Admin: 06/09/17 07:21 Dose: Not Given Levothyroxine Sodium (Synthroid) 75 mcg PO DAILY@0630 [facility] Last Admin: 06/09/17 05:37 Dose: 75 mcg Losartan Potassium (Cozaar) 100 mg PO DAILY [facility] Last Admin: 06/09/17 07:46 Dose: 100 mg - Labs Labs: 06/09/17 04:15 06/09/17 04:15 PT 13.5 Seconds (9.8-13.1) H 06/08/17 04:25 INR 1.2 (0.9-1.2) 06/08/17 04:25 APTT 32.6 Seconds (25.6-37.1) 06/08/17 04:25 - Constitutional Appears: No Acute Distress - Eye Exam Eye Exam: Conjunctival injection - ENT Exam ENT Exam: Mucous Membranes Moist - Respiratory Exam Respiratory Exam: Rhonchi. absent: Chest Wall Tenderness - Cardiovascular Exam Cardiovascular Exam: REGULAR RHYTHM. absent: Gallop, JVD, Rubs - GI/Abdominal Exam GI & Abdominal Exam: Soft, Normal Bowel Sounds - Extremities Exam Extremities Exam: absent: Calf Tenderness - Back Exam Back Exam: absent: CVA tenderness (L), CVA tenderness (R) - Neurological Exam Neurological Exam: Alert - Psychiatric Exam Psychiatric exam: Normal Affect - Skin Skin Exam: absent: Cyanosis Assessment and Plan (1) CKD (chronic kidney disease) stage V requiring chronic dialysis Assessment & Plan: Serum creatinine and BUN/creatinine very high as noted GFR 6.0 Patient about to start dialysis shortly I discussed the order with the dialysis nurse. Sodium bath 138 Potassium bath 2 mEq Bicarbonate bath 34 Ultrafiltration about 8929-0500 as tolerated. Serum phosphorus and PTH pending Patient severely anemic as noted EPO order on dialysis. Serum ferritin and serum iron level Continue hemodialysis I spoke in detail again with him today and yesterday with him and his .lengthy time Social service to arrange for outpatient dialysis at [facility] Diabetes mellitus as per primary care and management Hypertension continue the same Status: Acute (2) CHF exacerbation Status: Acute (3) Diabetes mellitus, insulin dependent (IDDM), uncontrolled Status: Chronic (4) Hypertension Status: Chronic (5) Hypothyroidism Status: Chronic (6) Morbid obesity Status: Chronic
[2017-06-09] MEDS ORDERED: Sodium Chloride 0.9% 100 ML IV ONE (10:40)
--- NOTE | 2017-06-09 10:40 | PCM.SURG1 ---
Surgeon's Initial Post Op Note - Surgeon's Notes Surgeon: Hitesh Hightower MD Automatic I Threading Machine Feeder: None Type of Anesthesia: MAC Pre-Operative Diagnosis: CKD IV requiring HD Operative Findings: patent right IJ vein. cather length: 23 cm tip to cuff. catheter tip: upper RA Post-Operative Diagnosis: same Operation Performed: Tunneled HD Catheter Insertion Specimen/Specimens Removed: n/a Estimated Blood Loss: EBL {In ML}: 10 Date of Surgery/Procedure: 06/09/17 Time of Surgery/Procedure: 10:30
[2017-06-09] MEDS ORDERED: Epoetin Alfa 20000 UNIT/ML Inj IV SCH (11:00)
--- NOTE | 2017-06-09 11:44 | US ---
PROCEDURE: Bilateral lower extremity venous duplex Doppler. HISTORY: LE edema COMPARISON: Lower extremity ultrasound dated 08/08/2016. TECHNIQUE: Bilateral common femoral, superficial femoral, popliteal and posterior tibial veins were evaluated. Flow was assessed with color Doppler, compressibility, assessment of phasic flow and augmentation response. FINDINGS: COMMON FEMORAL VEIN: Right CFV: Unremarkable. Left CFV: Unremarkable. SUPERFICIAL FEMORAL VEIN: Right SFV: Unremarkable. Left SFV: Unremarkable. POPLITEAL VEIN: Right Popliteal: Unremarkable. Left Popliteal: Unremarkable. POSTERIOR TIBIAL VEIN: Right PTV: Unremarkable. Left PTV: Unremarkable. OTHER FINDINGS: None. IMPRESSION: No evidence of deep venous thrombosis.
[2017-06-09 11:59] LABS: HEPATITIS B SURFACE AG Negative (NEGATIVE)
[2017-06-09] MEDS ORDERED: Perflutren Lipid Microsphere 1.5 ML SUS IV ONE (12:53)
--- NOTE | 2017-06-09 13:22 | VASCULAR ---
PROCEDURE: TUNNELED HEMODIALYSIS CATHETER PLACEMENT CLINICAL HISTORY: 41-year-old male with CKD IV requiring hemodialysis is referred to Interventional Radiology for tunneled hemodialysis catheter placement. PROCEDURE: 1. Focused ultrasound of the right neck vasculature. 2. Ultrasound-guided access. 3. Insertion of tunneled hemodialysis catheter. 4. Fluoroscopic localization of catheter tip. PRE-PROCEDURE FINDINGS: 1. Patent right internal jugular vein. POST-PROCEDURE FINDINGS: 1. Placement of 15.5 [place] tunneled hemodialysis catheter. 2. Catheter tip in the upper right atrium. INTERVENTIONAL RADIOLOGIST: Hitesh Hightower M.D. (the attending was present for the entire procedure) ANESTHESIA: Provided by the attending anesthesiologist. Sedation was supervised by the anesthesiology attending with the presence of independent radiology nursing monitoring. Physiological data monitoring was performed throughout the entire procedure. The patient's blood pressure, EKG and pulse oximetry were recorded. The patient tolerated the procedure and sedation without untoward reactions. The intra-procedural sedation time was 20 minutes. MEDICATION: Lidocaine 1% for local subcutaneous analgesia. COMPLICATIONS: None. RADIATION DOSE: Fluoroscopy Time: 197.6 seconds Cumulative Dose: 113.08 mGy PROCEDURE DESCRIPTION AND FINDINGS: The risks, benefits, alternatives and possible complications of the procedure were fully discussed; all questions were answered and informed consent was obtained. The patient was brought into the interventional suite and a pre-procedure 'time-out' was performed. The patient was placed on the fluoroscopy table in the supine position. The right neck was prepped and draped in the usual sterile fashion. Maximum sterile barrier precautions were maintained throughout the entire procedure. Preliminary ultrasound images of the right neck vasculature demonstrate patency of the right internal jugular vein. Following subcutaneous infiltration of 1% lidocaine for local analgesia, under ultrasound guidance, a 21-gauge needle was advanced into the right internal jugular vein with real-time visualization of needle entry. The ultrasound images were permanently recorded and submitted to the PACS. A 0.035 guidewire was advanced centrally to the inferior vena cava. A site on the upper chest was anesthetized with lidocaine and a small dermatotomy was made. The catheter was connected to the tunneling device and a subcutaneous tunnel was created. This was used to bring the catheter through to the internal jugular puncture site. The inner dilator of the peel away sheath was removed with the guidewire and the catheter was inserted into the peel away sheath and the peel away removed. The catheter tip was confirmed to be in the upper portion of the right atrium with fluoroscopic guidance. The catheter flushed and aspirated easily. The catheter was secured to the skin with a 2-0 Prolene suture. The puncture site was closed with steri-strips. Sterile dressings were applied. The catheter was heparinized. The patient tolerated the procedure well without immediate post-procedure complications and was transferred back to the floor in stable condition. IMPRESSION: SUCCESSFUL INSERTION OF RIGHT INTERNAL JUGULAR ACCESS 15.5 CAMBODIAN 23 CM TIP TO CUFF TUNNELED HEMODIALYSIS CATHETER. CATHETER TIP IN UPPER RIGHT ATRIUM, READY FOR USE.
--- NOTE | 2017-06-09 13:41 | CARD ---
APPROVED REPORT EXAM: Two-dimensional and M-mode echocardiogram with Doppler, color Doppler with contrast. Other Information Quality : GoodRhythm : NSR INDICATION Dyspnea Raising Troponin Echo Enhancing Agent Indication: Endocardial border delineation Agent/Amount Used: Definity 2D DIMENSIONS IVSd1.41 (0.7-1.1cm)LVDd6.08 (3.9-5.9cm) LVOT Diameter2.26 (1.8-2.4cm)PWd1.58 (0.7-1.1cm) IVSs1.79 (0.8-1.2cm)LVDs4.35 (2.5-4.0cm) FS (%) 28.4 %PWs1.71 (0.8-1.2cm) M-Mode DIMENSIONS Left Atrium (MM)5.70 (2.5-4.0cm)IVSd1.43 (0.7-1.1cm) Aortic Root3.38 (2.2-3.7cm)LVDd6.99 (4.0-5.6cm) Aortic Cusp Exc.2.17 (1.5-2.0cm)PWd1.40 (0.7-1.1cm) IVSs1.84 cmFS (%) 27 % LVDs5.07 (2.0-3.8cm)PWs1.40 cm Mitral Valve MV E Rebjnbtf319.0cm/sMV DECEL [id number] A Tcxyaljo82.9cm/s MV KPH64ltG/A ratio1.8MVA (PHT)4.58cm2 TDI Lateral E' Peak V8.23cm/sMedial E' Peak V9.45cm/sE/Lateral E'15.6 E/Medial E'13.5 Pulmonary Valve PV Peak Snacfsjv26.8cm/s LEFT VENTRICLE The Left Ventricle is mildly dilated. There is normal left ventricular wall thickness. Left ventricle systolic function is low normal to borderline. The Ejection Fraction is 45-50%. Thel LV segmental wall motion was borderline. Transmitral Doppler flow pattern is Grade I-abnormal relaxation pattern. RIGHT VENTRICLE The right ventricle is normal size. There is normal right ventricular wall thickness. The right ventricular systolic function is normal. ATRIA The left atrium is mildly dilated. The right atrium size is normal. AORTIC VALVE The aortic valve is normal in structure. No aortic regurgitation is present. There is no aortic valvular stenosis. MITRAL VALVE The mitral valve is normal in structure. There is no evidence of mitral valve prolapse. There is no mitral valve stenosis. Mitral regurgitation is mild. TRICUSPID VALVE The tricuspid valve is normal in structure. There is no tricuspid valve regurgitation noted. PULMONIC VALVE The pulmonary valve is normal in structure. There is no pulmonic valvular regurgitation. GREAT VESSELS The aortic root is normal in size. Due to poor image quality, the IVC could not be assessed. PERICARDIAL EFFUSION The pericardium appears normal. <Conclusion> The Left Ventricle is mildly dilated. There is normal left ventricular wall thickness. Thel LV segmental wall motion was borderline. Left ventricle systolic function is low normal to borderline. The Ejection Fraction is 45-50%. Transmitral Doppler flow pattern is Grade I-abnormal relaxation pattern.
--- NOTE | 2017-06-09 16:35 | CP.PCM.PN ---
Subjective - Date & Time of Evaluation Date of Evaluation: 06/09/17 Time of Evaluation: 16:33 - Subjective Subjective: NO FURTHER SOB. ECHO IMAGES REVIEWED. PT HAS NORMAL SYSTOLIC AND DIASTOLIC FUNCTION. INCREASED EPSS IS INDICATIVE OF VOLUME OVERLOAD. NORMAL DIASTOLIC FUNCTION ESSENTIALLY RULES OUT CAD. Objective - Vital Signs/Intake and Output Vital Signs (last 24 hours): Temp Pulse Resp BP Pulse Ox 98.2 F 85 20 165/99 H 98 06/09/17 15:21 06/09/17 15:21 06/09/17 15:21 06/09/17 15:21 06/09/17 15:21 Intake and Output: 06/09/17 06/09/17 06:59 18:59 Intake Total 0 Balance 0 - Medications Medications: Current Medications Acetaminophen (Tylenol 325mg Tab) 650 mg PO Q6 [facility] Last Admin: 06/09/17 11:38 Dose: 650 mg Amlodipine Besylate (Norvasc) 5 mg PO DAILY [facility] Last Admin: 06/09/17 11:58 Dose: Not Given Aspirin (Aspirin Chewable) 81 mg PO DAILY [facility] Atorvastatin Calcium (Lipitor) 40 mg PO HS [facility] Last Admin: 06/08/17 22:00 Dose: 40 mg Calcium Acetate (Phoslo) 1,334 mg PO WM [facility] Last Admin: 06/09/17 13:00 Dose: Not Given Clonidine HCl (Catapres) 0.2 mg PO TID [facility] Last Admin: 06/09/17 15:49 Dose: Not Given Dextrose (Dextrose 50% Inj) 0 ml IV STAT PRN; Protocol PRN Reason: Hypoglycemia Protocol Dextrose (Glutose 15) 0 gm PO ONCE PRN; Protocol PRN Reason: Hypoglycemia Protocol Epoetin Simeon (Procrit) 6,000 unit IV TTS [facility] Last Admin: 06/09/17 16:27 Dose: 6,000 unit Furosemide (Lasix) 40 mg PO DAILY [facility] Last Admin: 06/09/17 09:00 Dose: Not Given Glucagon (Glucagen Diagnostic Kit) 0 mg IM STAT PRN; Protocol PRN Reason: Hypoglycemia Protocol Insulin Detemir (Levemir) 43 units SC HS [facility] Last Admin: 06/08/17 21:45 Dose: 43 u Insulin Human Regular (Humulin R) 13 units SC ACTID [facility] Last Admin: 06/09/17 12:02 Dose: Not Given Levothyroxine Sodium (Synthroid) 75 mcg PO DAILY@0630 [facility] Last Admin: 06/09/17 05:37 Dose: 75 mcg Losartan Potassium (Cozaar) 100 mg PO DAILY [facility] Last Admin: 06/09/17 11:58 Dose: Not Given - Labs Labs: 06/09/17 04:15 06/09/17 04:15 PT 13.5 Seconds (9.8-13.1) H 06/08/17 04:25 INR 1.2 (0.9-1.2) 06/08/17 04:25 APTT 32.6 Seconds (25.6-37.1) 06/08/17 04:25 - Constitutional Appears: Non-toxic - Head Exam Head Exam: ATRAUMATIC, NORMAL INSPECTION, NORMOCEPHALIC - Eye Exam Eye Exam: EOMI, Normal appearance, PERRL. absent: Conjunctival injection, Nystagmus, Periorbital swelling, Periorbital tenderness, Scleral icterus - ENT Exam ENT Exam: Mucous Membranes Moist, Normal Exam. absent: Mucous Membranes Dry, Normal External Ear Exam, Normal Oropharynx, TM's Normal Bilaterally - Neck Exam Neck Exam: Full ROM, Normal Inspection. absent: Lymphadenopathy, Meningismus, Tenderness, Thyromegaly - Respiratory Exam Respiratory Exam: Clear to Ausculation Bilateral, NORMAL BREATHING PATTERN. absent: Accessory Muscle Use, Chest Wall Tenderness, Decreased Breath Sounds, Prolonged Expiratory Phase, Rales, Rhonchi, Wheezes, Respiratory Distress, Stridor - Cardiovascular Exam Cardiovascular Exam: REGULAR RHYTHM, +S1, +S2, Murmur. absent: Bradycardia, Tachycardia, Clicks, Diastolic murmur, Gallop, Irregular Rhythm, JVD, RRR, Rubs , +S4 - GI/Abdominal Exam GI & Abdominal Exam: Soft, Normal Bowel Sounds. absent: Bruit, Distended, Firm , Guarding, Rigid, Tenderness, Diminished Bowel Sounds, Hernia, Hyperactive Bowel Sounds, Hypoactive Bowel Sounds, Organomegaly, Pulsatile Mass, Rebound, Mass - Rectal Exam Rectal Exam: Deferred - Extremities Exam Extremities Exam: Pedal Edema. absent: Calf Tenderness, Full ROM, Joint Swelling, Normal Capillary Refill, Normal Inspection, Tenderness - Back Exam Back Exam: NORMAL INSPECTION - Neurological Exam Neurological Exam: Alert, Awake, CN II-XII Intact, Normal Gait, Oriented x3. absent: Abnormal Gait, Altered, Motor Sensory Deficit, Reflexes Normal - Psychiatric Exam Psychiatric exam: Normal Affect, Normal Mood - Skin Skin Exam: Dry, Intact, Normal Color, Warm. absent: Abrasion, Cyanosis, Diaphoretic, Erythema, Mottled, Pallor, Pallor, Petechiae, Rash, Urticaria, Vesicles Assessment and Plan (1) Breath shortness Status: Acute (2) Acute on chronic kidney failure Status: Acute (3) Edema Status: Acute (4) Uncontrolled diabetes mellitus Status: Acute (5) Hypertension Status: Chronic (6) Troponin level elevated Status: Acute - Assessment and Plan (Free Text) Plan: PT HAS NORMAL SYSTOLIC AND DIASTOLIC FUNCTION. INCREASED EPSS IS INDICATIVE OF VOLUME OVERLOAD. NORMAL DIASTOLIC FUNCTION ESSENTIALLY RULES OUT CAD. ELEVATED TROP LIKELY DUE TO VOLUME OVERLOAD WITH RENAL FAILURE. PE STUDY NEGATIVE PT ANEMIC (NORMOCYTIC).
[2017-06-09 21:37] LABS: HEPATITIS B SURFACE AG Negative (NEGATIVE)
[2017-06-09 21:43] LABS: HEPATITIS B CORE AB NEGATIVE (NEGATIVE)
[2017-06-09 21:45] LABS: HEPATITIS A IGM NEGATIVE (NEGATIVE)
[2017-06-09 21:56] LABS: HEPATITIS C ANTIBODY NEGATIVE (NEGATIVE)
[2017-06-09] MEDS: Insulin Detemir 100 Units/ml Inj SC SCH (22:06)
[2017-06-09 23:40] VITALS: RESP 18
[2017-06-10 05:29] LABS: BASO % 0.7 % (0.0-2.0); EOS # 0.2 K/uL (0.0-0.7); HEMOGLOBIN 7.9 g/dL (12.0-18.0); LYMPH # 1.5 K/uL (1.0-4.3); LYMPH % 22.2 % (20.0-40.0); MEAN CELL VOLUME 86.9 fl (80.0-94.0); MEAN CORPUSCULAR HEMOGLOBIN 29.7 pg (27.0-31.0); MEAN CORPUSCULAR HGB CONC 34.1 g/dL (33.0-37.0); MEAN PLATELET VOLUME 10.8 fl (7.2-11.7); MONO # 0.6 K/uL (0.0-0.8); MONO % 9.4 % (0.0-10.0); NEUT # 4.4 K/uL (1.8-7.0); NEUT % 64.7 % (50.0-75.0); NRBC % 0.3 % (0.0-0.0); RBC 2.67 Mil/uL (4.40-5.90); RED CELL DISTRIBUTION WIDTH 14.4 % (11.5-14.5); WHITE BLOOD COUNT 6.8 K/uL (4.8-10.8)
[2017-06-10 05:52] LABS: CALCIUM 8.5 mg/dL (8.4-10.2)
[2017-06-10 05:55] LABS: TROPONIN I 0.265 ng/mL (0.00-0.120)
[2017-06-10] MEDS: Levothyroxine 75 MCG TAB PO SCH (06:23)
[2017-06-10] MEDS: Insulin Regular 100 units/ml SC SCH ×2 (07:30→12:00)
[2017-06-10 08:25] VITALS: TEMP 97.8; O2SAT 97
--- NOTE | 2017-06-10 10:16 | CP.PCM.PN ---
Subjective - Date & Time of Evaluation Date of Evaluation: 06/10/17 Time of Evaluation: 10:14 - Subjective Subjective: Dialysis note He was seen on hemodialysis now.via RT. permacath. Blood pressure 180/90 Increase ultrafiltration 2500 mL Patient is receiving blood transfusion now. No chest pain no shortness of breath Objective - Vital Signs/Intake and Output Vital Signs (last 24 hours): Temp Pulse Resp BP Pulse Ox 97.8 F 84 18 166/88 H 97 06/10/17 08:00 06/10/17 08:00 06/10/17 08:00 06/10/17 09:07 06/10/17 08:00 Intake and Output: 06/10/17 06/10/17 06:59 18:59 Intake Total 925 Output Total 1175 Balance -250 - Medications Medications: Current Medications Acetaminophen (Tylenol 325mg Tab) 650 mg PO Q6 [facility] Last Admin: 06/10/17 04:04 Dose: 650 mg Amlodipine Besylate (Norvasc) 5 mg PO DAILY [facility] Last Admin: 06/09/17 11:58 Dose: Not Given Aspirin (Aspirin Chewable) 81 mg PO DAILY [facility] Last Admin: 06/10/17 09:06 Dose: 81 mg Atorvastatin Calcium (Lipitor) 40 mg PO HS [facility] Last Admin: 06/09/17 22:05 Dose: 40 mg Calcium Acetate (Phoslo) 1,334 mg PO WM [facility] Last Admin: 06/10/17 09:00 Dose: 1,334 mg Clonidine HCl (Catapres) 0.2 mg PO TID [facility] Last Admin: 06/09/17 18:07 Dose: 0.2 mg Dextrose (Dextrose 50% Inj) 0 ml IV STAT PRN; Protocol PRN Reason: Hypoglycemia Protocol Dextrose (Glutose 15) 0 gm PO ONCE PRN; Protocol PRN Reason: Hypoglycemia Protocol Epoetin Simeon (Procrit) 6,000 unit IV TTS [facility] Last Admin: 06/09/17 16:27 Dose: 6,000 unit Furosemide (Lasix) 40 mg PO DAILY [facility] Last Admin: 06/10/17 09:07 Dose: 40 mg Glucagon (Glucagen Diagnostic Kit) 0 mg IM STAT PRN; Protocol PRN Reason: Hypoglycemia Protocol Heparin Sodium (Porcine) (Heparin) 7,500 units SC Q8 [facility] PRN Reason: Protocol Last Admin: 06/10/17 09:06 Dose: 7,500 units Insulin Detemir (Levemir) 43 units SC HS [facility] Last Admin: 06/09/17 22:06 Dose: 43 u Insulin Human Regular (Humulin R) 13 units SC ACTID [facility] Last Admin: 06/10/17 07:30 Dose: Not Given Levothyroxine Sodium (Synthroid) 75 mcg PO DAILY@0630 [facility] Last Admin: 06/10/17 06:23 Dose: 75 mcg Losartan Potassium (Cozaar) 100 mg PO DAILY [facility] Last Admin: 06/09/17 11:58 Dose: Not Given - Labs Labs: 06/10/17 04:15 06/10/17 04:15 PT 13.5 Seconds (9.8-13.1) H 06/08/17 04:25 INR 1.2 (0.9-1.2) 06/08/17 04:25 APTT 30.8 Seconds (25.6-37.1) 06/10/17 04:15 - Constitutional Appears: No Acute Distress - ENT Exam ENT Exam: Mucous Membranes Moist - Neck Exam Neck Exam: absent: Lymphadenopathy - Cardiovascular Exam Cardiovascular Exam: REGULAR RHYTHM. absent: Gallop, JVD, Rubs - GI/Abdominal Exam GI & Abdominal Exam: Soft, Normal Bowel Sounds - Extremities Exam Extremities Exam: Pedal Edema. absent: Calf Tenderness - Back Exam Back Exam: absent: CVA tenderness (L), CVA tenderness (R) - Neurological Exam Neurological Exam: Alert - Psychiatric Exam Psychiatric exam: Normal Affect - Skin Skin Exam: absent: Cyanosis Assessment and Plan (1) CKD (chronic kidney disease) stage V requiring chronic dialysis Assessment & Plan: End stage renal disease patient receiving dialysis yesterday and today Blood pressure 180/90 Increase ultrafiltration 2500 mL Patient is receiving blood transfusion now. Hyperphosphatemia. Increase calcium acetate 3 tablets 3 times a day Secondary hyperparathyroidism we will add calcitriol 0.25 g daily Severe anemia patient receiving EPO and also blood transfusion Serum iron is low therefore patient need ferrous sulfate Patient will continue to have outpatient dialysis Thursday Status: Acute (2) CHF exacerbation Status: Acute (3) Diabetes mellitus, insulin dependent (IDDM), uncontrolled Status: Chronic (4) Hypertension Status: Chronic (5) Hypothyroidism Status: Chronic (6) Morbid obesity Status: Chronic
--- NOTE | 2017-06-10 10:29 | CP.PCM.DIS ---
<Rekha Ybarra - Last Filed: 06/10/17 17:19> Provider - Provider Date of Admission: 06/07/17 16:58 Attending physician: Paradise Lockett MD Primary care physician: Pamella Jerome MD Hospital Course - Lab Results Lab Results: Most Recent Lab Values WBC 6.8 K/uL (4.8-10.8) 06/10/17 04:15 RBC 2.67 Mil/uL (4.40-5.90) L 06/10/17 04:15 Hgb 7.9 g/dL (12.0-18.0) L 06/10/17 04:15 Hct 23.2 % (35.0-51.0) L 06/10/17 04:15 MCV 86.9 fl (80.0-94.0) 06/10/17 04:15 MCH 29.7 pg (27.0-31.0) 06/10/17 04:15 MCHC 34.1 g/dL (33.0-37.0) 06/10/17 04:15 RDW 14.4 % (11.5-14.5) 06/10/17 04:15 Plt Count 115 K/uL (130-400) L 06/10/17 04:15 MPV 10.8 fl (7.2-11.7) 06/10/17 04:15 Neut % (Auto) 64.7 % (50.0-75.0) 06/10/17 04:15 Lymph % (Auto) 22.2 % (20.0-40.0) 06/10/17 04:15 [place] % (Auto) 9.4 % (0.0-10.0) 06/10/17 04:15 Eos % (Auto) 3.0 % (0.0-4.0) 06/10/17 04:15 Baso % (Auto) 0.7 % (0.0-2.0) 06/10/17 04:15 Neut # (Auto) 4.4 K/uL (1.8-7.0) 06/10/17 04:15 Lymph # (Auto) 1.5 K/uL (1.0-4.3) 06/10/17 04:15 [place] # (Auto) 0.6 K/uL (0.0-0.8) 06/10/17 04:15 Eos # (Auto) 0.2 K/uL (0.0-0.7) 06/10/17 04:15 Baso # (Auto) 0.0 K/uL (0.0-0.2) 06/10/17 04:15 PT 13.5 Seconds (9.8-13.1) H 06/08/17 04:25 INR 1.2 (0.9-1.2) 06/08/17 04:25 APTT 30.8 Seconds (25.6-37.1) 06/10/17 04:15 Sodium 141 mmol/l (132-148) 06/10/17 04:15 Potassium 4.3 MMOL/L (3.6-5.0) 06/10/17 04:15 Chloride 103 mmol/L (98-107) 06/10/17 04:15 Carbon Dioxide 23 mmol/L (22-30) 06/10/17 04:15 Anion Gap 19 (10-20) 06/10/17 04:15 BUN 84 mg/dl (9-20) H 06/10/17 04:15 Creatinine 7.2 mg/dl (0.8-1.5) H 06/10/17 04:15 Est GFR ( Amer) 10 06/10/17 04:15 Est GFR (Non-Af Amer) 8 06/10/17 04:15 POC Glucose (mg/dL) 90 mg/dL (65-110) 06/10/17 06:11 Random Glucose 78 mg/dL (75-110) 06/10/17 04:15 Calcium 8.5 mg/dL (8.4-10.2) 06/10/17 04:15 Phosphorus 7.2 mg/dl (2.5-4.5) H 06/09/17 14:50 Iron 48 ug/dL (49-181) L 06/09/17 14:50 TIBC 256 ug/dL (250-450) 06/08/17 09:51 % Saturation 24 % (20-55) 06/08/17 09:51 Ferritin 248.0 ng/Ml (17.9-464) 06/09/17 14:50 Troponin I 0.2650 ng/mL (0.00-0.120) H* 06/10/17 04:15 NT-Pro-B Natriuret Pep 80964 pg/ml (0-450) H 06/07/17 14:47 PTH Intact Whole Molec 587 pg/mL (14-64) H 06/08/17 09:51 Urine Color Straw (YELLOW) 06/08/17 08:41 Urine Clarity Slighty-cloudy (Clear) 06/08/17 08:41 Urine pH 5.0 (5.0-8.0) 06/08/17 08:41 Ur Specific [place] 1.013 (1.003-1.030) 06/08/17 08:41 Urine Protein >=500 mg/dL (NEGATIVE) 06/08/17 08:41 Urine Glucose (UA) 50 mg/dL (Normal) 06/08/17 08:41 Urine Ketones Negative mg/dL (NEGATIVE) 06/08/17 08:41 Urine Blood Small (NEGATIVE) 06/08/17 08:41 Urine Nitrate Negative (NEGATIVE) 06/08/17 08:41 Urine Bilirubin Negative (NEGATIVE) 06/08/17 08:41 Urine Urobilinogen 0.2-1.0 mg/dL (0.2-1.0) 06/08/17 08:41 Ur Leukocyte Esterase Neg Cruz/uL (Negative) 06/08/17 08:41 Urine RBC (Auto) 7 /hpf (0-3) H 06/08/17 08:41 Urine Microscopic WBC 1 /hpf (0-5) 06/08/17 08:41 Amorphous Sediment Rare /ul (<OCC) H 06/08/17 08:41 Urine Bacteria Rare (<OCC) 06/08/17 08:41 Hepatitis A IgM Ab Negative (NEGATIVE) 06/09/17 14:45 Hep Bs Antigen Negative (NEGATIVE) 06/09/17 14:45 Hep B Core IgM Ab Negative (NEGATIVE) 06/09/17 14:45 Hepatitis C Antibody Negative (NEGATIVE) 06/09/17 14:45 Blood Type O POSITIVE 06/09/17 04:15 Antibody Screen Negative 06/09/17 04:15 Crossmatch See Detail 06/09/17 04:15 BBK History Checked Patient has bt 06/09/17 04:15 Discharge Plan - Discharge Medications Prescriptions: Aspirin [Aspirin Chewable] 81 mg PO DAILY 30 Days #30 chew Calcitriol 0.25 mcg PO DAILY 3 Days #30 capsule - Follow Up Plan Condition: FAIR Disposition: HOME/ ROUTINE Instructions: Kidney Failure (DC) Additional Instructions: F/U with [facility], appt scheduled for 06/[address] Shaver. Pt likely needs sleep study to evaluate for MARGARITA. Referrals: [facility] [Outside] - 06/16/17 3:20 pm Lavelle Resendez MD [Staff Provider] - 06/12/17 <Kiley Collins - Last Filed: 06/10/17 17:54> Provider - Provider Date of Admission: 06/07/17 16:58 Attending physician: Paradise Lockett MD Primary care physician: Pamella Jerome MD Time Spent in preparation of Discharge (in minutes): 45 Diagnosis - Discharge Diagnosis (1) Breath shortness Status: Acute Comment: 2/2 to Acute on Chronic CKD, however given high STOP BANG Scorre, MARGARITA needs to be ruled out patient. CT Angio wnl (2) Acute on chronic kidney failure Status: Acute Comment: Pt acute episode sob of likely a manifiestation of fluid overload secondary to decompensation of CKD. Residential Direct Support Professional hospitalist, Dr. Resendez consulted. Pt had permacath placed and received dilaysis treatment. Volume status and kidney function improved after receiving HD treatments. BL LE Edema and Tropinemia 2/2 to CKD. (3) Anemia, chronic disease Status: Acute Comment: Chronic normocytic anemia in the setting of CKD likely secondary to Anemia of Chronic Disease. Pt was transfused 2 units with HD treatment and received procrit during his stay. Hospital Course - Lab Results Lab Results: Most Recent Lab Values WBC 6.8 K/uL (4.8-10.8) 06/10/17 04:15 RBC 2.67 Mil/uL (4.40-5.90) L 06/10/17 04:15 Hgb 7.9 g/dL (12.0-18.0) L 06/10/17 04:15 Hct 23.2 % (35.0-51.0) L 06/10/17 04:15 MCV 86.9 fl (80.0-94.0) 06/10/17 04:15 MCH 29.7 pg (27.0-31.0) 06/10/17 04:15 MCHC 34.1 g/dL (33.0-37.0) 06/10/17 04:15 RDW 14.4 % (11.5-14.5) 06/10/17 04:15 Plt Count 115 K/uL (130-400) L 06/10/17 04:15 MPV 10.8 fl (7.2-11.7) 06/10/17 04:15 Neut % (Auto) 64.7 % (50.0-75.0) 06/10/17 04:15 Lymph % (Auto) 22.2 % (20.0-40.0) 06/10/17 04:15 [place] % (Auto) 9.4 % (0.0-10.0) 06/10/17 04:15 Eos % (Auto) 3.0 % (0.0-4.0) 06/10/17 04:15 Baso % (Auto) 0.7 % (0.0-2.0) 06/10/17 04:15 Neut # (Auto) 4.4 K/uL (1.8-7.0) 06/10/17 04:15 Lymph # (Auto) 1.5 K/uL (1.0-4.3) 06/10/17 04:15 [place] # (Auto) 0.6 K/uL (0.0-0.8) 06/10/17 04:15 Eos # (Auto) 0.2 K/uL (0.0-0.7) 06/10/17 04:15 Baso # (Auto) 0.0 K/uL (0.0-0.2) 06/10/17 04:15 PT 13.5 Seconds (9.8-13.1) H 06/08/17 04:25 INR 1.2 (0.9-1.2) 06/08/17 04:25 APTT 30.8 Seconds (25.6-37.1) 06/10/17 04:15 Sodium 141 mmol/l (132-148) 06/10/17 04:15 Potassium 4.3 MMOL/L (3.6-5.0) 06/10/17 04:15 Chloride 103 mmol/L (98-107) 06/10/17 04:15 Carbon Dioxide 23 mmol/L (22-30) 06/10/17 04:15 Anion Gap 19 (10-20) 06/10/17 04:15 BUN 84 mg/dl (9-20) H 06/10/17 04:15 Creatinine 7.2 mg/dl (0.8-1.5) H 06/10/17 04:15 Est GFR ( Amer) 10 06/10/17 04:15 Est GFR (Non-Af Amer) 8 06/10/17 04:15 POC Glucose (mg/dL) 90 mg/dL (65-110) 06/10/17 06:11 Random Glucose 78 mg/dL (75-110) 06/10/17 04:15 Calcium 8.5 mg/dL (8.4-10.2) 06/10/17 04:15 Phosphorus 7.2 mg/dl (2.5-4.5) H 06/09/17 14:50 Iron 48 ug/dL (49-181) L 06/09/17 14:50 TIBC 256 ug/dL (250-450) 06/08/17 09:51 % Saturation 24 % (20-55) 06/08/17 09:51 Ferritin 248.0 ng/Ml (17.9-464) 06/09/17 14:50 Troponin I 0.2650 ng/mL (0.00-0.120) H* 06/10/17 04:15 NT-Pro-B Natriuret Pep 05954 pg/ml (0-450) H 06/07/17 14:47 PTH Intact Whole Molec 587 pg/mL (14-64) H 06/08/17 09:51 Urine Color Straw (YELLOW) 06/08/17 08:41 Urine Clarity Slighty-cloudy (Clear) 06/08/17 08:41 Urine pH 5.0 (5.0-8.0) 06/08/17 08:41 Ur Specific [place] 1.013 (1.003-1.030) 06/08/17 08:41 Urine Protein >=500 mg/dL (NEGATIVE) 06/08/17 08:41 Urine Glucose (UA) 50 mg/dL (Normal) 06/08/17 08:41 Urine Ketones Negative mg/dL (NEGATIVE) 06/08/17 08:41 Urine Blood Small (NEGATIVE) 03/05/18 08:41 Urine Nitrate Negative (NEGATIVE) 06/08/17 08:41 Urine Bilirubin Negative (NEGATIVE) 06/08/17 08:41 Urine Urobilinogen 0.2-1.0 mg/dL (0.2-1.0) 06/08/17 08:41 Ur Leukocyte Esterase Neg Cruz/uL (Negative) 06/08/17 08:41 Urine RBC (Auto) 7 /hpf (0-3) H 06/08/17 08:41 Urine Microscopic WBC 1 /hpf (0-5) 06/08/17 08:41 Amorphous Sediment Rare /ul (<OCC) H 06/08/17 08:41 Urine Bacteria Rare (<OCC) 06/08/17 08:41 Hepatitis A IgM Ab Negative (NEGATIVE) 06/09/17 14:45 Hep Bs Antigen Negative (NEGATIVE) 06/09/17 14:45 Hep B Core IgM Ab Negative (NEGATIVE) 06/09/17 14:45 Hepatitis C Antibody Negative (NEGATIVE) 06/09/17 14:45 Blood Type O POSITIVE 06/09/17 04:15 Antibody Screen Negative 06/09/17 04:15 Crossmatch See Detail 06/09/17 04:15 BBK History Checked Patient has bt 06/09/17 04:15 - Hospital Course Hospital Course: Consultations: Nephrology (Dr. Resendez- permacath, HD, Establish at Dialysis unit ), Cardiology (Dr. La-no acute events, echo wnl) Hospital Course: Patient seen and examined at bedside with attending on day of D/C. Denied SOB. 41 y/o male w/ hx of CKD (stage V) s/p AVF (immature) presents with acute episode of SOB and found to be in fluid overload secondary to Acute on Chronic Kidney Disease. Pt had permacath placed by IR and received hemodialysis treatments with 2 unit PRBC. Established at [facility] for HD MWF. Pt stable for discharge. Discharge Medications: Continue all home medications with no changes. Discharge Instructions: Continue with HD treatments MWF, F/U at [facility] 06/17, 1pm with Dr. Shaver. Pt aware. Discharge Exam - Head Exam Head Exam: ATRAUMATIC, NORMAL INSPECTION, NORMOCEPHALIC - ENT Exam ENT Exam: Mucous Membranes Moist - Respiratory Exam Respiratory Exam: absent: Accessory Muscle Use, Rales, Wheezes - Cardiovascular Exam Cardiovascular Exam: REGULAR RHYTHM, +S1, +S2. absent: Systolic Murmur - GI/Abdominal Exam GI & Abdominal Exam: Normal Bowel Sounds. absent: Organomegaly, Soft, Tenderness Additional comments: Obese abdomen - Extremities Exam Extremities exam: normal capillary refill, pedal edema, pedal pulses present Additional comments: + 2 pitting in ankles (baseline as per patient), BL. Symmetrical. - Neurological Exam Neurological exam: Alert, Oriented x3 - Psychiatric Exam Psychiatric exam: Normal Mood - Skin Skin Exam: Normal Color
[2017-06-10 11:44] VITALS: BP 173/96; PULSE 80
== END 2017-06-10 14:41 | disposition home or self-care (01) | DRG 683 ==
LOC: SUPCPDRO 13:46 → H.ER 13:46 → H.ERHOLD 16:58 → H.TEL 18:49
PROVIDERS: ADMIT Family Medicine Geriatric Medicine; ATTEND Family Medicine Geriatric Medicine
PROC: B513YZA Fluoroscopy of Right Jugular Veins using Other Contrast, Guidance (ICD-10-PCS; 2017-06-09)
PROC: 5A1D70Z Performance of Urinary Filtration, Intermittent, Less than 6 Hours Per Day (ICD-10-PCS; 2017-06-09)
PROC: 30233N1 Transfusion of Nonautologous Red Blood Cells into Peripheral Vein, Percutaneous Approach (ICD-10-PCS; 2017-06-09)
PROC: 05HM33Z Insertion of Infusion Device into Right Internal Jugular Vein, Percutaneous Approach (ICD-10-PCS; principal; 2017-06-09 09:30)
PROC: 5A1D70Z Performance of Urinary Filtration, Intermittent, Less than 6 Hours Per Day (ICD-10-PCS; 2017-06-10)
DX: N17.9 Acute kidney failure, unspecified (principal); I13.2 Hypertensive heart and chronic kidney disease with heart failure and with stage 5 chronic kidney disease, or end stage renal disease; Z68.42 Body mass index [BMI] 45.0-49.9, adult; E11.65 Type 2 diabetes mellitus with hyperglycemia; E11.21 Type 2 diabetes mellitus with diabetic nephropathy; E66.01 Morbid (severe) obesity due to excess calories; E11.22 Type 2 diabetes mellitus with diabetic chronic kidney disease; N18.5 Chronic kidney disease, stage 5; D63.1 Anemia in chronic kidney disease; I50.9 Heart failure, unspecified; E78.5 Hyperlipidemia, unspecified; E03.9 Hypothyroidism, unspecified; E78.00 Pure hypercholesterolemia, unspecified; Z99.2 Dependence on renal dialysis; Z91.15 Patient's noncompliance with renal dialysis; Z79.4 Long term (current) use of insulin; Z87.891 Personal history of nicotine dependence

== ENCOUNTER 2017-08-31 07:49 | Inpatient (IN) | payer MEDICAID ==
[2017-08-31 07:49] VITALS: BMI 49.4
[2017-08-31] MEDS ORDERED: Acetaminophen 325 MG/10.15 ML PO STA (08:25)
[2017-08-31 08:26] LABS: VENOUS BLOOD GAS BASE EXCESS -0.2 mmol/L (0.0-2.0); VENOUS BLOOD GAS PCO2 47 mmHg (40-60); VENOUS BLOOD GAS PO2 21 mm/Hg (30-55); VENOUS BLOOD PH 7.35 (7.32-7.43)
--- NOTE | 2017-08-31 08:26 | ED PDOC ---
HPI: Fever Fever Onset Was: 08/30/17 (at night ) Additional Comments: 22 year old male with a past medical history of CHF, HTN, diabetes, high cholesterol, and end stage renal disease on dialysis Thursday, Thursday, and Thursday, presents to the ED complaining of fever associated with chills, onset last night. Denies chest pain, shortness of breath, abdominal pain , and localizing symptoms. PMD: Dr. Seng Jerome Past Medical History Reviewed: Historical Data, Nursing Documentation, Vital Signs Vital Signs: Last Vital Signs Temp 98.9 F 08/31/17 12:29 Pulse 83 08/31/17 12:29 Resp 16 08/31/17 12:29 BP 102/55 L 08/31/17 12:29 Pulse Ox 98 08/31/17 12:29 - Medical History PMH: Anemia, CHF, Diabetes, HTN, Hypercholesterolemia, Hyperlipidemia, Hypothyroidism, Peripheral Edema, Chronic Kidney Disease Denies: Arthritis, HIV, Kidney Stones - Surgical History Surgical History: No Surg Hx - Family History Family History: States: Diabetes - Immunization History Hx Tetanus Toxoid Vaccination: No Hx Influenza Vaccination: No Hx Pneumococcal Vaccination: No - Home Medications Home Medications: Ambulatory Orders Medication Instructions Recorded Atorvastatin [Lipitor] 40 mg PO HS 10/04/15 Levothyroxine Sodium [Synthroid] 75 mcg PO DAILY 10/04/15 Losartan [Cozaar] 100 mg PO DAILY #0 tab 01/10/16 Insulin Human Regular [HumuLIN R] 12 unit SC ACTID 03/01/16 Insulin Glargine,Hum.rec.anlog 43 units SUBCON HS 11/22/16 [Basaglar Kwikpen U-100] Furosemide [Lasix] 40 mg PO BID 05/04/17 Aspirin [Aspirin Chewable] 81 mg PO DAILY 30 Days #30 chew 06/10/17 Calcitriol 0.25 mcg PO DAILY 3 Days #30 06/10/17 capsule Calcium Acetate [Phoslo] 2,001 mg PO TID 08/31/17 Cinacalcet [Sensipar] 30 mg PO DAILY 08/31/17 cloNIDine [Catapres] 0.2 mg PO TID 08/31/17 - Allergies Allergies/Adverse Reactions: Allergies Allergy/AdvReac Type Severity Reaction Status Date / Time No Known Allergies Allergy Verified 02/15/17 02:10 Review of Systems ROS Statement: Except As Marked, All Systems Reviewed And Found Negative Constitutional: Positive for: Fever, Chills Cardiovascular: Negative for: Chest Pain Respiratory: Negative for: Shortness of Breath Gastrointestinal: Negative for: Abdominal Pain Physical Exam - Reviewed Nursing Documentation Reviewed: Yes Vital Signs Reviewed: Yes - Physical Exam Appears: Positive for: Non-toxic, No Acute Distress (however, is seen shivering upon exam. ) Head Exam: Positive for: ATRAUMATIC, NORMOCEPHALIC Skin: Positive for: Normal Color, Warm, Dry Eye Exam: Positive for: Normal appearance, EOMI, PERRL ENT: Positive for: Normal ENT Inspection Neck: Positive for: Normal, Painless ROM, Supple Cardiovascular/Chest: Positive for: Regular Rate, Rhythm, Other (shiley catheter on right chest wall ). Negative for: Murmur Respiratory: Positive for: Normal Breath Sounds. Negative for: Respiratory Distress Gastrointestinal/Abdominal: Positive for: Normal Exam, Soft. Negative for: Tenderness Back: Positive for: Normal Inspection Extremity: Positive for: Normal ROM. Negative for: Pedal Edema, Deformity Neurologic/Psych: Positive for: Alert, Oriented - Laboratory Results Result Diagrams: 08/31/17 08:23 08/31/17 08:23 - ECG ECG Rhythm: Positive for: Sinus Tachycardia Rate: 125 Medical Decision Making Medical Decision Making: Time: 815 Plan: Fever rule out uti, pneumonia, influenza -- Venous Blood Gas -- EKG -- CMP -- CBC with differentials -- PTT -- Prothombin Time -- Chest Portable XR -- Motrin 600 mg PO -- Tylenol 500 mg PO -- Blood Culture -- Urine Culture -- Reeling Machine Operator -- Urinalysis Time: 831 Plan: -- Influenza A B Time: 845 CXR RESULTS LUNGS: The right-sided dialysis catheter terminates at the cavoatrial junction. The lungs are well inflated and clear. There is mild pulmonary venous congestion. No focal consolidation. PLEURA: No significant pleural effusion identified, no pneumothorax apparent. CARDIOVASCULAR: Normal. OSSEOUS STRUCTURES: No significant abnormalities. VISUALIZED UPPER ABDOMEN: Normal. OTHER FINDINGS: None. IMPRESSION: No acute findings. Time: 904 -- VBG results show PH is normal, lactic acid is 1.3 , potassium levels are slightly elevated at 5.5. He is scheduled for dialysis today. -- Dr. Cano is being paged Time: 55 -- Discussed case with Dr. Hightower, covering Dr Resendez, pts livestock agent. They will order dialysis for today. Time: 1047 -- Family Practice called to discuss patient's case. -- Spoke to family resident who accepted service. Requested a procalcitonin level. 1230 ordered vancomycin for patient in the event that its related to the shiley that pt has in R chest wall for dialysis. informed RN on the floor to give the patient the antibiotics since pt already on the way up. informed the family practice resident as well. Scribe Attestation: Documented by Jocelyne Potts, acting as a scribe for Dr. Stephanie Garg MD Provider Scribe Attestation: All medical record entries made by the Scribe were at my direction and personally dictated by me. I have reviewed the chart and agree that the record accurately reflects my personal performance of the history, physical exam, medical decision making, and the department course for this patient. I have also personally directed, reviewed, and agree with the discharge instructions and disposition. Disposition - Clinical Impression Clinical Impression: Fever in adult - Patient ED Disposition Is Patient to be Admitted: Yes Counseled Patient/Family Regarding: Studies Performed, Diagnosis - Disposition Disposition Time: 11:00 Condition: STABLE
[2017-08-31] MEDS ORDERED: Sodium Chloride 0.9% 1,000 ML IV STA (08:31)
[2017-08-31 08:42] LABS: BASO % 0.3 % (0.0-2.0); HEMOGLOBIN 9.8 g/dL (12.0-18.0); LYMPH # 0.8 K/uL (1.0-4.3); LYMPH % 7.6 % (20.0-40.0); MEAN CELL VOLUME 93.8 fl (80.0-94.0); MEAN CORPUSCULAR HEMOGLOBIN 31.9 pg (27.0-31.0); MONO # 0.6 K/uL (0.0-0.8); MONO % 5.2 % (0.0-10.0); NEUT # 9.3 K/uL (1.8-7.0); NEUT % 86.9 % (50.0-75.0); PLATELET COUNT 134 K/uL (130-400); RBC 3.07 Mil/uL (4.40-5.90); WHITE BLOOD COUNT 10.7 K/uL (4.8-10.8)
--- NOTE | 2017-08-31 08:48 | RAD ---
HISTORY: Sepsis Patient COMPARISON: 06/07/2017. FINDINGS: LUNGS: The right-sided dialysis catheter terminates at the cavoatrial junction. The lungs are well inflated and clear. There is mild pulmonary venous congestion. No focal consolidation. PLEURA: No significant pleural effusion identified, no pneumothorax apparent. CARDIOVASCULAR: Normal. OSSEOUS STRUCTURES: No significant abnormalities. VISUALIZED UPPER ABDOMEN: Normal. OTHER FINDINGS: None. IMPRESSION: No acute findings.
[2017-08-31 09:09] LABS: INR 1.2 (0.9-1.2); PARTIAL THROMBOPLASTIN TIME 27.4 Seconds (25.6-37.1); PROTHROMBIN TIME 12.8 Seconds (9.8-13.1)
[2017-08-31 09:26] LABS: ALB/GLOB RATIO 1.1 (1.0-2.1); ALBUMIN 4.2 g/dL (3.5-5.0); CALCIUM 8.9 mg/dL (8.4-10.2)
[2017-08-31 09:49] LABS: ANISOCYTOSIS SLIGHT; BANDS 1 % (0-2); LYMPHOCYTE 9 % (20-50); MONOCYTE 4 % (0-10); NEUTROPHIL 86 % (42-75); PLATELET ESTIMATE NORMAL (NORMAL); TOTAL CELLS COUNTED 100
[2017-08-31 09:50] LABS: HYPOCHROMIC SLIGHT; TOXIC GRANULATION PRESENT
[2017-08-31 10:37] LABS: SQUAMOUS EPITHIAL 1 /hpf (0-5); URINE BACTERIA RARE (<OCC); URINE BILIRUBIN NEGATIVE (NEGATIVE); URINE BLOOD SMALL (NEGATIVE); URINE CLARITY CLEAR (Clear); URINE COLOR YELLOW (YELLOW); URINE GLUCOSE (UA) 50 mg/dL (Normal); URINE LEUKOCYTE ESTERASE NEG Leu/uL (Negative); URINE PROTEIN >=500 mg/dL (NEGATIVE); URINE UROBILINOGEN 0.2-1.0 mg/dL (0.2-1.0)
[2017-08-31 11:47] LABS: VENOUS BLOOD GAS BASE EXCESS -1.5 mmol/L (0.0-2.0); VENOUS BLOOD GAS PCO2 41 mmHg (40-60); VENOUS BLOOD GAS PO2 44 mm/Hg (30-55); VENOUS BLOOD PH 7.37 (7.32-7.43)
--- NOTE | 2017-08-31 13:43 | CP.PCM.CON ---
History of Present Illness - History of Present Illness History of Present Illness: 22 year old male with a past medical history of CHF, HTN, diabetes, high cholesterol, and end stage renal disease on dialysis Thursday, Thursday, and Thursday, is admitted with fever associated with chills, onset last night. Denies chest pain, shortness of breath, abdominal pain, and localizing symptoms. complete ros is negative except for those noted above social hx: non smoker no alcohol family hx: negative for kidney disease pe: vitals reviewed awake, cooperative, tired febrile heent normal op moist no jvd [id number] n oresp distress abd soft obese no edema skin normal plan: esrd/htn/dm/fever/hyperkalemia.acidosis hd mwf, will do today lytes reviewed should improve with hd bp ok anemia stable epo as needed with hd fever work up per er d/w er attending Past Patient History - Infectious Disease Hx of Infectious Diseases: None - Tetanus Immunizations Tetanus Immunization: Unknown - Past Medical History & Family History Past Medical History?: Yes - Past Social History Smoking Status: Never Smoked - CARDIAC Hx Congestive Heart Failure: Yes Hx Hypercholesterolemia: Yes Hx Hypertension: Yes Hx Peripheral Edema: Yes - PULMONARY Hx Respiratory Disorders: No - NEUROLOGICAL Hx Neurological Disorder: No - HEENT Hx HEENT Problems: Yes Other/Comment: h/o laser surgery of right eye-cannot remember the reason - RENAL Hx Chronic Kidney Disease: Yes Hx Kidney Stones: No - ENDOCRINE/METABOLIC Hx Hypothyroidism: Yes - HEMATOLOGICAL/ONCOLOGICAL Hx Anemia: Yes Hx Human Immunodeficiency Virus (HIV): No - INTEGUMENTARY Hx Dermatological Problems: No - MUSCULOSKELETAL/RHEUMATOLOGICAL Hx Arthritis: No - GASTROINTESTINAL Hx Gastrointestinal Disorders: No - GENITOURINARY/GYNECOLOGICAL Hx Genitourinary Disorders: No - PSYCHIATRIC Hx Psychophysiologic Disorder: No Hx Substance Use: No - SURGICAL HISTORY Hx Surgeries: Yes Hx Eye Surgery: Yes Other/Comment: Hx Kidney Biopsy - ANESTHESIA Hx Anesthesia: Yes Hx Anesthesia Reactions: No Hx Malignant Hyperthermia: No Meds Allergies/Adverse Reactions: Allergies Allergy/AdvReac Type Severity Reaction Status Date / Time No Known Allergies Allergy Verified 02/15/17 02:10 - Medications Medications: Current Medications Epoetin Simeon (Procrit) 4,000 unit IV MWF [facility] Sodium Chloride (Sodium Chloride 0.9%) 1,000 mls @ 100 mls/hr IV .Q10H STA Stop: 08/31/17 18:30 Last Admin: 08/31/17 09:03 Dose: 100 mls/hr Vancomycin HCl 1 gm/ Sodium (Chloride) 250 mls @ 166.667 mls/hr IVPB STAT STA PRN Reason: Protocol Stop: 08/31/17 14:09 Results - Vital Signs Recent Vital Signs: Last Vital Signs Temp 98.9 F 08/31/17 12:29 Pulse 125 H 08/31/17 12:50 Resp 16 08/31/17 12:29 BP 102/55 L 08/31/17 12:29 Pulse Ox 98 08/31/17 12:29 - Labs Result Diagrams: 08/31/17 08:23 08/31/17 08:23 Labs: Laboratory Results - last 24 hr 08/31/17 08/31/17 08/31/17 08:23 08:23 08:23 WBC 10.7 D RBC 3.07 L Hgb 9.8 L Hct 28.8 L MCV 93.8 D MCH 31.9 H MCHC 34.0 RDW 15.0 H Plt Count 134 MPV 11.0 Neut % (Auto) 86.9 H Lymph % (Auto) 7.6 L [place] % (Auto) 5.2 Eos % (Auto) 0.0 Baso % (Auto) 0.3 Neut # (Auto) 9.3 H Lymph # (Auto) 0.8 L [place] # (Auto) 0.6 Eos # (Auto) 0.0 Baso # (Auto) 0.0 Neutrophils % (Manual) 86 H Band Neutrophils % 1 Lymphocytes % (Manual) 9 L Monocytes % (Manual) 4 Toxic Granulation Present Platelet Estimate Normal Hypochromasia (manual) Slight Anisocytosis (manual) Slight PT 12.8 INR 1.2 APTT 27.4 pO2 VBG pH VBG pCO2 VBG HCO3 VBG Total CO2 VBG O2 Sat (Calc) VBG Base Excess VBG Potassium Glucose Lactate FiO2 Sodium 133 Potassium 5.5 H Chloride 92 L Carbon Dioxide 20 L Anion Gap 27 H BUN 97 H Creatinine 11.6 H* D Est GFR ( Amer) 6 Est GFR (Non-Af Amer) 5 Random Glucose 123 H Calcium 8.9 Total Bilirubin 0.7 AST 44 ALT 41 Alkaline Phosphatase 80 Total Protein 8.0 Albumin 4.2 Globulin 3.8 Albumin/Globulin Ratio 1.1 Venous Blood Potassium Urine Color Urine Clarity Urine pH Ur Specific [place] Urine Protein Urine Glucose (UA) Urine Ketones Urine Blood Urine Nitrate Urine Bilirubin Urine Urobilinogen Ur Leukocyte Esterase Urine RBC (Auto) Urine Microscopic WBC Ur Squamous Epith Cells Urine Bacteria Influenza Typ A,B (EIA) 08/31/17 08/31/17 08/31/17 08:24 08:44 09:40 WBC RBC Hgb Hct MCV MCH MCHC RDW Plt Count MPV Neut % (Auto) Lymph % (Auto) [place] % (Auto) Eos % (Auto) Baso % (Auto) Neut # (Auto) Lymph # (Auto) Moody # (Auto) Eos # (Auto) Baso # (Auto) Neutrophils % (Manual) Band Neutrophils % Lymphocytes % (Manual) Monocytes % (Manual) Toxic Granulation Platelet Estimate Hypochromasia (manual) Anisocytosis (manual) PT INR APTT pO2 21 L VBG pH 7.35 VBG pCO2 47 VBG HCO3 23.0 VBG Total CO2 27.3 VBG O2 Sat (Calc) 40.0 VBG Base Excess -0.2 L VBG Potassium 5.5 H Glucose 129 H Lactate 1.3 FiO2 21.0 Sodium 131.0 L Potassium Chloride 93.0 L Carbon Dioxide Anion Gap BUN Creatinine Est GFR ( Amer) Est GFR (Non-Af Amer) Random Glucose Calcium Total Bilirubin AST ALT Alkaline Phosphatase Total Protein Albumin Globulin Albumin/Globulin Ratio Venous Blood Potassium 5.5 H Urine Color Yellow Urine Clarity Clear Urine pH 7.0 Ur Specific [place] 1.012 Urine Protein >=500 Urine Glucose (UA) 50 Urine Ketones Negative Urine Blood Small Urine Nitrate Negative Urine Bilirubin Negative Urine Urobilinogen 0.2-1.0 Ur Leukocyte Esterase Neg Urine RBC (Auto) 10 H Urine Microscopic WBC 3 Ur Squamous Epith Cells 1 Urine Bacteria Rare Influenza Typ A,B (EIA) Negative for flu a/b 08/31/17 11:43 WBC RBC Hgb Hct MCV MCH MCHC RDW Plt Count MPV Neut % (Auto) Lymph % (Auto) [place] % (Auto) Eos % (Auto) Baso % (Auto) Neut # (Auto) Lymph # (Auto) Moody # (Auto) Eos # (Auto) Baso # (Auto) Neutrophils % (Manual) Band Neutrophils % Lymphocytes % (Manual) Monocytes % (Manual) Toxic Granulation Platelet Estimate Hypochromasia (manual) Anisocytosis (manual) PT INR APTT pO2 44 VBG pH 7.37 VBG pCO2 41 VBG HCO3 23.2 VBG Total CO2 25.0 VBG O2 Sat (Calc) 84.3 H VBG Base Excess -1.5 L VBG Potassium 5.5 H Glucose 113 H Lactate 1.2 FiO2 21.0 Sodium 129.0 L Potassium Chloride 94.0 L Carbon Dioxide Anion Gap BUN Creatinine Est GFR ( Amer) Est GFR (Non-Af Amer) Random Glucose Calcium Total Bilirubin AST ALT Alkaline Phosphatase Total Protein Albumin Globulin Albumin/Globulin Ratio Venous Blood Potassium 5.5 H Urine Color Urine Clarity Urine pH Ur Specific [place] Urine Protein Urine Glucose (UA) Urine Ketones Urine Blood Urine Nitrate Urine Bilirubin Urine Urobilinogen Ur Leukocyte Esterase Urine RBC (Auto) Urine Microscopic WBC Ur Squamous Epith Cells Urine Bacteria Influenza Typ A,B (EIA)
[2017-08-31] MEDS: Insulin Regular 100 units/ml SC SCH (16:20)
--- NOTE | 2017-08-31 16:51 | CP.PCM.HP ---
History of Present Illness - History of Present Illness History of Present Illness: 41 y/o M with a PMHx of IDDM type, HKD, HTN, CKD on HD MWF, anemia, morbid obesity and hypothyroidism presented to ED due to fever and chills since last night. Pt reports go camping 3 days ago and does NOT recall any insect bite, rash or animal contact. -Pt has a permacath R chest central vein access on June 10, 2017. Pt denies headache, dizziness, chest pain, palpitations, SOB, wheezing, nausea, vomiting, diarrhea, constipation, ill contacts. PMD: Dr English at [facility] Cushion Mat Maker: Dr. Davis Vascular surgeon : Dr. Millicent HILL Medications: >Levothyroxine 75mcg PO daily >Atorvastatin 40mg PO daily >Clonidine HCl 0.2mg PO TID >Losartan Potassium 100mg PO daily >Furosemide 40mg PO BID >Basaglar KwikPen inject 43 units SC HS >Humulin R 14 units TID with meals >Aspirin 81mg PO daily PMHx: IDDM Type 2, HLD, HTN, CKD stage 4, Anemia, Hypothyroidism, elevated liver enzymes, Morbid Obesity PSHx: left groin abscess I&D 11/22/16 FHx: Father DM, Mother HTN SHx: No smoking, drinks Etoh socially, denies drug use, lives with (Alejandrina [phone]) ED course: --VS: temp 100.8 degF, HR 103, RR 16, Sat O2 98%. --Labs: CBC (no leukocytosis), CMP (BUN/creat 97/11.6), coags-wnl, U/A ( microhematuria), Flu negative, vBG (no acidosis, lactic acid is 1.3-wnl). --CXR w/ no acute findings. Present on Admission - Present on Admission Any Indicators Present on Admission: No Review of Systems - Constitutional Constitutional: Chills, Fever - EENT Eyes: absent: Blurred Vision, Decreased Night Vision Nose/Mouth/Throat: absent: Nasal Congestion, Nasal Discharge, Nasal Trauma - Cardiovascular Cardiovascular: absent: Chest Pain, Irregular Heart Rhythm - Respiratory Respiratory: absent: Cough, Wheezing, Chest Congestion - Gastrointestinal Gastrointestinal: absent: Abdominal Pain, Bloating, Cramping, Loose Stools, Nausea, Vomiting - Neurological Neurological: absent: Abnormal Gait, Burning Sensations, Dizziness, Numbness Past Patient History - Infectious Disease Hx of Infectious Diseases: None - Tetanus Immunizations Tetanus Immunization: Unknown - Past Medical History & Family History Past Medical History?: Yes - Past Social History Smoking Status: Never Smoked - CARDIAC Hx Cardiac Disorders: Yes Hx Congestive Heart Failure: Yes Hx Hypercholesterolemia: Yes Hx Hypertension: Yes Hx Peripheral Edema: Yes - PULMONARY Hx Respiratory Disorders: No - NEUROLOGICAL Hx Neurological Disorder: No - HEENT Hx HEENT Problems: Yes Other/Comment: h/o laser surgery of right eye-cannot remember the reason - RENAL Hx Chronic Kidney Disease: Yes Hx Dialysis: Yes Type of Dialysis Access: R chest permacath Date of Last Dialysis Treatment: 08/28/17 Hx Kidney Stones: No Hx Renal Failure: Yes - ENDOCRINE/METABOLIC Hx Endocrine Disorders: Yes Hx Hypothyroidism: Yes - HEMATOLOGICAL/ONCOLOGICAL Hx Blood Disorders: Yes Hx AIDS: No Hx Anemia: Yes Hx Human Immunodeficiency Virus (HIV): No - INTEGUMENTARY Hx Dermatological Problems: No - MUSCULOSKELETAL/RHEUMATOLOGICAL Hx Musculoskeletal Disorders: No Hx Falls: No - GASTROINTESTINAL Hx Gastrointestinal Disorders: No - GENITOURINARY/GYNECOLOGICAL Hx Genitourinary Disorders: No - PSYCHIATRIC Hx Psychophysiologic Disorder: No Hx Substance Use: No - SURGICAL HISTORY Hx Surgeries: Yes Hx Eye Surgery: Yes Other/Comment: Hx Kidney Biopsy - ANESTHESIA Hx Anesthesia: Yes Hx Anesthesia Reactions: No Hx Malignant Hyperthermia: No Has any member of the family had a problem w/ anesthesia?: No Meds Allergies/Adverse Reactions: Allergies Allergy/AdvReac Type Severity Reaction Status Date / Time No Known Allergies Allergy Verified 02/15/17 02:10 Physical Exam - Constitutional Appears: Well, Non-toxic, No Acute Distress - Eye Exam Eye Exam: EOMI, Normal appearance - ENT Exam ENT Exam: Mucous Membranes Moist, Normal External Ear Exam, Normal Oropharynx - Neck Exam Neck exam: Positive for: Full Rom, Normal Inspection. Negative for: Meningismus - Respiratory Exam Respiratory Exam: NORMAL BREATHING PATTERN. absent: Rales, Rhonchi, Wheezes - Cardiovascular Exam Cardiovascular Exam: REGULAR RHYTHM, +S1, +S2 - GI/Abdominal Exam GI & Abdominal Exam: Normal Bowel Sounds, Soft. absent: Distended, Guarding, Rebound, Tenderness - Extremities Exam Extremities exam: Positive for: full ROM, normal inspection. Negative for: calf tenderness, joint swelling, pedal edema, tenderness - Back Exam Back exam: FULL ROM, NORMAL INSPECTION. absent: CVA tenderness (L), CVA tenderness (R), rash noted - Neurological Exam Neurological exam: Alert, Oriented x3 - Psychiatric Exam Psychiatric exam: Normal Affect, Normal Mood - Skin Skin Exam: Normal Color Additional comments: Permacath on R side chest: No erythema, swelling or supuration. Results - Vital Signs Recent Vital Signs: Last Vital Signs Temp 98.3 F 08/31/17 12:50 Pulse 86 08/31/17 14:34 Resp 20 08/31/17 14:34 BP 102/63 08/31/17 12:50 Pulse Ox 96 08/31/17 14:34 - Labs Result Diagrams: 08/31/17 08:23 08/31/17 08:23 Labs: Laboratory Results - last 24 hr 08/31/17 08/31/17 08/31/17 08:23 08:23 08:23 WBC 10.7 D RBC 3.07 L Hgb 9.8 L Hct 28.8 L MCV 93.8 D MCH 31.9 H MCHC 34.0 RDW 15.0 H Plt Count 134 MPV 11.0 Neut % (Auto) 86.9 H Lymph % (Auto) 7.6 L [place] % (Auto) 5.2 Eos % (Auto) 0.0 Baso % (Auto) 0.3 Neut # (Auto) 9.3 H Lymph # (Auto) 0.8 L [place] # (Auto) 0.6 Eos # (Auto) 0.0 Baso # (Auto) 0.0 Neutrophils % (Manual) 86 H Band Neutrophils % 1 Lymphocytes % (Manual) 9 L Monocytes % (Manual) 4 Toxic Granulation Present Platelet Estimate Normal Hypochromasia (manual) Slight Anisocytosis (manual) Slight PT 12.8 INR 1.2 APTT 27.4 pO2 VBG pH VBG pCO2 VBG HCO3 VBG Total CO2 VBG O2 Sat (Calc) VBG Base Excess VBG Potassium Glucose Lactate FiO2 Sodium 133 Potassium 5.5 H Chloride 92 L Carbon Dioxide 20 L Anion Gap 27 H BUN 97 H Creatinine 11.6 H* D Est GFR ( Amer) 6 Est GFR (Non-Af Amer) 5 POC Glucose (mg/dL) Random Glucose 123 H Calcium 8.9 Total Bilirubin 0.7 AST 44 ALT 41 Alkaline Phosphatase 80 Total Protein 8.0 Albumin 4.2 Globulin 3.8 Albumin/Globulin Ratio 1.1 Venous Blood Potassium Urine Color Urine Clarity Urine pH Ur Specific Boles Urine Protein Urine Glucose (UA) Urine Ketones Urine Blood Urine Nitrate Urine Bilirubin Urine Urobilinogen Ur Leukocyte Esterase Urine RBC (Auto) Urine Microscopic WBC Ur Squamous Epith Cells Urine Bacteria Influenza Typ A,B (EIA) 08/31/17 08/31/17 08/31/17 08:24 08:44 09:40 WBC RBC Hgb Hct MCV MCH MCHC RDW Plt Count MPV Neut % (Auto) Lymph % (Auto) [place] % (Auto) Eos % (Auto) Baso % (Auto) Neut # (Auto) Lymph # (Auto) [place] # (Auto) Eos # (Auto) Baso # (Auto) Neutrophils % (Manual) Band Neutrophils % Lymphocytes % (Manual) Monocytes % (Manual) Toxic Granulation Platelet Estimate Hypochromasia (manual) Anisocytosis (manual) PT INR APTT pO2 21 L VBG pH 7.35 VBG pCO2 47 VBG HCO3 23.0 VBG Total CO2 27.3 VBG O2 Sat (Calc) 40.0 VBG Base Excess -0.2 L VBG Potassium 5.5 H Glucose 129 H Lactate 1.3 FiO2 21.0 Sodium 131.0 L Potassium Chloride 93.0 L Carbon Dioxide Anion Gap BUN Creatinine Est GFR ( Amer) Est GFR (Non-Af Amer) POC Glucose (mg/dL) Random Glucose Calcium Total Bilirubin AST ALT Alkaline Phosphatase Total Protein Albumin Globulin Albumin/Globulin Ratio Venous Blood Potassium 5.5 H Urine Color Yellow Urine Clarity Clear Urine pH 7.0 Ur Specific Boles 1.012 Urine Protein >=500 Urine Glucose (UA) 50 Urine Ketones Negative Urine Blood Small Urine Nitrate Negative Urine Bilirubin Negative Urine Urobilinogen 0.2-1.0 Ur Leukocyte Esterase Neg Urine RBC (Auto) 10 H Urine Microscopic WBC 3 Ur Squamous Epith Cells 1 Urine Bacteria Rare Influenza Typ A,B (EIA) Negative for flu a/b 08/31/17 08/31/17 11:43 15:34 WBC RBC Hgb Hct MCV MCH MCHC RDW Plt Count MPV Neut % (Auto) Lymph % (Auto) [place] % (Auto) Eos % (Auto) Baso % (Auto) Neut # (Auto) Lymph # (Auto) [place] # (Auto) Eos # (Auto) Baso # (Auto) Neutrophils % (Manual) Band Neutrophils % Lymphocytes % (Manual) Monocytes % (Manual) Toxic Granulation Platelet Estimate Hypochromasia (manual) Anisocytosis (manual) PT INR APTT pO2 44 VBG pH 7.37 VBG pCO2 41 VBG HCO3 23.2 VBG Total CO2 25.0 VBG O2 Sat (Calc) 84.3 H VBG Base Excess -1.5 L VBG Potassium 5.5 H Glucose 113 H Lactate 1.2 FiO2 21.0 Sodium 129.0 L Potassium Chloride 94.0 L Carbon Dioxide Anion Gap BUN Creatinine Est GFR ( Amer) Est GFR (Non-Af Amer) POC Glucose (mg/dL) 118 H Random Glucose Calcium Total Bilirubin AST ALT Alkaline Phosphatase Total Protein Albumin Globulin Albumin/Globulin Ratio Venous Blood Potassium 5.5 H Urine Color Urine Clarity Urine pH Ur Specific Boles Urine Protein Urine Glucose (UA) Urine Ketones Urine Blood Urine Nitrate Urine Bilirubin Urine Urobilinogen Ur Leukocyte Esterase Urine RBC (Auto) Urine Microscopic WBC Ur Squamous Epith Cells Urine Bacteria Influenza Typ A,B (EIA) Assessment & Plan - Assessment and Plan (Free Text) Assessment: 41 y/o M with a PMHx of IDDM Type 2, HLD, HTN and CKD on HD admitted for evaluation of fever. Plan: Fever -Etiology unknown. -NO leukocytosis, no symptoms, permacath area c/d/i. -IV Vancomycin with HD -CXR with NO acute findings. -Pro-calcitonin 1.42-high -F/U Blood Cx and UCx, CBC, BMP, HIV, TSH, viral Hep profile. -ID consult, Dr Perez. -IV Gentamycin, as per ID Chronic Kidney Disease -HD M-W-F -c/w home meds -BUN/creat 97/11.6; GFR 5-low. -Nephrology consult, Alina Daly -Will receive HD later today. HTN -Stable -c/w home meds -f/u BP IDDM type 2 -Last HbA1c 6.2 on 01/16/17 -C/w home meds Normocytic Anemia -H/H: 9.8/28.8 normal MCV. -On procrit Hypothyroidism -Last TSH on 05/14/17 2.53-wnl. -c/w home meds. DVT prophylaxis -Heparin 5,000 SC Q12H -SCDs - Date & Time Date: 08/31/17 Time: 16:00
[2017-08-31] MEDS: Epoetin Alfa 4000 UNIT/ML Inj IV SCH (17:35)
[2017-08-31] MEDS ORDERED: GENTAMICIN IVPB ONE (18:33)
[2017-08-31] MEDS ORDERED: PED IVPB ONE (18:33)
[2017-08-31] MEDS ORDERED: Gentamicin 300 MG in Sodium Chloride 0.9% 250 ML IVPB SCH (18:57)
[2017-08-31] MEDS: Sodium Chloride 0.9% 1,000 ML IV SCH ×2 (21:30→23:00)
[2017-08-31] MEDS: Insulin Detemir 100 Units/ml Inj SC SCH (21:52)
[2017-08-31] MEDS ORDERED: INSULIN GLARGINE HUM REC ANLOG SUBCON SCH (22:00)
[2017-08-31] MEDS ORDERED: Sodium Chloride 0.9% 1,000 ML IV SCH (23:15)
[2017-09-01] MEDS ORDERED: Sodium Chloride 0.9% 1,000 ML IV SCH ×2 (01:00→15:35)
[2017-09-01 05:45] LABS: HEMOGLOBIN 9.2 g/dL (12.0-18.0); MEAN CELL VOLUME 94.1 fl (80.0-94.0); MEAN CORPUSCULAR HEMOGLOBIN 31.6 pg (27.0-31.0); MEAN CORPUSCULAR HGB CONC 33.6 g/dL (33.0-37.0); RBC 2.9 Mil/uL (4.40-5.90); RED CELL DISTRIBUTION WIDTH 15.2 % (11.5-14.5); WHITE BLOOD COUNT 6.1 K/uL (4.8-10.8)
[2017-09-01 06:06] LABS: VANCOMYCIN RANDOM < 5.0 ug/mL
[2017-09-01 06:23] LABS: BLOOD UREA NITROGEN 63 mg/dl (9-20); CALCIUM 8.1 mg/dL (8.4-10.2); GFR AFRICAN-AMERICAN 8; GFR NON-AFRICAN AMERICAN 7
[2017-09-01] MEDS ORDERED: Levothyroxine 75 MCG TAB PO SCH (06:30)
[2017-09-01] MEDS: Insulin Regular 100 units/ml SC SCH ×3 (08:21→16:43)
--- NOTE | 2017-09-01 08:39 | CP.PCM.PN ---
Subjective - Date & Time of Evaluation Date of Evaluation: 09/01/17 Time of Evaluation: 07:45 - Subjective Subjective: 41 y/o M seen and examined by bedside. Pt reports feeling OK, had night sweats and chills last night. Pt also had an episode of fever, hypotension and tachycardia last night. Blood culture samples were obtained. No chest pain, no SOB, no palpitations, no sore throat, no nausea, no diarrhea, no urinary issues , rash or dizziness. Objective - Vital Signs/Intake and Output Vital Signs (last 24 hours): Temp Pulse Resp BP Pulse Ox 102.1 F H 122 H 18 163/77 H 100 09/01/17 07:53 09/01/17 08:23 09/01/17 07:53 09/01/17 08:23 09/01/17 07:53 - Medications Medications: Current Medications Aspirin (Aspirin Chewable) 81 mg PO DAILY [facility] Last Admin: 09/01/17 08:24 Dose: 81 mg Atorvastatin Calcium (Lipitor) 40 mg PO HS [facility] Last Admin: 08/31/17 21:52 Dose: 40 mg Cinacalcet (Sensipar) 30 mg PO DAILY [facility] Last Admin: 09/01/17 08:22 Dose: 30 mg Clonidine HCl (Catapres) 0.2 mg PO TID [facility] Last Admin: 08/31/17 16:28 Dose: 0.2 mg Epoetin Simeon (Procrit) 4,000 unit IV MWF [facility] Last Admin: 08/31/17 17:35 Dose: 4,000 unit Furosemide (Lasix) 40 mg PO BID [facility] Heparin Sodium (Porcine) (Heparin) 5,000 units SC Q12 [facility] PRN Reason: Protocol Last Admin: 09/01/17 08:24 Dose: 5,000 units Gentamicin Sulfate 300 mg/ (Sodium Chloride) 257.5 mls @ 34.333 mls/hr IVPB ONCE [facility] PRN Reason: Protocol Last Admin: 08/31/17 20:41 Dose: 34.333 mls/hr Sodium Chloride (Sodium Chloride 0.9%) 1,000 mls @ 999 mls/hr IV .Q1H1M [facility] Stop: 09/01/17 21:28 Last Admin: 08/31/17 23:00 Dose: 999 mls/hr Sodium Chloride (Sodium Chloride 0.9%) 1,000 mls @ 999 mls/hr IV .Q1H1M [facility] Stop: 09/01/17 23:04 Sodium Chloride (Sodium Chloride 0.9%) 1,000 mls @ 150 mls/hr IV .Q6H40M [facility] Stop: 09/02/17 00:47 Last Admin: 09/01/17 00:55 Dose: 150 mls/hr Insulin Detemir (Levemir) 43 units SC HS [facility] Last Admin: 08/31/17 21:52 Dose: 43 units Insulin Human Regular (Humulin R) 14 units SC ACTID [facility] Last Admin: 09/01/17 08:21 Dose: Not Given Levothyroxine Sodium (Synthroid) 75 mcg PO DAILY@0630 [facility] Last Admin: 09/01/17 05:40 Dose: 75 mcg Losartan Potassium (Cozaar) 100 mg PO DAILY [facility] Last Admin: 09/01/17 08:23 Dose: 100 mg - Labs Labs: 09/01/17 05:15 09/01/17 05:15 PT 12.8 Seconds (9.8-13.1) 08/31/17 08:23 INR 1.2 (0.9-1.2) 08/31/17 08:23 APTT 27.4 Seconds (25.6-37.1) 08/31/17 08:23 - Constitutional Appears: No Acute Distress - Head Exam Head Exam: ATRAUMATIC, NORMAL INSPECTION - Eye Exam Eye Exam: EOMI, Normal appearance - ENT Exam ENT Exam: Mucous Membranes Moist, Normal Exam - Neck Exam Neck Exam: Full ROM. absent: Lymphadenopathy, Meningismus - Respiratory Exam Respiratory Exam: Clear to Ausculation Bilateral, NORMAL BREATHING PATTERN. absent: Rhonchi, Wheezes - Cardiovascular Exam Cardiovascular Exam: REGULAR RHYTHM, +S1, +S2. absent: Murmur - GI/Abdominal Exam GI & Abdominal Exam: Soft, Normal Bowel Sounds. absent: Distended, Guarding, Tenderness - Extremities Exam Extremities Exam: Full ROM, Normal Inspection - Neurological Exam Neurological Exam: Alert, Awake, Oriented x3 - Psychiatric Exam Psychiatric exam: Normal Affect, Normal Mood - Skin Skin Exam: Dry, Intact, Normal Color, Warm. absent: Erythema, Rash Assessment and Plan - Assessment and Plan (Free Text) Assessment: 41 y/o M with a PMHx of IDDM Type 2, HLD, HTN and CKD on HD admitted for evaluation of fever. Plan: Fever -Etiology unknown. -NO leukocytosis, no symptoms, permacath area c/d/i. -Pro-calcitonin 1.42-high; lactic acid 1.2-WNL. -ID consult, Dr Perez. -IV Vancomycin with HD, after HD : IV Gentamycin and IV Doxyxcycline. -F/U Blood Cx and UCx, HIV, viral Hep profile, rickettsia Ab, TANNER, ESR, CRP, Lyme screen, repeated pro-calcitonin. Chronic Kidney Disease -HD M-W-F, receiving HD trhough a permacatheter, immature HD fistulat in L arm. -c/w home meds -Nephrology consult, Valente Dalyika HTN -Stable -c/w home meds -f/u BP IDDM type 2 -Last HbA1c 6.2 on 01/16/17 -C/w home meds Normocytic Anemia -H/H: 9.8/28.8 normal MCV. -On procrit Hypothyroidism -Last TSH on 05/14/17 2.53-wnl. -c/w home meds. DVT prophylaxis -Heparin 5,000 SC Q12H -SCDs
--- NOTE | 2017-09-01 08:45 | CARD ---
APPROVED REPORT EKG Measurement Heart [id number] <Conclusion> Sinus tachycardia Nonspecific ST abnormality Abnormal ECG
[2017-09-01] MEDS ORDERED: Linezolid 600 mg in D5W 300 ml 600 MG/300 ML BAG IVPB ONE (09:14)
[2017-09-01 12:22] LABS: HEPATITIS B SURFACE AG Negative (NEGATIVE)
[2017-09-01 12:27] LABS: HEPATITIS B CORE AB NEGATIVE (NEGATIVE)
[2017-09-01 12:34] LABS: HEPATITIS C ANTIBODY NEGATIVE (NEGATIVE)
--- NOTE | 2017-09-01 13:17 | CP.PCM.PN ---
Subjective - Date & Time of Evaluation Date of Evaluation: 09/01/17 Time of Evaluation: 13:11 - Subjective Subjective: Patient sitting up . No shortness of breath no difficulty breathing No chills or fever reported No nausea or vomiting Objective - Vital Signs/Intake and Output Vital Signs (last 24 hours): Temp Pulse Resp BP Pulse Ox 98.5 F 87 18 109/74 96 09/01/17 12:00 09/01/17 12:00 09/01/17 12:00 09/01/17 12:00 09/01/17 12:00 - Medications Medications: Current Medications Aspirin (Aspirin Chewable) 81 mg PO DAILY [facility] Last Admin: 09/01/17 08:24 Dose: 81 mg Atorvastatin Calcium (Lipitor) 40 mg PO HS [facility] Last Admin: 08/31/17 21:52 Dose: 40 mg Cinacalcet (Sensipar) 30 mg PO DAILY [facility] Last Admin: 09/01/17 08:22 Dose: 30 mg Clonidine HCl (Catapres) 0.2 mg PO TID [facility] Last Admin: 08/31/17 16:28 Dose: 0.2 mg Epoetin Simeon (Procrit) 4,000 unit IV MWF [facility] Last Admin: 08/31/17 17:35 Dose: 4,000 unit Furosemide (Lasix) 40 mg PO BID [facility] Heparin Sodium (Porcine) (Heparin) 5,000 units SC Q12 [facility] PRN Reason: Protocol Last Admin: 09/01/17 08:24 Dose: 5,000 units Gentamicin Sulfate 300 mg/ (Sodium Chloride) 257.5 mls @ 34.333 mls/hr IVPB ONCE [facility] PRN Reason: Protocol Last Admin: 08/31/17 20:41 Dose: 34.333 mls/hr Sodium Chloride (Sodium Chloride 0.9%) 1,000 mls @ 999 mls/hr IV .Q1H1M [facility] Stop: 09/01/17 21:28 Last Admin: 08/31/17 23:00 Dose: 999 mls/hr Sodium Chloride (Sodium Chloride 0.9%) 1,000 mls @ 999 mls/hr IV .Q1H1M [facility] Stop: 09/01/17 23:04 Sodium Chloride (Sodium Chloride 0.9%) 1,000 mls @ 150 mls/hr IV .Q6H40M [facility] Stop: 09/02/17 00:47 Last Admin: 09/01/17 00:55 Dose: 150 mls/hr Insulin Detemir (Levemir) 43 units SC HS [facility] Last Admin: 08/31/17 21:52 Dose: 43 units Insulin Human Regular (Humulin R) 14 units SC ACTID [facility] Last Admin: 09/01/17 08:21 Dose: Not Given Levothyroxine Sodium (Synthroid) 75 mcg PO DAILY@0630 [facility] Last Admin: 09/01/17 05:40 Dose: 75 mcg Losartan Potassium (Cozaar) 100 mg PO DAILY [facility] Last Admin: 09/01/17 08:23 Dose: 100 mg - Labs Labs: 09/01/17 05:15 09/01/17 05:15 PT 12.8 Seconds (9.8-13.1) 08/31/17 08:23 INR 1.2 (0.9-1.2) 08/31/17 08:23 APTT 27.4 Seconds (25.6-37.1) 08/31/17 08:23 - Constitutional Appears: No Acute Distress - ENT Exam ENT Exam: Mucous Membranes Moist - Neck Exam Neck Exam: absent: Lymphadenopathy - Respiratory Exam Respiratory Exam: NORMAL BREATHING PATTERN - GI/Abdominal Exam GI & Abdominal Exam: Soft, Normal Bowel Sounds. absent: Guarding - Extremities Exam Extremities Exam: absent: Calf Tenderness - Back Exam Back Exam: absent: CVA tenderness (L), CVA tenderness (R) - Neurological Exam Neurological Exam: Alert - Psychiatric Exam Psychiatric exam: Normal Affect - Skin Skin Exam: absent: Cyanosis Assessment and Plan (1) CKD (chronic kidney disease) requiring chronic dialysis Assessment & Plan: Patient with end stage renal disease on maintenance hemodialysis Thursday. There is scheduled for dialysis for tomorrow. Patient admitted with fever which has been coming down and he was given vancomycin. Gram stain showed .gram-positive cocci consistent with sepsis I suggest to remove the right subclavian catheter. Patient has left forearm fistula which has been used partially.discussed with the primary care physician. Continue vancomycin 750 mg to 1000 mg each hemodialysis hypertension continue on antihypertensive medication. Diabetes mellitus continue diabetic control . Hyperphosphatemia continue phosphorus binder Secondary hyperparathyroidism continue Sensipar Status: Acute
--- NOTE | 2017-09-01 15:09 | CP.PCM.PCO ---
Addendum Addendum: 09/01/17 15:08 Spoke to ID, IR, Nephro, Nursing staff, and Dialysis nursing. Plan for patient to remove dialysis cath after HD tomorrow AM. As there are questions if fistula is ready for dialysis. HD will be attempted through fistula, if not, may use catheter. Once HD is completed, IR will remove catheter. Will re-evaluate after catheter is removed for access for HD. ID/Nephro agrees.
--- NOTE | 2017-09-01 19:08 | CARD ---
APPROVED REPORT EXAM: Two-dimensional and M-mode echocardiogram with Doppler and color Doppler. Other Information Quality : GoodRhythm : NSR INDICATION Infection: FEVER 2D DIMENSIONS IVSd1.21 (0.7-1.1cm)LVDd5.85 (3.9-5.9cm) LVOT Diameter2.52 (1.8-2.4cm)PWd1.03 (0.7-1.1cm) IVSs1.80 (0.8-1.2cm)LVDs4.37 (2.5-4.0cm) FS (%) 25.3 %PWs1.39 (0.8-1.2cm) M-Mode DIMENSIONS Left Atrium (MM)5.10 (2.5-4.0cm)IVSd1.75 (0.7-1.1cm) Aortic Root3.28 (2.2-3.7cm)LVDd5.31 (4.0-5.6cm) Aortic Cusp Exc.2.48 (1.5-2.0cm)PWd1.71 (0.7-1.1cm) IVSs2.17 cmFS (%) 37 % LVDs3.35 (2.0-3.8cm)PWs2.51 cm Mitral Valve MV E Qxmypacy672.6cm/sMV DECEL [id number] A Qixjrupe76.1cm/s MV LZX73vxS/A ratio1.4MVA (PHT)4.31cm2 TDI Lateral E' Peak V9.94cm/sMedial E' Peak V12.63cm/sE/Lateral E'11.3 E/Medial E'8.9 Pulmonary Valve PV Peak Wy[place]448.7cm/s LEFT VENTRICLE The left ventricle is normal size on the 2D study. There is mild concentric left ventricular hypertrophy on the 2D study. Left ventricle systolic function is low normal. The Ejection Fraction is 50-55%. low normal Transmitral Doppler flow pattern is abnormal. No left ventricle thrombus noted on this study. There is no ventricular septal defect visualized. There is no left ventricular aneurysm. There is no mass noted in the left ventricle. RIGHT VENTRICLE The right ventricle is normal size. There is normal right ventricular wall thickness. The right ventricular systolic function is normal. ATRIA The left atrium is mildly dilated. There is no thrombus suspected in the left atrium. The right atrium size is normal. The interatrial septum is intact with no evidence for an atrial septal defect. AORTIC VALVE The aortic valve is normal in structure. No aortic regurgitation is present. There is no aortic valvular stenosis. There is no aortic valvular vegetation. MITRAL VALVE The mitral valve is normal in structure. There is no evidence of mitral valve prolapse. There is no mitral valve stenosis. There is no mitral valve regurgitation noted. TRICUSPID VALVE The tricuspid valve is normal in structure. There is trace tricuspid regurgitation. There is no tricuspid valve prolapse or vegetation. There is no tricuspid valve stenosis. PULMONIC VALVE The pulmonary valve is normal in structure. There is no pulmonic valvular regurgitation. GREAT VESSELS The aortic root is normal in size. The IVC collapses <50% with inspiration. PERICARDIAL EFFUSION The pericardium appears normal. There is no pleural effusion. <Conclusion> The study is of suboptimal quality. The left ventricle is normal size on the 2D study. There is mild concentric left ventricular hypertrophy on the 2D study. Left ventricle systolic function is low normal. The Ejection Fraction is 50-55%. The left atrium is mildly dilated. The mitral, aortic and tricuspid valves are normal.
[2017-09-01] MEDS: Insulin Detemir 100 Units/ml Inj SC SCH (22:20)
--- NOTE | 2017-09-02 00:20 | CON ---
INFECTIOUS DISEASE CONSULT DATE: LOCATION: The patient is in room 417, bed 2. HISTORY OF PRESENT ILLNESS: The patient is a 41-year-old male with past medical history significant for hypertension, diabetes, hyperlipidemia, CHF, and end-stage renal disease and he is on dialysis 3 days weekly, which is Thursday, Thursday and Thursday. He went to the Emergency Department yesterday complaining of fever associated with chills, which started on 08/30/2017. Denies chest pain, shortness of breath, or abdominal pain. The patient was admitted via the emergency room c fever of 102. His fever persisted until the morning and despite given IV antibiotics. The patient is a greater than 350 pound male. MEDICATIONS: Include levothyroxine, atorvastatin, clonidine, losartan, furosemide, Humulin, and he is on aspirin. PAST MEDICAL HISTORY: Once again, he has got past medical history of IDDM type 2, HTN, end-stage renal disease, anemia, hypothyroidism, elevated liver disease, and of course morbid obesity. PHYSICAL EXAMINATION: GENERAL: The patient is alert, cooperative, and oriented to time and place. HEENT: Normocephalic and atraumatic. NECK: Supple. LUNGS: Has some rales at the bases. No rhonchi. HEART: Regular sinus rhythm. ABDOMEN: Morbidly obese, positive bowel sounds. EXTREMITIES: No calf tenderness. LABORATORY DATA: The patient has sepsis, possibly catheter sepsis. The cultures which were taken grew for apparently for positive blood cultures for Gram-positive cocci and clusters, awaiting the identification. His creatinine is 8.6. GFR is 7. BUN is 63. Negative influenza titers. WBC 10.7 on 08/31/2017 and 6.1 on 09/01/2017 and platelet count 134 on 08/31/2017 and 116 on 09/01/2017. Sed rate 79 and polys are 86. Again, the identification of the cultures are pending. Chest x-ray was normal. The patient was given vancomycin in the ER and a large dose of gentamicin around 300 mg last night. Last night again was given a dose of doxycycline as he stated he had been out camping in the wards and just to cover the possibility of tick-borne disease. Also titer was ordered. Based on the positive blood cultures, an echocardiogram was ordered for which the patient is going down to the Cardiology right now. IMPRESSION AND PLAN: My impression is possibly catheter sepsis, Staphylococcus sepsis. Arrangements to be made to have the catheter remove post-tomorrow's dialysis. He is to be given 1 g of vancomycin post-hemodialysis and 140 mg IV piggyback post-hemodialysis of tobramycin. Redd Perez MD MTDD
--- NOTE | 2017-09-02 06:37 | PQF GENQUE ---
This form is a permanent part of the medical record 08/31/17 Dr. Joe Alejandro, Would you please clarify if there is an associated diagnosis or not to go along with the positive blood cultures. Patient with a history of ESRD and a chest permcath which was inserted in June of 2017 is admitted with fever of unknown origin and chills. Patient had been camping. Has an immature HD fistula L arm. WBC 10.7 with a L shift, lactic acid 1.3, Procalcitonin 1.42, Blood CS X 1 preliminary gram + cocci Treated with IVAB BP: 94/48, 102/55, 123/65, 166/92, 97/61, 102/64 HR: 112, 103, 104, 83, 125, 86, 125,111, 120 R: 16-33 T: 100.8, 99.7, 98.9, 102.6 X 2, 102.9 x2, 99.9, 102.6 Clarification of your documentation is requested to better reflect the severity of illness and intensity of treatment of your patient. Indicators present PHYSICIAN'S RESPONSE pt has gram positive bacteremia Based on your medical judgment of the clinical indicators outlined above please clarify the following: [] Practitioner response [] If unable to determine, please check the box, sign and date. Present On Admission (POA) Indicator: [] Present at the time of admission [] Not present at the time of admission [] Clinically Undetermined In responding to this query, please exercise your independent professional judgment. The fact that a question is asked does not imply that any particular answer is desired or expected. Thank you for your clarification on this documentation. If you have any questions please call:ext [phone] * Thank you, Yanni Avelar RN CDGAEBL[facility] CHILDREN'[facility] CENTER[facility]
[2017-09-02 06:47] LABS: BASO % 0.5 % (0.0-2.0); EOS % 0.4 % (0.0-4.0); HEMOGLOBIN 7.6 g/dL (12.0-18.0); LYMPH # 1.5 K/uL (1.0-4.3); LYMPH % 27.5 % (20.0-40.0); MEAN CELL VOLUME 93.9 fl (80.0-94.0); MEAN CORPUSCULAR HEMOGLOBIN 32.3 pg (27.0-31.0); MEAN CORPUSCULAR HGB CONC 34.5 g/dL (33.0-37.0); MONO # 0.7 K/uL (0.0-0.8); MONO % 12.9 % (0.0-10.0); NEUT # 3.3 K/uL (1.8-7.0); NEUT % 58.7 % (50.0-75.0); RBC 2.36 Mil/uL (4.40-5.90); RED CELL DISTRIBUTION WIDTH 15.2 % (11.5-14.5); WHITE BLOOD COUNT 5.6 K/uL (4.8-10.8)
--- NOTE | 2017-09-02 07:01 | PQF GENQUE ---
This form is a permanent part of the medical record 09/02/17 Dr. Joe Alejandro, Please specify the type and acuity of heart failure in your progress notes. Documentation in the H&P under the [facility] template: CHF: YES. Patient was on Lasix and Cozaar which is being held at this time. ECHO: EF 50-55%. Clarification of your documentation is requested to better reflect the severity of illness and intensity of treatment of your patient. Indicators present PHYSICIAN'S RESPONSE pt does not have CHF Based on your medical judgment of the clinical indicators outlined above please clarify the following: [] Practitioner response [] If unable to determine, please check the box, sign and date. Present On Admission (POA) Indicator: [] Present at the time of admission [] Not present at the time of admission [] Clinically Undetermined In responding to this query, please exercise your independent professional judgment. The fact that a question is asked does not imply that any particular answer is desired or expected. Thank you for your clarification on this documentation. If you have any questions please call:ext [phone] * Thank you, Yanni Avelar RN CDMP MTDD
[2017-09-02 08:07] LABS: BLOOD UREA NITROGEN 75 mg/dl (9-20); CALCIUM 8.4 mg/dL (8.4-10.2); GFR AFRICAN-AMERICAN 7; GFR NON-AFRICAN AMERICAN 6
--- NOTE | 2017-09-02 08:52 | CP.PCM.PN ---
Subjective - Date & Time of Evaluation Date of Evaluation: 09/02/17 Time of Evaluation: 07:43 - Subjective Subjective: 41 y/o M seen and examined by bedside. Pt reports feeling OK, had a fever episode last night 100.5 degF. Pt tolerating PO. Pt denies chest pain, SOB, cough, nausea, vomiting, diarrhea, urinary complaints or rash. Pt aware HD will be performed today. Objective - Vital Signs/Intake and Output Vital Signs (last 24 hours): Temp Pulse Resp BP Pulse Ox 98.4 F 96 H 20 156/72 H 96 09/02/17 08:03 09/02/17 08:03 09/02/17 08:03 09/02/17 08:03 09/02/17 08:03 - Medications Medications: Current Medications Aspirin (Aspirin Chewable) 81 mg PO DAILY [facility] Last Admin: 09/01/17 08:24 Dose: 81 mg Atorvastatin Calcium (Lipitor) 40 mg PO [facility] Last Admin: 09/01/17 22:21 Dose: 40 mg Cinacalcet (Sensipar) 30 mg PO DAILY [facility] Last Admin: 09/01/17 08:22 Dose: 30 mg Clonidine HCl (Catapres) 0.2 mg PO TID [facility] Last Admin: 08/31/17 16:28 Dose: 0.2 mg Epoetin Simeon (Procrit) [facility] Last Admin: 08/31/17 17:35 Dose: 4,000 unit Furosemide (Lasix) 40 mg PO BID [facility] Heparin Sodium (Porcine) (Heparin) 5,000 units SC Q12 [facility] PRN Reason: Protocol Last Admin: 09/01/17 22:27 Dose: 5,000 units Gentamicin Sulfate 300 mg/ (Sodium Chloride) 257.5 mls @ 34.333 mls/hr IVPB ONCE [facility] PRN Reason: Protocol Last Admin: 08/31/17 20:41 Dose: 34.333 mls/hr Vancomycin HCl 1 gm/ Sodium (Chloride) 250 mls @ 166.667 mls/hr IVPB MWF [facility] PRN Reason: Protocol Tobramycin Sulfate 120 mg/ (Sodium Chloride) 103 mls @ 100 mls/hr IV MWF [facility] PRN Reason: Protocol Insulin Detemir (Levemir) 43 units SC [facility] Last Admin: 09/01/17 22:20 Dose: 43 units Insulin Human Regular (Humulin R) 14 units SC ACTID [facility] Last Admin: 09/01/17 16:43 Dose: Not Given Levothyroxine Sodium (Synthroid) 75 mcg PO DAILY@0630 [facility] Last Admin: 09/01/17 05:40 Dose: 75 mcg Losartan Potassium (Cozaar) 100 mg PO DAILY [facility] Last Admin: 09/01/17 08:23 Dose: 100 mg - Labs Labs: 09/02/17 05:55 09/02/17 05:55 PT 12.8 Seconds (9.8-13.1) 08/31/17 08:23 INR 1.2 (0.9-1.2) 08/31/17 08:23 APTT 27.4 Seconds (25.6-37.1) 08/31/17 08:23 - Constitutional Appears: Well, No Acute Distress - Head Exam Head Exam: NORMAL INSPECTION - Eye Exam Eye Exam: EOMI, Normal appearance - ENT Exam ENT Exam: Mucous Membranes Moist - Neck Exam Neck Exam: Full ROM - Respiratory Exam Respiratory Exam: NORMAL BREATHING PATTERN. absent: Rhonchi, Wheezes, Respiratory Distress - Cardiovascular Exam Cardiovascular Exam: REGULAR RHYTHM, +S1, +S2 - GI/Abdominal Exam GI & Abdominal Exam: Soft, Normal Bowel Sounds. absent: Distended, Guarding, Tenderness - Extremities Exam Extremities Exam: Full ROM, Normal Inspection - Neurological Exam Neurological Exam: Alert, Awake, Oriented x3 Assessment and Plan - Assessment and Plan (Free Text) Assessment: 41 y/o M with a PMHx of IDDM Type 2, HLD, HTN and CKD on HD admitted for evaluation of fever. Plan: Gram Positive Bacteremia. -Blood Culture (1x through cental v. access and 1x peripheral vein) have showed gram positive cocci growth. -Bacteremia most probably caused by permacatheter. -No leukocytosis. -Repeated pro-calcitonin 3.50-high; ESR 79-high, HIV negative, viral hepatitis unremarkable. -ID consult, Dr Perez. -A per ID, Dr Perez, Vancomycin 1gr post-hemodialysis and IV Tobramycin 140mg post-hemodialysis. -Permacatheter needs to be removed, as per ID recommendation. -Echocardiogram was unremarkable except for LV systolic funtion low normal, LA mildly dilated, mitral, aortic and tricuspid valve are normal. -F/U Blood Cx and UCx, rickettsia Ab, TANNER, CRP, Lyme screen. Chronic Kidney Disease -HD M-W-F, receiving HD through a permacatheter, immature HD fistulat in L arm. -c/w home meds -Nephrology consult, Alina Daly -Will attempt to perform HD on L arm's fistula. If not possible, HD will be done through R chest permacatheter. HTN -Stable -Hold losartan, clonidine and furosemide. -f/u BP. IDDM type 2 -Last HbA1c 6.2 on 01/16/17 Normocytic Anemia -H/H: 7.6/22.1 -On procrit Hypothyroidism -TSH < 0.02. -Hold Levothyroxine. DVT prophylaxis -Heparin 5,000 SC Q12H -SCDs
[2017-09-02] MEDS: Insulin Regular 100 units/ml SC SCH ×3 (09:00→17:57)
[2017-09-02] MEDS: Epoetin Alfa 4000 UNIT/ML Inj IV SCH (12:05)
--- NOTE | 2017-09-02 12:33 | CP.PCM.PN ---
Subjective - Date & Time of Evaluation Date of Evaluation: 09/02/17 Time of Evaluation: 11:00 - Subjective Subjective: Dialysis note He was seen on hemodialysis. Patient awake and conscious not in any acute distress no fever. No nausea no vomiting. Objective - Vital Signs/Intake and Output Vital Signs (last 24 hours): Temp Pulse Resp BP Pulse Ox 98.2 F 96 H 20 156/72 H 96 09/02/17 12:23 09/02/17 12:23 09/02/17 12:23 09/02/17 12:23 09/02/17 12:23 - Medications Medications: Current Medications Aspirin (Aspirin Chewable) 81 mg PO DAILY [facility] Last Admin: 09/02/17 08:59 Dose: 81 mg Atorvastatin Calcium (Lipitor) 40 mg PO HS [facility] Last Admin: 09/01/17 22:21 Dose: 40 mg Cinacalcet (Sensipar) 30 mg PO DAILY [facility] Last Admin: 09/02/17 09:01 Dose: 30 mg Clonidine HCl (Catapres) 0.2 mg PO TID [facility] Last Admin: 08/31/17 16:28 Dose: 0.2 mg Epoetin Simeon (Procrit) 4,000 unit IV MWF [facility] Last Admin: 09/02/17 12:05 Dose: 4,000 unit Furosemide (Lasix) 40 mg PO BID [facility] Heparin Sodium (Porcine) (Heparin) 5,000 units SC Q12 [facility] PRN Reason: Protocol Last Admin: 09/02/17 08:58 Dose: 5,000 units Gentamicin Sulfate 300 mg/ (Sodium Chloride) 257.5 mls @ 34.333 mls/hr IVPB ONCE [facility] PRN Reason: Protocol Last Admin: 08/31/17 20:41 Dose: 34.333 mls/hr Vancomycin HCl 1 gm/ Sodium (Chloride) 250 mls @ 166.667 mls/hr IVPB MWF [facility] PRN Reason: Protocol Last Admin: 09/02/17 12:04 Dose: 166.667 mls/hr Tobramycin Sulfate 120 mg/ (Sodium Chloride) 103 mls @ 100 mls/hr IV F [facility] PRN Reason: Protocol Insulin Detemir (Levemir) 43 units SC HS [facility] Last Admin: 09/01/17 22:20 Dose: 43 units Insulin Human Regular (Humulin R) 14 units SC ACTID [facility] Last Admin: 09/02/17 09:00 Dose: Not Given Levothyroxine Sodium (Synthroid) 75 mcg PO DAILY@0630 [facility] Last Admin: 09/01/17 05:40 Dose: 75 mcg Losartan Potassium (Cozaar) 100 mg PO DAILY [facility] Last Admin: 09/01/17 08:23 Dose: 100 mg - Labs Labs: 09/02/17 05:55 09/02/17 05:55 PT 12.8 Seconds (9.8-13.1) 08/31/17 08:23 INR 1.2 (0.9-1.2) 08/31/17 08:23 APTT 27.4 Seconds (25.6-37.1) 08/31/17 08:23 - Constitutional Appears: No Acute Distress - ENT Exam ENT Exam: Mucous Membranes Moist - Neck Exam Neck Exam: absent: Lymphadenopathy - Respiratory Exam Respiratory Exam: NORMAL BREATHING PATTERN. absent: Chest Wall Tenderness - Cardiovascular Exam Cardiovascular Exam: REGULAR RHYTHM. absent: Gallop, Rubs - GI/Abdominal Exam GI & Abdominal Exam: Soft, Normal Bowel Sounds - Extremities Exam Extremities Exam: absent: Calf Tenderness - Back Exam Back Exam: absent: CVA tenderness (L), CVA tenderness (R) - Neurological Exam Neurological Exam: Alert - Psychiatric Exam Psychiatric exam: Normal Affect - Skin Skin Exam: absent: Cyanosis Assessment and Plan (1) CKD (chronic kidney disease) requiring chronic dialysis Assessment & Plan: Patient with end stage renal disease on maintenance hemodialysis Thursday. he was seen on hemodialysis with ultrafiltration target 2500 ml Sodium bath 138 potassium bath 2 mEq Carbonate bath 34 I discussed with the dialysis nurse at the bedside Patient admitted with fever which has been coming down and he was given vancomycin. Gram stain showed .gram-positive cocci consistent with sepsis I suggest to remove the right subclavian catheter. Patient has left forearm fistula which has been used partially.discussed with the primary care physician. Continue vancomycin 750 mg to 1000 mg each hemodialysis hypertension continue on antihypertensive medication. Diabetes mellitus continue diabetic control . Hyperphosphatemia continue phosphorus binder Secondary hyperparathyroidism continue Sensipar Status: Acute Status: Acute
[2017-09-02] MEDS ORDERED: LIDOCAINE 2% 10ML 20 MG/ML VIAL IJ ONE (15:15)
--- NOTE | 2017-09-02 15:23 | PCM.SURG1 ---
Surgeon's Initial Post Op Note - Surgeon's Notes Surgeon: Hitesh Hightower MD Probate Paralegal: None Type of Anesthesia: Local Pre-Operative Diagnosis: bacteremia Operative Findings: indwelling right IJ access tunneled HD catheter Post-Operative Diagnosis: same Operation Performed: Tunneled HD catheter removal Specimen/Specimens Removed: catheter tip sent for culture Estimated Blood Loss: EBL {In ML}: 3 Date of Surgery/Procedure: 09/02/17 Time of Surgery/Procedure: 15:23
[2017-09-02] MEDS: Insulin Detemir 100 Units/ml Inj SC SCH (21:39)
[2017-09-03 06:38] LABS: HEMOGLOBIN 7.9 g/dL (12.0-18.0); MEAN CORPUSCULAR HGB CONC 34.8 g/dL (33.0-37.0); RBC 2.45 Mil/uL (4.40-5.90); RED CELL DISTRIBUTION WIDTH 15.2 % (11.5-14.5); WHITE BLOOD COUNT 5.7 K/uL (4.8-10.8)
[2017-09-03 06:50] LABS: ALBUMIN 3.3 g/dL (3.5-5.0); CALCIUM 8.3 mg/dL (8.4-10.2)
[2017-09-03] MEDS: Insulin Regular 100 units/ml SC SCH ×3 (09:04→17:09)
--- NOTE | 2017-09-03 09:24 | CP.PCM.PN ---
Subjective - Date & Time of Evaluation Date of Evaluation: 09/03/17 Time of Evaluation: 07:37 - Subjective Subjective: 41 y/o M seen and examined by bedside. Pt report sfeeling well, tolerating PO, afebrile overnight. No acute events overnight. Pt denies chills, chest pain, SOB , nausea, diarrhea, rash or urinary complaints. Objective - Vital Signs/Intake and Output Vital Signs (last 24 hours): Temp Pulse Resp BP Pulse Ox 98.6 F 91 H 20 139/79 95 09/03/17 08:03 09/03/17 08:03 09/03/17 08:03 09/03/17 08:03 09/03/17 08:03 - Medications Medications: Current Medications Aspirin (Aspirin Chewable) 81 mg PO DAILY [facility] Last Admin: 09/03/17 09:03 Dose: 81 mg Atorvastatin Calcium (Lipitor) 40 mg PO HS [facility] Last Admin: 09/02/17 21:40 Dose: 40 mg Cinacalcet (Sensipar) 30 mg PO DAILY [facility] Last Admin: 09/03/17 09:03 Dose: 30 mg Clonidine HCl (Catapres) 0.2 mg PO TID [facility] Last Admin: 08/31/17 16:28 Dose: 0.2 mg Epoetin Simeon (Procrit) 4,000 unit IV MWF [facility] Last Admin: 09/02/17 12:05 Dose: 4,000 unit Furosemide (Lasix) 40 mg PO BID [facility] Heparin Sodium (Porcine) (Heparin) 5,000 units SC Q12 [facility] PRN Reason: Protocol Last Admin: 09/03/17 09:03 Dose: 5,000 units Gentamicin Sulfate 300 mg/ (Sodium Chloride) 257.5 mls @ 34.333 mls/hr IVPB ONCE [facility] PRN Reason: Protocol Last Admin: 08/31/17 20:41 Dose: 34.333 mls/hr Vancomycin HCl 1 gm/ Sodium (Chloride) 250 mls @ 166.667 mls/hr IVPB MWF [facility] PRN Reason: Protocol Last Admin: 09/02/17 12:04 Dose: 166.667 mls/hr Tobramycin Sulfate 120 mg/ (Sodium Chloride) 103 mls @ 100 mls/hr IV MWF [facility] PRN Reason: Protocol Last Admin: 09/02/17 14:22 Dose: 100 mls/hr Insulin Detemir (Levemir) 43 units SC HS [facility] Last Admin: 09/02/17 21:39 Dose: 43 units Insulin Human Regular (Humulin R) 14 units SC ACTID [facility] Last Admin: 09/03/17 09:04 Dose: Not Given Levothyroxine Sodium (Synthroid) 75 mcg PO DAILY@0630 [facility] Last Admin: 09/01/17 05:40 Dose: 75 mcg Losartan Potassium (Cozaar) 100 mg PO DAILY [facility] Last Admin: 09/01/17 08:23 Dose: 100 mg - Labs Labs: 09/03/17 05:55 09/03/17 05:55 PT 12.8 Seconds (9.8-13.1) 08/31/17 08:23 INR 1.2 (0.9-1.2) 08/31/17 08:23 APTT 27.4 Seconds (25.6-37.1) 08/31/17 08:23 - Constitutional Appears: No Acute Distress - Head Exam Head Exam: ATRAUMATIC - Eye Exam Eye Exam: EOMI, Normal appearance - ENT Exam ENT Exam: Mucous Membranes Moist - Neck Exam Neck Exam: Full ROM - Respiratory Exam Respiratory Exam: Clear to Ausculation Bilateral, NORMAL BREATHING PATTERN - Cardiovascular Exam Cardiovascular Exam: REGULAR RHYTHM, +S1, +S2 - GI/Abdominal Exam GI & Abdominal Exam: Soft, Normal Bowel Sounds. absent: Distended, Guarding, Tenderness - Extremities Exam Extremities Exam: Full ROM, Normal Inspection. absent: Calf Tenderness, Pedal Edema - Neurological Exam Neurological Exam: Alert, Awake, Oriented x3 Assessment and Plan - Assessment and Plan (Free Text) Assessment: 41 y/o M with a PMHx of IDDM Type 2, HLD, HTN and CKD on HD admitted for evaluation of fever. -Blood Culture (2x through cental v. access and 1x peripheral vein) have showed gram positive cocci growth. Sepsis due to gram positive cocci bacteremia. -No leukocytosis. VSS -ID consult, Dr Perez. -A per ID, Dr Perez, Vancomycin 1gr post-hemodialysis and IV Tobramycin 140mg post-hemodialysis. -Permacatheter removed yesterday by IR, Dr Hightower. -Urine Cx with NO growth; Lyme IgM negative; HIV neg; Hepatitis B and C negative ; CRP 156-high; ESR 79-high. -F/U Rickettsia Ab and blood Cx. Chronic Kidney Disease -HD M-W-F, receiving HD through a permacatheter, immature HD fistulat in L arm. -c/w home meds -Nephrology consult, Alina Daly -Unable to use L arm fistula for HD yesterday. HTN -Stable -Hold losartan, clonidine and furosemide. -f/u BP. IDDM type 2 -Last HbA1c 6.2 on 01/16/17 -Continue with medications: insulin, aspirin and Lipitor. Normocytic Anemia -H/H: 7.6/22.1 -On procrit Hypothyroidism -TSH < 0.02. -Hold Levothyroxine. DVT prophylaxis -Heparin 5,000 SC Q12H -SCDs
--- NOTE | 2017-09-03 10:31 | CP.PCM.PN ---
Subjective - Date & Time of Evaluation Date of Evaluation: 09/03/17 Time of Evaluation: 10:31 - Subjective Subjective: Patient sitting gotten. He feels good no shortness of breath no difficulty breathing. Dialysis completed with ultrafiltration 3500 mL removed yesterday. Objective - Vital Signs/Intake and Output Vital Signs (last 24 hours): Temp Pulse Resp BP Pulse Ox 98.6 F 91 H 20 139/79 95 09/03/17 08:03 09/03/17 09:00 09/03/17 08:03 09/03/17 08:03 09/03/17 08:03 - Medications Medications: Current Medications Aspirin (Aspirin Chewable) 81 mg PO DAILY [facility] Last Admin: 09/03/17 09:03 Dose: 81 mg Atorvastatin Calcium (Lipitor) 40 mg PO HS [facility] Last Admin: 09/02/17 21:40 Dose: 40 mg Cinacalcet (Sensipar) 30 mg PO DAILY [facility] Last Admin: 09/03/17 09:03 Dose: 30 mg Clonidine HCl (Catapres) 0.2 mg PO TID [facility] Last Admin: 08/31/17 16:28 Dose: 0.2 mg Epoetin Simeon (Procrit) 4,000 unit IV MWF [facility] Last Admin: 09/02/17 12:05 Dose: 4,000 unit Furosemide (Lasix) 40 mg PO BID [facility] Heparin Sodium (Porcine) (Heparin) 5,000 units SC Q12 [facility] PRN Reason: Protocol Last Admin: 09/03/17 09:03 Dose: 5,000 units Gentamicin Sulfate 300 mg/ (Sodium Chloride) 257.5 mls @ 34.333 mls/hr IVPB ONCE [facility] PRN Reason: Protocol Last Admin: 08/31/17 20:41 Dose: 34.333 mls/hr Vancomycin HCl 1 gm/ Sodium (Chloride) 250 mls @ 166.667 mls/hr IVPB MWF [facility] PRN Reason: Protocol Last Admin: 09/02/17 12:04 Dose: 166.667 mls/hr Tobramycin Sulfate 120 mg/ (Sodium Chloride) 103 mls @ 100 mls/hr IV MWF [facility] PRN Reason: Protocol Last Admin: 09/02/17 14:22 Dose: 100 mls/hr Insulin Detemir (Levemir) 43 units SC [facility] Last Admin: 09/02/17 21:39 Dose: 43 units Insulin Human Regular (Humulin R) 14 units SC ACTID [facility] Last Admin: 09/03/17 09:04 Dose: Not Given Levothyroxine Sodium (Synthroid) 75 mcg PO DAILY@0630 [facility] Last Admin: 09/01/17 05:40 Dose: 75 mcg Losartan Potassium (Cozaar) 100 mg PO DAILY [facility] Last Admin: 09/01/17 08:23 Dose: 100 mg - Labs Labs: 09/03/17 05:55 09/03/17 05:55 PT 12.8 Seconds (9.8-13.1) 08/31/17 08:23 INR 1.2 (0.9-1.2) 08/31/17 08:23 APTT 27.4 Seconds (25.6-37.1) 08/31/17 08:23 - Constitutional Appears: No Acute Distress - ENT Exam ENT Exam: Mucous Membranes Moist - Neck Exam Neck Exam: absent: Lymphadenopathy - Respiratory Exam Respiratory Exam: NORMAL BREATHING PATTERN. absent: Rales - Cardiovascular Exam Cardiovascular Exam: REGULAR RHYTHM. absent: Gallop - GI/Abdominal Exam GI & Abdominal Exam: Soft, Normal Bowel Sounds - Extremities Exam Extremities Exam: absent: Calf Tenderness - Back Exam Back Exam: absent: CVA tenderness (L), CVA tenderness (R) - Neurological Exam Neurological Exam: Alert - Psychiatric Exam Psychiatric exam: Normal Affect - Skin Skin Exam: absent: Cyanosis Assessment and Plan (1) CKD (chronic kidney disease) requiring chronic dialysis Assessment & Plan: bacteremia persisted as of yesterday. Continue on antibiotics,dialysis catheter removed yesterday. Repeated blood cultures. Patient to go for permacath if possible for tomorrow. Regarding the left forearm AV fistula patient scheduled as outpatient to go for [facility]. I discussed with the resident. Patient admitted with fever which has been coming down and he was given vancomycin. Gram stain showed .gram-positive cocci consistent with bacteremia I suggest to remove the right subclavian catheter. Patient has left forearm fistula which has been used partially.discussed with the primary care physician. Continue vancomycin 750 mg to 1000 mg each hemodialysis hypertension continue on antihypertensive medication. Diabetes mellitus continue diabetic control . Hyperphosphatemia continue phosphorus binder Secondary hyperparathyroidism continue Sensipar Status: Acute
[2017-09-03] MEDS: Clindamycin in NS 300 MG/50 ML BAG IVPB SCH ×2 (13:49→23:45)
--- NOTE | 2017-09-03 20:03 | CP.PCM.PN ---
Subjective - Date & Time of Evaluation Date of Evaluation: 09/03/17 Time of Evaluation: 20:00 - Subjective Subjective: I D NOTE CATHETER REMOVED AWAITING FOLLOWUP CULTURES DISCUSSED C RESIDENT CLINDAMYCIN GIVEN TODAY AWAIT F/U CULTURES NEW CATHETER TO BE INSERTED TOMORROW RANDOM VANCOMYCIN LEVEL:6.1 Objective - Vital Signs/Intake and Output Vital Signs (last 24 hours): Temp Pulse Resp BP Pulse Ox 98.6 F 90 18 147/81 96 09/03/17 19:56 09/03/17 19:56 09/03/17 19:56 09/03/17 19:56 09/03/17 19:56 - Medications Medications: Current Medications Aspirin (Aspirin Chewable) 81 mg PO DAILY [facility] Last Admin: 09/03/17 09:03 Dose: 81 mg Atorvastatin Calcium (Lipitor) [address] [facility] Last Admin: 09/02/17 21:40 Dose: 40 mg Cinacalcet (Sensipar) 30 mg PO DAILY [facility] Last Admin: 09/03/17 09:03 Dose: 30 mg Clonidine HCl (Catapres) 0.2 mg PO TID [facility] Last Admin: 08/31/17 16:28 Dose: 0.2 mg Epoetin Simeon ([facility]) [facility] Last Admin: 09/02/17 12:05 Dose: 4,000 unit Furosemide (Lasix) 40 mg PO BID [facility] Heparin Sodium (Porcine) (Heparin) 5,000 units SC Q12 [facility] PRN Reason: Protocol Last Admin: 09/03/17 09:03 Dose: 5,000 units Vancomycin HCl 1 gm/ Sodium (Chloride) 250 mls @ 166.667 mls/hr IVPB [facility] PRN Reason: Protocol Last Admin: 09/02/17 12:04 Dose: 166.667 mls/hr Tobramycin Sulfate 120 mg/ (Sodium Chloride) 103 mls @ 100 mls/hr IV [facility] PRN Reason: Protocol Last Admin: 09/02/17 14:22 Dose: 100 mls/hr Clindamycin in NS (Clindamycin 300 Mg/50 Ml-Ns) 300 mg in 50 mls @ 50 mls/hr IVPB Q12H [facility] PRN Reason: Protocol Last Admin: 09/03/17 13:49 Dose: 50 mls/hr Insulin Detemir (Levemir) [address] [facility] Last Admin: 09/02/17 21:39 Dose: 43 units Insulin Human Regular (Humulin R) 14 units SC ACTID [facility] Last Admin: 09/03/17 17:09 Dose: Not Given Levothyroxine Sodium (Synthroid) 75 mcg PO DAILY@0630 [facility] Last Admin: 09/01/17 05:40 Dose: 75 mcg Losartan Potassium (Cozaar) 100 mg PO DAILY [facility] Last Admin: 09/01/17 08:23 Dose: 100 mg - Labs Labs: 09/03/17 05:55 09/03/17 05:55 PT 12.8 Seconds (9.8-13.1) 08/31/17 08:23 INR 1.2 (0.9-1.2) 08/31/17 08:23 APTT 27.4 Seconds (25.6-37.1) 08/31/17 08:23
[2017-09-03] MEDS: Insulin Detemir 100 Units/ml Inj SC SCH (21:51)
[2017-09-04 05:28] LABS: HEMOGLOBIN 7.6 g/dL (12.0-18.0); MEAN CELL VOLUME 92.9 fl (80.0-94.0); MEAN CORPUSCULAR HEMOGLOBIN 31.7 pg (27.0-31.0); MEAN CORPUSCULAR HGB CONC 34.1 g/dL (33.0-37.0); RBC 2.41 Mil/uL (4.40-5.90); RED CELL DISTRIBUTION WIDTH 15.3 % (11.5-14.5); WHITE BLOOD COUNT 6.4 K/uL (4.8-10.8)
[2017-09-04 05:59] LABS: CALCIUM 8.2 mg/dL (8.4-10.2)
[2017-09-04] MEDS: Epoetin Alfa 4000 UNIT/ML Inj IV SCH (08:14)
[2017-09-04] MEDS: Insulin Regular 100 units/ml SC SCH ×3 (08:16→17:05)
[2017-09-04] MEDS ORDERED: LIDOCAINE 2% 10ML 20 MG/ML VIAL IJ ONE (09:47)
--- NOTE | 2017-09-04 09:51 | CP.PCM.PN ---
Subjective - Date & Time of Evaluation Date of Evaluation: 09/04/17 Time of Evaluation: 09:48 - Subjective Subjective: Patient was seen and examined this morning. NAD, stable, no acute event overnight. Patient denies any chest pain, SOB, dizziness, abdominal pain or urinary symptoms. Reports good appetite. Patient is scheduled for HD today and Non tunneled HD catheter placement. Objective - Vital Signs/Intake and Output Vital Signs (last 24 hours): Temp Pulse Resp BP Pulse Ox 98.7 F 90 18 145/75 96 09/04/17 08:00 09/04/17 08:00 09/04/17 08:00 09/04/17 08:00 09/04/17 08:00 - Medications Medications: Current Medications Aspirin (Aspirin Chewable) 81 mg PO DAILY [facility] Last Admin: 09/04/17 08:15 Dose: 81 mg Atorvastatin Calcium (Lipitor) 40 mg PO HS [facility] Last Admin: 09/03/17 21:51 Dose: 40 mg Cinacalcet (Sensipar) 30 mg PO DAILY [facility] Last Admin: 09/04/17 08:15 Dose: 30 mg Clonidine HCl (Catapres) 0.2 mg PO TID [facility] Last Admin: 08/31/17 16:28 Dose: 0.2 mg Epoetin Simeon (Procrit) 4,000 unit IV [facility] Last Admin: 09/04/17 08:14 Dose: 4,000 unit Furosemide (Lasix) 40 mg PO BID [facility] Heparin Sodium (Porcine) (Heparin) 5,000 units SC Q12 [facility] PRN Reason: Protocol Last Admin: 09/04/17 08:45 Dose: Not Given Vancomycin HCl 1 gm/ Sodium (Chloride) 250 mls @ 166.667 mls/hr IVPB [facility] PRN Reason: Protocol Last Admin: 09/04/17 08:20 Dose: 166.667 mls/hr Tobramycin Sulfate 120 mg/ (Sodium Chloride) 103 mls @ 100 mls/hr IV [facility] PRN Reason: Protocol Last Admin: 09/04/17 08:21 Dose: 100 mls/hr Clindamycin in NS (Clindamycin 300 Mg/50 Ml-Ns) 300 mg in 50 mls @ 50 mls/hr IVPB Q12H [facility] PRN Reason: Protocol Last Admin: 09/03/17 23:45 Dose: 50 mls/hr Insulin Detemir (Levemir) 43 units SC HS [facility] Last Admin: 09/03/17 21:51 Dose: 43 units Insulin Human Regular (Humulin R) 14 units SC ACTID [facility] Last Admin: 09/04/17 08:16 Dose: 14 u Levothyroxine Sodium (Synthroid) 75 mcg PO DAILY@0630 [facility] Last Admin: 09/01/17 05:40 Dose: 75 mcg Losartan Potassium (Cozaar) 100 mg PO DAILY [facility] Last Admin: 09/01/17 08:23 Dose: 100 mg - Labs Labs: 09/04/17 05:07 09/04/17 05:07 PT 12.8 Seconds (9.8-13.1) 08/31/17 08:23 INR 1.2 (0.9-1.2) 08/31/17 08:23 APTT 27.4 Seconds (25.6-37.1) 08/31/17 08:23 - Constitutional Appears: No Acute Distress - Head Exam Head Exam: NORMAL INSPECTION - Eye Exam Eye Exam: Normal appearance - ENT Exam ENT Exam: Mucous Membranes Moist - Neck Exam Neck Exam: Normal Inspection - Respiratory Exam Respiratory Exam: Clear to Ausculation Bilateral - Cardiovascular Exam Cardiovascular Exam: REGULAR RHYTHM - GI/Abdominal Exam GI & Abdominal Exam: Soft, Normal Bowel Sounds - Extremities Exam Extremities Exam: Full ROM, Normal Capillary Refill Additional comments: Left arm fistula - Back Exam Back Exam: NORMAL INSPECTION - Neurological Exam Neurological Exam: Alert, Awake, Oriented x3 - Psychiatric Exam Psychiatric exam: Normal Affect - Skin Skin Exam: Dry, Intact, Normal Color Assessment and Plan - Assessment and Plan (Free Text) Assessment: A/P: 41 y/o M with a PMHx of IDDM Type 2, HLD, HTN and CKD on HD (MWF) admitted for Gram positive, staph aureus bacteremia Blood Culture (2x through cental v. access and 1x peripheral vein) have showed gram positive cocci growth Gram positive cocci, Staph Aureus, bacteremia -No leukocytosis, Afebrile -Blood Culture (2x through cental v. access and 1x peripheral vein): gram positive cocci growth -ID consult, Dr Perez. -A per ID, Dr Perez, Vancomycin 1gm post-hemodialysis (MWF) day2 and IV Tobramycin 140mg post-hemodialysis (MWF) day2 and Clindamycin 300mg Q12H day 2 -Permacatheter removed on 09/02 by IR, Dr Hightower -Urine Cx with NO growth; Lyme IgM negative; HIV neg; Hepatitis B and C negative ; CRP 156-high; ESR 79-high -F/u Rickettsia Ab -F/u blood culture 09/03: NGPD -Will get new Bcx on 09/04/17, f/u Chronic Kidney Disease -HD on MWF,immature HD fistulat in L arm, and permacatheter removed due to bacteremia -Non tunneled HD catheter placed today, right subclavian catheter (09/04) by Dr. Hansen, for HD today -c/w home meds -Nephrology consult appreciated -Patient to follow up [facility] for Left forearm AV fistula evaluation, HD will schedule an appt for patient HTN -Stable -Hold losartan, clonidine and furosemide -Will follow up Post-HD blood pressure IDDM type 2 -Last HbA1c 6.2 on 01/16/17 -Continue with medications: insulin, aspirin and Lipitor. Normocytic Anemia -H/H: 7.6/22.4 -On procrit -Possible transfusion with HD -Will follow up Hypothyroidism -TSH < 0.02. -Hold Levothyroxine. DVT prophylaxis -Heparin 5,000 SC Q12H -SCDs
--- NOTE | 2017-09-04 10:19 | PCM.SURG1 ---
Surgeon's Initial Post Op Note - Surgeon's Notes Surgeon: Bradly Hansen MD Char Puller: NONE Type of Anesthesia: Local Pre-Operative Diagnosis: Renal failure, infection Operative Findings: US showed a patent right IJV Post-Operative Diagnosis: Renal failure Operation Performed: Non tunneled HD catheter placed Specimen/Specimens Removed: NONE Estimated Blood Loss: EBL {In ML}: 3 Blood Products Given: N/A Drains Used: No Drains Post-Op Condition: Fair Date of Surgery/Procedure: 09/04/17 Time of Surgery/Procedure: 10:15
--- NOTE | 2017-09-04 11:43 | VASCULAR ---
PROCEDURE: REMOVAL OF TUNNELED HEMODIALYSIS CATHETER CLINICAL HISTORY: 41-year-old male requiring hemodialysis found to have bacteremia is referred to Interventional Radiology for tunneled hemodialysis catheter removal. PROCEDURE: 1. Tunneled hemodialysis catheter removal. 2. Fluoroscopy. PRE-PROCEDURE FINDINGS: 1. Indwelling right internal jugular access tunneled hemodialysis catheter. POST-PROCEDURE FINDINGS: 1. Removal of tunneled hemodialysis catheter. INTERVENTIONAL RADIOLOGIST: Hitesh Hightower M.D. (the attending was present for the entire procedure) ANESTHESIA: None. MEDICATION: Lidocaine 1% for local subcutaneous analgesia. COMPLICATIONS: None. RADIATION DOSE: Fluoroscopy Time: 18.3 seconds Cumulative Dose: 5.26 mGy PROCEDURE DESCRIPTION AND FINDINGS: The risks, benefits, alternatives and possible complications of the procedure were fully discussed; all questions were answered and informed consent was obtained. The patient was brought into the interventional suite and a pre-procedure 'time-out' was performed. The patient was placed on the fluoroscopy table in the supine position. The right chest was prepped and draped in the usual sterile fashion. Maximum sterile barrier precautions were maintained throughout the entire procedure. Preliminary fluoroscopic catering server image of the chest demonstrated a right internal jugular access tunneled hemodialysis catheter with tips in the upper right atrium. Following subcutaneous infiltration of 1% lidocaine for local analgesia, blunt dissection was performed within the subcutaneous tunnel and the tunneled hemodialysis catheter was removed. A sterile adhesive dressing was applied. The catheter tip was sent for culture. The patient tolerated the procedure well without immediate post-procedure complications and was transferred back to the floor in stable condition. IMPRESSION: SUCCESSFUL REMOVAL OF RIGHT INTERNAL JUGULAR ACCESS TUNNELED HEMODIALYSIS CATHETER.
[2017-09-04] MEDS: Clindamycin in NS 300 MG/50 ML BAG IVPB SCH ×2 (12:30→23:02)
--- NOTE | 2017-09-04 13:52 | CP.PCM.PN ---
Subjective - Date & Time of Evaluation Date of Evaluation: 09/04/17 Time of Evaluation: 13:49 - Subjective Subjective: Patient is awake and conscious Patient is feeling much better. No chills no fever Breathing is okay. Objective - Vital Signs/Intake and Output Vital Signs (last 24 hours): Temp Pulse Resp BP Pulse Ox 98.0 F 96 H 18 173/78 H 96 09/04/17 12:00 09/04/17 12:00 09/04/17 12:00 09/04/17 12:00 09/04/17 12:00 - Medications Medications: Current Medications Aspirin (Aspirin Chewable) 81 mg PO DAILY [facility] Last Admin: 09/04/17 08:15 Dose: 81 mg Atorvastatin Calcium (Lipitor) 40 mg PO [facility] Last Admin: 09/03/17 21:51 Dose: 40 mg Cinacalcet (Sensipar) 30 mg PO DAILY [facility] Last Admin: 09/04/17 08:15 Dose: 30 mg Clonidine HCl (Catapres) 0.2 mg PO TID [facility] Last Admin: 08/31/17 16:28 Dose: 0.2 mg Epoetin Simeon (Procrit) 4,000 unit IV [facility] Last Admin: 09/04/17 08:14 Dose: 4,000 unit Furosemide (Lasix) 40 mg PO BID [facility] Heparin Sodium (Porcine) (Heparin) 5,000 units SC Q12 [facility] PRN Reason: Protocol Last Admin: 09/04/17 08:45 Dose: Not Given Vancomycin HCl 1 gm/ Sodium (Chloride) 250 mls @ 166.667 mls/hr IVPB [facility] [place] PRN Reason: Protocol Last Admin: 09/04/17 08:20 Dose: 166.667 mls/hr Tobramycin Sulfate 120 mg/ (Sodium Chloride) 103 mls @ 100 mls/hr IV [facility] [place] PRN Reason: Protocol Last Admin: 09/04/17 08:21 Dose: 100 mls/hr Clindamycin in NS (Clindamycin 300 Mg/50 Ml-Ns) 300 mg in 50 mls @ 50 mls/hr IVPB Q12H [facility] PRN Reason: Protocol Last Admin: 09/04/17 12:30 Dose: 50 mls/hr Insulin Detemir (Levemir) 43 units SC [facility] Last Admin: 09/03/17 21:51 Dose: 43 units Insulin Human Regular (Humulin R) 14 units SC ACTID [facility] Last Admin: 09/04/17 12:00 Dose: 14 u Levothyroxine Sodium (Synthroid) 75 mcg PO DAILY@0630 [facility] Last Admin: 09/01/17 05:40 Dose: 75 mcg Losartan Potassium (Cozaar) 100 mg PO DAILY [facility] Last Admin: 09/01/17 08:23 Dose: 100 mg - Labs Labs: 09/04/17 05:07 09/04/17 05:07 PT 12.8 Seconds (9.8-13.1) 08/31/17 08:23 INR 1.2 (0.9-1.2) 08/31/17 08:23 APTT 27.4 Seconds (25.6-37.1) 08/31/17 08:23 - Constitutional Appears: No Acute Distress - ENT Exam ENT Exam: Mucous Membranes Moist - Neck Exam Neck Exam: absent: Lymphadenopathy - Respiratory Exam Respiratory Exam: NORMAL BREATHING PATTERN. absent: Chest Wall Tenderness - Cardiovascular Exam Cardiovascular Exam: REGULAR RHYTHM. absent: Gallop, JVD - GI/Abdominal Exam GI & Abdominal Exam: Soft, Normal Bowel Sounds. absent: Guarding - Extremities Exam Extremities Exam: Pedal Edema. absent: Calf Tenderness - Back Exam Back Exam: absent: CVA tenderness (L), CVA tenderness (R) - Neurological Exam Neurological Exam: Alert - Psychiatric Exam Psychiatric exam: Normal Affect - Skin Skin Exam: absent: Cyanosis Assessment and Plan (1) CKD (chronic kidney disease) requiring chronic dialysis Assessment & Plan: ESRD bacteremia patient on multiple antibiotics as noted per ID Patient has temporary dialysis catheter inserted this morning in the right subclavian catheter Repeated blood cultures. Patient to go for permacath if possible for Thursday Regarding the left forearm AV fistula patient scheduled as outpatient to go for evaluation at the [facility]. I discussed with the resident. hemodialysis about to start shortly order was given. Anemia hemoglobin dropping down patient to receive blood transfusion discussed with the primary care physician. Patient admitted with fever which has been coming down and he was given vancomycin. Gram stain showed .gram-positive cocci consistent with bacteremia I suggest to remove the right subclavian catheter. Patient has left forearm fistula which has been used partially.discussed with the primary care physician. Continue vancomycin 750 mg to 1000 mg each hemodialysis hypertension continue on antihypertensive medication. Diabetes mellitus continue diabetic control . Hyperphosphatemia continue phosphorus binder Secondary hyperparathyroidism continue Sensipar Status: Acute Status: Acute
--- NOTE | 2017-09-04 17:39 | CP.PCM.PN ---
Subjective - Date & Time of Evaluation Date of Evaluation: 09/04/17 Time of Evaluation: 17:35 - Subjective Subjective: I D NOTE so far f/u blood cultures are neg has temporary HD catheter continue vancomycin/tobramycin post HD Objective - Vital Signs/Intake and Output Vital Signs (last 24 hours): Temp Pulse Resp BP Pulse Ox 98.3 F 89 20 171/82 H 97 09/04/17 16:03 09/04/17 16:03 09/04/17 16:03 09/04/17 16:03 09/04/17 16:03 - Medications Medications: Current Medications Aspirin (Aspirin Chewable) 81 mg PO DAILY [facility] Last Admin: 09/04/17 08:15 Dose: 81 mg Atorvastatin Calcium (Lipitor) 40 mg PO [facility] Last Admin: 09/03/17 21:51 Dose: 40 mg Cinacalcet (Sensipar) 30 mg PO DAILY [facility] Last Admin: 09/04/17 08:15 Dose: 30 mg Clonidine HCl (Catapres) 0.2 mg PO TID [facility] Last Admin: 08/31/17 16:28 Dose: 0.2 mg Epoetin Simeon ([facility]crit) [facility] Last Admin: 09/04/17 08:14 Dose: 4,000 unit Furosemide (Lasix) 40 mg PO BID [facility] Heparin Sodium (Porcine) (Heparin) 5,000 units SC Q12 [facility] PRN Reason: Protocol Last Admin: 09/04/17 08:45 Dose: Not Given Vancomycin HCl 1 gm/ Sodium (Chloride) 250 mls @ 166.667 mls/hr IVPB [facility] [place]N Reason: Protocol Last Admin: 09/04/17 08:20 Dose: 166.667 mls/hr Tobramycin Sulfate 120 mg/ (Sodium Chloride) 103 mls @ 100 mls/hr IV [facility] [place]N Reason: Protocol Last Admin: 09/04/17 08:21 Dose: 100 mls/hr Clindamycin in NS (Clindamycin 300 Mg/50 Ml-Ns) 300 mg in 50 mls @ 50 mls/hr IVPB Q12H [facility] PRN Reason: Protocol Last Admin: 09/04/17 12:30 Dose: 50 mls/hr Insulin Detemir (Levemir) 43 units SC [facility] Last Admin: 09/03/17 21:51 Dose: 43 units Insulin Human Regular (Humulin R) 14 units SC ACTID [facility] Last Admin: 09/04/17 12:00 Dose: 14 u Levothyroxine Sodium (Synthroid) 75 mcg PO DAILY@0630 [facility] Last Admin: 09/01/17 05:40 Dose: 75 mcg Losartan Potassium (Cozaar) 100 mg PO DAILY [facility] Last Admin: 09/01/17 08:23 Dose: 100 mg - Labs Labs: 09/04/17 05:07 09/04/17 05:07 PT 12.8 Seconds (9.8-13.1) 08/31/17 08:23 INR 1.2 (0.9-1.2) 08/31/17 08:23 APTT 27.4 Seconds (25.6-37.1) 08/31/17 08:23
[2017-09-04] MEDS: Insulin Detemir 100 Units/ml Inj SC SCH (23:01)
[2017-09-05 07:29] LABS: BASO % 0.4 % (0.0-2.0); EOS # 0.1 K/uL (0.0-0.7); EOS % 1.7 % (0.0-4.0); HEMOGLOBIN 8.5 g/dL (12.0-18.0); LYMPH # 1.7 K/uL (1.0-4.3); LYMPH % 20.9 % (20.0-40.0); MEAN CELL VOLUME 91.6 fl (80.0-94.0); MEAN CORPUSCULAR HEMOGLOBIN 32.6 pg (27.0-31.0); MEAN CORPUSCULAR HGB CONC 35.6 g/dL (33.0-37.0); MEAN PLATELET VOLUME 10.3 fl (7.2-11.7); MONO # 0.8 K/uL (0.0-0.8); MONO % 9.6 % (0.0-10.0); NEUT # 5.5 K/uL (1.8-7.0); NEUT % 67.4 % (50.0-75.0); NRBC % 0.1 % (0.0-0.0); RBC 2.6 Mil/uL (4.40-5.90); RED CELL DISTRIBUTION WIDTH 15.3 % (11.5-14.5); WHITE BLOOD COUNT 8.1 K/uL (4.8-10.8)
[2017-09-05 07:42] LABS: ALB/GLOB RATIO 0.9 (1.0-2.1); ALBUMIN 3.6 g/dL (3.5-5.0); CALCIUM 8.6 mg/dL (8.4-10.2)
[2017-09-05] MEDS: Insulin Regular 100 units/ml SC SCH ×3 (08:45→17:50)
[2017-09-05] MEDS: Clindamycin in NS 300 MG/50 ML BAG IVPB SCH ×2 (10:56→22:50)
--- NOTE | 2017-09-05 11:51 | CP.PCM.PN ---
Addendum entered and electronically signed by Ray Ilsas MD 09/06/17 10:14 : PLEASE DISREGARD THIS PROGRESS NOTE Original Note: <Ray Islas - Last Filed: 09/05/17 13:09> Subjective - Date & Time of Evaluation Date of Evaluation: 09/05/17 Time of Evaluation: 11:51 - Subjective Subjective: 65 y/o old male with PMHx of COPD, DMII, HTN, PE with IVC filter admitted for coag neg staph bacteremia and severe COPD exacerbation Seen and examined by bedside. Doing well today, no complaints. Ambulating without difficulty. IV abx continuing. Objective - Vital Signs/Intake and Output Vital Signs (last 24 hours): Temp Pulse Resp BP Pulse Ox 98.5 F 90 18 167/82 H 98 09/05/17 08:22 09/05/17 08:22 09/05/17 08:22 09/05/17 08:22 09/05/17 08:22 - Medications Medications: Current Medications Aspirin (Aspirin Chewable) 81 mg PO DAILY [facility] Last Admin: 09/05/17 08:41 Dose: 81 mg Atorvastatin Calcium (Lipitor) 40 mg PO HS [facility] Last Admin: 09/04/17 21:45 Dose: 40 mg Cinacalcet (Sensipar) 30 mg PO DAILY [facility] Last Admin: 09/05/17 08:41 Dose: 30 mg Clonidine HCl (Catapres) 0.2 mg PO TID [facility] Last Admin: 08/31/17 16:28 Dose: 0.2 mg Epoetin Simeon (Procrit) 4,000 unit IV MWF [facility] Last Admin: 09/04/17 08:14 Dose: 4,000 unit Furosemide (Lasix) 40 mg PO BID [facility] Heparin Sodium (Porcine) (Heparin) 5,000 units SC Q12 [facility] PRN Reason: Protocol Last Admin: 09/05/17 09:04 Dose: 5,000 units Vancomycin HCl 1 gm/ Sodium (Chloride) 250 mls @ 166.667 mls/hr IVPB MWF [facility] PRN Reason: Protocol Last Admin: 09/04/17 08:20 Dose: 166.667 mls/hr Tobramycin Sulfate 120 mg/ (Sodium Chloride) 103 mls @ 100 mls/hr IV MWF [facility] PRN Reason: Protocol Last Admin: 09/04/17 08:21 Dose: 100 mls/hr Clindamycin in NS (Clindamycin 300 Mg/50 Ml-Ns) 300 mg in 50 mls @ 50 mls/hr IVPB Q12H [facility] PRN Reason: Protocol Last Admin: 09/05/17 10:56 Dose: 50 mls/hr Insulin Detemir (Levemir) 43 units SC HS [facility] Last Admin: 09/04/17 23:01 Dose: 43 units Insulin Human Regular (Humulin R) 14 units SC ACTID [facility] Last Admin: 09/05/17 08:45 Dose: Not Given Levothyroxine Sodium (Synthroid) 75 mcg PO DAILY@0630 [facility] Last Admin: 09/01/17 05:40 Dose: 75 mcg Losartan Potassium (Cozaar) 100 mg PO DAILY [facility] Last Admin: 09/01/17 08:23 Dose: 100 mg - Labs Labs: 09/05/17 05:45 09/05/17 05:45 PT 12.8 Seconds (9.8-13.1) 08/31/17 08:23 INR 1.2 (0.9-1.2) 08/31/17 08:23 APTT 27.4 Seconds (25.6-37.1) 08/31/17 08:23 - Constitutional Appears: No Acute Distress, Other - Head Exam Head Exam: ATRAUMATIC Additional comments: morbidly obese - Eye Exam Eye Exam: EOMI Pupil Exam: NORMAL ACCOMODATION - ENT Exam ENT Exam: Mucous Membranes Moist, Normal Exam - Neck Exam Neck Exam: Normal Inspection - Respiratory Exam Respiratory Exam: Clear to Ausculation Bilateral - Cardiovascular Exam Cardiovascular Exam: +S1, +S2 - GI/Abdominal Exam GI & Abdominal Exam: Soft, Normal Bowel Sounds - Extremities Exam Extremities Exam: Full ROM - Neurological Exam Neurological Exam: Alert, Awake, CN II-XII Intact - Skin Skin Exam: Dry, Intact, Warm Assessment and Plan - Assessment and Plan (Free Text) Plan: 65 y/o old male with PMHx of COPD, DMII, HTN, PE with IVC filter admitted for coag neg staph bacteremia and severe COPD exacerbation Coag neg staph bacteremia -Afebrile -Pt with a previous Hx of ESBL and MRSA infections. -Blood Cx on 08/30/17: Coag neg Staph -Leukocytosis (wbc 14.4, 09/02) likely secondary to solumedrol -ID consult, Dr Perez appreciated. -ECHO:There is an echogenic body attached to the aortic valve that was seen on the 01/19/18 study. -Continue with Vancomycin 750 mg IVP q12 (day 4, started on 09/01) -Continue with Zosyn 3.375 gm IVPB q8 (day 4, started on 09/01) -Vanco trough level: 8.4 on 09/03 -As per Cardio, no LELAND at this point, endocarditis unlikely - (Bcx on 09/01,No growth after 3 days) - -F/u repeat blood Cx on abx ordered 09/05/17 COPD exacerbation -Saturating above 98% on 2L NC -B/l Wheezing, hx of asthma -C/w Solumedrol 60 mg Q8H, Duoneb Q4H, O2 by nasal canula at 2 L/min -CXR on 08/30/17 - No active disease -Chest CT 09/02/17- No active disease -Pt with a previous Hx of ESBL and MRSA infections -Transverse Abdominal Muscle Nurse Dr Sheets on board -Sputum Cx: E. coli sensitive to zosyn DM 2 - at goal -Last Hgb a1c 5.9 on 07/08/17 -Blood sugar in 200s -Levemir increased 3U, 8U now -SSI, hypoglycemia protocol Essential HTN -Stable for now -Monitor BP History of Pulmonary Embolism -IVC filter in place -2 years ago Psoriasis -c/w triamcinolone 0.1 % BID -c/w ammonium lactate 12 % TOP TID Dysuria -Improved -UA neg 09/03 -f/u urine c&s DVT Prophylaxis -Lovenox 40 mg sc daily Code status -Full code <Stephanie Jc - Last Filed: 09/05/17 22:31> Subjective - Subjective Subjective: ERROR in ABOVE: please disregard this progress note ~H Hosea 09/05/17 Objective - Vital Signs/Intake and Output Vital Signs (last 24 hours): Temp Pulse Resp BP Pulse Ox 97.5 F L 92 H 18 176/85 H 98 09/05/17 20:51 09/05/17 20:51 09/05/17 20:51 09/05/17 20:51 09/05/17 20:51 - Medications Medications: Current Medications Aspirin (Aspirin Chewable) 81 mg PO DAILY [facility] Last Admin: 09/05/17 08:41 Dose: 81 mg Atorvastatin Calcium (Lipitor) 40 mg PO HS [facility] Last Admin: 09/04/17 21:45 Dose: 40 mg Cinacalcet (Sensipar) 30 mg PO DAILY [facility] Last Admin: 09/05/17 08:41 Dose: 30 mg Clonidine HCl (Catapres) 0.2 mg PO TID [facility] Last Admin: 08/31/17 16:28 Dose: 0.2 mg Epoetin Simeon (Procrit) 4,000 unit IV [facility] Last Admin: 09/04/17 08:14 Dose: 4,000 unit Furosemide (Lasix) 40 mg PO BID [facility] Heparin Sodium (Porcine) (Heparin) 5,000 units SC Q12 [facility] PRN Reason: Protocol Last Admin: 09/05/17 09:04 Dose: 5,000 units Vancomycin HCl 1 gm/ Sodium (Chloride) 250 mls @ 166.667 mls/hr IVPB [facility] PRN Reason: Protocol Last Admin: 09/04/17 08:20 Dose: 166.667 mls/hr Tobramycin Sulfate 120 mg/ (Sodium Chloride) 103 mls @ 100 mls/hr IV [facility] PRN Reason: Protocol Last Admin: 09/04/17 08:21 Dose: 100 mls/hr Clindamycin in NS (Clindamycin 300 Mg/50 Ml-Ns) 300 mg in 50 mls @ 50 mls/hr IVPB Q12H [facility] PRN Reason: Protocol Last Admin: 09/05/17 10:56 Dose: 50 mls/hr Insulin Detemir (Levemir) 43 units SC HS [facility] Last Admin: 09/04/17 23:01 Dose: 43 units Insulin Human Regular (Humulin R) 14 units SC ACTID [facility] Last Admin: 09/05/17 17:50 Dose: 14 u Levothyroxine Sodium (Synthroid) 75 mcg PO DAILY@0630 [facility] Last Admin: 09/01/17 05:40 Dose: 75 mcg Losartan Potassium (Cozaar) 100 mg PO DAILY [facility] Last Admin: 09/01/17 08:23 Dose: 100 mg - Labs Labs: 09/05/17 05:45 09/05/17 05:45 PT 12.8 Seconds (9.8-13.1) 08/31/17 08:23 INR 1.2 (0.9-1.2) 08/31/17 08:23 APTT 27.4 Seconds (25.6-37.1) 08/31/17 08:23
--- NOTE | 2017-09-05 14:15 | CP.PCM.PN ---
Subjective - Date & Time of Evaluation Date of Evaluation: 09/05/17 Time of Evaluation: 14:13 - Subjective Subjective: Renal follow up s: seen and examined no complaints pe: vs as below gen: nad sclera: anicteric op : clear neck: no appreciable thyromegaly cv: +s1+s2 no rub lungs cta abd: obese, no organomegaly ext: 1+ edema neuro: a+ox3 psych: nml affect skin no rash labs reviewed imp: ESRD/ Bacteremia/ Hypertension/ Obesity / Anemia of renal disease/ secondary hyperparathyroid plan: hd next on thursday continue abx and dose per ID for ESRD, monitor tobra and vanc levels on epo on sensipar bp elevated consider amlodipine Objective - Vital Signs/Intake and Output Vital Signs (last 24 hours): Temp Pulse Resp BP Pulse Ox 98.1 F 85 18 174/90 H 97 09/05/17 12:35 09/05/17 12:35 09/05/17 12:35 09/05/17 12:35 09/05/17 12:35 - Medications Medications: Current Medications Aspirin (Aspirin Chewable) 81 mg PO DAILY [facility] Last Admin: 09/05/17 08:41 Dose: 81 mg Atorvastatin Calcium (Lipitor) 40 mg PO HS [facility] Last Admin: 09/04/17 21:45 Dose: 40 mg Cinacalcet (Sensipar) 30 mg PO DAILY [facility] Last Admin: 09/05/17 08:41 Dose: 30 mg Clonidine HCl (Catapres) 0.2 mg PO TID [facility] Last Admin: 08/31/17 16:28 Dose: 0.2 mg Epoetin Simeon (Procrit) 4,000 unit IV [facility] Last Admin: 09/04/17 08:14 Dose: 4,000 unit Furosemide (Lasix) 40 mg PO BID [facility] Heparin Sodium (Porcine) (Heparin) 5,000 units SC Q12 [facility] PRN Reason: Protocol Last Admin: 09/05/17 09:04 Dose: 5,000 units Vancomycin HCl 1 gm/ Sodium (Chloride) 250 mls @ 166.667 mls/hr IVPB [facility] PRN Reason: Protocol Last Admin: 09/04/17 08:20 Dose: 166.667 mls/hr Tobramycin Sulfate 120 mg/ (Sodium Chloride) 103 mls @ 100 mls/hr IV F [facility] PRN Reason: Protocol Last Admin: 09/04/17 08:21 Dose: 100 mls/hr Clindamycin in NS (Clindamycin 300 Mg/50 Ml-Ns) 300 mg in 50 mls @ 50 mls/hr IVPB Q12H [facility] PRN Reason: Protocol Last Admin: 09/05/17 10:56 Dose: 50 mls/hr Insulin Detemir (Levemir) 43 units SC HS [facility] Last Admin: 09/04/17 23:01 Dose: 43 units Insulin Human Regular (Humulin R) 14 units SC ACTID [facility] Last Admin: 09/05/17 08:45 Dose: Not Given Levothyroxine Sodium (Synthroid) 75 mcg PO DAILY@0630 [facility] Last Admin: 09/01/17 05:40 Dose: 75 mcg Losartan Potassium (Cozaar) 100 mg PO DAILY [facility] Last Admin: 09/01/17 08:23 Dose: 100 mg - Labs Labs: 09/05/17 05:45 09/05/17 05:45 PT 12.8 Seconds (9.8-13.1) 08/31/17 08:23 INR 1.2 (0.9-1.2) 08/31/17 08:23 APTT 27.4 Seconds (25.6-37.1) 08/31/17 08:23
[2017-09-05] MEDS: Insulin Detemir 100 Units/ml Inj SC SCH (22:49)
[2017-09-06 05:52] LABS: HEMOGLOBIN 9.2 g/dL (12.0-18.0); MEAN CELL VOLUME 93.6 fl (80.0-94.0); MEAN CORPUSCULAR HEMOGLOBIN 31.5 pg (27.0-31.0); MEAN CORPUSCULAR HGB CONC 33.6 g/dL (33.0-37.0); RBC 2.91 Mil/uL (4.40-5.90); RED CELL DISTRIBUTION WIDTH 15.3 % (11.5-14.5); WHITE BLOOD COUNT 10.7 K/uL (4.8-10.8)
[2017-09-06 06:24] LABS: ALBUMIN 3.9 g/dL (3.5-5.0); CALCIUM 8.7 mg/dL (8.4-10.2)
--- NOTE | 2017-09-06 10:16 | CP.PCM.PN ---
Subjective - Date & Time of Evaluation Date of Evaluation: 09/05/17 Time of Evaluation: 10:30 - Subjective Subjective: NAEO NAD, stable, no acute event overnight. Patient denies any chest pain, SOB, dizziness, abdominal pain or urinary symptoms. Objective - Vital Signs/Intake and Output Vital Signs (last 24 hours): Temp Pulse Resp BP Pulse Ox 98.6 F 91 H 18 158/83 H 98 09/06/17 08:29 09/06/17 08:29 09/06/17 08:29 09/06/17 08:29 09/06/17 08:29 - Medications Medications: Current Medications Amlodipine Besylate (Norvasc) 10 mg PO DAILY [facility] Aspirin (Aspirin Chewable) 81 mg PO DAILY [facility] Last Admin: 09/06/17 08:41 Dose: 81 mg Atorvastatin Calcium (Lipitor) 40 mg PO HS [facility] Last Admin: 09/05/17 22:49 Dose: 40 mg Cinacalcet (Sensipar) 30 mg PO DAILY [facility] Last Admin: 09/06/17 08:42 Dose: 30 mg Clonidine HCl (Catapres) 0.2 mg PO TID [facility] Last Admin: 08/31/17 16:28 Dose: 0.2 mg Epoetin Simeon (Procrit) [facility] Last Admin: 09/04/17 08:14 Dose: 4,000 unit Furosemide (Lasix) 40 mg PO BID [facility] Heparin Sodium (Porcine) (Heparin) 5,000 units SC Q12 [facility] PRN Reason: Protocol Last Admin: 09/06/17 08:43 Dose: 5,000 units Vancomycin HCl 1 gm/ Sodium (Chloride) 250 mls @ 166.667 mls/hr [facility] PRN Reason: Protocol Last Admin: 09/04/17 08:20 Dose: 166.667 mls/hr Tobramycin Sulfate 120 mg/ (Sodium Chloride) 103 mls @ 100 mls/hr [facility] PRN Reason: Protocol Last Admin: 09/04/17 08:21 Dose: 100 mls/hr Clindamycin in NS (Clindamycin 300 Mg/50 Ml-Ns) 300 mg in 50 mls @ 50 mls/hr IVPB Q12H [facility] PRN Reason: Protocol Last Admin: 09/05/17 22:50 Dose: 50 mls/hr Insulin Detemir (Levemir) 43 units SC HS [facility] Last Admin: 09/05/17 22:49 Dose: 43 units Insulin Human Regular (Humulin R) 14 units SC ACTID [facility] Last Admin: 09/05/17 17:50 Dose: 14 u Levothyroxine Sodium (Synthroid) 75 mcg PO DAILY@0630 [facility] Last Admin: 09/01/17 05:40 Dose: 75 mcg Losartan Potassium (Cozaar) 100 mg PO DAILY [facility] Last Admin: 09/01/17 08:23 Dose: 100 mg - Labs Labs: 09/06/17 04:51 09/06/17 04:51 PT 12.8 Seconds (9.8-13.1) 08/31/17 08:23 INR 1.2 (0.9-1.2) 08/31/17 08:23 APTT 27.4 Seconds (25.6-37.1) 08/31/17 08:23 - Constitutional Appears: No Acute Distress, Other (morbid obesity) - Head Exam Head Exam: ATRAUMATIC - Eye Exam Eye Exam: EOMI Pupil Exam: PERRL - ENT Exam ENT Exam: Mucous Membranes Moist - Neck Exam Neck Exam: Full ROM Additional comments: right sided temp cath in place - Respiratory Exam Respiratory Exam: Clear to Ausculation Bilateral - Cardiovascular Exam Cardiovascular Exam: +S1, +S2 - GI/Abdominal Exam GI & Abdominal Exam: Soft. absent: Tenderness - Extremities Exam Extremities Exam: Full ROM - Neurological Exam Neurological Exam: Alert, Awake, Oriented x3 - Psychiatric Exam Psychiatric exam: Normal Affect, Normal Mood - Skin Skin Exam: Normal Color, Warm Assessment and Plan - Assessment and Plan (Free Text) Plan: 41 y/o M with a PMHx of IDDM Type 2, HLD, HTN and CKD on HD (MWF) admitted for Gram positive, staph aureus bacteremia Blood Culture (2x through cental v. access and 1x peripheral vein) have showed gram positive cocci growth Gram positive cocci, Staph Aureus, bacteremia -No leukocytosis, Afebrile -Blood Culture (2x through cental v. access and 1x peripheral vein): gram positive cocci growth -ID consult, Dr Perez. -A per ID, Dr Perez, Vancomycin 1gm post-hemodialysis (MWF) day2 and IV Tobramycin 140mg post-hemodialysis (MWF) day2 and Clindamycin 300mg Q12H day 2 -Permacatheter removed on 09/02 by IR, Dr Hightower -Urine Cx with NO growth; Lyme IgM negative; HIV neg; Hepatitis B and C negative ; CRP 156-high; ESR 79-high -F/u Rickettsia Ab -F/u blood culture 09/03: NGPD -new Bcx on 09/04/17 Chronic Kidney Disease -HD on MWF,immature HD fistulat in L arm, and permacatheter removed due to bacteremia -Non tunneled HD catheter placed today, right subclavian catheter (09/04) by Dr. Hansen -c/w home meds -Nephrology consult appreciated -Patient to follow up vein and access Center for Left forearm AV fistula evaluation, HD will schedule an appt for patient HTN -Stable -Hold losartan, clonidine and furosemide -Will follow up Post-HD blood pressure IDDM type 2 -Last HbA1c 6.2 on 01/16/17 -Continue with medications: insulin, aspirin and Lipitor. Normocytic Anemia -H/H: 7.6/22.4 -On procrit -Possible transfusion with HD -Will follow up Hypothyroidism -TSH < 0.02. -Hold Levothyroxine. DVT prophylaxis -Heparin 5,000 SC Q12H -SCDs
[2017-09-06] MEDS: Insulin Regular 100 units/ml SC SCH ×3 (10:19→17:16)
[2017-09-06] MEDS: Clindamycin in NS 300 MG/50 ML BAG IVPB SCH (11:53)
--- NOTE | 2017-09-06 11:58 | CP.PCM.PN ---
Subjective - Date & Time of Evaluation Date of Evaluation: 09/06/17 Time of Evaluation: 09:20 - Subjective Subjective: Patient was seen and examined this morning at bedside. No acute event overnight , NAD, comfortable. Patient denies any chest pain, SOB, abdominal pain, dizziness, urinary symptoms or weakness. good appetite. Objective - Vital Signs/Intake and Output Vital Signs (last 24 hours): Temp Pulse Resp BP Pulse Ox 98.6 F 91 H 18 158/83 H 98 09/06/17 08:29 09/06/17 09:00 09/06/17 08:29 09/06/17 08:29 09/06/17 08:29 - Medications Medications: Current Medications Aspirin (Aspirin Chewable) 81 mg PO DAILY [facility] Last Admin: 09/06/17 08:41 Dose: 81 mg Atorvastatin Calcium (Lipitor) 40 mg PO [facility] Last Admin: 09/05/17 22:49 Dose: 40 mg Cinacalcet (Sensipar) 30 mg PO DAILY [facility] Last Admin: 09/06/17 08:42 Dose: 30 mg Epoetin Simeon (Procrit) 4,000 unit IV [facility] Last Admin: 09/04/17 08:14 Dose: 4,000 unit Furosemide (Lasix) 40 mg PO BID [facility] Heparin Sodium (Porcine) (Heparin) 5,000 units SC Q12 [facility] PRN Reason: Protocol Last Admin: 09/06/17 08:43 Dose: 5,000 units Vancomycin HCl 1 gm/ Sodium (Chloride) 250 mls @ 166.667 mls/hr IVPB [facility] PRN Reason: Protocol Last Admin: 09/04/17 08:20 Dose: 166.667 mls/hr Tobramycin Sulfate 120 mg/ (Sodium Chloride) 103 mls @ 100 mls/hr IV [facility] PRN Reason: Protocol Last Admin: 09/04/17 08:21 Dose: 100 mls/hr Clindamycin in NS (Clindamycin 300 Mg/50 Ml-Ns) 300 mg in 50 mls @ 50 mls/hr IVPB Q12H [facility] PRN Reason: Protocol Last Admin: 09/06/17 11:53 Dose: 50 mls/hr Insulin Detemir (Levemir) 43 units SC [facility] Last Admin: 09/05/17 22:49 Dose: 43 units Insulin Human Regular (Humulin R) 14 units SC ACTID [facility] Last Admin: 09/06/17 10:19 Dose: Not Given Levothyroxine Sodium (Synthroid) 75 mcg PO DAILY@0630 [facility] Last Admin: 09/01/17 05:40 Dose: 75 mcg Losartan Potassium (Cozaar) 100 mg PO DAILY [facility] Last Admin: 09/01/17 08:23 Dose: 100 mg - Labs Labs: 09/06/17 04:51 09/06/17 04:51 PT 12.8 Seconds (9.8-13.1) 08/31/17 08:23 INR 1.2 (0.9-1.2) 08/31/17 08:23 APTT 27.4 Seconds (25.6-37.1) 08/31/17 08:23 - Constitutional Appears: No Acute Distress - Head Exam Head Exam: NORMAL INSPECTION - Eye Exam Eye Exam: Normal appearance Pupil Exam: NORMAL ACCOMODATION - ENT Exam ENT Exam: Mucous Membranes Moist - Respiratory Exam Respiratory Exam: Clear to Ausculation Bilateral, NORMAL BREATHING PATTERN - Cardiovascular Exam Cardiovascular Exam: REGULAR RHYTHM - GI/Abdominal Exam GI & Abdominal Exam: Soft, Normal Bowel Sounds - Extremities Exam Extremities Exam: Normal Inspection - Back Exam Back Exam: NORMAL INSPECTION - Neurological Exam Neurological Exam: Alert, Awake, Oriented x3 - Psychiatric Exam Psychiatric exam: Normal Affect - Skin Skin Exam: Dry, Intact, Normal Color, Warm Assessment and Plan - Assessment and Plan (Free Text) Assessment: 41 y/o M with a PMHx of IDDM Type 2, HLD, HTN and CKD on HD (MWF) admitted for Gram positive, staph aureus bacteremia. Gram positive cocci, Staph Aureus, bacteremia -No leukocytosis, Afebrile -Blood Culture (2x through cental v. access and 1x peripheral vein): gram positive cocci growth -ID consult, Dr Perez. -A per ID, Dr Perez, Vancomycin 1gm post-hemodialysis (MWF) day2 and IV Tobramycin 140mg post-hemodialysis (MWF) day2 and Clindamycin 300mg Q12H day 2 -Permacatheter removed on 09/[address] Hightower -Urine Cx with NO growth; Lyme IgM negative; HIV neg; Hepatitis B and C negative ; CRP 156-high; ESR 79-high -F/u Rickettsia Ab -F/u blood culture 09/03: NGPD -New Bcx 09/05: No growth after 24 hours -Will follow up Vanco trough and Tobramycin trough tomorrow Chronic Kidney Disease -HD on MWF,immature HD fistulat in L arm, and permacatheter removed 09/01 due to bacteremia -Non tunneled HD catheter placed today, right subclavian catheter (09/04) by Dr. Hansen -c/w home meds -Nephrology consult appreciated -Patient to follow up vein and access Center for Left forearm AV fistula evaluation, HD will schedule an appt for patient -Possible Tunnel cath placement tomorrow -BUN/Cr: 60/7.9, HD tomorrow HTN -Uncontrolled, 150s systolic -Will Start Amlodipine 5mg daily today, will monitor for swelling -Hold losartan, clonidine and furosemide IDDM type 2 -Last HbA1c 6.2 on 01/16/17 -Continue with medications: insulin, aspirin and Lipitor. Normocytic Anemia -H/H: 9.2/27.2 today -On procrit Hypothyroidism -TSH < 0.02. -Hold Levothyroxine. DVT prophylaxis -Heparin 5,000 SC Q12H -SCDs
--- NOTE | 2017-09-06 16:53 | CP.PCM.PN ---
Subjective - Date & Time of Evaluation Date of Evaluation: 09/06/17 Time of Evaluation: 16:45 - Subjective Subjective: ID NOTE ALL F/U CULTURES (BLOOD) ARE NEGATIVE HAVE DISCONTINUED CLINDAMYCIN WOULD GIVE VANCOMYCIN/TOBRAMYCIN POST HD UNTIL NEW PERMACATH PLACED AND 1 WEEK POST INSERTION Objective - Vital Signs/Intake and Output Vital Signs (last 24 hours): Temp Pulse Resp BP Pulse Ox 97.8 F 92 H 16 177/83 H 99 09/06/17 12:32 09/06/17 13:53 09/06/17 12:32 09/06/17 13:53 09/06/17 12:32 - Medications Medications: Current Medications Amlodipine Besylate (Norvasc) 5 mg PO DAILY [facility] Last Admin: 09/06/17 13:53 Dose: 5 mg Aspirin (Aspirin Chewable) 81 mg PO DAILY [facility] Last Admin: 09/06/17 08:41 Dose: 81 mg Atorvastatin Calcium (Lipitor) 40 mg PO [facility] Last Admin: 09/05/17 22:49 Dose: 40 mg Cinacalcet (Sensipar) 30 mg PO DAILY [facility] Last Admin: 09/06/17 08:42 Dose: 30 mg Epoetin Simeon (Procrit) 4,000 unit IV MWF [facility] Last Admin: 09/04/17 08:14 Dose: 4,000 unit Furosemide (Lasix) 40 mg PO BID [facility] Heparin Sodium (Porcine) (Heparin) 5,000 units SC Q12 [facility] PRN Reason: Protocol Last Admin: 09/06/17 08:43 Dose: 5,000 units Vancomycin HCl 1 gm/ Sodium (Chloride) 250 mls @ 166.667 mls/hr [facility] PRN Reason: Protocol Last Admin: 09/04/17 08:20 Dose: 166.667 mls/hr Tobramycin Sulfate 120 mg/ (Sodium Chloride) 103 mls @ 100 mls/hr IV MWF [facility] PRN Reason: Protocol Last Admin: 09/04/17 08:21 Dose: 100 mls/hr Clindamycin in NS (Clindamycin 300 Mg/50 Ml-Ns) 300 mg in 50 mls @ 50 mls/hr IVPB Q12H [facility] PRN Reason: Protocol Last Admin: 09/06/17 11:53 Dose: 50 mls/hr Insulin Detemir (Levemir) 43 units SC [facility] Last Admin: 09/05/17 22:49 Dose: 43 units Insulin Human Regular (Humulin R) 14 units SC ACTID [facility] Last Admin: 09/06/17 13:05 Dose: Not Given Levothyroxine Sodium (Synthroid) 75 mcg PO DAILY@0630 [facility] Last Admin: 09/01/17 05:40 Dose: 75 mcg Losartan Potassium (Cozaar) 100 mg PO DAILY [facility] Last Admin: 09/01/17 08:23 Dose: 100 mg - Labs Labs: 09/06/17 04:51 09/06/17 04:51 PT 12.8 Seconds (9.8-13.1) 08/31/17 08:23 INR 1.2 (0.9-1.2) 08/31/17 08:23 APTT 27.4 Seconds (25.6-37.1) 08/31/17 08:23
[2017-09-06] MEDS ORDERED: Dextrose 50% SYRINGE Inj (50 ml) IV PRN (21:44)
[2017-09-06] MEDS ORDERED: Glucagon Recombinant 1 mg Inj IM PRN (21:44)
[2017-09-06] MEDS: Insulin Detemir 100 Units/ml Inj SC SCH (21:53)
[2017-09-06] MEDS ORDERED: Insulin Detemir 100 Units/ml Inj SC ONE (22:15)
[2017-09-07 05:22] LABS: HEMOGLOBIN 8.3 g/dL (12.0-18.0); MEAN CELL VOLUME 92.7 fl (80.0-94.0); MEAN CORPUSCULAR HEMOGLOBIN 32.1 pg (27.0-31.0); MEAN CORPUSCULAR HGB CONC 34.6 g/dL (33.0-37.0); RBC 2.58 Mil/uL (4.40-5.90); RED CELL DISTRIBUTION WIDTH 14.9 % (11.5-14.5); WHITE BLOOD COUNT 9.2 K/uL (4.8-10.8)
[2017-09-07 05:36] LABS: INR 1.1 (0.9-1.2); PARTIAL THROMBOPLASTIN TIME 30.1 Seconds (25.6-37.1); PROTHROMBIN TIME 12.6 Seconds (9.8-13.1)
[2017-09-07 05:56] LABS: ALBUMIN 3.5 g/dL (3.5-5.0); CALCIUM 8.5 mg/dL (8.4-10.2)
[2017-09-07] MEDS: Insulin Regular 100 units/ml SC SCH ×3 (07:38→17:26)
--- NOTE | 2017-09-07 09:21 | CP.PCM.PN ---
Subjective - Date & Time of Evaluation Date of Evaluation: 09/07/17 Time of Evaluation: 07:30 - Subjective Subjective: Patient seen and examined at bedside this morning. NAD, no acute events overnight. Patient denies any f/c/n/v, chest pain, SOB, abdominal pain or urinary discomfort. Good appetite. Patient is aware of his HD today. Objective - Vital Signs/Intake and Output Vital Signs (last 24 hours): Temp Pulse Resp BP Pulse Ox 97.7 F 92 H 18 185/80 H 99 09/07/17 08:00 09/07/17 08:00 09/07/17 08:00 09/07/17 08:00 09/07/17 08:00 - Medications Medications: Current Medications Amlodipine Besylate (Norvasc) 5 mg PO DAILY [facility] Last Admin: 09/06/17 13:53 Dose: 5 mg Aspirin (Aspirin Chewable) 81 mg PO DAILY [facility] Last Admin: 09/06/17 08:41 Dose: 81 mg Atorvastatin Calcium (Lipitor) 40 mg PO HS [facility] Last Admin: 09/06/17 21:34 Dose: 40 mg Cinacalcet (Sensipar) 30 mg PO DAILY [facility] Last Admin: 09/06/17 08:42 Dose: 30 mg Dextrose (Dextrose 50% Inj) 0 ml IV STAT PRN; Protocol PRN Reason: Hypoglycemia Protocol Dextrose (Glutose 15) 0 gm PO ONCE PRN; Protocol PRN Reason: Hypoglycemia Protocol Epoetin Simeon (Procrit) 4,000 unit IV MWF [facility] Last Admin: 09/04/17 08:14 Dose: 4,000 unit Furosemide (Lasix) 40 mg PO BID [facility] Glucagon (Glucagen Diagnostic Kit) 0 mg IM STAT PRN; Protocol PRN Reason: Hypoglycemia Protocol Heparin Sodium (Porcine) (Heparin) 5,000 units SC Q12 [facility] PRN Reason: Protocol Last Admin: 09/06/17 21:35 Dose: 5,000 units Vancomycin HCl 1 gm/ Sodium (Chloride) 250 mls @ 166.667 mls/hr IVPB MWF [facility] PRN Reason: Protocol Last Admin: 09/04/17 08:20 Dose: 166.667 mls/hr Tobramycin Sulfate 120 mg/ (Sodium Chloride) 103 mls @ 100 mls/hr IV [facility] [place] PRN Reason: Protocol Last Admin: 06/01/18 08:21 Dose: 100 mls/hr Insulin Detemir (Levemir) 43 units SC HS [facility] Last Admin: 09/06/17 21:53 Dose: Not Given Insulin Human Regular (Humulin R) 14 units SC ACTID [facility] Last Admin: 09/07/17 07:38 Dose: Not Given Levothyroxine Sodium (Synthroid) 75 mcg PO DAILY@0630 [facility] Last Admin: 09/01/17 05:40 Dose: 75 mcg Losartan Potassium (Cozaar) 100 mg PO DAILY [facility] Last Admin: 09/01/17 08:23 Dose: 100 mg - Labs Labs: 09/07/17 04:20 09/07/17 04:20 PT 12.6 Seconds (9.8-13.1) 09/07/17 04:20 INR 1.1 (0.9-1.2) 09/07/17 04:20 APTT 30.1 Seconds (25.6-37.1) 09/07/17 04:20 - Constitutional Appears: No Acute Distress - Head Exam Head Exam: NORMAL INSPECTION - Eye Exam Eye Exam: Normal appearance - ENT Exam ENT Exam: Mucous Membranes Moist - Neck Exam Neck Exam: Normal Inspection - Respiratory Exam Respiratory Exam: Clear to Ausculation Bilateral, NORMAL BREATHING PATTERN - Cardiovascular Exam Cardiovascular Exam: REGULAR RHYTHM - GI/Abdominal Exam GI & Abdominal Exam: Soft, Normal Bowel Sounds - Extremities Exam Additional comments: mild b/l LE edema - Back Exam Back Exam: absent: CVA tenderness (L), CVA tenderness (R) - Neurological Exam Neurological Exam: Alert, Awake, Oriented x3 - Psychiatric Exam Psychiatric exam: Normal Affect - Skin Skin Exam: Dry, Intact, Normal Color, Warm Assessment and Plan - Assessment and Plan (Free Text) Assessment: A/P: 41 y/o M with a PMHx of IDDM Type 2, HLD, HTN and CKD on HD (MWF) admitted for Gram positive, staph aureus bacteremia. Gram positive cocci, Staph Aureus, bacteremia -No leukocytosis, Afebrile -Blood Culture (2x through cental v. access and 1x peripheral vein): gram positive cocci growth -ID consult, Dr Perez. -A per ID, Dr Perez, Vancomycin 1gm post-hemodialysis (MWF) day3 and IV Tobramycin 140mg post-hemodialysis (MWF) day3 -S/p Clindamycin 300mg Q12H day 2 -Permacatheter removed on 09/02 by IR, Dr Hightower -Urine Cx with NO growth; Lyme IgM negative; HIV neg; Hepatitis B and C negative ; CRP 156-high; ESR 79-high -F/u Rickettsia Ab -F/u blood culture 09/03: NGPD -New Bcx 09/05: No growth after 48 hours -Vanco Trough <5.0, sub-therapeutic, (09/07/17) -Tobramycin, random level 1.1 -Will follow up ID recommendations (Possible Vanco for 1 week after discharge) -Possible discharge home after Tunnel cath tomorrow Chronic Kidney Disease -HD on MWF,immature HD fistulat in L arm, and permacatheter removed 09/01 due to bacteremia -Non tunneled HD catheter placed, right subclavian catheter (09/04) by Dr. Hansen -c/w home meds -Nephrology consult appreciated -Patient to follow up vein and access Center for Left forearm AV fistula evaluation, HD will schedule an appt for patient -HD today, BUN 73, Cr 9.1 -Possible Tunnel cath placement tomorrow as per Dr. Hightower HTN -Uncontrolled, will monitor post-HD BP -Amlodipine 5mg started 09/06/17, will monitor for swelling -Hold losartan, clonidine and furosemide -Will follow up Nephro recommendations IDDM type 2 -Last HbA1c 6.2 on 01/16/17 -Continue with medications: insulin, aspirin and Lipitor. Normocytic Anemia -H/H: 8.3/23.9 today -On procrit Hypothyroidism -TSH < 0.02. -Hold Levothyroxine. DVT prophylaxis -Heparin 5,000 SC Q12H -SCDs
[2017-09-07] MEDS: Epoetin Alfa 4000 UNIT/ML Inj IV SCH (10:11)
--- NOTE | 2017-09-07 10:15 | CP.PCM.PN ---
Subjective - Date & Time of Evaluation Date of Evaluation: 09/07/17 Time of Evaluation: 10:11 - Subjective Subjective: Dialysis note He was seen on hemodialysis Patient is being dialyzed via the right subclavian catheter. Afebrile feeling good no nausea no vomiting. Objective - Vital Signs/Intake and Output Vital Signs (last 24 hours): Temp Pulse Resp BP Pulse Ox 97.7 F 92 H 18 185/80 H 99 09/07/17 08:00 09/07/17 08:00 09/07/17 08:00 09/07/17 08:00 09/07/17 08:00 - Medications Medications: Current Medications Amlodipine Besylate (Norvasc) 5 mg PO DAILY [facility] Last Admin: 09/06/17 13:53 Dose: 5 mg Aspirin (Aspirin Chewable) 81 mg PO DAILY [facility] [place] Last Admin: 09/06/17 08:41 Dose: 81 mg Atorvastatin Calcium (Lipitor) 40 mg PO HS [facility] [place] Last Admin: 09/06/17 21:34 Dose: 40 mg Cinacalcet (Sensipar) 30 mg PO DAILY [facility] [place] Last Admin: 09/06/17 08:42 Dose: 30 mg Dextrose (Dextrose 50% Inj) 0 ml IV STAT PRN; Protocol PRN Reason: Hypoglycemia Protocol Dextrose (Glutose 15) 0 gm PO ONCE PRN; Protocol PRN Reason: Hypoglycemia Protocol Epoetin Simeon (Procrit) 4,000 unit IV [facility] [place] Last Admin: 09/04/17 08:14 Dose: 4,000 unit Furosemide (Lasix) 40 mg PO BID [facility] Glucagon (Glucagen Diagnostic Kit) 0 mg IM STAT PRN; Protocol PRN Reason: Hypoglycemia Protocol Heparin Sodium (Porcine) (Heparin) 5,000 units SC Q12 [facility] PRN Reason: Protocol Last Admin: 09/06/17 21:35 Dose: 5,000 units Vancomycin HCl 1 gm/ Sodium (Chloride) 250 mls @ 166.667 mls/hr IVPB [facility] [place] PRN Reason: Protocol Last Admin: 09/04/17 08:20 Dose: 166.667 mls/hr Tobramycin Sulfate 120 mg/ (Sodium Chloride) 103 mls @ 100 mls/hr IV [facility] [place] PRN Reason: Protocol Last Admin: 09/04/17 08:21 Dose: 100 mls/hr Insulin Detemir (Levemir) 43 units SC [facility] Last Admin: 09/06/17 21:53 Dose: Not Given Insulin Human Regular (Humulin R) 14 units SC ACTID [facility] [place] Last Admin: 09/07/17 07:38 Dose: Not Given Levothyroxine Sodium (Synthroid) 75 mcg PO DAILY@0630 [facility] [place] Last Admin: 09/01/17 05:40 Dose: 75 mcg Losartan Potassium (Cozaar) 100 mg PO DAILY [facility] [place] Last Admin: 09/01/17 08:23 Dose: 100 mg - Labs Labs: 09/07/17 04:20 09/07/17 04:20 PT 12.6 Seconds (9.8-13.1) 09/07/17 04:20 INR 1.1 (0.9-1.2) 09/07/17 04:20 APTT 30.1 Seconds (25.6-37.1) 09/07/17 04:20 - Constitutional Appears: No Acute Distress - ENT Exam ENT Exam: Mucous Membranes Moist - Neck Exam Neck Exam: absent: Lymphadenopathy - Respiratory Exam Respiratory Exam: NORMAL BREATHING PATTERN. absent: Chest Wall Tenderness - Cardiovascular Exam Cardiovascular Exam: REGULAR RHYTHM. absent: Gallop, JVD, Rubs - GI/Abdominal Exam GI & Abdominal Exam: Soft, Normal Bowel Sounds - Extremities Exam Extremities Exam: absent: Calf Tenderness - Back Exam Back Exam: absent: CVA tenderness (L), CVA tenderness (R) - Neurological Exam Neurological Exam: Alert - Psychiatric Exam Psychiatric exam: Normal Affect - Skin Skin Exam: absent: Cyanosis Assessment and Plan (1) CKD (chronic kidney disease) requiring chronic dialysis Assessment & Plan: End stage renal disease Patient is receiving hemodialysis now. Via right subclavian catheter. Discussed with the dialysis nurse at the bedside Bacteremia resolved Hypertension continue on antihypertensive medication Hyperphosphatemia continue binders Secondary hyperparathyroidism continue the same medicine Patient to go for permacat. Anemia of chronic kidney disease continue EPO Diabetes mellitus continue medication as per primary team Renal diabetic diet as instructed Status: Acute
--- NOTE | 2017-09-07 13:42 | PQF GENQUE ---
This form is a permanent part of the medical record Dr Joe Alejandro, The attending physician is required to clarify conflicting documentation in the medical record: Sepsis or Bacteremia The following documentation is noted in the medical record: Diagnosis 1: Bacteremia Documented by: Attending Diagnosis 2: Staphylococcus sepsis possibly catheter sepsis Documented by: ID 09/01/17 Diagnosis 3: Sepsis due to gram positive cocci bacteremia. Progress note 09/02 resident Please clarify the appropriate diagnosis for this patient. Patient with a history of ESRD and a chest permcath which was inserted in June of 2017 is admitted with fever and chills. Patient had been camping. Has an immature HD fistula L arm. WBC 10.7 with a L shift, lactic acid 1.3, Procalcitonin 1.42, Blood CS Staph aureus. Treated with IVAB BP 94/48, 102/55, 123/65, 266/92, 97.61, 102/64 HR 112, 103, 104, 83, 125, 86, 125,111, 120 R 16-33 T 100.8, 99.7, 98.9, 102.6 X 2, 102.9 x2, 99.9, 102.6 Clarification of your documentation is requested to better reflect the severity of illness and intensity of treatment of your patient. Indicators present PHYSICIAN'S RESPONSE Based on your medical judgment of the clinical indicators outlined above please clarify the following: [] Practitioner response [] If unable to determine, please check the box, sign and date. Present On Admission (POA) Indicator: [] Present at the time of admission [] Not present at the time of admission [] Clinically Undetermined In responding to this query, please exercise your independent professional judgment. The fact that a question is asked does not imply that any particular answer is desired or expected. Thank you for your clarification on this documentation. If you have any questions please call:[phone] * Thank you, Yanni Avelar RN [facility]
[2017-09-07] MEDS: Insulin Detemir 100 Units/ml Inj SC SCH (22:41)
[2017-09-08 05:04] VITALS: RESP 18
[2017-09-08 05:42] LABS: HEMOGLOBIN 8.5 g/dL (12.0-18.0); MEAN CELL VOLUME 92.8 fl (80.0-94.0); MEAN CORPUSCULAR HEMOGLOBIN 31.8 pg (27.0-31.0); MEAN CORPUSCULAR HGB CONC 34.3 g/dL (33.0-37.0); RBC 2.67 Mil/uL (4.40-5.90); RED CELL DISTRIBUTION WIDTH 14.9 % (11.5-14.5); WHITE BLOOD COUNT 8.2 K/uL (4.8-10.8)
[2017-09-08 05:52] LABS: ALBUMIN 3.6 g/dL (3.5-5.0); CALCIUM 8.3 mg/dL (8.4-10.2)
[2017-09-08] MEDS: Insulin Regular 100 units/ml SC SCH (08:28)
[2017-09-08] MEDS ORDERED: LIDOCAINE 2% 10ML 20 MG/ML VIAL IJ ONE (09:34)
[2017-09-08] MEDS ORDERED: Midazolam 2 MG/2 ML VIAL ONE (09:40)
--- NOTE | 2017-09-08 10:11 | CP.PCM.PN ---
Subjective - Date & Time of Evaluation Date of Evaluation: 09/08/17 Time of Evaluation: 10:10 - Subjective Subjective: No chest pain no shortness of breath no difficulty breathing patient appeared to be stable Objective - Vital Signs/Intake and Output Vital Signs (last 24 hours): Temp Pulse Resp BP Pulse Ox 97.0 F L 89 18 175/78 H 100 09/08/17 09:40 09/08/17 09:40 09/08/17 09:40 09/08/17 09:40 09/08/17 09:40 - Medications Medications: Current Medications Amlodipine Besylate (Norvasc) 5 mg PO DAILY [facility] Last Admin: 09/08/17 08:29 Dose: 5 mg Aspirin (Aspirin Chewable) 81 mg PO DAILY [facility] Last Admin: 09/07/17 14:17 Dose: 81 mg Atorvastatin Calcium (Lipitor) 40 mg PO HS [facility] Last Admin: 09/07/17 21:37 Dose: 40 mg Cinacalcet (Sensipar) 30 mg PO DAILY [facility] Last Admin: 09/07/17 14:13 Dose: 30 mg Dextrose (Dextrose 50% Inj) 0 ml IV STAT PRN; Protocol PRN Reason: Hypoglycemia Protocol Dextrose (Glutose 15) 0 gm PO ONCE PRN; Protocol PRN Reason: Hypoglycemia Protocol Epoetin Simeon (Procrit) 4,000 unit IV [facility] [place] Last Admin: 09/07/17 10:11 Dose: 4,000 unit Furosemide (Lasix) 40 mg PO BID [facility] Glucagon (Glucagen Diagnostic Kit) 0 mg IM STAT PRN; Protocol PRN Reason: Hypoglycemia Protocol Heparin Sodium (Porcine) (Heparin) 5,000 units SC Q12 [facility] PRN Reason: Protocol Last Admin: 09/07/17 21:37 Dose: 5,000 units Vancomycin HCl 1 gm/ Sodium (Chloride) 250 mls @ [facility] Reason: Protocol Last Admin: 09/07/17 14:14 Dose: 166.667 mls/hr Tobramycin Sulfate 120 mg/ (Sodium Chloride) 103 mls @ 100 mls/hr [place] [facility] [place] PRN Reason: Protocol Last Admin: 09/07/17 14:17 Dose: 100 mls/hr Insulin Detemir (Levemir) 43 units SC [facility] Last Admin: 09/07/17 22:41 Dose: 43 units Insulin Human Regular (Humulin R) 14 units SC ACTID [facility] Last Admin: 09/08/17 08:28 Dose: Not Given Levothyroxine Sodium (Synthroid) 75 mcg PO DAILY@0630 [facility] Last Admin: 09/01/17 05:40 Dose: 75 mcg Losartan Potassium (Cozaar) 100 mg PO DAILY [facility] Last Admin: 09/01/17 08:23 Dose: 100 mg - Labs Labs: 09/08/17 04:20 09/08/17 04:20 PT 12.6 Seconds (9.8-13.1) 09/07/17 04:20 INR 1.1 (0.9-1.2) 09/07/17 04:20 APTT 30.1 Seconds (25.6-37.1) 09/07/17 04:20 - Constitutional Appears: No Acute Distress - Eye Exam Eye Exam: Conjunctival injection - ENT Exam ENT Exam: absent: Mucous Membranes Moist - Neck Exam Neck Exam: absent: Lymphadenopathy - Respiratory Exam Respiratory Exam: NORMAL BREATHING PATTERN. absent: Chest Wall Tenderness, Rales - Cardiovascular Exam Cardiovascular Exam: REGULAR RHYTHM. absent: Gallop, JVD - GI/Abdominal Exam GI & Abdominal Exam: Soft, Normal Bowel Sounds - Extremities Exam Extremities Exam: absent: Calf Tenderness - Back Exam Back Exam: absent: CVA tenderness (L), CVA tenderness (R) - Neurological Exam Neurological Exam: Alert - Psychiatric Exam Psychiatric exam: Normal Affect - Skin Skin Exam: absent: Cyanosis Assessment and Plan (1) CKD (chronic kidney disease) requiring chronic dialysis Assessment & Plan: Patient appears to be comfortable Patient to have replacement of the temporary catheter with a permacath so he can go home. Bacteremia resolved Hypertension continue on antihypertensive medication Hyperphosphatemia continue binders Secondary hyperparathyroidism continue the same medicine Patient to go for permacath. Anemia of chronic kidney disease continue EPO Diabetes mellitus continue medication as per primary team Renal diabetic diet as instructed Status: Acute
--- NOTE | 2017-09-08 10:38 | PCM.SURG1 ---
Surgeon's Initial Post Op Note - Surgeon's Notes Surgeon: Hitesh Hightower MD English Drawer: None Type of Anesthesia: MAC Pre-Operative Diagnosis: ESRD requiring HD Operative Findings: indwelling right IJ access non-tunnelled HD catheter. exchanged for new right IJ access tunnelled HD catheter. catheter size: 15.5 tajik 23 cm tip to cuff. catheter tip: upper RA Post-Operative Diagnosis: same Operation Performed: removal of non-tunnelled HD catheter. tunnelled HD catheter insertion Specimen/Specimens Removed: n/a Estimated Blood Loss: EBL {In ML}: 5 Date of Surgery/Procedure: 09/08/17 Time of Surgery/Procedure: 10:15
[2017-09-08 11:47] VITALS: O2SAT 98
[2017-09-08 12:13] VITALS: BP 155/82; PULSE 87; TEMP 98.1
--- NOTE | 2017-09-08 12:32 | CP.PCM.DIS ---
Provider - Provider Date of Admission: 08/31/17 10:49 Attending physician: Paradise Lockett MD Primary care physician: [facility], Consults: Nephargelia, Dr. Hightower, Dr. Dipti SY, Dr. Ana ZHANG, Dr. Hightower Time Spent in preparation of Discharge (in minutes): 40 Diagnosis - Discharge Diagnosis (1) Staph aureus infection Status: Acute (2) Sepsis Status: Resolved (3) CKD (chronic kidney disease) Status: Chronic (4) HTN (hypertension) Status: Chronic (5) IDDM (insulin dependent diabetes mellitus) Status: Chronic (6) Normocytic anemia Status: Chronic (7) Hypothyroid Status: Chronic Hospital Course - Lab Results Lab Results: Micro Results 09/03/17 11:26 Blood Blood Culture - Final NO GROWTH AFTER 5 DAYS 09/03/17 11:26 Blood Gram Stain - Final TEST NOT PERFORMED 09/05/17 06:10 Blood Blood Culture - Preliminary NO GROWTH AFTER 3 DAYS 09/07/17 04:20 Blood-During Dialysis Blood Culture - Preliminary NO GROWTH AFTER 24 HOURS 09/02/17 03:32 Blood Blood Culture - Final NO GROWTH AFTER 5 DAYS 09/02/17 03:32 Blood Gram Stain - Final TEST NOT PERFORMED 09/02/17 03:32 Blood S.aureus & Coag-Neg Staph PNA FISH - Final 09/02/17 03:32 Blood Blood Culture - Final Staphylococcus Aureus 09/02/17 03:32 Blood Gram Stain - Final 09/02/17 15:30 Catheter Tip Catheter Tip Culture - Final No growth. 08/31/17 18:05 Blood-Thru Central Line S.aureus & Coag-Neg Staph PNA FISH - Final 08/31/17 18:05 Blood-Thru Central Line Blood Culture - Final Staphylococcus Aureus 08/31/17 18:05 Blood-Thru Central Line Gram Stain - Final 08/31/17 09:00 Blood Blood Culture - Final Staphylococcus Aureus 08/31/17 09:00 Blood Gram Stain - Final 08/31/17 08:23 Blood S.aureus & Coag-Neg Staph PNA FISH - Final 08/31/17 08:23 Blood Blood Culture - Final Staphylococcus Aureus 08/31/17 08:23 Blood Gram Stain - Final 08/31/17 09:40 Urine Urine Culture - Final No Growth (<1,000 CFU/ML) Most Recent Lab Values WBC 8.2 K/uL (4.8-10.8) 09/08/17 04:20 RBC 2.67 Mil/uL (4.40-5.90) L 09/08/17 04:20 Hgb 8.5 g/dL (12.0-18.0) L 09/08/17 04:20 Hct 24.8 % (35.0-51.0) L 09/08/17 04:20 MCV 92.8 fl (80.0-94.0) 09/08/17 04:20 MCH 31.8 pg (27.0-31.0) H 09/08/17 04:20 MCHC 34.3 g/dL (33.0-37.0) 09/08/17 04:20 RDW 14.9 % (11.5-14.5) H 09/08/17 04:20 Plt Count 212 K/uL (130-400) 09/08/17 04:20 MPV 10.3 fl (7.2-11.7) 09/05/17 05:45 Neut % (Auto) 67.4 % (50.0-75.0) 09/05/17 05:45 Lymph % (Auto) 20.9 % (20.0-40.0) 09/05/17 05:45 [place] % (Auto) 9.6 % (0.0-10.0) 09/05/17 05:45 Eos % (Auto) 1.7 % (0.0-4.0) 09/05/17 05:45 Baso % (Auto) 0.4 % (0.0-2.0) 09/05/17 05:45 Neut # (Auto) 5.5 K/uL (1.8-7.0) 09/05/17 05:45 Lymph # (Auto) 1.7 K/uL (1.0-4.3) 09/05/17 05:45 [place] # (Auto) 0.8 K/uL (0.0-0.8) 09/05/17 05:45 Eos # (Auto) 0.1 K/uL (0.0-0.7) 09/05/17 05:45 Baso # (Auto) 0.0 K/uL (0.0-0.2) 09/05/17 05:45 Neutrophils % (Manual) 86 % (42-75) H 08/31/17 08:23 Band Neutrophils % 1 % (0-2) 08/31/17 08:23 Lymphocytes % (Manual) 9 % (20-50) L 08/31/17 08:23 Monocytes % (Manual) 4 % (0-10) 08/31/17 08:23 Toxic Granulation Present 08/31/17 08:23 Platelet Estimate Normal (NORMAL) 08/31/17 08:23 Hypochromasia (manual) Slight 08/31/17 08:23 Anisocytosis (manual) Slight 08/31/17 08:23 ESR 79 mm/hr (0-15) H 09/01/17 09:39 PT 12.6 Seconds (9.8-13.1) 09/07/17 04:20 INR 1.1 (0.9-1.2) 09/07/17 04:20 APTT 30.1 Seconds (25.6-37.1) 09/07/17 04:20 pO2 44 mm/Hg (30-55) 08/31/17 11:43 VBG pH 7.37 (7.32-7.43) 08/31/17 11:43 VBG pCO2 41 mmHg (40-60) 08/31/17 11:43 VBG HCO3 23.2 mmol/L 08/31/17 11:43 VBG Total CO2 25.0 mmol/L (22-28) 08/31/17 11:43 VBG O2 Sat (Calc) 84.3 % (40-65) H 08/31/17 11:43 VBG Base Excess -1.5 mmol/L (0.0-2.0) L 08/31/17 11:43 VBG Potassium 5.5 mmol/L (3.6-5.2) H 08/31/17 11:43 Sodium 129.0 mmol/L (132-148) L 08/31/17 11:43 Chloride 94.0 mmol/L (98-107) L 08/31/17 11:43 Glucose 113 mg/dL (75-110) H 08/31/17 11:43 Lactate 1.2 mmol/L (0.7-2.1) 08/31/17 11:43 FiO2 21.0 % 08/31/17 11:43 Sodium 138 mmol/l (132-148) 09/08/17 04:20 Potassium 4.3 MMOL/L (3.6-5.0) 09/08/17 04:20 Chloride 99 mmol/L (98-107) 09/08/17 04:20 Carbon Dioxide 28 mmol/L (22-30) 09/08/17 04:20 Anion Gap 15 (10-20) 09/08/17 04:20 BUN 54 mg/dl (9-20) H 09/08/17 04:20 Creatinine 7.1 mg/dl (0.8-1.5) H 09/08/17 04:20 Est GFR ( Amer) 10 09/08/17 04:20 Est GFR (Non-Af Amer) 9 09/08/17 04:20 POC Glucose (mg/dL) 83 mg/dL (65-110) 09/08/17 10:46 Random Glucose 127 mg/dL (75-110) H 09/08/17 04:20 Lactic Acid 1.2 MMOL/L (0.7-2.1) 08/31/17 21:58 Calcium 8.3 mg/dL (8.4-10.2) L 09/08/17 04:20 Total Bilirubin 0.5 mg/dl (0.2-1.3) 09/08/17 04:20 AST 38 U/L (17-59) 09/08/17 04:20 ALT 48 U/L (21-72) 09/08/17 04:20 Alkaline Phosphatase 100 U/L (38-126) 09/08/17 04:20 C-Reactive Protein 156.50 mg/L (0.0-9.9) H 09/01/17 09:39 Total Protein 7.2 G/DL (6.3-8.2) 09/08/17 04:20 Albumin 3.6 g/dL (3.5-5.0) 09/08/17 04:20 Globulin 3.6 gm/dL (2.2-3.9) 09/08/17 04:20 Albumin/Globulin Ratio 1.0 (1.0-2.1) 09/08/17 04:20 Lipase 198 U/L (23-300) 08/31/17 21:58 Procalcitonin 4.77 NG/ML (0.19-0.49) H 09/02/17 08:35 TSH 3rd Generation < 0.02 mIU/ML (0.46-4.68) L 09/02/17 05:55 Venous Blood Potassium 5.5 mmol/L (3.6-5.2) H 08/31/17 11:43 Urine Color Yellow (YELLOW) 08/31/17 09:40 Urine Clarity Clear (Clear) 08/31/17 09:40 Urine pH 7.0 (5.0-8.0) 08/31/17 09:40 Ur Specific [place] 1.012 (1.003-1.030) 08/31/17 09:40 Urine Protein >=500 mg/dL (NEGATIVE) 08/31/17 09:40 Urine Glucose (UA) 50 mg/dL (Normal) 08/31/17 09:40 Urine Ketones Negative mg/dL (NEGATIVE) 08/31/17 09:40 Urine Blood Small (NEGATIVE) 08/31/17 09:40 Urine Nitrate Negative (NEGATIVE) 08/31/17 09:40 Urine Bilirubin Negative (NEGATIVE) 08/31/17 09:40 Urine Urobilinogen 0.2-1.0 mg/dL (0.2-1.0) 08/31/17 09:40 Ur Leukocyte Esterase Neg [place]/uL (Negative) 08/31/17 09:40 Urine RBC (Auto) 10 /hpf (0-3) H 08/31/17 09:40 Urine Microscopic WBC 3 /hpf (0-5) 08/31/17 09:40 Ur Squamous Epith Cells 1 /hpf (0-5) 08/31/17 09:40 Urine Bacteria Rare (<OCC) 08/31/17 09:40 Random Gentamicin 7.4 ug/mL 09/01/17 05:15 Random Tobramycin 1.1 ug/mL 09/06/17 13:30 Vancomycin Trough < 5.0 ug/mL (5.0-10.0) L 09/07/17 11:11 Random Vancomycin 6.1 ug/mL 09/03/17 12:25 TANNER Nuclear Membr Pat Negative (Negative) 09/01/17 09:39 Lyme Disease IgM Ab Negative (NEGATIVE) 09/01/17 05:15 Hep Bs Antigen Negative (NEGATIVE) 08/31/17 15:43 Hep Bs Antibody Positive (NEGATIVE) 08/31/17 15:43 Hep B Core IgM Ab Negative (NEGATIVE) 08/31/17 15:43 Hepatitis C Antibody Negative (NEGATIVE) 08/31/17 15:43 HIV 1&2 Ag/Ab, 4th Gen Nonreactive (Nonreactive) 09/01/17 05:15 Influenza Typ A,B (EIA) Negative for flu a/b (NEGATIVE) 08/31/17 08:44 - Hospital Course Hospital Course: 41 y/o M with a PMHx of IDDM type, HKD, HTN, CKD on HD MWF with tunneled cath , anemia, morbid obesity and hypothyroidism admitted on 08/31 for staph aureus sepsis. After admission Tunneled cath removed and non-tunneled cath palced for HD. ID and Nephro consulted and started on Vancomycin, Tobramycin and clinda ( Bcx on abx: no growth). Patient's home BP medications were held with Levothyroxine due to TSH <0.02 during inpatient. Patient was discharged home on Vancomycin 7 doses post HD (MWF). Tunneled cath was placed before discharge and HD Fistula: patient to follow with Vein access center for fistula maturation ( Appt to be given by HD unit). Patient was discharge home with following instruction: STOP Lasix, Clonidine and Levothyroxine, Losartan decreased from 100mg to 50mg daily, continue home insulin and follow up PMD. Discharge Exam - Head Exam Head Exam: NORMAL INSPECTION - Eye Exam Eye Exam: Normal appearance Pupil Exam: NORMAL ACCOMODATION - ENT Exam ENT Exam: Normal Exam - Neck Exam Additional comments: right IJ tunnelled HD catheter - Respiratory Exam Respiratory Exam: Clear to PA & Lateral, NORMAL BREATHING PATTERN - Cardiovascular Exam Cardiovascular Exam: REGULAR RHYTHM - GI/Abdominal Exam GI & Abdominal Exam: Normal Bowel Sounds - Extremities Exam Additional comments: mild edema - Back Exam Back exam: absent: CVA tenderness (L), CVA tenderness (R) - Neurological Exam Neurological exam: Alert, CN II-XII Intact, Oriented x3 - Psychiatric Exam Psychiatric exam: Normal Affect - Skin Skin Exam: Dry, Intact, Normal Color, Warm Discharge Plan - Discharge Medications Prescriptions: Aspirin [Aspirin Chewable] 81 mg PO DAILY 30 Days #30 chew Atorvastatin [Lipitor] 40 mg PO HS #30 tab Calcitriol 0.25 mcg PO DAILY 3 Days #30 capsule Calcium Acetate [Phoslo] 2,001 mg PO TID #90 tab Cinacalcet [Sensipar] 30 mg PO DAILY #30 tab Insulin Glargine,Hum.rec.anlog [Basaglar Kwikpen U-100] 43 units SUBCON HS 30 Days insuln.pen Insulin Human Regular [HumuLIN R] 12 unit SC ACTID 30 Days ml Losartan [Cozaar] 50 mg PO DAILY #30 tab - Follow Up Plan Condition: STABLE Disposition: HOME/ ROUTINE Instructions: Sepsis, Adult (DC), Chronic Kidney Disease (DC) Additional Instructions: All patient medications sent to patient pharmacy Patient to follow with PMD 09/16/17 @ 1 pm HD MFW, IV Vanco to be infused x 7 doses MWF CBC and BMP after abx completion HD Fistula: patient to follow with Vein access center for follow up of fistula maturation Referrals: Seng Jerome DO [Family Provider] -
--- NOTE | 2017-09-11 11:42 | VASCULAR ---
PROCEDURE: TUNNELED HEMODIALYSIS CATHETER PLACEMENT CLINICAL HISTORY: 41-year-old male with immature AV fistula requiring hemodialysis is referred to Interventional Radiology for tunneled hemodialysis catheter placement. PROCEDURE: 1. Removal of right non-tunneled hemodialysis catheter. 2. Insertion of tunneled hemodialysis catheter. 3. Fluoroscopic localization of catheter tip. PRE-PROCEDURE FINDINGS: 1. Indwelling right internal jugular access non tunneled hemodialysis catheter. POST-PROCEDURE FINDINGS: 1. Placement of 15.5 [place] tunneled hemodialysis catheter. 2. Catheter tip in upper right atrium. INTERVENTIONAL RADIOLOGIST: Hitesh Hightower M.D. (the attending was present for the entire procedure) ANESTHESIA: Provided by the attending anesthesiologist. Sedation was supervised by the anesthesiology attending with the presence of independent radiology nursing monitoring. Physiological data monitoring was performed throughout the entire procedure. The patient's blood pressure, EKG and pulse oximetry were recorded. The patient tolerated the procedure and sedation without untoward reactions. The intra-procedural sedation time was 20 minutes. MEDICATION: Lidocaine 1% for local subcutaneous analgesia. COMPLICATIONS: None. RADIATION DOSE: Fluoroscopy Time: 209.9 seconds Cumulative Dose: 106.64 mGy PROCEDURE DESCRIPTION AND FINDINGS: The risks, benefits, alternatives and possible complications of the procedure were fully discussed; all questions were answered and informed consent was obtained. The patient was brought into the interventional suite and a pre-procedure 'time-out' was performed. The patient was placed on the fluoroscopy table in the supine position. The right neck, indwelling non tunneled hemodialysis catheter and right upper chest were prepped and draped in the usual sterile fashion. Maximum sterile barrier precautions were maintained throughout the entire procedure. Preliminary fluoroscopic loan reviewer image of the chest demonstrated indwelling right internal jugular access non tunneled hemodialysis catheter. A 0.035 guidewire was advanced centrally via the indwelling catheter to the inferior vena cava. The catheter was removed over the guidewire and exchanged for a peel-away sheath. A site on the upper chest was anesthetized with lidocaine and a small dermatotomy was made. The new catheter was connected to the tunneling device and a subcutaneous tunnel was created. This was used to bring the catheter through to the internal jugular access site. The inner dilator and peel-away sheath was removed over the guidewire and the catheter was inserted into the peel-away sheath and the peel-away removed. The catheter tip was confirmed to be in the upper portion of the right atrium with fluoroscopic guidance. The catheter flushed and aspirated easily. The catheter was secured to the skin utilizing a 2-0 prolene suture. A bio patch infection control device and sterile adhesive dressing were applied. Both ports were heparinized. The patient tolerated the procedure well without immediate post-procedure complications and was transferred back to the floor in stable condition. IMPRESSION: SUCCESSFUL REMOVAL OF NON TUNNELED HEMODIALYSIS CATHETER AND INSERTION OF NEW RIGHT INTERNAL JUGULAR ACCESS TUNNELED HEMODIALYSIS CATHETER.
--- NOTE | 2017-09-11 13:33 | VASCULAR ---
PROCEDURE: Date of procedure: 09/04/2017 Procedure: Placement of a non tunneled hemodialysis catheter, CPT 88642 Medications: 6cc 1 percent lidocaine Radiation:4.51 MGy Fluoro time: 19.3 seconds Images saved: 2 HISTORY: Renal failure TECHNIQUE: Following informed consent, the patient's right neck was prepped and draped in the usual sterile fashion. Ultrasound showed a patent and compressible right internal jugular vein. After the skin was anesthetized with 1% lidocaine, the internal jugular vein was accessed under direct ultrasound guidance with micropuncture technique and a guidewire was advanced under fluoroscopic guidance into the SVC. The venotomy was then dilated to accommodate a non tunneled 15 hemodialysis catheter. An image documenting ultrasound guidance for vascular access was permanently saved. The catheter was tested and has adequate blood return for hemodialysis. The catheter was flushed and loaded with heparin per specified amounts. The catheter was secured to patient's skin. A dressing was applied. Post procedure chest x-ray showed a hemodialysis catheter at the caval atrial junction. IMPRESSION: Placement of a non tunneled 15 centimeter hemodialysis catheter via the right internal jugular vein. The tip of the catheter was confirmed with a postoperative chest x-ray and is at the cavoatrial junction. The catheter is functional ready for use.
--- NOTE | 2017-09-14 12:02 | PCM.SURG1 ---
Surgeon's Initial Post Op Note - Surgeon's Notes Surgeon: Bradly Hansen MD Polysomnograph Tech: NONE Type of Anesthesia: Local Pre-Operative Diagnosis: Renal failure Operative Findings: US showed patent right IJV Post-Operative Diagnosis: Renal failure Operation Performed: non-tunneled HD catheter placement right IJV, 15 cm. Tip is in the SVC. Specimen/Specimens Removed: NONE Estimated Blood Loss: EBL {In ML}: 4 Blood Products Given: N/A Drains Used: No Drains Post-Op Condition: Fair Date of Surgery/Procedure: 09/04/17 Time of Surgery/Procedure: 10:15
== END 2017-09-08 14:54 | disposition home or self-care (01) | DRG 550 ==
LOC: H.ER 07:49 → H.ERHOLD 10:49 → H.TEL 12:40
PROVIDERS: ADMIT Family Medicine Geriatric Medicine; ATTEND Family Medicine Geriatric Medicine
PROC: 5A1D70Z Performance of Urinary Filtration, Intermittent, Less than 6 Hours Per Day (ICD-10-PCS; 2017-08-31)
PROC: 05PY33Z Removal of Infusion Device from Upper Vein, Percutaneous Approach (ICD-10-PCS; 2017-09-02)
PROC: 05HM33Z Insertion of Infusion Device into Right Internal Jugular Vein, Percutaneous Approach (ICD-10-PCS; 2017-09-04)
PROC: B513ZZA Fluoroscopy of Right Jugular Veins, Guidance (ICD-10-PCS; 2017-09-04)
PROC: 5A1D70Z Performance of Urinary Filtration, Intermittent, Less than 6 Hours Per Day (ICD-10-PCS; 2017-09-04)
PROC: 05HM33Z Insertion of Infusion Device into Right Internal Jugular Vein, Percutaneous Approach (ICD-10-PCS; principal; 2017-09-06)
PROC: 5A1D70Z Performance of Urinary Filtration, Intermittent, Less than 6 Hours Per Day (ICD-10-PCS; 2017-09-06)
PROC: 05PY33Z Removal of Infusion Device from Upper Vein, Percutaneous Approach (ICD-10-PCS; 2017-09-06)
DX: T82.7XXA Infection and inflammatory reaction due to other cardiac and vascular devices, implants and grafts, initial encounter (principal); A41.01 Sepsis due to Methicillin susceptible Staphylococcus aureus; E11.22 Type 2 diabetes mellitus with diabetic chronic kidney disease; N18.6 End stage renal disease; J44.1 Chronic obstructive pulmonary disease with (acute) exacerbation; Y83.9 Surgical procedure, unspecified as the cause of abnormal reaction of the patient, or of later complication, without mention of misadventure at the time of the procedure; Y92.9 Unspecified place or not applicable; B96.89 Other specified bacterial agents as the cause of diseases classified elsewhere; D64.9 Anemia, unspecified; E03.9 Hypothyroidism, unspecified; Z68.42 Body mass index [BMI] 45.0-49.9, adult; E78.00 Pure hypercholesterolemia, unspecified; E78.5 Hyperlipidemia, unspecified; I12.9 Hypertensive chronic kidney disease with stage 1 through stage 4 chronic kidney disease, or unspecified chronic kidney disease; N25.81 Secondary hyperparathyroidism of renal origin; Z79.4 Long term (current) use of insulin; Z82.49 Family history of ischemic heart disease and other diseases of the circulatory system; Z83.3 Family history of diabetes mellitus; Z99.2 Dependence on renal dialysis; E66.01 Morbid (severe) obesity due to excess calories; K76.9 Liver disease, unspecified; Z79.899 Other long term (current) drug therapy; I95.9 Hypotension, unspecified; R00.0 Tachycardia, unspecified; B95.61 Methicillin susceptible Staphylococcus aureus infection as the cause of diseases classified elsewhere; Z71.3 Dietary counseling and surveillance